=== PATIENT | female | born 1970 | race African-American/Black ===

== ENCOUNTER → 2016-10-25 | Outpatient (CLI) | payer OTHER ==
[2015-09-19 16:00] VITALS: BP 131/89
[~2016-10-25] MED LIST: ALPR0.5T PO; BIOT25004 PO; CEPH500C PO; CHLO25TA PO; CYCL10TA2 PO; HYDR-2666 PO; IOHEXOL 180 MG/ML 10 ML VIAL. ONE; METH4TAB2 PO; MORP15TA PO; NAPR500T8 PO; OXYC-323 PO; OXYC10TA32 PO; OXYC1TAB8 PO; POTA10TA31 PO; PRED-220 PO; SCOP1PAT TP; SITA1TAB11 PO; SITA1TBM7 PO; methylPREDNISolone ACETATE 40 MG/ML VIAL. ONE; methylPREDNISolone ACETATE 80 MG/ML VIAL. ONE
--- NOTE | 2016-10-26 01:24 | PAIN ---
DATE OF SERVICE: 10/25/2016 DIAGNOSES: Lumbar radiculopathy with post-lumbar laminectomy syndrome. HISTORY OF PRESENT ILLNESS: The patient is a 46-year-old female who returns for followup status post transforaminal injection in 06/2015. The patient had had several appointments that she did not keep since that time, most recently on 07/17/2016. We had discussed changing medication regimen as she failed to follow up on that as well and returns today with new MRI scan and new symptoms in the low back and in the groin bilaterally, but new with left-sided groin pain since 07/2016, which was not present prior to that. The patient reports having significant pulling sensation in the left groin, as well as the right groin, bilateral low back, posterior hips and gluteus as well as the bilateral anterior thighs, worse in the left groin. The patient reports it is worse with sitting and pain all over her back as well. The patient has not had any recent therapies or other treatments by her report. She did have a new MRI scan, which was performed on 10/11/2016 showing shallow left foraminal disk protrusion at L2-L3 causing mild effacement of the left L2 nerve root and previous surgery with right foraminal disk protrusion was residual, but without significant stenosis. The patient reports the pain 8-9 on a scale of 10, described as aching and dull with numbness and pulling sensation in the left groin with some weakness in the lower extremities, but essentially equal with just from easily fatigued feelings with ambulation, standing, walking, changing positions, and also has been awakening her from sleep at night. PHYSICAL EXAMINATION: VITAL SIGNS: The patient's blood pressure 135/98, pulse 98, respirations 18, temperature 98.5 degrees Fahrenheit, height is 5 feet 6 inches, and weight is 166 pounds. GENERAL: The patient is awake, alert, oriented, appropriate, very pleasant demeanor. HEENT: Head shows normocephalic, atraumatic. Extraocular movements are intact and symmetrical. Oral cavity shows mucous membranes moist and pink. Dentition is intact. NECK: Shows anterior throat supple without palpable lymphadenopathy noted. Neck shows full rotational motion of the cervical spine without difficulty. CHEST: Shows normal on inspection. Breath sounds clear to auscultation bilaterally. HEART: Shows S1 and S2 clear. ABDOMEN: Soft, nontender, and nondistended. No palpable organomegaly. No rebound or guarding demonstrated. BACK: Shows spine grossly midline. Normal appearing thoracic kyphosis and some flattening of the lumbar lordotic curvature. There is well-healed surgical scar noted in the lumbar distribution. Lumbar paraspinous musculature is symmetrical on inspection with palpation, tender diffusely throughout the upper, middle and lower distribution bilaterally without radiation. No tenderness over the sacrum or sacroiliac regions. The patient does show good rotational motion; however, lumbar spine including extension and flexion without significant pain reported. EXTREMITIES: Lower extremities show deep tendon reflexes 2+ in the patellar tendons. Motor exam is strong with 5/5 dorsiflexion, extension, quadriceps and hamstring flexion and are equal. Options were discussed with the patient and the patient's old chart was reviewed as her current medication regimen at this time and current review of systems updated today as well. We will proceed with a lumbar epidural steroid injection at the L2-L3 level with fluoroscopic guidance. Risks were again discussed including, but not limited to bleeding, infection, possibility of epidural hematoma, subsequent neurologic compromise, dural puncture, headaches, spinal cord and/or nerve damage, side effects of steroid medication and poor results regarding pain control. The patient understands and wishes to proceed. The patient will return to clinic in approximately 2 weeks for followup, was counseled on return appointment, activity level and side effects to be aware of. DIAGNOSES: Lumbar radiculopathy with post-lumbar laminectomy syndrome. PROCEDURES: Lumbar epidural steroid injection in translaminar approach at the L2-L3 level using fluoroscopic guidance under sterile prep and drape using local anesthetic. MEDICATIONS INJECTED: Depo-Medrol 120 mg plus 10 mL of preservative-free normal saline and 2 mL OF Isovue for contrast. CONDITION AT DISCHARGE: Stable. The patient tolerated the procedure well, had no complications. KIM TODD MD DR: LEXUS/adri JOB#: [id number] / [id number]
== END | disposition home or self-care (01) ==
LOC: PNCL 09:38
PROVIDERS: ATTEND Anesthesiology
DX: M54.16 Radiculopathy, lumbar region (principal); M96.1 Postlaminectomy syndrome, not elsewhere classified; E78.00 Pure hypercholesterolemia, unspecified; I10 Essential (primary) hypertension; E66.9 Obesity, unspecified; M19.90 Unspecified osteoarthritis, unspecified site; E11.9 Type 2 diabetes mellitus without complications; K82.9 Disease of gallbladder, unspecified; K21.9 Gastro-esophageal reflux disease without esophagitis; Z90.49 Acquired absence of other specified parts of digestive tract; Z90.710 Acquired absence of both cervix and uterus
CPT/HCPCS: 62323; J1030; J1040

== ENCOUNTER 2016-12-15 15:01 | Inpatient (IN) | payer OTHER ==
[~2016-12-15] VITALS: Ht 167.6 cm; Wt 75.7 kg
[~2016-12-15 15:01] MED LIST changes: -IOHEXOL 180 MG/ML 10 ML VIAL. ONE; -methylPREDNISolone ACETATE 40 MG/ML VIAL. ONE; -methylPREDNISolone ACETATE 80 MG/ML VIAL. ONE
[2016-12-15] MEDS ORDERED: ORPHENADRINE CITRATE 60 MG/2 ML VIAL. IM ONE (16:00)
[2016-12-15] MEDS ORDERED: HYDROMORPHONE 2 MG/ML VIAL. IM ONE ×2 (16:00→16:45)
--- NOTE | 2016-12-15 16:31 | PHYS DOC ---
Past Medical History Past Medical History: Diabetes-Type II, Hypertension, Other Additional Past Medical Histor: CHRONIC BACK PAIN Past Surgical History: Appendectomy, Cholecystectomy, , Hysterectomy, Other Additional Past Surgical Histo: L- SPINE FUSION X 2 Additional Information: nonsmoker Alcohol Use: None Drug Use: None Adult General Chief Complaint Chief Complaint: BACK PAIN OR INJURY [facility] HPI Patient is a 46 year old female who presents with increase in her chronic back pain starting 3 days ago. She states that she woke up with increase in her pain. She typically has pain in her lower back with radiation down the right leg. Her current pain is in the right shoulder blade or in the left groin. She states that the location of the pain varies based on her position. She believes that it is at least partially due to compensation for pain in 1 area causing pain in another area. She denies any new injury to her back. She has had 2 spinal fusion surgeries. She takes hydromorphone 2mg every 6 hours for pain as well as Flexeril and Gabapentin for pain. She last took her hydromorphone at 0800 today. She denies incontinence of bowel or bladder or saddle anesthesia. She has not had nausea, vomiting, abdominal pain, dysuria, hematuria, or new weakness or numbness. Her PCP is Dr. Gonzalez. Review of Systems Review of Systems Constitutional: Denies fever or chills. [] Eyes: Denies change in visual acuity, redness, or eye pain. [] HENT: Denies ear pain, nasal congestion or sore throat. [] Respiratory: Denies cough or shortness of breath. [] Cardiovascular: Denies chest pain, palpitations or edema. [] GI: Denies abdominal pain, nausea, vomiting, bloody stools or diarrhea. [] : Denies dysuria, hematuria or urinary frequency. [] Musculoskeletal: Denies joint pain. Reports low-back pain. Integument: Denies rash or skin lesions. [] Neurologic: Denies headache, focal weakness or sensory changes. Denies incontinence or saddle anesthesia. Endocrine: Denies polyuria or polydipsia. [] Psych: Denies anxiety or depression. [] All systems reviewed and negative unless otherwise stated in the HPI. Current Medications Current Medications Current Medications Medications (Trade) Dose Ordered Sig/Benita Start Time Stop Time Status Last Admin Dose Admin Diazepam (Valium) 10 mg 1X ONCE 4/8/17 18:00 12/15/16 18:01 DC 12/15/16 18:00 10 MG Hydromorphone HCl (Dilaudid) 1 mg 1X ONCE 12/15/16 16:45 12/15/16 16:46 DC 12/15/16 16:56 1 MG Orphenadrine Citrate (Norflex) 60 mg 1X ONCE 12/15/16 16:00 12/15/16 16:01 DC 12/15/16 16:06 60 MG Allergies Allergies Allergies Coded Allergies Type Severity Reaction Last Updated Verified spironolactone Allergy Intermediate Itching, RASH 09/08/15 Yes tramadol Allergy Intermediate Rash AND VOMITING 09/16/15 Yes Physical Exam Physical Exam Constitutional: Well developed, well nourished, no acute distress, non-toxic appearance. [] HENT: Normocephalic, atraumatic, oropharynx moist. [] Eyes: PERRLA, EOMI, conjunctiva normal, no discharge. [] Neck: Normal range of motion, no tenderness, supple, no stridor. [] Cardiovascular: Heart rate regular rhythm, no murmur. [] Lungs & Thorax: Bilateral breath sounds clear to auscultation without wheezes, rales, or rhonchi. [] Abdomen: Bowel sounds normal, soft, no tenderness, no masses, no pulsatile masses. [] Skin: Warm, dry, no erythema, no rash. [] Back: Lumbar midline tenderness, no CVA tenderness. Right thoracic paraspinal muscle tenderness with muscle spasm. Extremities: No tenderness, ROM intact, no edema. Distal pulses equal bilaterally. Light touch sensation intact proximally and distally and equal bilaterally in the lower extremities. Neurologic: Alert and oriented X 3, normal motor function, normal sensory function, no focal deficits noted. The patient walks with a normal steady gait without assistance. Psychologic: Affect normal, judgement normal, mood normal. [] Current Patient Data Vital Signs Vital Signs Date Time Temp Pulse Resp B/P Pulse Ox O2 Delivery O2 Flow Rate FiO2 12/15/16 16:56 Room Air 12/15/16 15:03 98.1 108 20 137/103 98.1 EKG EKG [] Radiology/Procedures Radiology/Procedures [] Course & Med Decision Making Course & Med Decision Making Pertinent Labs and Imaging studies reviewed. (See chart for details) Patient is a 46-year-old female with history of chronic low-back pain who presents with acute exacerbation of her pain. On exam, she does not have any neurologic deficits. She is neurovascularly intact. She usually takes oral Dilaudid, Flexeril, and gabapentin home. She is given IM Dilaudid and Norflex in the emergency department with minimal improvement in her pain. She was given another dose of Dilaudid without change. She was then given IM Valium to help relax the muscles in the right shoulder causing the majority of her pain. Patient course was discussed with Dr. Anthony, who agrees with assessment and plan. Care was transferred to Cady Gutierrez NP at 1735 pending administration of the Valium and patient response to the medication. I discussed possibility of hospital admission if the patient's pain is unable to be controlled. 1839 patient continues to have pain in the right upper shoulder she states that it's more underneath the shoulder blade. She states that if she sits up that kind of helps with the pain but does not completely take care of the pain. She states although this causes her to have more pain in her lower back ingrown area. Spoke with patient in regards to being admitted call was placed to Dr. Fonseca in which I spoke with Marifer the nurse with the group. She states that they would be consulted and have the patient admitted under the hospitalist. 1914 Spoke with in regards to patient be admitted. They are aware that the consult for Dr. white will be placed. Patient will be provided with pain medication here in the emergency department and will be provided with pain medication ordered for the floor. They were also provided with information that Dr. white staff states that they will determine radiological exams tomorrow. Hospitalist was in agreement with admission. Dragon Disclaimer Dragon Disclaimer This electronic medical record was generated, in whole or in part, using a voice recognition dictation system. Departure Departure Impression: Primary Impression: Acute exacerbation of chronic low back pain Disposition: ADMITTED INPATIENT Admitting Physician: Aris Jackson (and Marifer with Dr Fonseca office) Condition: STABLE Referrals: KATERINE PIERS MD (PCP) JADYN POOL Dec 15, 2016 16:31 CADY GUTIERREZ APRN Dec 15, 2016 19:17
[2016-12-15] MEDS ORDERED: PRED20TA PO (17:07)
[2016-12-15] MEDS ORDERED: DIAZEPAM 10 MG/2 ML DISP.SYRIN. IM ONE (18:00)
[2016-12-15] MEDS ORDERED: ONDANSETRON PF 4 MG/2 ML VIAL. IV PRN (19:30)
[2016-12-15 20:43] VITALS: BP 154/107
[2016-12-15] MEDS: MORPHINE SULFATE 2 MG/ML DISP.SYRIN. IV PRN (20:52)
[2016-12-15] MEDS ORDERED: HYDR2TAB13 PO (21:12)
[2016-12-15] MEDS ORDERED: METF10002 PO (21:12)
[2016-12-15] MEDS ORDERED: GABA-586 PO ×2 (21:12)
[2016-12-15] MEDS ORDERED: BIOT25005 PO (21:12)
[2016-12-15] MEDS ORDERED: DIPHENHYDRAMINE HCL 25 MG CAPSULE PO PRN (21:45)
[2016-12-15 23:10] VITALS: BP_SYST 113; BP_SYST 128; BP_DIAS 54; BP_DIAS 98
[2016-12-16] VITALS (7 sets, daily range): BP systolic 128–147; BP diastolic 86–98
[2016-12-16] MEDS: HYDROMORPHONE 2 MG TABLET. PO PRN ×3 (00:10→17:35)
[2016-12-16] MEDS: MORPHINE SULFATE 2 MG/ML DISP.SYRIN. IV PRN ×6 (00:11→23:50)
[2016-12-16] MEDS: GABAPENTIN 300 MG CAPSULE. PO SCH ×3 (00:11→23:50)
[2016-12-16] MEDS: CHLORTHALIDONE 25 MG TABLET. PO SCH (08:00)
[2016-12-16] MEDS: METFORMIN 1,000 MG TABLET PO SCH ×2 (08:00→16:21)
[2016-12-16] MEDS ORDERED: MAGNESIUM HYDROXIDE 2,400 MG/30 ML ORAL.SUSP. PO PRN (10:30)
[2016-12-16] MEDS: SENNOSIDES/DOCUSATE 8.6/50MG TABLET. PO SCH ×2 (10:57→21:00)
[2016-12-16] MEDS: DOCUSATE SODIUM 100 MG CAPSULE. PO SCH (10:57)
[2016-12-16] MEDS ORDERED: DIAZEPAM 5 MG TABLET PO SCH (11:30)
[2016-12-16] MEDS ORDERED: ONDANSETRON PF 4 MG/2 ML VIAL. IV PRN (12:00)
[2016-12-16] MEDS ORDERED: DEXTROSE 50% 25 GM / 50ML DISP.SYRIN. IV PRN (12:00)
[2016-12-16] MEDS ORDERED: ACETAMINOPHEN 325 MG TABLET. PO PRN (12:00)
--- NOTE | 2016-12-16 12:01 | PDOC1 ---
History and Physical Date of Admission Date of Admission 12/15/16 Identification/Chief Complaint Chief Complaint upper back pain Problems: Source Source: Chart review, Patient History of Present Illness History of Present Illness HPI HPI Patient is a 46 year old female with chronic back pain post sx before, came for upper back pain. She denies injury, saying this upper back pain is new for her, since 3 ds ago, shotting down to right arm, wo numbness/tingling, has some weakness when pain is severe. She has had 2 spinal fusion surgeries. She takes hydromorphone 2mg every 6 hours for pain as well as Flexeril and Gabapentin for pain. She last took her hydromorphone at 0800 today. She denies incontinence of bowel or bladder or saddle anesthesia. She has not had nausea, vomiting, abdominal pain, dysuria, hematuria, or new weakness or numbness. Her PCP is Dr. Gonzalez. ERP called dr. Nixon, would like to admit pt and then decide if need MRI. Past Medical History Past Medical History Diabetes-Type II, Hypertension, Other Additional Past Medical Histor: CHRONIC BACK PAIN Past Surgical History Past Surgical History : Appendectomy, Cholecystectomy, , Hysterectomy, Other Additional Past Surgical Histo: L- SPINE FUSION X 2 Family History Family History: No Significant Social History Smoke: No ALCOHOL: none Drugs: None Current Problem List Problem List Problems Medical Problems: (1) Acute exacerbation of chronic low back pain Status: Acute (2) Upper back pain on right side Status: Acute Current Medications Current Medications Current Medications Medications (Trade) Dose Ordered Sig/Benita Start Time Stop Time Status Last Admin Dose Admin Chlorthalidone (Thalitone) 50 mg DAILY 12/16/16 09:00 12/16/16 08:00 50 MG Cyclobenzaprine HCl (Flexeril) 10 mg PRN TID PRN 12/15/16 21:45 Diazepam (Valium) 10 mg 1X 12/16/16 11:30 12/16/16 11:31 10 MG Diphenhydramine HCl (Benadryl) 25 mg PRN QHS PRN 12/15/16 21:45 Docusate Sodium (Colace) 100 mg BID 12/16/16 11:00 12/16/16 10:57 100 MG Gabapentin (Neurontin) 900 mg HS 12/15/16 22:00 12/16/16 00:11 900 MG Hydromorphone HCl (Dilaudid) 4 mg PRN Q6HRS PRN 12/15/16 21:45 12/16/16 11:12 4 MG Magnesium Hydroxide (Milk Of Magnesia) 2,400 mg PRN Q12HR PRN 12/16/16 10:30 Metformin HCl (Glucophage) 1,000 mg BIDWMEALS 12/16/16 08:00 12/16/16 08:00 1,000 MG Morphine Sulfate 2 mg PRN Q2HR PRN 12/15/16 19:30 12/16/16 19:29 12/16/16 10:57 2 MG Ondansetron HCl (Zofran) 4 mg PRN Q8HRS PRN 12/15/16 19:30 12/16/16 19:29 Orphenadrine Citrate (Norflex) 60 mg 1X ONCE 12/15/16 16:00 12/15/16 16:01 DC 12/15/16 16:06 60 MG Senna/Docusate Sodium (Senna Plus) 1 tab BID 12/16/16 11:00 12/16/16 10:57 1 TAB Allergies Allergies Allergies Coded Allergies Type Severity Reaction Last Updated Verified spironolactone Allergy Intermediate Itching, RASH 09/08/15 Yes tramadol Allergy Intermediate Rash AND VOMITING 09/16/15 Yes ROS Review of System CONSTITUTIONAL: No fever or chills EYES: No recent changes SKIN: No rash or itching CARDIOVASCULAR: No chest pain, syncope, palpitations, or edema RESPIRATORY: No SOB or cough GASTROINTESTINAL: No nausea, vomiting or abdominal pain NEUROLOGICAL: No headaches or weakness ENDOCRINE: No cold or heat intolerance GENITOURINARY: No urgency or frequency of urination MUSCULOSKELETAL: No back pain or joint pain LYMPHATICS: No enlarged lymph nodes PSYCHIATRIC: No anxiety or depression Physical Exam Physical Exam GEN.: No apparent distress. Alert and oriented. HEENT: Head is normocephalic, atraumatic NECK: Supple. LUNGS: Clear to auscultation. HEART: RRR, S1, S2 present. Peripheral pulses intact ABDOMEN: Soft, nontender. Positive bowel sounds. EXTREMITIES: Without any cyanosis. no specific ext weakness, upper back tenderness at spine. NEUROLOGIC: Normal speech, normal tone PSYCHIATRIC: Normal affect, normal mood. SKIN: No ulcerations Vitals Vitals Vital Signs Date Time Temp Pulse Resp B/P Pulse Ox O2 Delivery O2 Flow Rate FiO2 12/16/16 11:27 97 Room Air 12/16/16 11:12 18 12/16/16 10:57 97.8 111 132/92 97.8 Labs Labs Laboratory Tests Test 12/16/16 07:59 12/16/16 10:14 Glucose (Fingerstick) 195mg/dL (70-99) 283mg/dL (70-99) Laboratory Tests Test 12/16/16 07:59 12/16/16 10:14 Glucose (Fingerstick) 195mg/dL (70-99) 283mg/dL (70-99) VTE Prophylaxis Ordered VTE Prophylaxis Devices: Yes VTE Pharmacological Prophylaxi: Yes Assessment/Plan Assessment/Plan 1. new onset upper back pain, need to rule out spinal stenosis 2. chronic back pain with h/o lumber fusion sx x2 3. dm2 4. htn 5. obesity 6. constipation plan: 1. fu with dr. Nixon , defer to neurosx to do MRI 2. cont home meds, pain control 3. ssi 4. ptot dvt ppx stool softALICIA Oleary MD Dec 16, 2016 12:01
[2016-12-16] MEDS: INSULIN ASPART 300 UNITS/3 ML INSULN.PEN SQ SCH ×2 (13:11→16:24)
[2016-12-16 13:32] LABS: BASO % 1 % (0-3); EOS % 3 % (0-3); HEMATOCRIT 36.6 % (36.0-47.0); HEMOGLOBIN 12.5 g/dL (12.0-15.5); LYMPH # 1.8 x10^3/uL (1.0-4.8); LYMPH % 43 % (24-48); MEAN CORPUSCULAR HEMOGLOBIN 29 pg (25-35); MEAN CORPUSCULAR HGB CONC 34 g/dL (31-37); MEAN CORPUSCULAR VOLUME 85 fL (79-100); MONO % 9 % (0-9); NEUT % 44 % (31-73); PLATELET COUNT 260 x10^3/uL (140-400); RED BLOOD COUNT 4.33 x10^6/uL (3.50-5.40); RED CELL DISTRIBUTION WIDTH 15.2 % (11.5-14.5); WHITE BLOOD COUNT 4.1 x10^3/uL (4.0-11.0)
[2016-12-16 13:44] LABS: CALCIUM 9.7 mg/dL (8.5-10.1); CREATININE 0.7 mg/dL (0.6-1.0); GFR 108.1; POTASSIUM 3.1 mmol/L (3.5-5.1)
--- NOTE | 2016-12-16 14:33 | RAD ---
MRI study of the cervical spine without contrast Indications: Right arm pain. Pain between shoulder blades. Cervical radiculopathy. Symptoms have been present for 2 days. Technique: Noncontrast MRI sequences of the cervical spine were performed. Comparison: None available. Findings: No cerebellar tonsillar ectopia is seen. The cervical cord is normal without atrophy or edema. No bone marrow edema or compression fracture or discitis or marrow infiltrative process or anterolisthesis is seen. There is a hemangioma of C7. No focal disc protrusion or spinal canal stenosis or neural from narrowing is seen from C2-3 down through C5-6 and C7-T1. At C6-7, there is a moderate-sized broad-based central disc protrusion is more prominent on the right side and comes in contact with but does not displace the cervical cord. It extends towards the opening of the neural foramen on the right side. This narrows the AP dimension of the spinal canal in the midline to 8 mm. No significant narrowing of the neural foramina is evident. IMPRESSION: There is a moderate-sized broad-based central disc protrusion at C6-7 which is more prominent on the right side.
[2016-12-16] MEDS: ENOXAPARIN 40 MG/0.4 ML SYRINGE. SQ SCH (15:46)
--- NOTE | 2016-12-16 21:09 | CONS ---
DATE OF CONSULTATION: 12/16/2016 REASON FOR CONSULTATION: Right shoulder and arm pain. HISTORY OF PRESENT ILLNESS: The patient is a very pleasant 46-year-old woman who, in the past, has undergone lumbar surgeries for severe right lumbar radiculopathy. She has undergone spine fusion operations and currently requires chronic narcotic medications for severe lower back pain and pain which radiates into her right whole leg. She has been maintained on this regimen for a considerable period. She says that, in the past, she has had some episodes of right-sided neck pain and some pain which could radiate into her right shoulder, but those problems receded when she developed her lower back problems. She says that last week, she awakened with significant pain in the interscapular region, which was very severe. She said the following day that pain had moved over to the right medial scapular area and involved her right medial scapular region and then her right shoulder and then radiated diffusely into her right arm. She related that yesterday the pain became extremely severe with a numb burning pain, which radiated diffusely into the right arm, forearm, and involved her right hand. She has not noticed specific weakness of the hand. She said that the numb feeling was a burning feeling, it felt like her hand was "asleep". She was seen in the Emergency Room and admitted for pain control and further evaluation and treatment. She has no problems on the left side. Her right lower extremity pain remains severe and is unchanged. PAST MEDICAL HISTORY: Diabetes type 2, hypertension, and of problems with her lower back and right lower extremity. PAST SURGICAL HISTORY: Includes appendectomy, cholecystectomy, , hysterectomy, and lumbar spine surgery x 3. PERSONAL HISTORY: She is a disabled. She is a nonsmoker. She does not use alcohol or take illicit drugs. MEDICATIONS: Her medications were reviewed and are noncontributory. ALLERGIES: She reports allergies to spironolactone and tramadol, which both rash. REVIEW OF SYSTEMS: Review of systems of 12-point was performed other outlined above was negative. PHYSICAL EXAMINATION: GENERAL: She is in no acute distress, currently supine in bed, head of bed is elevated about 30 degrees. She was alert and conversant. HEENT: Normocephalic, atraumatic. NECK: There was mild tenderness with palpation along the posterior right paraspinal musculature extending down into the upper medial scapular region. Paraspinal muscle bulk strength I felt were normal. There was slight restriction range of motion with her head turned towards the right compared to the left. NEUROLOGIC: Her strength is 5/5 in upper and lower extremities bilaterally except for 4+/5 right hand grasp. On sensory examination, she was intact to light touch in the upper and lower extremities. Reflexes were 1+ and symmetric in the upper and lower extremities. There were no pathologic reflexes. There was full range of motion of the upper and lower extremities bilaterally. There were no studies for review. She has problems currently with her right cervical radiculopathy in addition to her chronic lower back difficulties. I am going to have MRI scans of the cervical and thoracic spine done today to evaluate her more fully. I discussed all this with her. KATERINE PIRES MD DR: ESTEBAN/adri JOB#: [id number] / [id number] VERNON
[2016-12-17] MEDS: DOCUSATE SODIUM 100 MG CAPSULE. PO SCH ×3 (00:26→20:40)
[2016-12-17] MEDS: MORPHINE SULFATE 2 MG/ML DISP.SYRIN. IV PRN ×3 (05:54→20:41)
[2016-12-17 07:00] VITALS: BP 132/92
[2016-12-17] MEDS: METFORMIN 1,000 MG TABLET PO SCH ×2 (07:53→16:59)
[2016-12-17] MEDS: CHLORTHALIDONE 25 MG TABLET. PO SCH (07:54)
[2016-12-17] MEDS: GABAPENTIN 300 MG CAPSULE. PO SCH (07:54)
[2016-12-17] MEDS: INSULIN ASPART 300 UNITS/3 ML INSULN.PEN SQ SCH ×3 (07:57→16:59)
[2016-12-17] MEDS: SENNOSIDES/DOCUSATE 8.6/50MG TABLET. PO SCH ×2 (07:58→20:42)
[2016-12-17] MEDS: HYDROMORPHONE 2 MG TABLET. PO PRN (07:59)
[2016-12-17 10:38] VITALS: BP 125/94
[2016-12-17] MEDS ORDERED: LORAZEPAM 2 MG/ML VIAL. IV ONE (11:15)
--- NOTE | 2016-12-17 12:27 | RAD ---
MR THORACIC SPINE HISTORY: RIGHT ARM PAIN AND PAIN BETWEEN SHOULDER BLADES, NO SX HX, NO PRIORS Reason: cervical radiculopathy / Spl. Instructions: / History: COMPARISON: None Technique: Sagittal T2, sagittal STIR, sagittal T1, and axial gradient echo imaging was obtained of the thoracic spine. FINDINGS: Vertebral body height and alignment is maintained throughout the thoracic spine. There is a normal thoracic kyphosis. No abnormal bone marrow signal seen. The canal is patent throughout. The cord is of normal caliber without abnormal signal. No significant degenerative changes are identified. Paraspinous soft tissues are within normal limits. Visualized intrathoracic contents are unremarkable. A hepatic cyst is noted. IMPRESSION: Unremarkable MR examination of the thoracic spine. Electronically signed by: Jeromy Shaw (Dec 17, 2016 12:26:06)
--- NOTE | 2016-12-17 12:41 | PDOC ---
PROGRESS NOTES Subjective Subjective Seen at 1130. continues to have neck and right arm pain going to Radiology for thoracic MRI now Objective Objective Vital Signs Date Time Temp Pulse Resp B/P Pulse Ox O2 Delivery O2 Flow Rate FiO2 12/17/16 11:10 Room Air 12/17/16 10:38 97.9 101 18 125/94 96 97.9 Intake and Output 12/17/16 07:00 Intake Total 1950 ml Balance 1950 ml Intake Oral 1950 ml # Voids 4 Physical Exam General: Alert, Oriented X3, Cooperative MUSCULOSKELETAL: Other (STEWARD) Neuro: Normal speech Psych/Mental Status: Mental status NL Assessment Assessment Problems Medical Problems: (1) Acute exacerbation of chronic low back pain Status: Acute (2) Upper back pain on right side Status: Acute Plan Plan of Care reviewed cervical MRI with Dr. Nixon. There is a herniated cervical disc at C5-6 on the right which is slightly more prominent than on previous imaging. Definite nerve root compression was not seen. We will ask Dr. Ken to see her for REJI. Will review thoracic MRI when available. Comment Review of Relevant I have reviewed the following items pretty (where applicable) has been applied. Labs Laboratory Tests Test 12/16/16 07:59 12/16/16 10:14 12/16/16 13:15 12/16/16 15:59 Glucose (Fingerstick) 195mg/dL (70-99) 283mg/dL (70-99) 214mg/dL (70-99) White Blood Count 4.1x10^3/uL (4.0-11.0) Red Blood Count 4.33x10^6/uL (3.50-5.40) Hemoglobin 12.5g/dL (12.0-15.5) Hematocrit 36.6% (36.0-47.0) Mean Corpuscular Volume 85fL (79-100) Mean Corpuscular Hemoglobin 29pg (25-35) Mean Corpuscular Hemoglobin Concent 34g/dL (31-37) Red Cell Distribution Width 15.2% (11.5-14.5) Platelet Count 260x10^3/uL (140-400) Neutrophils (%) (Auto) 44% (31-73) Lymphocytes (%) (Auto) 43% (24-48) Monocytes (%) (Auto) 9% (0-9) Eosinophils (%) (Auto) 3% (0-3) Basophils (%) (Auto) 1% (0-3) Neutrophils # (Auto) 1.8x10^3uL (1.8-7.7) Lymphocytes # (Auto) 1.8x10^3/uL (1.0-4.8) Monocytes # (Auto) 0.4x10^3/uL (0.0-1.1) Eosinophils # (Auto) 0.1x10^3/uL (0.0-0.7) Basophils # (Auto) 0.0x10^3/uL (0.0-0.2) Sodium Level 140mmol/L (136-145) Potassium Level 3.1mmol/L (3.5-5.1) Chloride Level 100mmol/L (98-107) Carbon Dioxide Level 33mmol/L (21-32) Anion Gap 7 (6-14) Blood Urea Nitrogen 14mg/dL (7-20) Creatinine 0.7mg/dL (0.6-1.0) Estimated GFR (Cockcroft-Gault) 108.1 Glucose Level 183mg/dL (70-99) Calcium Level 9.7mg/dL (8.5-10.1) Test 12/17/16 07:19 12/17/16 10:14 Glucose (Fingerstick) 206mg/dL (70-99) 210mg/dL (70-99) Laboratory Tests Test 12/16/16 13:15 12/16/16 15:59 12/17/16 07:19 12/17/16 10:14 White Blood Count 4.1x10^3/uL (4.0-11.0) Red Blood Count 4.33x10^6/uL (3.50-5.40) Hemoglobin 12.5g/dL (12.0-15.5) Hematocrit 36.6% (36.0-47.0) Mean Corpuscular Volume 85fL (79-100) Mean Corpuscular Hemoglobin 29pg (25-35) Mean Corpuscular Hemoglobin Concent 34g/dL (31-37) Red Cell Distribution Width 15.2% (11.5-14.5) Platelet Count 260x10^3/uL (140-400) Neutrophils (%) (Auto) 44% (31-73) Lymphocytes (%) (Auto) 43% (24-48) Monocytes (%) (Auto) 9% (0-9) Eosinophils (%) (Auto) 3% (0-3) Basophils (%) (Auto) 1% (0-3) Neutrophils # (Auto) 1.8x10^3uL (1.8-7.7) Lymphocytes # (Auto) 1.8x10^3/uL (1.0-4.8) Monocytes # (Auto) 0.4x10^3/uL (0.0-1.1) Eosinophils # (Auto) 0.1x10^3/uL (0.0-0.7) Basophils # (Auto) 0.0x10^3/uL (0.0-0.2) Sodium Level 140mmol/L (136-145) Potassium Level 3.1mmol/L (3.5-5.1) Chloride Level 100mmol/L (98-107) Carbon Dioxide Level 33mmol/L (21-32) Anion Gap 7 (6-14) Blood Urea Nitrogen 14mg/dL (7-20) Creatinine 0.7mg/dL (0.6-1.0) Estimated GFR (Cockcroft-Gault) 108.1 Glucose Level 183mg/dL (70-99) Calcium Level 9.7mg/dL (8.5-10.1) Glucose (Fingerstick) 214mg/dL (70-99) 206mg/dL (70-99) 210mg/dL (70-99) Medications Current Medications Hydromorphone HCl (Dilaudid) 1 mg 1X ONCE IM Last administered on 12/15/16 16: 04; Start 12/15/16 at 16:00; Stop 12/15/16 at 16:01; Status DC Orphenadrine Citrate (Norflex) 60 mg 1X ONCE IM Last administered on 12/15/16 16:06; Start 12/15/16 at 16:00; Stop 12/15/16 at 16:01; Status DC Hydromorphone HCl (Dilaudid) 1 mg 1X ONCE IM Last administered on 12/15/16 16: 56; Start 12/15/16 at 16:45; Stop 12/15/16 at 16:46; Status DC Diazepam (Valium) 10 mg 1X ONCE IM Last administered on 12/15/16 18:00; Start 12/15/16 at 18:00; Stop 12/15/16 at 18:01; Status DC Ondansetron HCl (Zofran) 4 mg PRN Q8HRS PRN IV NAUSEA/VOMITING; Start 12/15/16 at 19:30; Stop 12/16/16 at 12:07; Status DC Morphine Sulfate 2 mg PRN Q2HR PRN IV PAIN Last administered on 12/16/16 19:22 ; Start 12/15/16 at 19:30; Stop 12/16/16 at 19:29; Status DC Chlorthalidone (Thalitone) 50 mg DAILY PO Last administered on 12/17/16 07:54 ; Start 12/16/16 at 09:00 Cyclobenzaprine HCl (Flexeril) 10 mg PRN TID PRN PO MUSCLE SPASMS; Start at 21:45 Hydromorphone HCl (Dilaudid) 2 mg PRN Q6HRS PRN PO PAIN Last administered on 00:10; Start 12/15/16 at 21:45 Hydromorphone HCl (Dilaudid) 4 mg PRN Q6HRS PRN PO PAIN Last administered on 07:59; Start 12/15/16 at 21:45 Metformin HCl (Glucophage) 1,000 mg BIDWMEALS PO Last administered on 07:53; Start 12/16/16 at 08:00 Gabapentin (Neurontin) 300 mg DAILY PO Last administered on 12/17/16 07:54; Start 12/16/16 at 09:00 Gabapentin (Neurontin) 900 mg HS PO Last administered on 12/16/16 23:50; Start 12/15/16 at 22:00 Diphenhydramine HCl (Benadryl) 25 mg PRN QHS PRN PO INSOMNIA; Start 12/15/16 at 21:45 Senna/Docusate Sodium (Senna Plus) 1 tab BID PO Last administered on 12/16/16 10:57; Start 12/16/16 at 11:00 Docusate Sodium (Colace) 100 mg BID PO Last administered on 12/17/16 00:26; Start 12/16/16 at 11:00 Magnesium Hydroxide (Milk Of Magnesia) 2,400 mg PRN Q12HR PRN PO CONSTIPATION; Start 12/16/16 at 10:30 Diazepam (Valium) 10 mg 1X PO Last administered on 12/16/16 11:31; Start at 11:30 Insulin Aspart (Novolog) 0-9 UNITS TIDWMEALS SQ Last administered on 12/17/16 07:57; Start 12/16/16 at 12:00 Dextrose (Dextrose 50%-Water Syringe) 12.5 gm PRN Q15MIN PRN IV SEE COMMENTS; Start 12/16/16 at 12:00 Acetaminophen (Tylenol) 650 mg PRN Q6HRS PRN PO FEVER; Start 12/16/16 at 12:00 Ondansetron HCl (Zofran) 4 mg PRN Q6HRS PRN IV NAUSEA/VOMITING Last administered on 12/17/16 09:21; Start 12/16/16 at 12:00 Enoxaparin Sodium (Lovenox 40mg Syringe) 40 mg Q24H SQ Last administered on 12/16 15:46; Start 12/16/16 at 16:00 Morphine Sulfate 2 mg PRN Q2HR PRN IV PAIN Last administered on 12/17/16 11:10 ; Start 12/16/16 at 23:30 Lorazepam (Ativan) 1 mg 1X ONCE IV Last administered on 12/17/16 11:10; Start 12/17/16 at 11:15; Stop 12/17/16 at 11:16; Status DC Active Scripts Active Reported Biotin 2,500 Mcg Capsule 5,000 Mcg PO [id number] Dilaudid (Hydromorphone Hcl) 2 Mg Tablet 2 Tab PO PRN Q6HRS PRN Dilaudid (Hydromorphone Hcl) 2 Mg Tablet 1 Tab PO PRN Q6HRS PRN Metformin Hcl 1,000 Mg Tablet 1 Tab PO BID Gabapentin 300 Mg Capsule 900 Mg PO HS Gabapentin 300 Mg Capsule 300 Mg PO DAILY Cyclobenzaprine Hcl 10 Mg Tablet 1 Tab PO TID PRN LAST DOSE GIVEN: DATE: 09/08 TIME: 9 am NEXT DOSE DUE: DATE: 09/09 TIME: 9 am Chlorthalidone 25 Mg Tablet 50 Mg PO DAILY LAST DOSE GIVEN: DATE: 09/08 TIME: 9 am NEXT DOSE DUE: DATE: 09/09 TIME: 9 am Vitals/I & O Vital Sign - Last 24 Hours 12/16/16 12/16/16 12/16/16 12/16/16 14:31 17:35 18:35 19:22 Temp 97.9 97.9 Pulse 108 Resp 18 18 18 18 B/P 134/90 Pulse Ox 95 95 95 O2 Delivery Room Air Room Air Room Air 12/16/16 12/16/16 12/16/16 12/16/16 19:27 19:50 23:50 23:50 Temp 98.6 98.1 98.6 98.1 Pulse 107 20 Resp 18 18 20 B/P 129/91 147/98 Pulse Ox 98 O2 Delivery Room Air Room Air Room Air Room Air 12/17/16 12/17/16 12/17/16 12/17/16 00:20 05:54 07:00 07:59 Temp 97.9 97.9 Pulse 102 Resp 18 18 18 B/P 132/92 Pulse Ox 94 O2 Delivery Room Air Room Air Room Air 12/17/16 12/17/16 12/17/16 12/17/16 08:00 09:21 10:38 11:10 Temp 97.9 97.9 Pulse 101 Resp 18 B/P 125/94 Pulse Ox 96 O2 Delivery Room Air Room Air Room Air Room Air Intake and Output 12/16/16 12/16/16 12/17/16 15:00 23:00 07:00 Intake Total 500 ml 1150 ml 300 ml Balance 500 ml 1150 ml 300 ml MARIVEL PEREZ FILE SYSTEM INSTALLER Dec 17, 2016 12:41
[2016-12-17 14:51] VITALS: BP 130/91
[2016-12-17] MEDS: ENOXAPARIN 40 MG/0.4 ML SYRINGE. SQ SCH (15:56)
[2016-12-17 19:49] VITALS: BP 133/96
--- NOTE | 2016-12-17 21:50 | PDOC ---
PROGRESS NOTES Chief Complaint Chief Complaint cc: back pain A/P Acute on Chronic back pain Diabetes mellitus Plan MRI pending, SSI Pain control with IV morphine PT/OT appreciate NS recommendations. History of Present Illness History of Present Illness seen this morning no fever pain controlled. Vitals Vitals Vital Signs Date Time Temp Pulse Resp B/P Pulse Ox O2 Delivery O2 Flow Rate FiO2 12/17/16 20:41 16 96 Room Air 12/17/16 19:49 97.7 105 133/96 97.7 Physical Exam General: Alert, Oriented X3, Cooperative Heart: Normal S1, Normal S2 Lungs: Clear Abdomen: Normal bowel sounds Labs LABS Laboratory Tests Test 12/17/16 07:19 12/17/16 10:14 12/17/16 16:10 12/17/16 21:36 Glucose (Fingerstick) 206mg/dL (70-99) 210mg/dL (70-99) 179mg/dL (70-99) 188mg/dL (70-99) Assessment and Plan Assessmemt and Plan Problems Medical Problems: (1) Acute exacerbation of chronic low back pain Status: Acute (2) Upper back pain on right side Status: Acute Problems: Comment Review of Relevant I have reviewed the following items pretty (where applicable) has been applied. Labs Laboratory Tests Test 12/16/16 07:59 12/16/16 10:14 12/16/16 13:15 12/16/16 15:59 Glucose (Fingerstick) 195mg/dL (70-99) 283mg/dL (70-99) 214mg/dL (70-99) White Blood Count 4.1x10^3/uL (4.0-11.0) Red Blood Count 4.33x10^6/uL (3.50-5.40) Hemoglobin 12.5g/dL (12.0-15.5) Hematocrit 36.6% (36.0-47.0) Mean Corpuscular Volume 85fL (79-100) Mean Corpuscular Hemoglobin 29pg (25-35) Mean Corpuscular Hemoglobin Concent 34g/dL (31-37) Red Cell Distribution Width 15.2% (11.5-14.5) Platelet Count 260x10^3/uL (140-400) Neutrophils (%) (Auto) 44% (31-73) Lymphocytes (%) (Auto) 43% (24-48) Monocytes (%) (Auto) 9% (0-9) Eosinophils (%) (Auto) 3% (0-3) Basophils (%) (Auto) 1% (0-3) Neutrophils # (Auto) 1.8x10^3uL (1.8-7.7) Lymphocytes # (Auto) 1.8x10^3/uL (1.0-4.8) Monocytes # (Auto) 0.4x10^3/uL (0.0-1.1) Eosinophils # (Auto) 0.1x10^3/uL (0.0-0.7) Basophils # (Auto) 0.0x10^3/uL (0.0-0.2) Sodium Level 140mmol/L (136-145) Potassium Level 3.1mmol/L (3.5-5.1) Chloride Level 100mmol/L (98-107) Carbon Dioxide Level 33mmol/L (21-32) Anion Gap 7 (6-14) Blood Urea Nitrogen 14mg/dL (7-20) Creatinine 0.7mg/dL (0.6-1.0) Estimated GFR (Cockcroft-Gault) 108.1 Glucose Level 183mg/dL (70-99) Calcium Level 9.7mg/dL (8.5-10.1) Test 12/17/16 07:19 12/17/16 10:14 12/17/16 16:10 12/17/16 21:36 Glucose (Fingerstick) 206mg/dL (70-99) 210mg/dL (70-99) 179mg/dL (70-99) 188mg/dL (70-99) Laboratory Tests Test 12/17/16 07:19 12/17/16 10:14 12/17/16 16:10 12/17/16 21:36 Glucose (Fingerstick) 206mg/dL (70-99) 210mg/dL (70-99) 179mg/dL (70-99) 188mg/dL (70-99) Medications Current Medications Hydromorphone HCl (Dilaudid) 1 mg 1X ONCE IM Last administered on 12/15/16t 16: 04; Start 12/15/16 at 16:00; Stop 12/15/16 at 16:01; Status DC Orphenadrine Citrate (Norflex) 60 mg 1X ONCE IM Last administered on 12/15/16 16:06; Start 12/15/16 at 16:00; Stop 12/15/16 at 16:01; Status DC Hydromorphone HCl (Dilaudid) 1 mg 1X ONCE IM Last administered on 12/15/16 16: 56; Start 12/15/16 at 16:45; Stop 12/15/16 at 16:46; Status DC Diazepam (Valium) 10 mg 1X ONCE IM Last administered on 12/15/16 18:00; Start 12/15/16 at 18:00; Stop 12/15/16 at 18:01; Status DC Ondansetron HCl (Zofran) 4 mg PRN Q8HRS PRN IV NAUSEA/VOMITING; Start 12/15/16 at 19:30; Stop 12/16/16 at 12:07; Status DC Morphine Sulfate 2 mg PRN Q2HR PRN IV PAIN Last administered on 12/16/16 19:22 ; Start 12/15/16 at 19:30; Stop 12/16/16 at 19:29; Status DC Chlorthalidone (Thalitone) 50 mg DAILY PO Last administered on 12/17/16 07:54 ; Start 12/16/16 at 09:00 Cyclobenzaprine HCl (Flexeril) 10 mg PRN TID PRN PO MUSCLE SPASMS; Start at 21:45 Hydromorphone HCl (Dilaudid) 2 mg PRN Q6HRS PRN PO PAIN Last administered on 00:10; Start 12/15/16 at 21:45 Hydromorphone HCl (Dilaudid) 4 mg PRN Q6HRS PRN PO PAIN Last administered on 07:59; Start 12/15/16 at 21:45 Metformin HCl (Glucophage) 1,000 mg BIDWMEALS PO Last administered on 16:59; Start 12/16/16 at 08:00 Gabapentin (Neurontin) 300 mg DAILY PO Last administered on 12/17/16 07:54; Start 12/16/16 at 09:00 Gabapentin (Neurontin) 900 mg HS PO Last administered on 12/16/16 23:50; Start 12/15/16 at 22:00 Diphenhydramine HCl (Benadryl) 25 mg PRN QHS PRN PO INSOMNIA; Start 12/15/16 at 21:45 Senna/Docusate Sodium (Senna Plus) 1 tab BID PO Last administered on 12/16/16 10:57; Start 12/16/16 at 11:00 Docusate Sodium (Colace) 100 mg BID PO Last administered on 12/17/16 20:40; Start 12/16/16 at 11:00 Magnesium Hydroxide (Milk Of Magnesia) 2,400 mg PRN Q12HR PRN PO CONSTIPATION; Start 12/16/16 at 10:30 Diazepam (Valium) 10 mg 1X PO Last administered on 12/16/16 11:31; Start at 11:30 Insulin Aspart (Novolog) 0-9 UNITS TIDWMEALS SQ Last administered on 12/17/16 16:59; Start 12/16/16 at 12:00 Dextrose (Dextrose 50%-Water Syringe) 12.5 gm PRN Q15MIN PRN IV SEE COMMENTS; Start 12/16/16 at 12:00 Acetaminophen (Tylenol) 650 mg PRN Q6HRS PRN PO FEVER; Start 12/16/16 at 12:00 Ondansetron HCl (Zofran) 4 mg PRN Q6HRS PRN IV NAUSEA/VOMITING Last administered on 12/17/16 09:21; Start 12/16/16 at 12:00 Enoxaparin Sodium (Lovenox 40mg Syringe) 40 mg Q24H SQ Last administered on 12/16 15:46; Start 12/16/16 at 16:00 Morphine Sulfate 2 mg PRN Q2HR PRN IV PAIN Last administered on 12/17/16 20:41 ; Start 12/16/16 at 23:30 Lorazepam (Ativan) 1 mg 1X ONCE IV Last administered on 12/17/16 11:10; Start 12/17/16 at 11:15; Stop 12/17/16 at 11:16; Status DC Active Scripts Active Reported Biotin 2,500 Mcg Capsule 5,000 Mcg PO [id number] Dilaudid (Hydromorphone Hcl) 2 Mg Tablet 2 Tab PO PRN Q6HRS PRN Dilaudid (Hydromorphone Hcl) 2 Mg Tablet 1 Tab PO PRN Q6HRS PRN Metformin Hcl 1,000 Mg Tablet 1 Tab PO BID Gabapentin 300 Mg Capsule 900 Mg PO HS Gabapentin 300 Mg Capsule 300 Mg PO DAILY Cyclobenzaprine Hcl 10 Mg Tablet 1 Tab PO TID PRN LAST DOSE GIVEN: DATE: 09/08 TIME: 9 am NEXT DOSE DUE: DATE: 09/09 TIME: 9 am Chlorthalidone 25 Mg Tablet 50 Mg PO DAILY LAST DOSE GIVEN: DATE: 09/08 TIME: 9 am NEXT DOSE DUE: DATE: 09/09 TIME: 9 am Vitals/I & O Vital Sign - Last 24 Hours 12/16/16 12/16/16 12/17/16 12/17/16 23:50 23:50 00:20 05:54 Temp 98.1 98.1 Pulse 20 Resp 18 20 18 18 B/P 147/98 Pulse Ox 98 O2 Delivery Room Air Room Air Room Air 12/17/16 12/17/16 12/17/16 12/17/16 07:00 07:59 08:00 09:21 Temp 97.9 97.9 Pulse 102 Resp 18 B/P 132/92 Pulse Ox 94 O2 Delivery Room Air Room Air Room Air Room Air 12/17/16 12/17/16 12/17/16 12/17/16 10:38 11:10 14:51 19:49 Temp 97.9 97.9 97.7 97.9 97.9 97.7 Pulse 101 100 105 Resp 18 18 18 B/P 125/94 130/91 133/96 Pulse Ox 96 94 96 O2 Delivery Room Air Room Air Room Air Room Air 12/17/16 20:41 Resp 16 Pulse Ox 96 O2 Delivery Room Air Intake and Output 12/16/16 12/16/16 12/17/16 15:00 23:00 07:00 Intake Total 500 ml 1150 ml 300 ml Balance 500 ml 1150 ml 300 ml JOVITA BLANCA MD Dec 17, 2016 21:50
[2016-12-17 23:14] VITALS: BP 126/80
[2016-12-18] MEDS: HYDROMORPHONE 2 MG TABLET. PO PRN ×5 (00:01→23:34)
[2016-12-18] MEDS: CYCLOBENZAPRINE 10 MG TABLET. PO PRN ×2 (02:58→23:33)
[2016-12-18] MEDS: MORPHINE SULFATE 2 MG/ML DISP.SYRIN. IV PRN ×7 (03:00→21:37)
[2016-12-18 03:14] VITALS: BP 123/82
[2016-12-18 07:00] VITALS: BP 115/75
[2016-12-18] MEDS ORDERED: methylPREDNISolone ACETATE 80 MG/ML VIAL. ONE (08:35)
[2016-12-18] MEDS ORDERED: IOHEXOL 180 MG/ML 10 ML VIAL. ONE (08:36)
[2016-12-18] MEDS ORDERED: methylPREDNISolone ACETATE 40 MG/ML VIAL. ONE (08:36)
[2016-12-18] MEDS: DOCUSATE SODIUM 100 MG CAPSULE. PO SCH ×3 (09:00→21:35)
[2016-12-18] MEDS: SENNOSIDES/DOCUSATE 8.6/50MG TABLET. PO SCH ×3 (09:00→21:35)
[2016-12-18] MEDS: CHLORTHALIDONE 25 MG TABLET. PO SCH (09:17)
[2016-12-18] MEDS: GABAPENTIN 300 MG CAPSULE. PO SCH ×3 (09:17→23:33)
[2016-12-18] MEDS: METFORMIN 1,000 MG TABLET PO SCH ×2 (09:18→17:07)
[2016-12-18] MEDS: INSULIN ASPART 300 UNITS/3 ML INSULN.PEN SQ SCH ×3 (09:21→17:10)
[2016-12-18] MEDS ORDERED: MORPHINE SULFATE 2 MG/ML DISP.SYRIN. IV ONE (09:45)
[2016-12-18 11:00] VITALS: BP 125/89
[2016-12-18] MEDS ORDERED: HYDROMORPHONE 2 MG TABLET. PO PRN (16:00)
[2016-12-18] MEDS: ENOXAPARIN 40 MG/0.4 ML SYRINGE. SQ SCH (16:00)
[2016-12-18 19:00] VITALS: BP 124/91
[2016-12-18 22:57] VITALS: BP 129/93
--- NOTE | 2016-12-19 01:30 | PN ---
DATE: DIAGNOSES: 1. Cervical radiculopathy with cervical herniated disk. 2. Lumbar radiculopathy with post-lumbar laminectomy syndrome. HISTORY OF PRESENT ILLNESS: This is a 46-year-old female who returns for followup status post lumbar epidural steroid injection x 1 on 10/25/2016. The patient reports she did well initially with this, about 50% improvement, but was limited. The patient reports now significant pain for about 3 days at the base of the neck radiating to the right upper extremity, mostly in the posterior deltoid, posterior triceps and posterior aspect of the forearm and hand, feels like it is tingling and asleep. The patient reports no specific injury or action that she is aware of, but she reports she woke up Saturday morning and it was like this and then 3 days later this is significantly worse. The patient has been hospitalized. She is now an inpatient, describes the pain as a torturous pain at 7 on a scale of 10 in her right arm as well as the base of the neck and shoulder. The patient reports no complete loss of function, but significant fatigability with right upper extremity. She has been dropping items ____ she is right handed. The patient reports no complete loss of function. No symptoms on the left side as well. The patient's MRI scan is showing significant disk protrusion at C5-C6 to the right of midline. PHYSICAL EXAMINATION: VITAL SIGNS: Shows blood pressure 125/89, pulse 103, respirations 18, and temperature 98.6 degrees Fahrenheit. GENERAL: The patient is awake, alert, oriented, appropriate, very pleasant demeanor. HEENT: Head shows normocephalic and atraumatic. Extraocular movements are intact and symmetrical. Oral cavity shows mucous membranes moist and pink. Dentition is intact. NECK: Shows anterior throat supple without palpable lymphadenopathy noted. Swallow reflex is symmetrical. CHEST: Shows normal on inspection. Breath sounds are clear to auscultation bilaterally. HEART: Shows S1 and S2 clear. No murmurs auscultated. ABDOMEN: Soft, nontender, and nondistended. No palpable organomegaly is noted. BACK: Shows spine grossly midline. Cervical lordotic curvature is normal in appearance. Cervical paraspinous musculature shows symmetrical appearance, with palpation shows some moderate tenderness in the inferior aspect of the cervical paraspinous musculature, also superior medial trapezius and lateral trapezius on the right only without significant atrophy, hypertrophy, no trigger points, no radiation of pain. The patient shows good rotational motion of cervical spine with some minor guarding with extension with pain noted in the base of the right shoulder, but not with forward flexion. This is relieved with this motion. Upper extremities show deep tendon reflexes at 1+ in the biceps and triceps tendons and youth manager strength shows approximately 3-4 on a scale of 5 on the right and 5/5 on the left bicep and tricep flexion, 4/5 on the right and 5/5 on the left. Peripheral pulses are 2+ in radial distribution. No peripheral edema is noted. No clubbing, no cyanosis. Upper extremities are warm and dry to touch, equal in color and appearance. Shoulder shrug is strong and intact bilaterally with some pain reported at the base of the neck on the right side, but without loss of strength on resistance. This is true with abduction of the shoulder to 90 degrees as well with pain reported on the right with resistance, but no loss of strength. Options were discussed with the patient. At this time, the patient's old chart was reviewed as her current medication regimen and updated. Current review of systems updated today as well. We will proceed with a cervical epidural steroid injection today with fluoroscopic guidance. Risks were again discussed including, but not limited to bleeding, infection, possibility of epidural hematoma, subsequent neurologic compromise, dural puncture, headaches, spinal cord and/or nerve damage, side effects of steroid medication and poor results regarding pain control. The patient understands and wishes to proceed. The patient will return to clinic as an outpatient when she is discharged, will follow up at that time. DIAGNOSIS: Cervical radiculopathy with cervical herniated disk. PROCEDURE: Cervical epidural steroid injection using C-arm fluoroscopic guidance, translaminar approach at C5-C6 level using local anesthetic and under sterile prep and drape. MEDICATIONS INJECTED: Depo Medrol 120 mg plus 5 mL of preservative-free normal saline and 2 mL of Isovue for contrast. CONDITION AT DISCHARGE: Stable. The patient tolerated the procedure well, had no complications. KIM TODD MD DR: LEXUS/adri JOB#: [id number] / [id number]
[2016-12-19] MEDS: MORPHINE SULFATE 2 MG/ML DISP.SYRIN. IV PRN ×6 (01:34→15:27)
[2016-12-19] MEDS: HYDROMORPHONE 2 MG TABLET. PO PRN ×4 (04:25→17:05)
[2016-12-19 07:00] VITALS: BP 138/95
[2016-12-19] MEDS: DOCUSATE SODIUM 100 MG CAPSULE. PO SCH ×2 (08:03→20:39)
[2016-12-19] MEDS: SENNOSIDES/DOCUSATE 8.6/50MG TABLET. PO SCH ×2 (08:03→20:39)
[2016-12-19] MEDS: CHLORTHALIDONE 25 MG TABLET. PO SCH (08:03)
[2016-12-19] MEDS: GABAPENTIN 300 MG CAPSULE. PO SCH ×2 (08:03→23:49)
[2016-12-19] MEDS: METFORMIN 1,000 MG TABLET PO SCH ×2 (08:03→17:05)
[2016-12-19] MEDS: INSULIN ASPART 300 UNITS/3 ML INSULN.PEN SQ SCH ×3 (08:07→17:09)
[2016-12-19] MEDS: methylPREDNISolone 4 MG TABLET. PO SCH ×2 (09:00→20:41)
--- NOTE | 2016-12-19 09:49 | PDOC ---
PROGRESS NOTES Chief Complaint Chief Complaint cc: back pain A/P Acute on Chronic back pain not improved. Central disc protrusion at C6-7 Diabetes mellitus Plan SSI Pain control with IV morphine S/P Depo injection, pain not improved. d/w Dr Nixon, PT/OT consult Dr Howard. History of Present Illness History of Present Illness seen this morning no fever pain controlled. Vitals Vitals Vital Signs Date Time Temp Pulse Resp B/P Pulse Ox O2 Delivery O2 Flow Rate FiO2 12/19/16 09:21 Room Air 12/19/16 07:00 98.5 96 22 138/95 98 98.5 Physical Exam General: Alert, Oriented X3, Cooperative Heart: Normal S1, Normal S2 Lungs: Clear Abdomen: Normal bowel sounds Labs LABS Laboratory Tests Test 12/18/16 10:00 12/18/16 11:14 12/18/16 16:52 12/18/16 20:13 Hemoglobin A1c 7.4% (4.8-5.6) Glucose (Fingerstick) 191mg/dL (70-99) 245mg/dL (70-99) 194mg/dL (70-99) Test 12/19/16 07:20 Glucose (Fingerstick) 232mg/dL (70-99) Assessment and Plan Assessmemt and Plan Problems Medical Problems: (1) Acute exacerbation of chronic low back pain Status: Acute (2) Upper back pain on right side Status: Acute Problems: Comment Review of Relevant I have reviewed the following items pretty (where applicable) has been applied. Labs Laboratory Tests Test 12/17/16 10:14 12/17/16 16:10 12/17/16 21:36 12/18/16 06:53 Glucose (Fingerstick) 210mg/dL (70-99) 179mg/dL (70-99) 188mg/dL (70-99) 224mg/dL (70-99) Test 12/18/16 10:00 12/18/16 11:14 12/18/16 16:52 12/18/16 20:13 Hemoglobin A1c 7.4% (4.8-5.6) Glucose (Fingerstick) 191mg/dL (70-99) 245mg/dL (70-99) 194mg/dL (70-99) Test 12/19/16 07:20 Glucose (Fingerstick) 232mg/dL (70-99) Laboratory Tests Test 12/18/16 10:00 12/18/16 11:14 12/18/16 16:52 12/18/16 20:13 Hemoglobin A1c 7.4% (4.8-5.6) Glucose (Fingerstick) 191mg/dL (70-99) 245mg/dL (70-99) 194mg/dL (70-99) Test 12/19/16 07:20 Glucose (Fingerstick) 232mg/dL (70-99) Medications Current Medications Hydromorphone HCl (Dilaudid) 1 mg 1X ONCE IM Last administered on 12/15/16 16: 04; Start 12/15/16 at 16:00; Stop 12/15/16 at 16:01; Status DC Orphenadrine Citrate (Norflex) 60 mg 1X ONCE IM Last administered on 12/15/16 16:06; Start 12/15/16 at 16:00; Stop 12/15/16 at 16:01; Status DC Hydromorphone HCl (Dilaudid) 1 mg 1X ONCE IM Last administered on 12/15/16 16: 56; Start 12/15/16 at 16:45; Stop 12/15/16 at 16:46; Status DC Diazepam (Valium) 10 mg 1X ONCE IM Last administered on 12/15/16 18:00; Start 12/15/16 at 18:00; Stop 12/15/16 at 18:01; Status DC Ondansetron HCl (Zofran) 4 mg PRN Q8HRS PRN IV NAUSEA/VOMITING; Start 12/15/16 at 19:30; Stop 12/16/16 at 12:07; Status DC Morphine Sulfate 2 mg PRN Q2HR PRN IV PAIN Last administered on 12/16/16 19:22 ; Start 12/15/16 at 19:30; Stop 12/16/16 at 19:29; Status DC Chlorthalidone (Thalitone) 50 mg DAILY PO Last administered on 12/19/16 08:03 ; Start 12/16/16 at 09:00 Cyclobenzaprine HCl (Flexeril) 10 mg PRN TID PRN PO MUSCLE SPASMS Last administered on 12/18/16 23:33; Start 12/15/16 at 21:45 Hydromorphone HCl (Dilaudid) 2 mg PRN Q6HRS PRN PO PAIN Last administered on 00:01; Start 12/15/16 at 21:45 Hydromorphone HCl (Dilaudid) 4 mg PRN Q6HRS PRN PO PAIN Last administered on 13:58; Start 12/15/16 at 21:45; Stop 12/18/16 at 15:57; Status DC Metformin HCl (Glucophage) 1,000 mg BIDWMEALS PO Last administered on 08:03; Start 12/16/16 at 08:00 Gabapentin (Neurontin) 300 mg DAILY PO Last administered on 12/19/16 08:03; Start 12/16/16 at 09:00 Gabapentin (Neurontin) 900 mg HS PO Last administered on 12/18/16 23:33; Start 12/15/16 at 22:00 Diphenhydramine HCl (Benadryl) 25 mg PRN QHS PRN PO INSOMNIA; Start 12/15/16 at 21:45 Senna/Docusate Sodium (Senna Plus) 1 tab BID PO Last administered on 12/19/16 08:03; Start 12/16/16 at 11:00 Docusate Sodium (Colace) 100 mg BID PO Last administered on 12/19/16 08:03; Start 12/16/16 at 11:00 Magnesium Hydroxide (Milk Of Magnesia) 2,400 mg PRN Q12HR PRN PO CONSTIPATION; Start 12/16/16 at 10:30 Diazepam (Valium) 10 mg 1X PO Last administered on 12/16/16 11:31; Start at 11:30; Stop 12/18/16 at 15:10; Status DC Insulin Aspart (Novolog) 0-9 UNITS TIDWMEALS SQ Last administered on 12/19/16 08:07; Start 12/16/16 at 12:00 Dextrose (Dextrose 50%-Water Syringe) 12.5 gm PRN Q15MIN PRN IV SEE COMMENTS; Start 12/16/16 at 12:00 Acetaminophen (Tylenol) 650 mg PRN Q6HRS PRN PO FEVER; Start 12/16/16 at 12:00 Ondansetron HCl (Zofran) 4 mg PRN Q6HRS PRN IV NAUSEA/VOMITING Last administered on 12/17/16 09:21; Start 12/16/16 at 12:00 Enoxaparin Sodium (Lovenox 40mg Syringe) 40 mg Q24H SQ Last administered on 12/16 15:46; Start 12/16/16 at 16:00 Morphine Sulfate 2 mg PRN Q2HR PRN IV PAIN Last administered on 12/18/16 14:33 ; Start 12/16/16 at 23:30; Stop 12/18/16 at 16:15; Status DC Lorazepam (Ativan) 1 mg 1X ONCE IV Last administered on 12/17/16 11:10; Start 12/17/16 at 11:15; Stop 12/17/16 at 11:16; Status DC Methylprednisolone Acetate (Depo-Medrol 80mg Vial) 80 mg STK-MED ONCE .ROUTE ; Start 12/18/16 at 08:35; Stop 12/18/16 at 08:36; Status DC Iohexol (Omnipaque 180 Mg/ml) 10 ml STK-MED ONCE .ROUTE ; Start 12/18/16 at 08: 36; Stop 12/18/16 at 08:37; Status DC Methylprednisolone Acetate (Depo-Medrol 40mg Vial) 40 mg STK-MED ONCE .ROUTE ; Start 12/18/16 at 08:36; Stop 12/18/16 at 08:37; Status DC Morphine Sulfate 2 mg 1X ONCE IV Last administered on 12/18/16 09:51; Start 12/18/16 at 09:45; Stop 12/18/16 at 09:46; Status DC Hydromorphone HCl (Dilaudid) 4 mg PRN Q4HRS PRN PO PAIN; Start 12/18/16 at 16: 00; Stop 12/18/16 at 16:15; Status DC Hydromorphone HCl (Dilaudid) 4 mg PRN Q3HRS PRN PO PAIN Last administered on 08:03; Start 12/18/16 at 16:15 Morphine Sulfate 2 mg PRN Q1HR PRN IV PAIN Last administered on 12/19/16 09:21 ; Start 12/18/16 at 16:30 Active Scripts Active Reported Biotin 2,500 Mcg Capsule 5,000 Mcg PO [id number] Dilaudid (Hydromorphone Hcl) 2 Mg Tablet 2 Tab PO PRN Q6HRS PRN Dilaudid (Hydromorphone Hcl) 2 Mg Tablet 1 Tab PO PRN Q6HRS PRN Metformin Hcl 1,000 Mg Tablet 1 Tab PO BID Gabapentin 300 Mg Capsule 900 Mg PO HS Gabapentin 300 Mg Capsule 300 Mg PO DAILY Cyclobenzaprine Hcl 10 Mg Tablet 1 Tab PO TID PRN LAST DOSE GIVEN: DATE: 09/08 TIME: 9 am NEXT DOSE DUE: DATE: 09/09 TIME: 9 am Chlorthalidone 25 Mg Tablet 50 Mg PO DAILY LAST DOSE GIVEN: DATE: 09/08 TIME: 9 am NEXT DOSE DUE: DATE: 09/09 TIME: 9 am Vitals/I & O Vital Sign - Last 24 Hours 12/18/16 12/18/16 12/18/16 12/18/16 09:51 11:00 11:53 13:58 Temp 97.2 97.2 Pulse 66 Resp 22 B/P 125/89 Pulse Ox 96 O2 Delivery Room Air Room Air Room Air Room Air 12/18/16 12/18/16 12/18/16 12/18/16 14:33 16:20 17:07 18:57 O2 Delivery Room Air Room Air Room Air Room Air 12/18/16 12/18/16 12/18/16 12/18/16 19:00 21:37 22:57 23:34 Temp 97.9 98.3 97.9 98.3 Pulse 109 90 Resp 18 15 18 16 B/P 124/91 129/93 Pulse Ox 92 92 92 92 O2 Delivery Room Air Room Air Room Air Room Air 12/19/16 12/19/16 12/19/16 12/19/16 01:34 03:29 04:00 04:25 Resp 16 15 15 Pulse Ox 92 92 92 92 O2 Delivery Room Air Room Air Room Air Room Air 12/19/16 12/19/16 12/19/16 12/19/16 05:26 06:37 07:00 08:00 Temp 98.5 98.5 Pulse 96 Resp 15 16 22 B/P 138/95 Pulse Ox 92 92 98 O2 Delivery Room Air Room Air Room Air 12/19/16 12/19/16 12/19/16 08:03 09:05 09:21 O2 Delivery Room Air Room Air Room Air Intake and Output 12/18/16 12/18/16 12/19/16 15:00 23:00 07:00 Intake Total 240 ml 450 ml 600 ml Output Total 600 ml Balance 240 ml -150 ml 600 ml JOVITA BLANCA MD Dec 19, 2016 09:49
[2016-12-19 11:00] VITALS: BP 120/89
[2016-12-19] MEDS ORDERED: methylPREDNISolone 4 MG TABLET. PO SCH (12:30)
[2016-12-19 15:00] VITALS: BP 118/83
[2016-12-19] MEDS: ENOXAPARIN 40 MG/0.4 ML SYRINGE. SQ SCH (16:00)
--- NOTE | 2016-12-19 17:12 | PDOC ---
PROGRESS NOTES Subjective Subjective patient seen at 1145 reports continued neck and right arm pain, worse after ZOHRA yesterday Objective Objective Vital Signs Date Time Temp Pulse Resp B/P Pulse Ox O2 Delivery O2 Flow Rate FiO2 12/19/16 15:27 Room Air 12/19/16 11:00 97.4 92 22 120/89 97 97.4 Intake and Output 12/19/16 07:00 Intake Total 1290 ml Output Total 600 ml Balance 690 ml Intake Oral 1290 ml Output Urine Total 600 ml # Voids 2 Physical Exam General: Alert, Oriented X3, Cooperative Neuro: Normal speech, Strength at 5/5 X4 ext Psych/Mental Status: Mental status NL Assessment Assessment Problems Medical Problems: (1) Acute exacerbation of chronic low back pain Status: Acute (2) Upper back pain on right side Status: Acute Plan Plan of Care reviewed Cervical MRI again. There is a herniated disc at C6-7 on the right. We discussed options. We are going to try to avoid surgery. We will consult Dr. Howard and begin physical therapy. Comment Review of Relevant I have reviewed the following items pretty (where applicable) has been applied. Labs Laboratory Tests Test 12/17/16 21:36 12/18/16 06:53 12/18/16 10:00 12/18/16 11:14 Glucose (Fingerstick) 188mg/dL (70-99) 224mg/dL (70-99) 191mg/dL (70-99) Hemoglobin A1c 7.4% (4.8-5.6) Test 12/18/16 16:52 12/18/16 20:13 12/19/16 07:20 12/19/16 10:59 Glucose (Fingerstick) 245mg/dL (70-99) 194mg/dL (70-99) 232mg/dL (70-99) 231mg/dL (70-99) Test 12/19/16 16:43 Glucose (Fingerstick) 228mg/dL (70-99) Laboratory Tests Test 12/18/16 20:13 12/19/16 07:20 12/19/16 10:59 12/19/16 16:43 Glucose (Fingerstick) 194mg/dL (70-99) 232mg/dL (70-99) 231mg/dL (70-99) 228mg/dL (70-99) Medications Current Medications Hydromorphone HCl (Dilaudid) 1 mg 1X ONCE IM Last administered on 12/15/16 16: 04; Start 12/15/16 at 16:00; Stop 12/15/16 at 16:01; Status DC Orphenadrine Citrate (Norflex) 60 mg 1X ONCE IM Last administered on 12/15/16 16:06; Start 12/15/16 at 16:00; Stop 12/15/16 at 16:01; Status DC Hydromorphone HCl (Dilaudid) 1 mg 1X ONCE IM Last administered on 12/15/16 16: 56; Start 12/15/16 at 16:45; Stop 12/15/16 at 16:46; Status DC Diazepam (Valium) 10 mg 1X ONCE IM Last administered on 12/15/16 18:00; Start 12/15/16 at 18:00; Stop 12/15/16 at 18:01; Status DC Ondansetron HCl (Zofran) 4 mg PRN Q8HRS PRN IV NAUSEA/VOMITING; Start 12/15/16 at 19:30; Stop 12/16/16 at 12:07; Status DC Morphine Sulfate 2 mg PRN Q2HR PRN IV PAIN Last administered on 12/16/16 19:22 ; Start 12/15/16 at 19:30; Stop 12/16/16 at 19:29; Status DC Chlorthalidone (Thalitone) 50 mg DAILY PO Last administered on 12/19/16 08:03 ; Start 12/16/16 at 09:00 Cyclobenzaprine HCl (Flexeril) 10 mg PRN TID PRN PO MUSCLE SPASMS Last administered on 12/18/16 23:33; Start 12/15/16 at 21:45 Hydromorphone HCl (Dilaudid) 2 mg PRN Q6HRS PRN PO PAIN Last administered on 00:01; Start 12/15/16 at 21:45 Hydromorphone HCl (Dilaudid) 4 mg PRN Q6HRS PRN PO PAIN Last administered on 13:58; Start 12/15/16 at 21:45; Stop 12/18/16 at 15:57; Status DC Metformin HCl (Glucophage) 1,000 mg BIDWMEALS PO Last administered on 08:03; Start 12/16/16 at 08:00 Gabapentin (Neurontin) 300 mg DAILY PO Last administered on 12/19/16 08:03; Start 12/16/16 at 09:00 Gabapentin (Neurontin) 900 mg HS PO Last administered on 12/18/16 23:33; Start 12/15/16 at 22:00 Diphenhydramine HCl (Benadryl) 25 mg PRN QHS PRN PO INSOMNIA; Start 12/15/16 at 21:45 Senna/Docusate Sodium (Senna Plus) 1 tab BID PO Last administered on 12/19/16 08:03; Start 12/16/16 at 11:00 Docusate Sodium (Colace) 100 mg BID PO Last administered on 12/19/16 08:03; Start 12/16/16 at 11:00 Magnesium Hydroxide (Milk Of Magnesia) 2,400 mg PRN Q12HR PRN PO CONSTIPATION; Start 12/16/16 at 10:30 Diazepam (Valium) 10 mg 1X PO Last administered on 12/16/16 11:31; Start at 11:30; Stop 12/18/16 at 15:10; Status DC Insulin Aspart (Novolog) 0-9 UNITS TIDWMEALS SQ Last administered on 12/19/16 12:03; Start 12/16/16 at 12:00 Dextrose (Dextrose 50%-Water Syringe) 12.5 gm PRN Q15MIN PRN IV SEE COMMENTS; Start 12/16/16 at 12:00 Acetaminophen (Tylenol) 650 mg PRN Q6HRS PRN PO FEVER; Start 12/16/16 at 12:00 Ondansetron HCl (Zofran) 4 mg PRN Q6HRS PRN IV NAUSEA/VOMITING Last administered on 12/17/16 09:21; Start 12/16/16 at 12:00 Enoxaparin Sodium (Lovenox 40mg Syringe) 40 mg Q24H SQ Last administered on 12/16 15:46; Start 12/16/16 at 16:00 Morphine Sulfate 2 mg PRN Q2HR PRN IV PAIN Last administered on 12/18/16 14:33 ; Start 12/16/16 at 23:30; Stop 12/18/16 at 16:15; Status DC Lorazepam (Ativan) 1 mg 1X ONCE IV Last administered on 12/17/16 11:10; Start 12/17/16 at 11:15; Stop 12/17/16 at 11:16; Status DC Methylprednisolone Acetate (Depo-Medrol 80mg Vial) 80 mg STK-MED ONCE .ROUTE ; Start 12/18/16 at 08:35; Stop 12/18/16 at 08:36; Status DC Iohexol (Omnipaque 180 Mg/ml) 10 ml STK-MED ONCE .ROUTE ; Start 12/18/16 at 08: 36; Stop 12/18/16 at 08:37; Status DC Methylprednisolone Acetate (Depo-Medrol 40mg Vial) 40 mg STK-MED ONCE .ROUTE ; Start 12/18/16 at 08:36; Stop 12/18/16 at 08:37; Status DC Morphine Sulfate 2 mg 1X ONCE IV Last administered on 12/18/16 09:51; Start 12/18/16 at 09:45; Stop 12/18/16 at 09:46; Status DC Hydromorphone HCl (Dilaudid) 4 mg PRN Q4HRS PRN PO PAIN; Start 12/18/16 at 16: 00; Stop 12/18/16 at 16:15; Status DC Hydromorphone HCl (Dilaudid) 4 mg PRN Q3HRS PRN PO PAIN Last administered on 11:57; Start 12/18/16 at 16:15 Morphine Sulfate 2 mg PRN Q1HR PRN IV PAIN Last administered on 12/19/16 15:27 ; Start 12/18/16 at 16:30 Active Scripts Active Reported Biotin 2,500 Mcg Capsule 5,000 Mcg PO [id number] Dilaudid (Hydromorphone Hcl) 2 Mg Tablet 2 Tab PO PRN Q6HRS PRN Dilaudid (Hydromorphone Hcl) 2 Mg Tablet 1 Tab PO PRN Q6HRS PRN Metformin Hcl 1,000 Mg Tablet 1 Tab PO BID Gabapentin 300 Mg Capsule 900 Mg PO HS Gabapentin 300 Mg Capsule 300 Mg PO DAILY Cyclobenzaprine Hcl 10 Mg Tablet 1 Tab PO TID PRN LAST DOSE GIVEN: DATE: 09/08 TIME: 9 am NEXT DOSE DUE: DATE: 09/09 TIME: 9 am Chlorthalidone 25 Mg Tablet 50 Mg PO DAILY LAST DOSE GIVEN: DATE: 09/08 TIME: 9 am NEXT DOSE DUE: DATE: 09/09 TIME: 9 am Vitals/I & O Vital Sign - Last 24 Hours 12/18/16 12/18/16 12/18/16 12/18/16 18:57 19:00 21:37 22:57 Temp 97.9 98.3 97.9 98.3 Pulse 109 90 Resp 18 15 18 B/P 124/91 129/93 Pulse Ox 92 92 92 O2 Delivery Room Air Room Air Room Air Room Air 12/18/16 12/19/16 12/19/16 12/19/16 23:34 01:34 03:29 04:00 Resp 16 16 15 Pulse Ox 92 92 92 92 O2 Delivery Room Air Room Air Room Air 12/19/16 12/19/16 12/19/16 12/19/16 04:25 05:26 06:37 07:00 Temp 98.5 98.5 Pulse 96 Resp 15 15 16 22 B/P 138/95 Pulse Ox 92 92 92 98 O2 Delivery Room Air Room Air Room Air 12/19/16 12/19/16 12/19/16 12/19/16 08:00 08:03 09:05 09:21 O2 Delivery Room Air Room Air Room Air Room Air 12/19/16 12/19/16 12/19/16 12/19/16 10:46 11:00 11:30 11:57 Temp 97.4 97.4 Pulse 92 Resp 22 B/P 120/89 Pulse Ox 97 O2 Delivery Room Air Room Air Room Air Room Air 12/19/16 15:27 O2 Delivery Room Air Intake and Output 12/18/16 12/18/16 12/19/16 15:00 23:00 07:00 Intake Total 240 ml 450 ml 600 ml Output Total 600 ml Balance 240 ml -150 ml 600 ml KATERINE PIRES MD Dec 19, 2016 17:12
[2016-12-19] MEDS ORDERED: PANTOPRAZOLE 40 MG TABLET.DR. PO SCH (18:00)
[2016-12-19] MEDS ORDERED: LIDOCAINE (700MG/PATCH) PATCH. TD SCH (18:00)
[2016-12-19 19:00] VITALS: BP 135/95
[2016-12-19] MEDS: MORPHINE ER 30 MG TABLET.ER PO SCH (20:40)
[2016-12-19] MEDS: LIDOCAINE (700MG/PATCH) PATCH. TD SCH (20:43)
[2016-12-19 23:00] VITALS: BP 128/92
[2016-12-20 03:00] VITALS: BP 123/93
--- NOTE | 2016-12-20 06:03 | CONS ---
DATE OF CONSULTATION: 12/19/2016 ATTENDING PHYSICIAN: Dr. Jackson. The patient was seen at the request of Dr. Nixon for rehab evaluation. 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 The patient with chronic neck and lower back pain, status post lumbar spine surgery done about 3 months ago with continued back pain. The patient started having sudden onset of increased neck pain when she woke up on 12/12/2016, without any specific injury or accident with associated numbness, sensation in her right upper extremity and some weakness. The patient apparently had 2 lumbar spine surgeries. She has been taking hydromorphone 2-4 mg every 3-4 hours and also takes Flexeril and gabapentin. The patient denies any trouble with her bowel or bladder control. The patient with past medical history of diabetes mellitus type 2, hypertension, status post appendectomy, cholecystectomy, , hysterectomy and 2 lumbar spine fusions. ALLERGIES: KNOWN ALLERGIC TO SPIRONOLACTONE AND TRAMADOL. PHYSICAL EXAMINATION: Today revealed a middle-aged female. She is alert, oriented to time, place, person and circumstance and follows commands appropriately, moves all 4 extremities voluntarily where she had 4+/5 grade muscle strength and deep tendon reflexes are 1 to 2+ and symmetrical and she had slightly decreased sensory perception over anterior aspect of her right forearm and also over medial aspect of right leg. Other than that, equal perception of touch and pinprick sensation bilaterally. She had tenderness to palpation over right upper trapezius muscle and also other posterior shoulder girdle muscles and over right sacroiliac joint area. She had painful limited movements of her cervical and lumbar spine without any significant paraspinal muscle spasm. She is independent with mobility and she is using proper body mechanics during mobility. Her skin is intact at this time. Straight leg raising test is negative bilaterally. ASSESSMENT: A middle-aged female with chronic neck pain with right cervical radiculitis with increased neck pain onset on 12/12/2016 without any specific injury with MRI scan evidence of moderate sized, broad-based central disk protrusion at C6-C7 which is more prominent on the right side without any significant central, spinal or neural foraminal compromise. Also, I can see keeping her neck straight up with loss of normal cervical curvature as per MRI scan. The patient also with chronic lower back pain from degenerative disk disease with right lumbar radiculitis, status post 2 lumbar spine fusions, no clinical evidence of ongoing cervical or lumbar radiculopathy. RECOMMENDATIONS: To start her on Medrol Dosepak, if her disk bulging and herniation is new, it should help ease some of the discomfort. I have gone over with her a home program of physical modalities, trigger point massage and relax stretching exercise to her right posterior shoulder girdle muscles and reviewed with her proper body mechanics and to start her also on MS Contin, which she tolerated before to help ease her pain as she apparently has been taking morphine IV every hour. Dr. Nixon, appreciate asking me to participate in the care of this interesting patient. Hopefully, home with outpatient followup when medically stable in the next day or so. GREGORY MARIE MD DR: APRYL/adri JOB#: [id number] / [id number] judy Gonzalez Dr.
[2016-12-20 07:52] VITALS: BP 128/91
[2016-12-20] MEDS: SENNOSIDES/DOCUSATE 8.6/50MG TABLET. PO SCH ×2 (08:33→21:53)
[2016-12-20] MEDS: GABAPENTIN 300 MG CAPSULE. PO SCH ×2 (08:34→21:52)
[2016-12-20] MEDS: methylPREDNISolone 4 MG TABLET. PO SCH ×3 (08:34→17:16)
[2016-12-20] MEDS: PANTOPRAZOLE 40 MG TABLET.DR. PO SCH (08:35)
[2016-12-20] MEDS: MORPHINE ER 30 MG TABLET.ER PO SCH ×2 (08:36→21:53)
[2016-12-20] MEDS: DOCUSATE SODIUM 100 MG CAPSULE. PO SCH ×2 (08:36→21:52)
[2016-12-20] MEDS: CHLORTHALIDONE 25 MG TABLET. PO SCH (08:36)
[2016-12-20] MEDS: METFORMIN 1,000 MG TABLET PO SCH ×2 (08:36→17:16)
[2016-12-20] MEDS: LIDOCAINE (700MG/PATCH) PATCH. TD SCH (08:37)
[2016-12-20] MEDS: INSULIN ASPART 300 UNITS/3 ML INSULN.PEN SQ SCH ×3 (08:48→17:19)
--- NOTE | 2016-12-20 10:31 | PDOC ---
PROGRESS NOTES Subjective Subjective She feels better. Objective Objective Vital Signs Date Time Temp Pulse Resp B/P Pulse Ox O2 Delivery O2 Flow Rate FiO2 12/20/16 08:36 95 Room Air 12/20/16 07:52 98.4 107 16 128/91 98.4 Intake and Output 12/20/16 07:00 Intake Total 2080 ml Balance 2080 ml Intake Oral 2080 ml # Voids 4 Physical Exam Physical Exam She is sleepy this AM and no change with her neurological state and she continues with tenderness to palpation over right upper trapezius and right sacroiliac joint.She is independent with her mobility and self care. Assessment Assessment Problems Medical Problems: (1) Acute exacerbation of chronic low back pain Status: Acute (2) Upper back pain on right side Status: Acute Plan Plan of [facility] when medically stable. Comment Review of Relevant I have reviewed the following items pretty (where applicable) has been applied. Labs Laboratory Tests Test 12/18/16 11:14 12/18/16 16:52 12/18/16 20:13 12/19/16 07:20 Glucose (Fingerstick) 191mg/dL (70-99) 245mg/dL (70-99) 194mg/dL (70-99) 232mg/dL (70-99) Test 12/19/16 10:59 12/19/16 16:43 12/19/16 21:22 12/20/16 07:10 Glucose (Fingerstick) 231mg/dL (70-99) 228mg/dL (70-99) 182mg/dL (70-99) 246mg/dL (70-99) Laboratory Tests Test 12/19/16 10:59 12/19/16 16:43 12/19/16 21:22 12/20/16 07:10 Glucose (Fingerstick) 231mg/dL (70-99) 228mg/dL (70-99) 182mg/dL (70-99) 246mg/dL (70-99) Medications Current Medications Hydromorphone HCl (Dilaudid) 1 mg 1X ONCE IM Last administered on 12/15/16 16: 04; Start 12/15/16 at 16:00; Stop 12/15/16 at 16:01; Status DC Orphenadrine Citrate (Norflex) 60 mg 1X ONCE IM Last administered on 12/15/16 16:06; Start 12/15/16 at 16:00; Stop 12/15/16 at 16:01; Status DC Hydromorphone HCl (Dilaudid) 1 mg 1X ONCE IM Last administered on 12/15/16 16: 56; Start 12/15/16 at 16:45; Stop 12/15/16 at 16:46; Status DC Diazepam (Valium) 10 mg 1X ONCE IM Last administered on 12/15/16 18:00; Start 12/15/16 at 18:00; Stop 12/15/16 at 18:01; Status DC Ondansetron HCl (Zofran) 4 mg PRN Q8HRS PRN IV NAUSEA/VOMITING; Start 12/15/16 at 19:30; Stop 12/16/16 at 12:07; Status DC Morphine Sulfate 2 mg PRN Q2HR PRN IV PAIN Last administered on 12/16/16 19:22 ; Start 12/15/16 at 19:30; Stop 12/16/16 at 19:29; Status DC Chlorthalidone (Thalitone) 50 mg DAILY PO Last administered on 12/20/16 08:36 ; Start 12/16/16 at 09:00 Cyclobenzaprine HCl (Flexeril) 10 mg PRN TID PRN PO MUSCLE SPASMS Last administered on 12/18/16 23:33; Start 12/15/16 at 21:45 Hydromorphone HCl (Dilaudid) 2 mg PRN Q6HRS PRN PO PAIN Last administered on 00:01; Start 12/15/16 at 21:45 Hydromorphone HCl (Dilaudid) 4 mg PRN Q6HRS PRN PO PAIN Last administered on 13:58; Start 12/15/16 at 21:45; Stop 12/18/16 at 15:57; Status DC Metformin HCl (Glucophage) 1,000 mg BIDWMEALS PO Last administered on 08:36; Start 12/16/16 at 08:00 Gabapentin (Neurontin) 300 mg DAILY PO Last administered on 12/20/16 08:34; Start 12/16/16 at 09:00 Gabapentin (Neurontin) 900 mg HS PO Last administered on 12/19/16 23:49; Start 12/15/16 at 22:00 Diphenhydramine HCl (Benadryl) 25 mg PRN QHS PRN PO INSOMNIA; Start 12/15/16 at 21:45 Senna/Docusate Sodium (Senna Plus) 1 tab BID PO Last administered on 12/20/16 08:33; Start 12/16/16 at 11:00 Docusate Sodium (Colace) 100 mg BID PO Last administered on 12/20/16 08:36; Start 12/16/16 at 11:00 Magnesium Hydroxide (Milk Of Magnesia) 2,400 mg PRN Q12HR PRN PO CONSTIPATION; Start 12/16/16 at 10:30 Diazepam (Valium) 10 mg 1X PO Last administered on 12/16/16 11:31; Start at 11:30; Stop 12/18/16 at 15:10; Status DC Insulin Aspart (Novolog) 0-9 UNITS TIDWMEALS SQ Last administered on 12/20/16 08:48; Start 12/16/16 at 12:00 Dextrose (Dextrose 50%-Water Syringe) 12.5 gm PRN Q15MIN PRN IV SEE COMMENTS; Start 12/16/16 at 12:00 Acetaminophen (Tylenol) 650 mg PRN Q6HRS PRN PO FEVER; Start 12/16/16 at 12:00 Ondansetron HCl (Zofran) 4 mg PRN Q6HRS PRN IV NAUSEA/VOMITING Last administered on 12/17/16 09:21; Start 12/16/16 at 12:00 Enoxaparin Sodium (Lovenox 40mg Syringe) 40 mg Q24H SQ Last administered on 12/16 15:46; Start 12/16/16 at 16:00 Morphine Sulfate 2 mg PRN Q2HR PRN IV PAIN Last administered on 12/18/16 14:33 ; Start 12/16/16 at 23:30; Stop 12/18/16 at 16:15; Status DC Lorazepam (Ativan) 1 mg 1X ONCE IV Last administered on 12/17/16 11:10; Start 12/17/16 at 11:15; Stop 12/17/16 at 11:16; Status DC Methylprednisolone Acetate (Depo-Medrol 80mg Vial) 80 mg STK-MED ONCE .ROUTE ; Start 12/18/16 at 08:35; Stop 12/18/16 at 08:36; Status DC Iohexol (Omnipaque 180 Mg/ml) 10 ml STK-MED ONCE .ROUTE ; Start 12/18/16 at 08: 36; Stop 12/18/16 at 08:37; Status DC Methylprednisolone Acetate (Depo-Medrol 40mg Vial) 40 mg STK-MED ONCE .ROUTE ; Start 12/18/16 at 08:36; Stop 12/18/16 at 08:37; Status DC Morphine Sulfate 2 mg 1X ONCE IV Last administered on 12/18/16 09:51; Start 12/18/16 at 09:45; Stop 12/18/16 at 09:46; Status DC Hydromorphone HCl (Dilaudid) 4 mg PRN Q4HRS PRN PO PAIN; Start 12/18/16 at 16: 00; Stop 12/18/16 at 16:15; Status DC Hydromorphone HCl (Dilaudid) 4 mg PRN Q3HRS PRN PO PAIN Last administered on 17:05; Start 12/18/16 at 16:15 Morphine Sulfate 2 mg PRN Q1HR PRN IV PAIN Last administered on 12/19/16 15:27 ; Start 12/18/16 at 16:30 Methylprednisolone (Medrol) 8 mg BID PO Last administered on 12/19/16 20:41; Start 12/19/16 at 09:00; Stop 12/19/16 at 21:01; Status DC Methylprednisolone (Medrol) 4 mg BIDPCLD PO ; Start 12/19/16 at 12:30; Stop 08/25 at 17:45; Status DC Methylprednisolone (Medrol) 4 mg TIDPC PO Last administered on 12/20/16 08:34 ; Start 12/20/16 at 08:30; Stop 12/20/16 at 17:31 Methylprednisolone (Medrol) 8 mg QHS PO ; Start 12/20/16 at 21:00; Stop at 21:01 Methylprednisolone (Medrol) 4 mg QIDAFTMEAL PO ; Start 12/21/16 at 09:00; Stop 12/21/16 at 21:01 Methylprednisolone (Medrol) 4 mg TID PO ; Start 12/22/16 at 09:00; Stop at 21:01 Methylprednisolone (Medrol) 4 mg BID PO ; Start 12/23/16 at 09:00; Stop at 21:01 Methylprednisolone (Medrol) 4 mg DAILY PO ; Start 12/24/16 at 09:00; Stop at 09:01 Lidocaine (Lidoderm) 1 patch DAILY TD ; Start 12/19/16 at 18:00; Stop 12/19/16 at 18:00; Status DC Pantoprazole Sodium (Protonix) 40 mg DAILYAC PO ; Start 12/19/16 at 18:00; Stop 12/19/16 at 18:00; Status DC Morphine Sulfate (Ms Contin) 30 mg BID PO Last administered on 12/20/16 08:36 ; Start 12/19/16 at 21:00 Lidocaine (Lidoderm) 1 patch DAILY TD Last administered on 12/20/16 08:37; Start 12/19/16 at 21:00 Pantoprazole Sodium (Protonix) 40 mg DAILYAC PO Last administered on 12/20/16 08:35; Start 12/20/16 at 07:30 Active Scripts Active Reported Biotin 2,500 Mcg Capsule 5,000 Mcg PO [id number] Dilaudid (Hydromorphone Hcl) 2 Mg Tablet 2 Tab PO PRN Q6HRS PRN Dilaudid (Hydromorphone Hcl) 2 Mg Tablet 1 Tab PO PRN Q6HRS PRN Metformin Hcl 1,000 Mg Tablet 1 Tab PO BID Gabapentin 300 Mg Capsule 900 Mg PO HS Gabapentin 300 Mg Capsule 300 Mg PO DAILY Cyclobenzaprine Hcl 10 Mg Tablet 1 Tab PO TID PRN LAST DOSE GIVEN: DATE: 09/08 TIME: 9 am NEXT DOSE DUE: DATE: 09/09 TIME: 9 am Chlorthalidone 25 Mg Tablet 50 Mg PO DAILY LAST DOSE GIVEN: DATE: 09/08 TIME: 9 am NEXT DOSE DUE: DATE: 09/09 TIME: 9 am Vitals/I & O Vital Sign - Last 24 Hours 12/19/16 12/19/16 12/19/16 12/19/16 10:46 11:00 11:30 11:57 Temp 97.4 97.4 Pulse 92 Resp 22 B/P 120/89 Pulse Ox 97 O2 Delivery Room Air Room Air Room Air Room Air 12/19/16 12/19/16 12/19/16 12/19/16 15:00 15:27 17:05 19:00 Temp 98.2 98.4 98.2 98.4 Pulse 76 96 Resp 22 18 B/P 118/83 135/95 Pulse Ox 98 96 O2 Delivery Room Air Room Air Room Air 12/19/16 12/19/16 12/20/16 12/20/16 20:40 23:00 03:00 07:52 Temp 98.3 98.3 98.4 98.3 98.3 98.4 Pulse 95 96 107 Resp 20 18 16 16 B/P 128/92 123/93 128/91 Pulse Ox 97 95 95 O2 Delivery Room Air Room Air 12/20/16 12/20/16 08:00 08:36 Pulse Ox 95 O2 Delivery Room Air Room Air Intake and Output 12/19/16 12/19/16 12/20/16 15:00 23:00 07:00 Intake Total 850 ml 1030 ml 200 ml Balance 850 ml 1030 ml 200 ml GREGORY MARIE MD Dec 20, 2016 10:31
[2016-12-20 10:56] VITALS: BP 135/99
[2016-12-20] MEDS: HYDROMORPHONE 2 MG TABLET. PO PRN (12:16)
--- NOTE | 2016-12-20 14:02 | PDOC ---
PROGRESS NOTES Chief Complaint Chief Complaint cc: back pain A/P Acute on Chronic back pain not improved. Central disc protrusion at C6-7 Diabetes mellitus Plan SSI Pain control with IV morphine S/P Depo injection, pain not improved. d/w Dr Nixon, PT/OT consult Dr Howard. History of Present Illness History of Present Illness Patient seen and evaluated at the bedside. Patient resting in no apparent distress. She reports there is continuing pain in her neck, radiating down her right arm. She rates it as a 7/10, improved since admission with the pain medications. She notes acute on chronic bilateral radiculopathic leg pain. d/w nurse. Vitals Vitals Vital Signs Date Time Temp Pulse Resp B/P Pulse Ox O2 Delivery O2 Flow Rate FiO2 12/20/16 10:56 98.1 100 16 135/99 96 Room Air 98.1 Physical Exam General: Alert, Oriented X3, Cooperative, No acute distress Heart: Regular rate, Normal S1, Normal S2 Lungs: Clear, Other (equal chest rise bilaterally. negative accessory muscle use. ) Abdomen: Normal bowel sounds, Soft, No tenderness Extremities: No cyanosis, No edema Skin: No rashes, No significant lesion Labs LABS Laboratory Tests Test 12/19/16 16:43 12/19/16 21:22 12/20/16 07:10 12/20/16 11:08 Glucose (Fingerstick) 228mg/dL (70-99) 182mg/dL (70-99) 246mg/dL (70-99) 232mg/dL (70-99) Review of Systems Review of Systems (+) cervical pain (+) radiating RUE pain (+) radiating bilateral LE pain Denies chest pain, sob, abdominal pain, n/v/d, incontinence, headache, or fever/ chills. Assessment and Plan Assessmemt and Plan Problems Medical Problems: (1) Acute exacerbation of chronic low back pain Status: Acute (2) Upper back pain on right side Status: Acute Assessment: 1.) Acute on Chronic cervical and back pain 2.) Central disc protrusion at C6-7, seen on MRI 3.) Diabetes mellitus Plan: 1.) continue pain management 2.) continue SSI and glucose checks 3.) appreciate subspecialty input. 4.) monitor AM labs. 5.) PT/OT Problems: Comment Review of Relevant I have reviewed the following items pretty (where applicable) has been applied. Labs Laboratory Tests Test 12/18/16 16:52 12/18/16 20:13 12/19/16 07:20 12/19/16 10:59 Glucose (Fingerstick) 245mg/dL (70-99) 194mg/dL (70-99) 232mg/dL (70-99) 231mg/dL (70-99) Test 12/19/16 16:43 12/19/16 21:22 12/20/16 07:10 12/20/16 11:08 Glucose (Fingerstick) 228mg/dL (70-99) 182mg/dL (70-99) 246mg/dL (70-99) 232mg/dL (70-99) Laboratory Tests Test 12/19/16 16:43 12/19/16 21:22 12/20/16 07:10 12/20/16 11:08 Glucose (Fingerstick) 228mg/dL (70-99) 182mg/dL (70-99) 246mg/dL (70-99) 232mg/dL (70-99) Medications Current Medications Hydromorphone HCl (Dilaudid) 1 mg 1X ONCE IM Last administered on 12/15/16 16: 04; Start 12/15/16 at 16:00; Stop 12/15/16 at 16:01; Status DC Orphenadrine Citrate (Norflex) 60 mg 1X ONCE IM Last administered on 12/15/16 16:06; Start 12/15/16 at 16:00; Stop 12/15/16 at 16:01; Status DC Hydromorphone HCl (Dilaudid) 1 mg 1X ONCE IM Last administered on 12/15/16 16: 56; Start 12/15/16 at 16:45; Stop 12/15/16 at 16:46; Status DC Diazepam (Valium) 10 mg 1X ONCE IM Last administered on 12/15/16 18:00; Start 12/15/16 at 18:00; Stop 12/15/16 at 18:01; Status DC Ondansetron HCl (Zofran) 4 mg PRN Q8HRS PRN IV NAUSEA/VOMITING; Start 12/15/16 at 19:30; Stop 12/16/16 at 12:07; Status DC Morphine Sulfate 2 mg PRN Q2HR PRN IV PAIN Last administered on 12/16/16 19:22 ; Start 12/15/16 at 19:30; Stop 12/16/16 at 19:29; Status DC Chlorthalidone (Thalitone) 50 mg DAILY PO Last administered on 12/20/16 08:36 ; Start 12/16/16 at 09:00 Cyclobenzaprine HCl (Flexeril) 10 mg PRN TID PRN PO MUSCLE SPASMS Last administered on 12/18/16 23:33; Start 12/15/16 at 21:45 Hydromorphone HCl (Dilaudid) 2 mg PRN Q6HRS PRN PO PAIN Last administered on 12:16; Start 12/15/16 at 21:45 Hydromorphone HCl (Dilaudid) 4 mg PRN Q6HRS PRN PO PAIN Last administered on 13:58; Start 12/15/16 at 21:45; Stop 12/18/16 at 15:57; Status DC Metformin HCl (Glucophage) 1,000 mg BIDWMEALS PO Last administered on 08:36; Start 12/16/16 at 08:00 Gabapentin (Neurontin) 300 mg DAILY PO Last administered on 12/20/16 08:34; Start 12/16/16 at 09:00 Gabapentin (Neurontin) 900 mg HS PO Last administered on 12/19/16 23:49; Start 12/15/16 at 22:00 Diphenhydramine HCl (Benadryl) 25 mg PRN QHS PRN PO INSOMNIA; Start 12/15/16 at 21:45 Senna/Docusate Sodium (Senna Plus) 1 tab BID PO Last administered on 12/20/16 08:33; Start 12/16/16 at 11:00 Docusate Sodium (Colace) 100 mg BID PO Last administered on 12/20/16 08:36; Start 12/16/16 at 11:00 Magnesium Hydroxide (Milk Of Magnesia) 2,400 mg PRN Q12HR PRN PO CONSTIPATION; Start 12/16/16 at 10:30 Diazepam (Valium) 10 mg 1X PO Last administered on 12/16/16 11:31; Start at 11:30; Stop 12/18/16 at 15:10; Status DC Insulin Aspart (Novolog) 0-9 UNITS TIDWMEALS SQ Last administered on 12/20/16 12:21; Start 12/16/16 at 12:00 Dextrose (Dextrose 50%-Water Syringe) 12.5 gm PRN Q15MIN PRN IV SEE COMMENTS; Start 12/16/16 at 12:00 Acetaminophen (Tylenol) 650 mg PRN Q6HRS PRN PO FEVER; Start 12/16/16 at 12:00 Ondansetron HCl (Zofran) 4 mg PRN Q6HRS PRN IV NAUSEA/VOMITING Last administered on 12/17/16 09:21; Start 12/16/16 at 12:00 Enoxaparin Sodium (Lovenox 40mg Syringe) 40 mg Q24H SQ Last administered on 12/16 15:46; Start 12/16/16 at 16:00 Morphine Sulfate 2 mg PRN Q2HR PRN IV PAIN Last administered on 12/18/16 14:33 ; Start 12/16/16 at 23:30; Stop 12/18/16 at 16:15; Status DC Lorazepam (Ativan) 1 mg 1X ONCE IV Last administered on 12/17/16 11:10; Start 12/17/16 at 11:15; Stop 12/17/16 at 11:16; Status DC Methylprednisolone Acetate (Depo-Medrol 80mg Vial) 80 mg STK-MED ONCE .ROUTE ; Start 12/18/16 at 08:35; Stop 12/18/16 at 08:36; Status DC Iohexol (Omnipaque 180 Mg/ml) 10 ml STK-MED ONCE .ROUTE ; Start 12/18/16 at 08: 36; Stop 12/18/16 at 08:37; Status DC Methylprednisolone Acetate (Depo-Medrol 40mg Vial) 40 mg STK-MED ONCE .ROUTE ; Start 12/18/16 at 08:36; Stop 12/18/16 at 08:37; Status DC Morphine Sulfate 2 mg 1X ONCE IV Last administered on 12/18/16 09:51; Start 12/18/16 at 09:45; Stop 12/18/16 at 09:46; Status DC Hydromorphone HCl (Dilaudid) 4 mg PRN Q4HRS PRN PO PAIN; Start 12/18/16 at 16: 00; Stop 12/18/16 at 16:15; Status DC Hydromorphone HCl (Dilaudid) 4 mg PRN Q3HRS PRN PO PAIN Last administered on 17:05; Start 12/18/16 at 16:15 Morphine Sulfate 2 mg PRN Q1HR PRN IV PAIN Last administered on 12/19/16 15:27 ; Start 12/18/16 at 16:30 Methylprednisolone (Medrol) 8 mg BID PO Last administered on 12/19/16 20:41; Start 12/19/16 at 09:00; Stop 12/19/16 at 21:01; Status DC Methylprednisolone (Medrol) 4 mg BIDPCLD PO ; Start 12/19/16 at 12:30; Stop 08/25 at 17:45; Status DC Methylprednisolone (Medrol) 4 mg TIDPC PO Last administered on 12/20/16 12:17 ; Start 12/20/16 at 08:30; Stop 12/20/16 at 17:31 Methylprednisolone (Medrol) 8 mg QHS PO ; Start 12/20/16 at 21:00; Stop at 21:01 Methylprednisolone (Medrol) 4 mg QIDAFTMEAL PO ; Start 12/21/16 at 09:00; Stop 12/21/16 at 21:01 Methylprednisolone (Medrol) 4 mg TID PO ; Start 12/22/16 at 09:00; Stop at 21:01 Methylprednisolone (Medrol) 4 mg BID PO ; Start 12/23/16 at 09:00; Stop at 21:01 Methylprednisolone (Medrol) 4 mg DAILY PO ; Start 12/24/16 at 09:00; Stop at 09:01 Lidocaine (Lidoderm) 1 patch DAILY TD ; Start 12/19/16 at 18:00; Stop 12/19/16 at 18:00; Status DC Pantoprazole Sodium (Protonix) 40 mg DAILYAC PO ; Start 12/19/16 at 18:00; Stop 12/19/16 at 18:00; Status DC Morphine Sulfate (Ms Contin) 30 mg BID PO Last administered on 12/20/16 08:36 ; Start 12/19/16 at 21:00 Lidocaine (Lidoderm) 1 patch DAILY TD Last administered on 12/20/16 08:37; Start 12/19/16 at 21:00 Pantoprazole Sodium (Protonix) 40 mg DAILYAC PO Last administered on 12/20/16 08:35; Start 12/20/16 at 07:30 Active Scripts Active Reported Biotin 2,500 Mcg Capsule 5,000 Mcg PO [id number] Dilaudid (Hydromorphone Hcl) 2 Mg Tablet 2 Tab PO PRN Q6HRS PRN Dilaudid (Hydromorphone Hcl) 2 Mg Tablet 1 Tab PO PRN Q6HRS PRN Metformin Hcl 1,000 Mg Tablet 1 Tab PO BID Gabapentin 300 Mg Capsule 900 Mg PO HS Gabapentin 300 Mg Capsule 300 Mg PO DAILY Cyclobenzaprine Hcl 10 Mg Tablet 1 Tab PO TID PRN LAST DOSE GIVEN: DATE: 09/08 TIME: 9 am NEXT DOSE DUE: DATE: 09/09 TIME: 9 am Chlorthalidone 25 Mg Tablet 50 Mg PO DAILY LAST DOSE GIVEN: DATE: 09/08 TIME: 9 am NEXT DOSE DUE: DATE: 09/09 TIME: 9 am Vitals/I & O Vital Sign - Last 24 Hours 12/19/16 12/19/16 12/19/16 12/19/16 15:00 15:27 17:05 19:00 Temp 98.2 98.4 98.2 98.4 Pulse 76 96 Resp 22 18 B/P 118/83 135/95 Pulse Ox 98 96 O2 Delivery Room Air Room Air Room Air 12/19/16 12/19/16 12/20/16 12/20/16 20:40 23:00 03:00 07:52 Temp 98.3 98.3 98.4 98.3 98.3 98.4 Pulse 95 96 107 Resp 20 18 16 16 B/P 128/92 123/93 128/91 Pulse Ox 97 95 95 O2 Delivery Room Air Room Air 12/20/16 12/20/16 12/20/16 08:00 08:36 10:56 Temp 98.1 98.1 Pulse 100 Resp 16 B/P 135/99 Pulse Ox 95 96 O2 Delivery Room Air Room Air Room Air Intake and Output 12/19/16 12/19/16 12/20/16 15:00 23:00 07:00 Intake Total 850 ml 1030 ml 200 ml Balance 850 ml 1030 ml 200 ml LUIS ECSOBAR III DO Dec 20, 2016 14:02
[2016-12-20 14:57] VITALS: BP 131/87
[2016-12-20] MEDS: CYCLOBENZAPRINE 10 MG TABLET. PO PRN (16:24)
[2016-12-20] MEDS: ENOXAPARIN 40 MG/0.4 ML SYRINGE. SQ SCH (16:25)
[2016-12-20 19:00] VITALS: BP 130/96
[2016-12-20] MEDS ORDERED: methylPREDNISolone 4 MG TABLET. PO SCH (21:00)
[2016-12-20 23:00] VITALS: BP 129/94
[2016-12-21 03:00] VITALS: BP 117/79
[2016-12-21] MEDS: HYDROMORPHONE 2 MG TABLET. PO PRN ×3 (03:42→11:34)
[2016-12-21 06:26] LABS: BASO % 0 % (0-3); EOS % 0 % (0-3); HEMATOCRIT 34.4 % (36.0-47.0); HEMOGLOBIN 11.7 g/dL (12.0-15.5); LYMPH # 1.2 x10^3/uL (1.0-4.8); LYMPH % 19 % (24-48); MEAN CORPUSCULAR HEMOGLOBIN 28 pg (25-35); MEAN CORPUSCULAR HGB CONC 34 g/dL (31-37); MEAN CORPUSCULAR VOLUME 84 fL (79-100); MONO % 6 % (0-9); NEUT % 75 % (31-73); PLATELET COUNT 256 x10^3/uL (140-400); RED BLOOD COUNT 4.11 x10^6/uL (3.50-5.40); WHITE BLOOD COUNT 6.5 x10^3/uL (4.0-11.0)
[2016-12-21 06:37] LABS: CALCIUM 9.5 mg/dL (8.5-10.1); CREATININE 0.7 mg/dL (0.6-1.0); GFR 108.1; POTASSIUM 3.1 mmol/L (3.5-5.1)
[2016-12-21 07:00] VITALS: BP 137/94
[2016-12-21] MEDS ORDERED: POTASSIUM CHLORIDE 20 MEQ TABLET.ER. PO ONE ×2 (08:30→13:00)
[2016-12-21] MEDS: PANTOPRAZOLE 40 MG TABLET.DR. PO SCH (08:58)
[2016-12-21] MEDS: DOCUSATE SODIUM 100 MG CAPSULE. PO SCH (08:59)
[2016-12-21] MEDS: methylPREDNISolone 4 MG TABLET. PO SCH ×2 (08:59→12:24)
[2016-12-21] MEDS: METFORMIN 1,000 MG TABLET PO SCH (08:59)
[2016-12-21] MEDS: SENNOSIDES/DOCUSATE 8.6/50MG TABLET. PO SCH (09:00)
[2016-12-21] MEDS: MORPHINE ER 30 MG TABLET.ER PO SCH (09:00)
[2016-12-21] MEDS: CHLORTHALIDONE 25 MG TABLET. PO SCH (09:01)
[2016-12-21] MEDS: GABAPENTIN 300 MG CAPSULE. PO SCH (09:01)
[2016-12-21] MEDS: LIDOCAINE (700MG/PATCH) PATCH. TD SCH (09:01)
[2016-12-21] MEDS: INSULIN ASPART 300 UNITS/3 ML INSULN.PEN SQ SCH ×2 (09:11→12:27)
--- NOTE | 2016-12-21 09:19 | PDOC ---
PROGRESS NOTES Subjective Subjective She admits continued pain but some help with mscontin. Objective Objective Vital Signs Date Time Temp Pulse Resp B/P Pulse Ox O2 Delivery O2 Flow Rate FiO2 12/21/16 09:00 97 Room Air 12/21/16 07:00 97.0 98 20 137/94 97.0 Intake and Output 12/21/16 07:00 Intake Total 600 ml Balance 600 ml Intake Oral 600 ml # Voids 7 Physical Exam Physical Exam She is alert and comfortable sitting in bed with head end propped up. Assessment Assessment Problems Medical Problems: (1) Acute exacerbation of chronic low back pain Status: Acute (2) Upper back pain on right side Status: Acute Plan Plan of Retirement when medically stable. Comment Review of Relevant I have reviewed the following items pretty (where applicable) has been applied. Labs Laboratory Tests Test 12/19/16 10:59 12/19/16 16:43 12/19/16 21:22 12/20/16 07:10 Glucose (Fingerstick) 231mg/dL (70-99) 228mg/dL (70-99) 182mg/dL (70-99) 246mg/dL (70-99) Test 12/20/16 11:08 12/20/16 16:37 12/20/16 20:54 12/21/16 05:40 Glucose (Fingerstick) 232mg/dL (70-99) 304mg/dL (70-99) 265mg/dL (70-99) White Blood Count 6.5x10^3/uL (4.0-11.0) Red Blood Count 4.11x10^6/uL (3.50-5.40) Hemoglobin 11.7g/dL (12.0-15.5) Hematocrit 34.4% (36.0-47.0) Mean Corpuscular Volume 84fL (79-100) Mean Corpuscular Hemoglobin 28pg (25-35) Mean Corpuscular Hemoglobin Concent 34g/dL (31-37) Red Cell Distribution Width 15.0% (11.5-14.5) Platelet Count 256x10^3/uL (140-400) Neutrophils (%) (Auto) 75% (31-73) Lymphocytes (%) (Auto) 19% (24-48) Monocytes (%) (Auto) 6% (0-9) Eosinophils (%) (Auto) 0% (0-3) Basophils (%) (Auto) 0% (0-3) Neutrophils # (Auto) 4.9x10^3uL (1.8-7.7) Lymphocytes # (Auto) 1.2x10^3/uL (1.0-4.8) Monocytes # (Auto) 0.4x10^3/uL (0.0-1.1) Eosinophils # (Auto) 0.0x10^3/uL (0.0-0.7) Basophils # (Auto) 0.0x10^3/uL (0.0-0.2) Sodium Level 141mmol/L (136-145) Potassium Level 3.1mmol/L (3.5-5.1) Chloride Level 97mmol/L (98-107) Carbon Dioxide Level 30mmol/L (21-32) Anion Gap 14 (6-14) Blood Urea Nitrogen 15mg/dL (7-20) Creatinine 0.7mg/dL (0.6-1.0) Estimated GFR (Cockcroft-Gault) 108.1 Glucose Level 246mg/dL (70-99) Calcium Level 9.5mg/dL (8.5-10.1) Test 12/21/16 07:52 Glucose (Fingerstick) 244mg/dL (70-99) Laboratory Tests Test 12/20/16 11:08 12/20/16 16:37 12/20/16 20:54 12/21/16 05:40 Glucose (Fingerstick) 232mg/dL (70-99) 304mg/dL (70-99) 265mg/dL (70-99) White Blood Count 6.5x10^3/uL (4.0-11.0) Red Blood Count 4.11x10^6/uL (3.50-5.40) Hemoglobin 11.7g/dL (12.0-15.5) Hematocrit 34.4% (36.0-47.0) Mean Corpuscular Volume 84fL (79-100) Mean Corpuscular Hemoglobin 28pg (25-35) Mean Corpuscular Hemoglobin Concent 34g/dL (31-37) Red Cell Distribution Width 15.0% (11.5-14.5) Platelet Count 256x10^3/uL (140-400) Neutrophils (%) (Auto) 75% (31-73) Lymphocytes (%) (Auto) 19% (24-48) Monocytes (%) (Auto) 6% (0-9) Eosinophils (%) (Auto) 0% (0-3) Basophils (%) (Auto) 0% (0-3) Neutrophils # (Auto) 4.9x10^3uL (1.8-7.7) Lymphocytes # (Auto) 1.2x10^3/uL (1.0-4.8) Monocytes # (Auto) 0.4x10^3/uL (0.0-1.1) Eosinophils # (Auto) 0.0x10^3/uL (0.0-0.7) Basophils # (Auto) 0.0x10^3/uL (0.0-0.2) Sodium Level 141mmol/L (136-145) Potassium Level 3.1mmol/L (3.5-5.1) Chloride Level 97mmol/L (98-107) Carbon Dioxide Level 30mmol/L (21-32) Anion Gap 14 (6-14) Blood Urea Nitrogen 15mg/dL (7-20) Creatinine 0.7mg/dL (0.6-1.0) Estimated GFR (Cockcroft-Gault) 108.1 Glucose Level 246mg/dL (70-99) Calcium Level 9.5mg/dL (8.5-10.1) Test 12/21/16 07:52 Glucose (Fingerstick) 244mg/dL (70-99) Medications Current Medications Hydromorphone HCl (Dilaudid) 1 mg 1X ONCE IM Last administered on 12/15/16 16: 04; Start 12/15/16 at 16:00; Stop 12/15/16 at 16:01; Status DC Orphenadrine Citrate (Norflex) 60 mg 1X ONCE IM Last administered on 12/15/16 16:06; Start 12/15/16 at 16:00; Stop 12/15/16 at 16:01; Status DC Hydromorphone HCl (Dilaudid) 1 mg 1X ONCE IM Last administered on 12/15/16 16: 56; Start 12/15/16 at 16:45; Stop 12/15/16 at 16:46; Status DC Diazepam (Valium) 10 mg 1X ONCE IM Last administered on 12/15/16 18:00; Start 12/15/16 at 18:00; Stop 12/15/16 at 18:01; Status DC Ondansetron HCl (Zofran) 4 mg PRN Q8HRS PRN IV NAUSEA/VOMITING; Start 12/15/16 at 19:30; Stop 12/16/16 at 12:07; Status DC Morphine Sulfate 2 mg PRN Q2HR PRN IV PAIN Last administered on 12/16/16 19:22 ; Start 12/15/16 at 19:30; Stop 12/16/16 at 19:29; Status DC Chlorthalidone (Thalitone) 50 mg DAILY PO Last administered on 12/21/16 09:01 ; Start 12/16/16 at 09:00 Cyclobenzaprine HCl (Flexeril) 10 mg PRN TID PRN PO MUSCLE SPASMS Last administered on 12/20/16 16:24; Start 12/15/16 at 21:45 Hydromorphone HCl (Dilaudid) 2 mg PRN Q6HRS PRN PO PAIN Last administered on 12:16; Start 12/15/16 at 21:45; Stop 12/20/16 at 16:56; Status DC Hydromorphone HCl (Dilaudid) 4 mg PRN Q6HRS PRN PO PAIN Last administered on 13:58; Start 12/15/16 at 21:45; Stop 12/18/16 at 15:57; Status DC Metformin HCl (Glucophage) 1,000 mg BIDWMEALS PO Last administered on 08:59; Start 12/16/16 at 08:00 Gabapentin (Neurontin) 300 mg DAILY PO Last administered on 12/21/16 09:01; Start 12/16/16 at 09:00 Gabapentin (Neurontin) 900 mg HS PO Last administered on 12/20/16 21:52; Start 12/15/16 at 22:00 Diphenhydramine HCl (Benadryl) 25 mg PRN QHS PRN PO INSOMNIA; Start 12/15/16 at 21:45 Senna/Docusate Sodium (Senna Plus) 1 tab BID PO Last administered on 12/21/16 09:00; Start 12/16/16 at 11:00 Docusate Sodium (Colace) 100 mg BID PO Last administered on 12/21/16 08:59; Start 12/16/16 at 11:00 Magnesium Hydroxide (Milk Of Magnesia) 2,400 mg PRN Q12HR PRN PO CONSTIPATION; Start 12/16/16 at 10:30 Diazepam (Valium) 10 mg 1X PO Last administered on 12/16/16 11:31; Start at 11:30; Stop 12/18/16 at 15:10; Status DC Insulin Aspart (Novolog) 0-9 UNITS TIDWMEALS SQ Last administered on 12/21/16 09:11; Start 12/16/16 at 12:00 Dextrose (Dextrose 50%-Water Syringe) 12.5 gm PRN Q15MIN PRN IV SEE COMMENTS; Start 12/16/16 at 12:00 Acetaminophen (Tylenol) 650 mg PRN Q6HRS PRN PO FEVER; Start 12/16/16 at 12:00 Ondansetron HCl (Zofran) 4 mg PRN Q6HRS PRN IV NAUSEA/VOMITING Last administered on 12/17/16 09:21; Start 12/16/16 at 12:00 Enoxaparin Sodium (Lovenox 40mg Syringe) 40 mg Q24H SQ Last administered on 16:25; Start 12/16/16 at 16:00 Morphine Sulfate 2 mg PRN Q2HR PRN IV PAIN Last administered on 12/18/16 14:33 ; Start 12/16/16 at 23:30; Stop 12/18/16 at 16:15; Status DC Lorazepam (Ativan) 1 mg 1X ONCE IV Last administered on 12/17/16 11:10; Start 12/17/16 at 11:15; Stop 12/17/16 at 11:16; Status DC Methylprednisolone Acetate (Depo-Medrol 80mg Vial) 80 mg STK-MED ONCE .ROUTE ; Start 12/18/16 at 08:35; Stop 12/18/16 at 08:36; Status DC Iohexol (Omnipaque 180 Mg/ml) 10 ml STK-MED ONCE .ROUTE ; Start 12/18/16 at 08: 36; Stop 12/18/16 at 08:37; Status DC Methylprednisolone Acetate (Depo-Medrol 40mg Vial) 40 mg STK-MED ONCE .ROUTE ; Start 12/18/16 at 08:36; Stop 12/18/16 at 08:37; Status DC Morphine Sulfate 2 mg 1X ONCE IV Last administered on 12/18/16 09:51; Start 12/18/16 at 09:45; Stop 12/18/16 at 09:46; Status DC Hydromorphone HCl (Dilaudid) 4 mg PRN Q4HRS PRN PO PAIN; Start 12/18/16 at 16: 00; Stop 12/18/16 at 16:15; Status DC Hydromorphone HCl (Dilaudid) 4 mg PRN Q3HRS PRN PO PAIN Last administered on 06:52; Start 12/18/16 at 16:15 Morphine Sulfate 2 mg PRN Q1HR PRN IV PAIN Last administered on 12/19/16 15:27 ; Start 12/18/16 at 16:30 Methylprednisolone (Medrol) 8 mg BID PO Last administered on 12/19/16 20:41; Start 12/19/16 at 09:00; Stop 12/19/16 at 21:01; Status DC Methylprednisolone (Medrol) 4 mg BIDPCLD PO ; Start 12/19/16 at 12:30; Stop 08/25 at 17:45; Status DC Methylprednisolone (Medrol) 4 mg TIDPC PO Last administered on 12/20/16 17:16 ; Start 12/20/16 at 08:30; Stop 12/20/16 at 17:31; Status DC Methylprednisolone (Medrol) 8 mg QHS PO Last administered on 12/20/16 21:52; Start 12/20/16 at 21:00; Stop 12/20/16 at 21:01; Status DC Methylprednisolone (Medrol) 4 mg QIDAFTMEAL PO Last administered on 12/21/16 08:59; Start 12/21/16 at 09:00; Stop 12/21/16 at 21:01 Methylprednisolone (Medrol) 4 mg TID PO ; Start 12/22/16 at 09:00; Stop at 21:01 Methylprednisolone (Medrol) 4 mg BID PO ; Start 12/23/16 at 09:00; Stop at 21:01 Methylprednisolone (Medrol) 4 mg DAILY PO ; Start 12/24/16 at 09:00; Stop at 09:01 Lidocaine (Lidoderm) 1 patch DAILY TD ; Start 12/19/16 at 18:00; Stop 12/19/16 at 18:00; Status DC Pantoprazole Sodium (Protonix) 40 mg DAILYAC PO ; Start 12/19/16 at 18:00; Stop 12/19/16 at 18:00; Status DC Morphine Sulfate (Ms Contin) 30 mg BID PO Last administered on 12/21/16 09:00 ; Start 12/19/16 at 21:00 Lidocaine (Lidoderm) 1 patch DAILY TD Last administered on 12/21/16 09:01; Start 12/19/16 at 21:00 Pantoprazole Sodium (Protonix) 40 mg DAILYAC PO Last administered on 12/21/16 08:58; Start 12/20/16 at 07:30 Potassium Chloride (Klor-Con) 40 meq 1X ONCE PO Last administered on 08:59; Start 12/21/16 at 08:30; Stop 12/21/16 at 08:31; Status DC Active Scripts Active Reported Biotin 2,500 Mcg Capsule 5,000 Mcg PO [id number] Dilaudid (Hydromorphone Hcl) 2 Mg Tablet 2 Tab PO PRN Q6HRS PRN Dilaudid (Hydromorphone Hcl) 2 Mg Tablet 1 Tab PO PRN Q6HRS PRN Metformin Hcl 1,000 Mg Tablet 1 Tab PO BID Gabapentin 300 Mg Capsule 900 Mg PO HS Gabapentin 300 Mg Capsule 300 Mg PO DAILY Cyclobenzaprine Hcl 10 Mg Tablet 1 Tab PO TID PRN LAST DOSE GIVEN: DATE: 09/08 TIME: 9 am NEXT DOSE DUE: DATE: 09/09 TIME: 9 am Chlorthalidone 25 Mg Tablet 50 Mg PO DAILY LAST DOSE GIVEN: DATE: 09/08 TIME: 9 am NEXT DOSE DUE: DATE: 09/09 TIME: 9 am Vitals/I & O Vital Sign - Last 24 Hours 12/20/16 12/20/16 12/20/16 12/20/16 10:56 13:57 14:57 19:00 Temp 98.1 98.7 98.3 98.1 98.7 98.3 Pulse 100 100 97 Resp 16 16 18 B/P 135/99 131/87 130/96 Pulse Ox 96 96 95 97 O2 Delivery Room Air Room Air Room Air 12/20/16 12/20/16 12/20/16 12/21/16 20:00 21:53 23:00 03:00 Temp 98.8 98.2 98.8 98.2 Pulse 101 92 Resp 18 16 B/P 129/94 117/79 Pulse Ox 94 97 O2 Delivery Room Air Room Air 12/21/16 12/21/16 12/21/16 12/21/16 03:42 06:52 07:00 07:18 Temp 97.0 97.0 Pulse 98 Resp 20 B/P 137/94 Pulse Ox 97 97 O2 Delivery Room Air Room Air Room Air Room Air 12/21/16 09:00 Pulse Ox 97 O2 Delivery Room Air Intake and Output 12/20/16 12/20/16 12/21/16 15:00 23:00 07:00 Intake Total 600 ml Balance 600 ml GREGORY MARIE MD Dec 21, 2016 09:19
[2016-12-21 11:02] VITALS: BP 152/97
--- NOTE | 2016-12-21 12:58 | PDOC ---
PROGRESS NOTES Chief Complaint Chief Complaint cc: back pain A/P Acute on Chronic back pain better Central disc protrusion at C6-7 Diabetes mellitus Plan labs reviwed, replace potassium SSI Pain control S/P Depo injection, pain not improved. DC plans today based on Dr Nixon recommendations. , PT/OT History of Present Illness History of Present Illness no fever no chills pain same Vitals Vitals Vital Signs Date Time Temp Pulse Resp B/P Pulse Ox O2 Delivery O2 Flow Rate FiO2 12/21/16 11:02 98.8 108 20 152/97 95 Room Air 98.8 Physical Exam General: Alert, Oriented X3, Cooperative, No acute distress Heart: Regular rate, Normal S1, Normal S2 Lungs: Clear, Other (equal chest rise bilaterally. negative accessory muscle use. ) Abdomen: Normal bowel sounds, Soft, No tenderness Extremities: No cyanosis, No edema Skin: No rashes, No significant lesion Labs LABS Laboratory Tests Test 12/20/16 16:37 12/20/16 20:54 12/21/16 05:40 12/21/16 07:52 Glucose (Fingerstick) 304mg/dL (70-99) 265mg/dL (70-99) 244mg/dL (70-99) White Blood Count 6.5x10^3/uL (4.0-11.0) Red Blood Count 4.11x10^6/uL (3.50-5.40) Hemoglobin 11.7g/dL (12.0-15.5) Hematocrit 34.4% (36.0-47.0) Mean Corpuscular Volume 84fL (79-100) Mean Corpuscular Hemoglobin 28pg (25-35) Mean Corpuscular Hemoglobin Concent 34g/dL (31-37) Red Cell Distribution Width 15.0% (11.5-14.5) Platelet Count 256x10^3/uL (140-400) Neutrophils (%) (Auto) 75% (31-73) Lymphocytes (%) (Auto) 19% (24-48) Monocytes (%) (Auto) 6% (0-9) Eosinophils (%) (Auto) 0% (0-3) Basophils (%) (Auto) 0% (0-3) Neutrophils # (Auto) 4.9x10^3uL (1.8-7.7) Lymphocytes # (Auto) 1.2x10^3/uL (1.0-4.8) Monocytes # (Auto) 0.4x10^3/uL (0.0-1.1) Eosinophils # (Auto) 0.0x10^3/uL (0.0-0.7) Basophils # (Auto) 0.0x10^3/uL (0.0-0.2) Sodium Level 141mmol/L (136-145) Potassium Level 3.1mmol/L (3.5-5.1) Chloride Level 97mmol/L (98-107) Carbon Dioxide Level 30mmol/L (21-32) Anion Gap 14 (6-14) Blood Urea Nitrogen 15mg/dL (7-20) Creatinine 0.7mg/dL (0.6-1.0) Estimated GFR (Cockcroft-Gault) 108.1 Glucose Level 246mg/dL (70-99) Calcium Level 9.5mg/dL (8.5-10.1) Test 12/21/16 10:50 Glucose (Fingerstick) 244mg/dL (70-99) Assessment and Plan Assessmemt and Plan Problems Medical Problems: (1) Acute exacerbation of chronic low back pain Status: Acute (2) Upper back pain on right side Status: Acute Problems: Comment Review of Relevant I have reviewed the following items pretty (where applicable) has been applied. Labs Laboratory Tests Test 12/19/16 16:43 12/19/16 21:22 12/20/16 07:10 12/20/16 11:08 Glucose (Fingerstick) 228mg/dL (70-99) 182mg/dL (70-99) 246mg/dL (70-99) 232mg/dL (70-99) Test 12/20/16 16:37 12/20/16 20:54 12/21/16 05:40 12/21/16 07:52 Glucose (Fingerstick) 304mg/dL (70-99) 265mg/dL (70-99) 244mg/dL (70-99) White Blood Count 6.5x10^3/uL (4.0-11.0) Red Blood Count 4.11x10^6/uL (3.50-5.40) Hemoglobin 11.7g/dL (12.0-15.5) Hematocrit 34.4% (36.0-47.0) Mean Corpuscular Volume 84fL (79-100) Mean Corpuscular Hemoglobin 28pg (25-35) Mean Corpuscular Hemoglobin Concent 34g/dL (31-37) Red Cell Distribution Width 15.0% (11.5-14.5) Platelet Count 256x10^3/uL (140-400) Neutrophils (%) (Auto) 75% (31-73) Lymphocytes (%) (Auto) 19% (24-48) Monocytes (%) (Auto) 6% (0-9) Eosinophils (%) (Auto) 0% (0-3) Basophils (%) (Auto) 0% (0-3) Neutrophils # (Auto) 4.9x10^3uL (1.8-7.7) Lymphocytes # (Auto) 1.2x10^3/uL (1.0-4.8) Monocytes # (Auto) 0.4x10^3/uL (0.0-1.1) Eosinophils # (Auto) 0.0x10^3/uL (0.0-0.7) Basophils # (Auto) 0.0x10^3/uL (0.0-0.2) Sodium Level 141mmol/L (136-145) Potassium Level 3.1mmol/L (3.5-5.1) Chloride Level 97mmol/L (98-107) Carbon Dioxide Level 30mmol/L (21-32) Anion Gap 14 (6-14) Blood Urea Nitrogen 15mg/dL (7-20) Creatinine 0.7mg/dL (0.6-1.0) Estimated GFR (Cockcroft-Gault) 108.1 Glucose Level 246mg/dL (70-99) Calcium Level 9.5mg/dL (8.5-10.1) Test 12/21/16 10:50 Glucose (Fingerstick) 244mg/dL (70-99) Laboratory Tests Test 12/20/16 16:37 12/20/16 20:54 12/21/16 05:40 12/21/16 07:52 Glucose (Fingerstick) 304mg/dL (70-99) 265mg/dL (70-99) 244mg/dL (70-99) White Blood Count 6.5x10^3/uL (4.0-11.0) Red Blood Count 4.11x10^6/uL (3.50-5.40) Hemoglobin 11.7g/dL (12.0-15.5) Hematocrit 34.4% (36.0-47.0) Mean Corpuscular Volume 84fL (79-100) Mean Corpuscular Hemoglobin 28pg (25-35) Mean Corpuscular Hemoglobin Concent 34g/dL (31-37) Red Cell Distribution Width 15.0% (11.5-14.5) Platelet Count 256x10^3/uL (140-400) Neutrophils (%) (Auto) 75% (31-73) Lymphocytes (%) (Auto) 19% (24-48) Monocytes (%) (Auto) 6% (0-9) Eosinophils (%) (Auto) 0% (0-3) Basophils (%) (Auto) 0% (0-3) Neutrophils # (Auto) 4.9x10^3uL (1.8-7.7) Lymphocytes # (Auto) 1.2x10^3/uL (1.0-4.8) Monocytes # (Auto) 0.4x10^3/uL (0.0-1.1) Eosinophils # (Auto) 0.0x10^3/uL (0.0-0.7) Basophils # (Auto) 0.0x10^3/uL (0.0-0.2) Sodium Level 141mmol/L (136-145) Potassium Level 3.1mmol/L (3.5-5.1) Chloride Level 97mmol/L (98-107) Carbon Dioxide Level 30mmol/L (21-32) Anion Gap 14 (6-14) Blood Urea Nitrogen 15mg/dL (7-20) Creatinine 0.7mg/dL (0.6-1.0) Estimated GFR (Cockcroft-Gault) 108.1 Glucose Level 246mg/dL (70-99) Calcium Level 9.5mg/dL (8.5-10.1) Test 12/21/16 10:50 Glucose (Fingerstick) 244mg/dL (70-99) Medications Current Medications Hydromorphone HCl (Dilaudid) 1 mg 1X ONCE IM Last administered on 12/15/16 16: 04; Start 12/15/16 at 16:00; Stop 12/15/16 at 16:01; Status DC Orphenadrine Citrate (Norflex) 60 mg 1X ONCE IM Last administered on 12/15/16 16:06; Start 12/15/16 at 16:00; Stop 12/15/16 at 16:01; Status DC Hydromorphone HCl (Dilaudid) 1 mg 1X ONCE IM Last administered on 12/15/16 16: 56; Start 12/15/16 at 16:45; Stop 12/15/16 at 16:46; Status DC Diazepam (Valium) 10 mg 1X ONCE IM Last administered on 12/15/16 18:00; Start 12/15/16 at 18:00; Stop 12/15/16 at 18:01; Status DC Ondansetron HCl (Zofran) 4 mg PRN Q8HRS PRN IV NAUSEA/VOMITING; Start 12/15/16 at 19:30; Stop 12/16/16 at 12:07; Status DC Morphine Sulfate 2 mg PRN Q2HR PRN IV PAIN Last administered on 12/16/16 19:22 ; Start 12/15/16 at 19:30; Stop 12/16/16 at 19:29; Status DC Chlorthalidone (Thalitone) 50 mg DAILY PO Last administered on 12/21/16 09:01 ; Start 12/16/16 at 09:00 Cyclobenzaprine HCl (Flexeril) 10 mg PRN TID PRN PO MUSCLE SPASMS Last administered on 12/20/16 16:24; Start 12/15/16 at 21:45 Hydromorphone HCl (Dilaudid) 2 mg PRN Q6HRS PRN PO PAIN Last administered on 12:16; Start 12/15/16 at 21:45; Stop 12/20/16 at 16:56; Status DC Hydromorphone HCl (Dilaudid) 4 mg PRN Q6HRS PRN PO PAIN Last administered on 13:58; Start 12/15/16 at 21:45; Stop 12/18/16 at 15:57; Status DC Metformin HCl (Glucophage) 1,000 mg BIDWMEALS PO Last administered on 08:59; Start 12/16/16 at 08:00 Gabapentin (Neurontin) 300 mg DAILY PO Last administered on 12/21/16 09:01; Start 12/16/16 at 09:00 Gabapentin (Neurontin) 900 mg HS PO Last administered on 12/20/16 21:52; Start 12/15/16 at 22:00 Diphenhydramine HCl (Benadryl) 25 mg PRN QHS PRN PO INSOMNIA; Start 12/15/16 at 21:45 Senna/Docusate Sodium (Senna Plus) 1 tab BID PO Last administered on 12/21/16 09:00; Start 12/16/16 at 11:00 Docusate Sodium (Colace) 100 mg BID PO Last administered on 12/21/16 08:59; Start 12/16/16 at 11:00 Magnesium Hydroxide (Milk Of Magnesia) 2,400 mg PRN Q12HR PRN PO CONSTIPATION; Start 12/16/16 at 10:30 Diazepam (Valium) 10 mg 1X PO Last administered on 12/16/16 11:31; Start at 11:30; Stop 12/18/16 at 15:10; Status DC Insulin Aspart (Novolog) 0-9 UNITS TIDWMEALS SQ Last administered on 12/21/16 12:27; Start 12/16/16 at 12:00 Dextrose (Dextrose 50%-Water Syringe) 12.5 gm PRN Q15MIN PRN IV SEE COMMENTS; Start 12/16/16 at 12:00 Acetaminophen (Tylenol) 650 mg PRN Q6HRS PRN PO FEVER; Start 12/16/16 at 12:00 Ondansetron HCl (Zofran) 4 mg PRN Q6HRS PRN IV NAUSEA/VOMITING Last administered on 12/17/16 09:21; Start 12/16/16 at 12:00 Enoxaparin Sodium (Lovenox 40mg Syringe) 40 mg Q24H SQ Last administered on 16:25; Start 12/16/16 at 16:00 Morphine Sulfate 2 mg PRN Q2HR PRN IV PAIN Last administered on 12/18/16 14:33 ; Start 12/16/16 at 23:30; Stop 12/18/16 at 16:15; Status DC Lorazepam (Ativan) 1 mg 1X ONCE IV Last administered on 12/17/16 11:10; Start 12/17/16 at 11:15; Stop 12/17/16 at 11:16; Status DC Methylprednisolone Acetate (Depo-Medrol 80mg Vial) 80 mg STK-MED ONCE .ROUTE ; Start 12/18/16 at 08:35; Stop 12/18/16 at 08:36; Status DC Iohexol (Omnipaque 180 Mg/ml) 10 ml STK-MED ONCE .ROUTE ; Start 12/18/16 at 08: 36; Stop 12/18/16 at 08:37; Status DC Methylprednisolone Acetate (Depo-Medrol 40mg Vial) 40 mg STK-MED ONCE .ROUTE ; Start 12/18/16 at 08:36; Stop 12/18/16 at 08:37; Status DC Morphine Sulfate 2 mg 1X ONCE IV Last administered on 12/18/16 09:51; Start 12/18/16 at 09:45; Stop 12/18/16 at 09:46; Status DC Hydromorphone HCl (Dilaudid) 4 mg PRN Q4HRS PRN PO PAIN; Start 12/18/16 at 16: 00; Stop 12/18/16 at 16:15; Status DC Hydromorphone HCl (Dilaudid) 4 mg PRN Q3HRS PRN PO PAIN Last administered on 11:34; Start 12/18/16 at 16:15 Morphine Sulfate 2 mg PRN Q1HR PRN IV PAIN Last administered on 12/19/16 15:27 ; Start 12/18/16 at 16:30 Methylprednisolone (Medrol) 8 mg BID PO Last administered on 12/19/16 20:41; Start 12/19/16 at 09:00; Stop 12/19/16 at 21:01; Status DC Methylprednisolone (Medrol) 4 mg BIDPCLD PO ; Start 12/19/16 at 12:30; Stop 08/25 at 17:45; Status DC Methylprednisolone (Medrol) 4 mg TIDPC PO Last administered on 12/20/16 17:16 ; Start 12/20/16 at 08:30; Stop 12/20/16 at 17:31; Status DC Methylprednisolone (Medrol) 8 mg QHS PO Last administered on 12/20/16 21:52; Start 12/20/16 at 21:00; Stop 12/20/16 at 21:01; Status DC Methylprednisolone (Medrol) 4 mg QIDAFTMEAL PO Last administered on 12/21/16 12:24; Start 12/21/16 at 09:00; Stop 12/21/16 at 21:01 Methylprednisolone (Medrol) 4 mg TID PO ; Start 12/22/16 at 09:00; Stop at 21:01 Methylprednisolone (Medrol) 4 mg BID PO ; Start 12/23/16 at 09:00; Stop at 21:01 Methylprednisolone (Medrol) 4 mg DAILY PO ; Start 12/24/16 at 09:00; Stop at 09:01 Lidocaine (Lidoderm) 1 patch DAILY TD ; Start 12/19/16 at 18:00; Stop 12/19/16 at 18:00; Status DC Pantoprazole Sodium (Protonix) 40 mg DAILYAC PO ; Start 12/19/16 at 18:00; Stop 12/19/16 at 18:00; Status DC Morphine Sulfate (Ms Contin) 30 mg BID PO Last administered on 12/21/16 09:00 ; Start 12/19/16 at 21:00 Lidocaine (Lidoderm) 1 patch DAILY TD Last administered on 12/21/16 09:01; Start 12/19/16 at 21:00 Pantoprazole Sodium (Protonix) 40 mg DAILYAC PO Last administered on 12/21/16 08:58; Start 12/20/16 at 07:30 Potassium Chloride (Klor-Con) 40 meq 1X ONCE PO Last administered on 08:59; Start 12/21/16 at 08:30; Stop 12/21/16 at 08:31; Status DC Active Scripts Active Reported Biotin 2,500 Mcg Capsule 5,000 Mcg PO [id number] Dilaudid (Hydromorphone Hcl) 2 Mg Tablet 2 Tab PO PRN Q6HRS PRN Dilaudid (Hydromorphone Hcl) 2 Mg Tablet 1 Tab PO PRN Q6HRS PRN Metformin Hcl 1,000 Mg Tablet 1 Tab PO BID Gabapentin 300 Mg Capsule 900 Mg PO HS Gabapentin 300 Mg Capsule 300 Mg PO DAILY Cyclobenzaprine Hcl 10 Mg Tablet 1 Tab PO TID PRN LAST DOSE GIVEN: DATE: 09/08 TIME: 9 am NEXT DOSE DUE: DATE: 09/09 TIME: 9 am Chlorthalidone 25 Mg Tablet 50 Mg PO DAILY LAST DOSE GIVEN: DATE: 09/08 TIME: 9 am NEXT DOSE DUE: DATE: 09/09 TIME: 9 am Vitals/I & O Vital Sign - Last 24 Hours 12/20/16 12/20/16 12/20/16 12/20/16 13:57 14:57 19:00 20:00 Temp 98.7 98.3 98.7 98.3 Pulse 100 97 Resp 16 18 B/P 131/87 130/96 Pulse Ox 96 95 97 O2 Delivery Room Air Room Air Room Air 12/20/16 12/20/16 12/21/16 12/21/16 21:53 23:00 03:00 03:42 Temp 98.8 98.2 98.8 98.2 Pulse 101 92 Resp 18 16 B/P 129/94 117/79 Pulse Ox 94 97 O2 Delivery Room Air Room Air 12/21/16 12/21/16 12/21/16 12/21/16 06:52 07:00 07:18 08:00 Temp 97.0 97.0 Pulse 98 Resp 20 B/P 137/94 Pulse Ox 97 97 O2 Delivery Room Air Room Air Room Air Room Air 12/21/16 12/21/16 09:00 11:02 Temp 98.8 98.8 Pulse 108 Resp 20 B/P 152/97 Pulse Ox 97 95 O2 Delivery Room Air Room Air Intake and Output 12/20/16 12/20/16 12/21/16 14:59 22:59 06:59 Intake Total 360 ml 240 ml Balance 360 ml 240 ml JOVITA BLANCA MD Dec 21, 2016 12:58
[2016-12-21] MEDS ORDERED: MORP30TA3 PO (13:02)
[2016-12-21] MEDS ORDERED: Lidocaine TD (13:02)
[2016-12-21] MEDS ORDERED: Hydromorphone Hcl PO (13:02)
[2016-12-21 15:25] VITALS: BP 137/103
[2016-12-22] MEDS ORDERED: methylPREDNISolone 4 MG TABLET. PO SCH (09:00)
[2016-12-23] MEDS ORDERED: methylPREDNISolone 4 MG TABLET. PO SCH (09:00)
[2016-12-24] MEDS ORDERED: methylPREDNISolone 4 MG TABLET. PO SCH (09:00)
== END 2016-12-21 16:44 | disposition home or self-care (01) | DRG 552 ==
LOC: ER 15:01 → 5 SOUTH 19:21
PROVIDERS: ADMIT Internal Medicine; ATTEND Internal Medicine
DX: M50.223 Other cervical disc displacement at C6-C7 level (principal); G89.29 Other chronic pain; K59.00 Constipation, unspecified; I10 Essential (primary) hypertension; E11.9 Type 2 diabetes mellitus without complications; Z90.49 Acquired absence of other specified parts of digestive tract; Z98.1 Arthrodesis status; Z90.710 Acquired absence of both cervix and uterus; Z88.8 Allergy status to other drugs, medicaments and biological substances; M51.36 Other intervertebral disc degeneration, lumbar region
CPT/HCPCS: 36415; 62321; 72141; 72146; 80048; 82947; 83036; 85027; 96372; J1030; J1040; J1170; J1650; J1815; J2060; J2270; J2360; J2405; J3360; J7509; 99285-25

== ENCOUNTER → 2017-06-03 | Outpatient (CLI) | payer OTHER ==
[~2017-06-03] MED LIST changes: +BIOT25006 PO; +GABA-586 PO; +GADOBUTROL 10 MMOL/10 ML VIAL IV ONE; -HYDR-2666 PO; +HYDR-2758 PO; +HYDR2TAB31 PO; +Hydromorphone Hcl PO; +Lidocaine TD; +METF-620 PO; +MORP30TA3 PO; -OXYC10TA32 PO; +OXYC10TA45 PO; +PRED20TA PO
--- NOTE | 2017-06-03 15:50 | KCIC ---
MRI Lumbar Spine without and with contrast History: Lumbar radiculopathy, previous surgeries, bilateral leg pain and numbness Technique: Multiplanar, multi sequential pre and postcontrast MR imaging was performed of the lumbar spine. Contrast: 7 cc Gadavist Comparison: None Findings: Lumbar vertebral body stature and AP alignment are adequate. There has been posterolateral fusion L3-4 with bilateral pedicle screws attached to vertical rods, interbody graft at this level. Exam does not accurately evaluate integrity of hardware. There is mild degenerative disc disease L2-3, mild disc desiccation L1-2. Conus terminates at L1. There is no nodular enhancement of the conus or cauda equina, no enhancement in the intervertebral disc spaces. There is no significant marrow edema. L1-L2: Neural foramina and spinal canal are adequate. L2-L3: There is more focal protrusion with associated annular tear in the left lateral recess on the order of 11 mm transverse by 9 mm CC by 5 mm AP. There is moderate left lateral recess stenosis and contact descending left L3 nerve root. There is mild buckling of the ligamentum flavum. Neural foramina are adequate. L3-L4: There is right laminectomy defect. Spinal canal is adequate. There is minimal disc osteophyte complex more eccentric to the right lateral recess. Accurate evaluation of the neural foramina somewhat limited due to artifact from hardware, not significantly narrowed. L4-L5: There is negligible posterior bulge. Spinal canal is adequate. There is a small hemangioma of the L5 vertebral body. Neural foramina are not significantly narrowed. L5-S1: There is shallow posterior protrusion more eccentric to the right lateral recess, near descending right S1 nerve root without displacement. Spinal canal is not significantly narrowed. Neural foramina are adequate. Impression: 1. Protrusion in the left lateral recess at L2-3 results in moderate left lateral recess stenosis and contact descending left L3 nerve root. Shallow protrusion in the right lateral recess at L5-S1 is near descending right S1 nerve root without significant displacement. 2. There has been posterolateral fusion L3-4. Electronically signed by: Emir Hoyt MD (06/03/2017 3:47 PM) [facility]
== END | disposition home or self-care (01) ==
LOC: KCIC MRI 14:03
PROVIDERS: ATTEND Neurological Surgery
DX: M54.16 Radiculopathy, lumbar region (principal); D18.09 Hemangioma of other sites; M48.06 Spinal stenosis, lumbar region
CPT/HCPCS: 72158; 82565; A9585

== ENCOUNTER → 2017-08-06 | Outpatient (CLI) | payer OTHER ==
[~2017-08-06] MED LIST changes: -GADOBUTROL 10 MMOL/10 ML VIAL IV ONE; +METO25TA4 PO; +POTA10TA12 PO
[2017-08-06 14:10] LABS: BASO % 1 % (0-3); EOS % 2 % (0-3); HEMATOCRIT 39.3 % (36.0-47.0); HEMOGLOBIN 13.2 g/dL (12.0-15.5); LYMPH # 1.2 x10^3/uL (1.0-4.8); LYMPH % 37 % (24-48); MEAN CORPUSCULAR HEMOGLOBIN 29 pg (25-35); MEAN CORPUSCULAR HGB CONC 34 g/dL (31-37); MEAN CORPUSCULAR VOLUME 86 fL (79-100); MONO % 7 % (0-9); NEUT % 53 % (31-73); PLATELET COUNT 251 x10^3/uL (140-400); RED BLOOD COUNT 4.57 x10^6/uL (3.50-5.40); WHITE BLOOD COUNT 3.3 x10^3/uL (4.0-11.0)
[2017-08-06 14:30] LABS: CALCIUM 9.6 mg/dL (8.5-10.1); CREATININE 0.6 mg/dL (0.6-1.0); GFR 129.1; TOTAL BILIRUBIN 0.4 mg/dL (0.2-1.0)
[2017-08-06 14:33] LABS: POTASSIUM 2.9 mmol/L (3.5-5.1)
== END | disposition home or self-care (01) ==
LOC: SURGPAT 13:01
PROVIDERS: ATTEND Neurological Surgery
DX: Z01.818 Encounter for other preprocedural examination (principal); M51.16 Intervertebral disc disorders with radiculopathy, lumbar region
CPT/HCPCS: 36415; 80053; 83036; 85025; 87641

== ENCOUNTER → 2017-08-09 | Outpatient (CLI) | payer OTHER ==
[2017-08-09 13:22] LABS: CALCIUM 9.4 mg/dL (8.5-10.1); CREATININE 0.6 mg/dL (0.6-1.0); GFR 129.1; MAGNESIUM 1.7 mg/dL (1.8-2.4); POTASSIUM 3.5 mmol/L (3.5-5.1)
== END | disposition home or self-care (01) ==
LOC: LAB 12:35
PROVIDERS: ATTEND Internal Medicine Cardiovascular Disease
DX: I10 Essential (primary) hypertension (principal); E87.6 Hypokalemia
CPT/HCPCS: 36415; 80048; 83735

== ENCOUNTER 2017-08-23 16:09 | Inpatient (IN) | payer OTHER ==
[~2017-08-23] VITALS: Ht 165.1 cm; Wt 72.8 kg
[2017-08-23] MEDS ORDERED: ONDANSETRON PF 4 MG/2 ML VIAL. IV ONE (17:00)
[2017-08-23] MEDS ORDERED: HYDROmorphone 2 MG/ML VIAL IV ONE ×2 (17:00→18:15)
[2017-08-23] MEDS ORDERED: diazePAM 5 MG TABLET PO ONE (17:00)
--- NOTE | 2017-08-23 17:26 | PHYS DOC ---
Past Medical History Past Medical History: Diabetes-Type II, Hypertension, Other Additional Past Medical Histor: CHRONIC BACK PAIN Past Surgical History: Appendectomy, Cholecystectomy, , Hysterectomy, Other Additional Past Surgical Histo: L- SPINE FUSION X 2 Alcohol Use: None Drug Use: None Adult General Chief Complaint Chief Complaint: LOWER BACK PAIN OR INJURY [facility] HPI Patient is a 46 year old female with a history of back pain presents the ED complaining of worsening back pain 2 days. Patient states she is scheduled for surgery next with Dr. Fonseca. States she had a fusion completed on her L3 and L4 vertebra. Patient states she called his office and was told to come to the ED if the pain continues to worsen. Patient states she's been taking her pain medications, hydrocodone and muscle relaxers, over the last 24 hours with no relief. Denies injury/trauma, fever, bowel/bladder changes, saddle anesthesia, chest pain, or shortness of breath. Review of Systems Review of Systems Constitutional: Denies fever or chills [] Eyes: Denies change in visual acuity, redness, or eye pain [] HENT: Denies nasal congestion or sore throat [] Respiratory: Denies cough or shortness of breath [] Cardiovascular: No additional information not addressed in HPI [] GI: Denies abdominal pain, nausea, vomiting, bloody stools or diarrhea [] : Denies dysuria or hematuria [] Musculoskeletal: Complains of back pain. Denies joint pain [] Integument: Denies rash or skin lesions [] Neurologic: Denies headache, focal weakness or sensory changes [] Endocrine: Denies polyuria or polydipsia [] All other systems were reviewed and found to be within normal limits, except as documented in this note. Current Medications Current Medications Current Medications Medications (Trade) Dose Ordered Sig/Benita Start Time Stop Time Status Last Admin Dose Admin Diazepam (Valium) 5 mg 1X ONCE 08/23/17 17:00 08/23/17 17:01 DC 08/23/17 17:26 5 MG Hydromorphone HCl (Dilaudid) 1 mg 1X ONCE 08/23/17 17:00 08/23/17 17:01 DC 08/23/17 17:24 1 MG Ondansetron HCl (Zofran) 4 mg 1X ONCE 08/23/17 17:00 08/23/17 17:01 DC 08/23/17 17:23 4 MG Allergies Allergies Allergies Coded Allergies Type Severity Reaction Last Updated Verified spironolactone Allergy Intermediate Itching, RASH 08/06/17 Yes tramadol Allergy Intermediate Rash AND VOMITING 08/06/17 Yes Physical Exam Physical Exam Constitutional: Well developed, well nourished, no acute distress, non-toxic appearance. [] HENT: Normocephalic, atraumatic, oropharynx moist Cardiovascular:Heart rate regular rhythm, no murmur [] Lungs & Thorax: Bilateral breath sounds clear to auscultation [] Abdomen: Bowel sounds normal, soft, no tenderness, no masses, no pulsatile masses. [] Skin: Warm, dry, no erythema, no rash. [] Back: LUMBAR PARASPINAL TENDERNESS, no CVA tenderness. [] Extremities: No tenderness, no cyanosis, no clubbing, ROM intact, no edema. [] Neurologic: Alert and oriented X 3, normal motor function, normal sensory function, no focal deficits noted. [] Psychologic: Affect normal, judgement normal, mood normal. [] Current Patient Data Vital Signs Vital Signs Date Time Temp Pulse Resp B/P (MAP) Pulse Ox O2 Delivery O2 Flow Rate FiO2 08/23/17 17:14 98 16 129/88 (102) 98 Room Air 08/23/17 16:20 98.2 98.2 Lab Values Laboratory Tests Test 08/23/17 17:15 White Blood Count 4.6 x10^3/uL (4.0-11.0) Red Blood Count 4.70 x10^6/uL (3.50-5.40) Hemoglobin 13.6 g/dL (12.0-15.5) Hematocrit 40.7 % (36.0-47.0) Mean Corpuscular Volume 87 fL (79-100) Mean Corpuscular Hemoglobin 29 pg (25-35) Mean Corpuscular Hemoglobin Concent 33 g/dL (31-37) Red Cell Distribution Width 14.2 % (11.5-14.5) Platelet Count 255 x10^3/uL (140-400) Sodium Level 141 mmol/L (136-145) Potassium Level 3.4 mmol/L (3.5-5.1) L Chloride Level 101 mmol/L (98-107) Carbon Dioxide Level 30 mmol/L (21-32) Anion Gap 10 (6-14) Blood Urea Nitrogen 15 mg/dL (7-20) Creatinine 0.7 mg/dL (0.6-1.0) Estimated GFR (Cockcroft-Gault) 108.1 Glucose Level 152 mg/dL (70-99) H Calcium Level 9.9 mg/dL (8.5-10.1) Laboratory Tests 08/23/17 17:15 Laboratory Tests 08/23/17 17:15 EKG EKG [] Radiology/Procedures Radiology/Procedures [] Course & Med Decision Making Course & Med Decision Making Pertinent Labs and Imaging studies reviewed. (See chart for details) Patients given dilaudid for pain control in the ED. Patients pain improved very little. No focal neuro deficits. States its an exacerbation of her chronic pain. Discussed case with Dr. Fonseca's LEGAL SECRETARY. States they will come see patient if admitted for pain control. Plan is for surgery . States patient has pushed the surgery date back from the original date. []Discussed case with hospitalist, Dr. Freitas. Agrees to admission and further management of patient. Patient stable for admission. Dragon Disclaimer Dragon Disclaimer This electronic medical record was generated, in whole or in part, using a voice recognition dictation system. Departure Departure Impression: Primary Impression: Intractable back pain Disposition: ADMITTED INPATIENT Admitting Physician: Soraida Freitas Condition: STABLE Referrals: BENJAMIN STEEL DO (PCP) IKER SUNG Aug 23, 2017 17:26
[2017-08-23 17:32] LABS: HEMATOCRIT 40.7 % (36.0-47.0); HEMOGLOBIN 13.6 g/dL (12.0-15.5); RED BLOOD COUNT 4.7 x10^6/uL (3.50-5.40); RED CELL DISTRIBUTION WIDTH 14.2 % (11.5-14.5); WHITE BLOOD COUNT 4.6 x10^3/uL (4.0-11.0)
[2017-08-23 17:46] LABS: CALCIUM 9.9 mg/dL (8.5-10.1); CREATININE 0.7 mg/dL (0.6-1.0); GFR 108.1; POTASSIUM 3.4 mmol/L (3.5-5.1)
[2017-08-23] MEDS ORDERED: ACETAMINOPHEN 325 MG TABLET. PO PRN (18:30)
[2017-08-23] MEDS ORDERED: ONDANSETRON PF 4 MG/2 ML VIAL. IV PRN (18:30)
[2017-08-23 19:00] VITALS: BP 146/97
[2017-08-23] MEDS: diphenhydrAMINE 50 MG/ML VIAL IVP PRN (19:41)
[2017-08-23] MEDS: fentaNYL PF VIAL 100 MCG/2 ML VIAL IV PRN ×2 (19:42→23:29)
[2017-08-23 23:06] VITALS: BP 132/88
[2017-08-24] MEDS: fentaNYL PF VIAL 100 MCG/2 ML VIAL IV PRN ×5 (01:59→10:30)
[2017-08-24 03:08] VITALS: BP 124/87
[2017-08-24 05:23] LABS: BASO % 1 % (0-3); EOS % 2 % (0-3); HEMATOCRIT 35.8 % (36.0-47.0); HEMOGLOBIN 12.3 g/dL (12.0-15.5); LYMPH # 1.4 x10^3/uL (1.0-4.8); LYMPH % 35 % (24-48); MEAN CORPUSCULAR HEMOGLOBIN 30 pg (25-35); MEAN CORPUSCULAR HGB CONC 34 g/dL (31-37); MEAN CORPUSCULAR VOLUME 86 fL (79-100); MONO % 7 % (0-9); NEUT % 55 % (31-73); PLATELET COUNT 231 x10^3/uL (140-400); RED BLOOD COUNT 4.14 x10^6/uL (3.50-5.40); RED CELL DISTRIBUTION WIDTH 14.8 % (11.5-14.5); WHITE BLOOD COUNT 4.1 x10^3/uL (4.0-11.0)
[2017-08-24 06:07] LABS: ALBUMIN 3.7 g/dL (3.4-5.0); CALCIUM 9.5 mg/dL (8.5-10.1); CREATININE 0.6 mg/dL (0.6-1.0); GFR 129.1; POTASSIUM 3.1 mmol/L (3.5-5.1); TOTAL BILIRUBIN 0.6 mg/dL (0.2-1.0); TOTAL PROTEIN 7.4 g/dL (6.4-8.2)
[2017-08-24 07:00] VITALS: BP 139/93
[2017-08-24] MEDS ORDERED: HYDROmorphone 2 MG TABLET PO PRN ×2 (08:45)
[2017-08-24] MEDS ORDERED: MAGNESIUM HYDROXIDE 2,400 MG/30 ML ORAL.SUSP. PO PRN (08:45)
[2017-08-24] MEDS ORDERED: DEXTROSE 50% 25 GM / 50ML DISP.SYRIN. IV PRN (08:45)
[2017-08-24] MEDS ORDERED: oxyCODONE/APAP 10/325 1 TAB TABLET PO PRN (08:45)
[2017-08-24] MEDS ORDERED: oxyCODONE/APAP 5/325 1 TAB TABLET PO PRN (08:45)
[2017-08-24] MEDS: POLYETHYLENE GLYCOL 3350 17 GM PACKET. PO SCH (09:30)
[2017-08-24] MEDS ORDERED: LINAGLIPTIN 5 MG TABLET PO SCH (09:30)
[2017-08-24] MEDS: METOPROLOL TART IMMED RELEASE 25 MG TABLET. PO SCH ×2 (10:31→21:00)
[2017-08-24] MEDS: DOCUSATE SODIUM 100 MG CAPSULE. PO SCH ×2 (10:31→21:26)
[2017-08-24] MEDS: POTASSIUM CHLORIDE 10 MEQ TABLET.ER. PO SCH (10:32)
[2017-08-24 10:44] VITALS: BP 135/85
[2017-08-24] MEDS: INSULIN ASPART 300 UNITS/3 ML INSULN.PEN SQ SCH ×2 (12:00→17:00)
[2017-08-24] MEDS: CHLORTHALIDONE 25 MG TABLET. PO SCH (12:15)
--- NOTE | 2017-08-24 13:17 | PDOC1 ---
History and Physical Date of Admission Date of Admission DATE: 08/24/17 TIME: 13:11 Identification/Chief Complaint Chief Complaint Worsening back pain Problems: Source Source: Chart review, Patient History of Present Illness History of Present Illness 46-year-old -[place] female who is scheduled to have outpatient surgery by Dr. Fonseca on comes into the emergency room last night because of worsening of back pain not controlled by by mouth pain medicines at home. Her pain medicines at home include Valium Flexeril when necessary, Dilaudid etc. No imaging was performed. Patient was admitted for symptom control and for the service to see her. Patient describes the back pain in the lower spine more so on the right. Usually her right would not bother her as her left leg that would bother her or left back radiating all the way to her foot but this time because her right leg 10 out of 10 and severe intensity. She would be a 6 out of 10 if she were laying still. There is no report about bladder or bowel incontinence, no fevers , no recent falls or trauma. Given the nature of the increase or change in baseline pain of her back pain with leg involvement, I did order an MRI without contrast today - In the interest of time. Last MRI was maybe a 1 or 2 months ago done as outpatient in preparation for surgery. He is also on Flexeril at home. At the emergency room she received Dilaudid fentanyl Valium. She is in no way drowsy. She is laying still because of fear for pain. Past Medical History Musculoskeletal: low back pain Endocrine: Diabetes Past Surgical History Past Surgical History: No pertinent history Family History Family History: No Significant Social History Smoke: No ALCOHOL: none Drugs: None Current Problem List Problem List Problems Medical Problems: (1) Intractable back pain Status: Acute Problems: Current Medications Current Medications Current Medications Hydromorphone HCl (Dilaudid) 1 mg 1X ONCE IV Last administered on 08/23/17 17:24; Start 08/23/17 at 17:00; Stop 08/23/17 at 17:01; Status DC Diazepam (Valium) 5 mg 1X ONCE PO Last administered on 08/23/17 17:26; Start 08/23/17 at 17:00; Stop 08/23/17 at 17:01; Status DC Ondansetron HCl (Zofran) 4 mg 1X ONCE IV Last administered on 08/23/17 17:23 ; Start 08/23/17 at 17:00; Stop 08/23/17 at 17:01; Status DC Hydromorphone HCl (Dilaudid) 1 mg 1X ONCE IV Last administered on 08/23/17 18:17; Start 08/23/17 at 18:15; Stop 08/23/17 at 18:16; Status DC Ondansetron HCl (Zofran) 4 mg PRN Q8HRS PRN IV NAUSEA/VOMITING; Start at 18:30; Stop 08/24/17 at 08:42; Status DC Fentanyl Citrate (Fentanyl 2ml Vial) 50 mcg PRN Q2HR PRN IV PAIN Last administered on 08/24/17 10:30; Start 08/23/17 at 18:30; Stop 08/24/17 at 18 :29 Acetaminophen (Tylenol) 650 mg PRN Q4HRS PRN PO FEVER; Start 08/23/17 at 18:30 ; Stop 08/24/17 at 18:29 Diphenhydramine HCl (Benadryl) 25 mg PRN TID PRN IVP ITCHING Last administered on 08/23/17 19:41; Start 08/23/17 at 19:45 Ondansetron HCl (Zofran) 4 mg PRN Q6HRS PRN IV NAUSEA/VOMITING; Start at 08:45 Chlorthalidone (Thalitone) 50 mg DAILY PO Last administered on 08/24/17 12:15 ; Start 08/24/17 at 09:30 Cyclobenzaprine HCl (Flexeril) 10 mg PRN TID PRN PO MUSCLE SPASMS; Start 08/24 at 08:45 Hydromorphone HCl (Dilaudid) 2 mg PRN Q6HRS PRN PO PAIN; Start 08/24/17 at 08: 45; Status UNV Metformin HCl (Glucophage) 1,000 mg BIDWMEALS PO Last administered on 10:31; Start 08/24/17 at 09:30 Metoprolol Tartrate (Lopressor) 25 mg BID PO Last administered on 08/24/17 10 :31; Start 08/24/17 at 09:30 Potassium Chloride (Klor-Con) 10 meq DAILY PO Last administered on 08/24/17 10:32; Start 08/24/17 at 09:30 Non-Formulary Medication 5,000 mcg [id number] PO ; Start 08/24/17 at 16:00; Status UNV Gabapentin (Neurontin) 1,200 mg QHS PO ; Start 08/24/17 at 21:00 Linagliptin (Tradjenta) 5 mg DAILY PO Last administered on 08/24/17 10:31; Start 08/24/17 at 09:30 Hydromorphone HCl (Dilaudid) 2 mg PRN Q3HRS PRN PO PAIN; Start 08/24/17 at 08: 45 Insulin Aspart (NovoLOG) 0-9 UNITS TIDWMEALS SQ ; Start 08/24/17 at 12:00 Dextrose (Dextrose 50%-Water Syringe) 12.5 gm PRN Q15MIN PRN IV SEE COMMENTS; Start 08/24/17 at 08:45 Diazepam (Valium) 2 mg PRN QID PRN PO ANXIETY; Start 08/24/17 at 08:45 Oxycodone/ Acetaminophen (Percocet 5/325) 1 tab PRN Q4HRS PRN PO PAIN; Start 08/24/17 at 08:45 Oxycodone/ Acetaminophen (Percocet 10/325) 1 tab PRN Q4HRS PRN PO pain; Start 08/24/17 at 08:45 Docusate Sodium (Colace) 100 mg BID PO Last administered on 08/24/17 10:31; Start 08/24/17 at 09:30 Polyethylene Glycol (miraLAX PACKET) 17 gm DAILY PO ; Start 08/24/17 at 09:30 Magnesium Hydroxide (Milk Of Magnesia) 2,400 mg PRN DAILY PRN PO CONSTIPATION; Start 08/24/17 at 08:45 Active Scripts Active [Hydromorphone Hcl] 2 MG Tablet 2 Mg PO PRN Q3HRS PRN Reported Potassium Chloride 10 Meq Tablet.er 10 Meq PO DAILY Janumet 50-1,000 Mg Tablet (Sitagliptin Phos/Metformin Hcl) 1 Each Tablet 1 Tab PO BID Metoprolol Tartrate 25 Mg Tablet 1 Tab PO BID Biotin 2,500 Mcg Capsule 5,000 Mcg PO [id number] Dilaudid (Hydromorphone Hcl) 2 Mg Tablet 1 Tab PO PRN Q6HRS PRN Metformin Hcl 1,000 Mg Tablet 1 Tab PO BID Gabapentin 300 Mg Capsule 1,500 Mg PO DAILY Cyclobenzaprine Hcl 10 Mg Tablet 1 Tab PO TID PRN LAST DOSE GIVEN: DATE: 09/08 TIME: 9 am NEXT DOSE DUE: DATE: 09/09 TIME: 9 am Chlorthalidone 25 Mg Tablet 50 Mg PO DAILY LAST DOSE GIVEN: DATE: 09/08 TIME: 9 am NEXT DOSE DUE: DATE: 09/09 TIME: 9 am Allergies Allergies: Coded Allergies: spironolactone (Verified Allergy, Intermediate, Itching, RASH, 08/06/17) tramadol (Verified Allergy, Intermediate, Rash AND VOMITING, 08/06/17) Tolerates hydrocodone and morphine ROS Review of System Back pain, bilateral leg pain from the back shooting from the back, A 14 point ROS was completed with the following noted as positive: Other systems reviewed and negative. \CONSTITUTIONAL: No fever or chills EYES: No recent changes SKIN: No rash or itching CARDIOVASCULAR: No chest pain, syncope, palpitations, or edema RESPIRATORY: No SOB or cough GASTROINTESTINAL: No nausea, vomiting or abdominal pain NEUROLOGICAL: No headaches or weakness ENDOCRINE: No cold or heat intolerance GENITOURINARY: No urgency or frequency of urination MUSCULOSKELETAL: No back pain or joint pain LYMPHATICS: No enlarged lymph nodes PSYCHIATRIC: No anxiety or depression Physical Exam Physical Exam Physical Exam General: Alert, Oriented X3, Cooperative, No acute distress, still in bed seated HEENT: Atraumatic, PERRLA Lungs: Normal air movement, Other (wheezy) Heart: S1S2, RRR, no thrills, no gallops, no murmurs Cardiovascular: S1, S2 Abdomen: Normal bowel sounds, Soft, No tenderness, No hepatosplenomegaly, No masses, Other (obese) Rectal Exam: not examined PELVIC: Nml ext genitalia Extremities: No rashes, no edema, pulses full and equal Skin: No rashes, No breakdown, No significant lesion Neuro: Normal gait, Normal speech, Strength at 5/5 X4 ext, Normal tone, Sensation intact, Cranial nerves 3-12 NL, Reflexes 2+ Psych/Mental Status: Mental status NL, Mood NL Vitals Vitals Vital Signs Date Time Temp Pulse Resp B/P (MAP) Pulse Ox O2 Delivery O2 Flow Rate FiO2 08/24/17 11:00 12 94 Room Air 08/24/17 10:44 98.1 99 135/85 (102) 98.1 Labs Labs Laboratory Tests Test 08/23/17 17:15 08/24/17 04:15 08/24/17 11:34 White Blood Count 4.6 x10^3/uL (4.0-11.0) 4.1 x10^3/uL (4.0-11.0) Red Blood Count 4.70 x10^6/uL (3.50-5.40) 4.14 x10^6/uL (3.50-5.40) Hemoglobin 13.6 g/dL (12.0-15.5) 12.3 g/dL (12.0-15.5) Hematocrit 40.7 % (36.0-47.0) 35.8 % (36.0-47.0) Mean Corpuscular Volume 87 fL (79-100) 86 fL (79-100) Mean Corpuscular Hemoglobin 29 pg (25-35) 30 pg (25-35) Mean Corpuscular Hemoglobin Concent 33 g/dL (31-37) 34 g/dL (31-37) Red Cell Distribution Width 14.2 % (11.5-14.5) 14.8 % (11.5-14.5) Platelet Count 255 x10^3/uL (140-400) 231 x10^3/uL (140-400) Sodium Level 141 mmol/L (136-145) 141 mmol/L (136-145) Potassium Level 3.4 mmol/L (3.5-5.1) 3.1 mmol/L (3.5-5.1) Chloride Level 101 mmol/L (98-107) 102 mmol/L (98-107) Carbon Dioxide Level 30 mmol/L (21-32) 29 mmol/L (21-32) Anion Gap 10 (6-14) 10 (6-14) Blood Urea Nitrogen 15 mg/dL (7-20) 13 mg/dL (7-20) Creatinine 0.7 mg/dL (0.6-1.0) 0.6 mg/dL (0.6-1.0) Estimated GFR (Cockcroft-Gault) 108.1 129.1 Glucose Level 152 mg/dL (70-99) 158 mg/dL (70-99) Calcium Level 9.9 mg/dL (8.5-10.1) 9.5 mg/dL (8.5-10.1) Neutrophils (%) (Auto) 55 % (31-73) Lymphocytes (%) (Auto) 35 % (24-48) Monocytes (%) (Auto) 7 % (0-9) Eosinophils (%) (Auto) 2 % (0-3) Basophils (%) (Auto) 1 % (0-3) Neutrophils # (Auto) 2.3 x10^3uL (1.8-7.7) Lymphocytes # (Auto) 1.4 x10^3/uL (1.0-4.8) Monocytes # (Auto) 0.3 x10^3/uL (0.0-1.1) Eosinophils # (Auto) 0.1 x10^3/uL (0.0-0.7) Basophils # (Auto) 0.0 x10^3/uL (0.0-0.2) BUN/Creatinine Ratio 22 (6-20) Total Bilirubin 0.6 mg/dL (0.2-1.0) Aspartate Amino Transf (AST/SGOT) 18 U/L (15-37) Alanine Aminotransferase (ALT/SGPT) 21 U/L (14-59) Alkaline Phosphatase 60 U/L (46-116) Total Protein 7.4 g/dL (6.4-8.2) Albumin 3.7 g/dL (3.4-5.0) Albumin/Globulin Ratio 1.0 (1.0-1.7) Glucose (Fingerstick) 147 mg/dL (70-99) Laboratory Tests Test 08/23/17 17:15 08/24/17 04:15 08/24/17 11:34 White Blood Count 4.6 x10^3/uL (4.0-11.0) 4.1 x10^3/uL (4.0-11.0) Red Blood Count 4.70 x10^6/uL (3.50-5.40) 4.14 x10^6/uL (3.50-5.40) Hemoglobin 13.6 g/dL (12.0-15.5) 12.3 g/dL (12.0-15.5) Hematocrit 40.7 % (36.0-47.0) 35.8 % (36.0-47.0) Mean Corpuscular Volume 87 fL (79-100) 86 fL (79-100) Mean Corpuscular Hemoglobin 29 pg (25-35) 30 pg (25-35) Mean Corpuscular Hemoglobin Concent 33 g/dL (31-37) 34 g/dL (31-37) Red Cell Distribution Width 14.2 % (11.5-14.5) 14.8 % (11.5-14.5) Platelet Count 255 x10^3/uL (140-400) 231 x10^3/uL (140-400) Sodium Level 141 mmol/L (136-145) 141 mmol/L (136-145) Potassium Level 3.4 mmol/L (3.5-5.1) 3.1 mmol/L (3.5-5.1) Chloride Level 101 mmol/L (98-107) 102 mmol/L (98-107) Carbon Dioxide Level 30 mmol/L (21-32) 29 mmol/L (21-32) Anion Gap 10 (6-14) 10 (6-14) Blood Urea Nitrogen 15 mg/dL (7-20) 13 mg/dL (7-20) Creatinine 0.7 mg/dL (0.6-1.0) 0.6 mg/dL (0.6-1.0) Estimated GFR (Cockcroft-Gault) 108.1 129.1 Glucose Level 152 mg/dL (70-99) 158 mg/dL (70-99) Calcium Level 9.9 mg/dL (8.5-10.1) 9.5 mg/dL (8.5-10.1) Neutrophils (%) (Auto) 55 % (31-73) Lymphocytes (%) (Auto) 35 % (24-48) Monocytes (%) (Auto) 7 % (0-9) Eosinophils (%) (Auto) 2 % (0-3) Basophils (%) (Auto) 1 % (0-3) Neutrophils # (Auto) 2.3 x10^3uL (1.8-7.7) Lymphocytes # (Auto) 1.4 x10^3/uL (1.0-4.8) Monocytes # (Auto) 0.3 x10^3/uL (0.0-1.1) Eosinophils # (Auto) 0.1 x10^3/uL (0.0-0.7) Basophils # (Auto) 0.0 x10^3/uL (0.0-0.2) BUN/Creatinine Ratio 22 (6-20) Total Bilirubin 0.6 mg/dL (0.2-1.0) Aspartate Amino Transf (AST/SGOT) 18 U/L (15-37) Alanine Aminotransferase (ALT/SGPT) 21 U/L (14-59) Alkaline Phosphatase 60 U/L (46-116) Total Protein 7.4 g/dL (6.4-8.2) Albumin 3.7 g/dL (3.4-5.0) Albumin/Globulin Ratio 1.0 (1.0-1.7) Glucose (Fingerstick) 147 mg/dL (70-99) VTE Prophylaxis Ordered VTE Prophylaxis Devices: Yes VTE Pharmacological Prophylaxi: Yes Assessment/Plan Assessment/Plan Assessment Worsening lower back pain, mentions L1-L2 pathology Radiation to bilateral lower extremity Diabetes type 2 on OHA rather controlled Plan of care: Given the nature of the increased or changed in intensity of her back pain will order an MRI Await neurosurgery consult Add physiatry PT OT once cleared by the Above Add Valium, continue Flexeril when necessary, continue home medications by mouth and IV pain meds Bowel regimen while on multiple narcotics Discussed with her at recent my plan of care. ARIADNA SIERRA MD Aug 24, 2017 13:17
[2017-08-24 15:28] VITALS: BP 119/78
[2017-08-24] MEDS: diazePAM 2 MG TABLET PO PRN ×2 (15:39→20:11)
[2017-08-24] MEDS ORDERED: NON FORMULARY ITEM (Biotin 5,000 MCG) PO SCH (16:00)
[2017-08-24 19:00] VITALS: BP 136/87
[2017-08-24] MEDS: CYCLOBENZAPRINE 10 MG TABLET. PO PRN (20:11)
[2017-08-24] MEDS: HYDROmorphone 2 MG TABLET PO PRN (20:12)
--- NOTE | 2017-08-24 21:01 | PDOC ---
PROGRESS NOTES Subjective Subjective patient seen at 1530 acute onset of back and right leg pain, her previous more recent pain was on the left side She will need a new MRI Will follow Objective Objective Vital Signs Date Time Temp Pulse Resp B/P (MAP) Pulse Ox O2 Delivery O2 Flow Rate FiO2 08/24/17 20:12 18 Room Air 08/24/17 16:38 94 08/24/17 15:28 98.1 84 119/78 (92) 98.1 Intake and Output 08/24/17 07:00 Intake Total 1000 ml Balance 1000 ml Intake Oral 1000 ml # Voids 1 Assessment Assessment Problems Medical Problems: (1) Intractable back pain Status: Acute Comment Review of Relevant I have reviewed the following items pretty (where applicable) has been applied. Labs Laboratory Tests Test 08/23/17 17:15 08/24/17 04:15 08/24/17 11:34 08/24/17 16:38 White Blood Count 4.6 x10^3/uL (4.0-11.0) 4.1 x10^3/uL (4.0-11.0) Red Blood Count 4.70 x10^6/uL (3.50-5.40) 4.14 x10^6/uL (3.50-5.40) Hemoglobin 13.6 g/dL (12.0-15.5) 12.3 g/dL (12.0-15.5) Hematocrit 40.7 % (36.0-47.0) 35.8 % (36.0-47.0) Mean Corpuscular Volume 87 fL (79-100) 86 fL (79-100) Mean Corpuscular Hemoglobin 29 pg (25-35) 30 pg (25-35) Mean Corpuscular Hemoglobin Concent 33 g/dL (31-37) 34 g/dL (31-37) Red Cell Distribution Width 14.2 % (11.5-14.5) 14.8 % (11.5-14.5) Platelet Count 255 x10^3/uL (140-400) 231 x10^3/uL (140-400) Sodium Level 141 mmol/L (136-145) 141 mmol/L (136-145) Potassium Level 3.4 mmol/L (3.5-5.1) 3.1 mmol/L (3.5-5.1) Chloride Level 101 mmol/L (98-107) 102 mmol/L (98-107) Carbon Dioxide Level 30 mmol/L (21-32) 29 mmol/L (21-32) Anion Gap 10 (6-14) 10 (6-14) Blood Urea Nitrogen 15 mg/dL (7-20) 13 mg/dL (7-20) Creatinine 0.7 mg/dL (0.6-1.0) 0.6 mg/dL (0.6-1.0) Estimated GFR (Cockcroft-Gault) 108.1 129.1 Glucose Level 152 mg/dL (70-99) 158 mg/dL (70-99) Calcium Level 9.9 mg/dL (8.5-10.1) 9.5 mg/dL (8.5-10.1) Neutrophils (%) (Auto) 55 % (31-73) Lymphocytes (%) (Auto) 35 % (24-48) Monocytes (%) (Auto) 7 % (0-9) Eosinophils (%) (Auto) 2 % (0-3) Basophils (%) (Auto) 1 % (0-3) Neutrophils # (Auto) 2.3 x10^3uL (1.8-7.7) Lymphocytes # (Auto) 1.4 x10^3/uL (1.0-4.8) Monocytes # (Auto) 0.3 x10^3/uL (0.0-1.1) Eosinophils # (Auto) 0.1 x10^3/uL (0.0-0.7) Basophils # (Auto) 0.0 x10^3/uL (0.0-0.2) BUN/Creatinine Ratio 22 (6-20) Total Bilirubin 0.6 mg/dL (0.2-1.0) Aspartate Amino Transf (AST/SGOT) 18 U/L (15-37) Alanine Aminotransferase (ALT/SGPT) 21 U/L (14-59) Alkaline Phosphatase 60 U/L (46-116) Total Protein 7.4 g/dL (6.4-8.2) Albumin 3.7 g/dL (3.4-5.0) Albumin/Globulin Ratio 1.0 (1.0-1.7) Glucose (Fingerstick) 147 mg/dL (70-99) 125 mg/dL (70-99) Laboratory Tests Test 08/24/17 04:15 08/24/17 11:34 08/24/17 16:38 White Blood Count 4.1 x10^3/uL (4.0-11.0) Red Blood Count 4.14 x10^6/uL (3.50-5.40) Hemoglobin 12.3 g/dL (12.0-15.5) Hematocrit 35.8 % (36.0-47.0) Mean Corpuscular Volume 86 fL (79-100) Mean Corpuscular Hemoglobin 30 pg (25-35) Mean Corpuscular Hemoglobin Concent 34 g/dL (31-37) Red Cell Distribution Width 14.8 % (11.5-14.5) Platelet Count 231 x10^3/uL (140-400) Neutrophils (%) (Auto) 55 % (31-73) Lymphocytes (%) (Auto) 35 % (24-48) Monocytes (%) (Auto) 7 % (0-9) Eosinophils (%) (Auto) 2 % (0-3) Basophils (%) (Auto) 1 % (0-3) Neutrophils # (Auto) 2.3 x10^3uL (1.8-7.7) Lymphocytes # (Auto) 1.4 x10^3/uL (1.0-4.8) Monocytes # (Auto) 0.3 x10^3/uL (0.0-1.1) Eosinophils # (Auto) 0.1 x10^3/uL (0.0-0.7) Basophils # (Auto) 0.0 x10^3/uL (0.0-0.2) Sodium Level 141 mmol/L (136-145) Potassium Level 3.1 mmol/L (3.5-5.1) Chloride Level 102 mmol/L (98-107) Carbon Dioxide Level 29 mmol/L (21-32) Anion Gap 10 (6-14) Blood Urea Nitrogen 13 mg/dL (7-20) Creatinine 0.6 mg/dL (0.6-1.0) Estimated GFR (Cockcroft-Gault) 129.1 BUN/Creatinine Ratio 22 (6-20) Glucose Level 158 mg/dL (70-99) Calcium Level 9.5 mg/dL (8.5-10.1) Total Bilirubin 0.6 mg/dL (0.2-1.0) Aspartate Amino Transf (AST/SGOT) 18 U/L (15-37) Alanine Aminotransferase (ALT/SGPT) 21 U/L (14-59) Alkaline Phosphatase 60 U/L (46-116) Total Protein 7.4 g/dL (6.4-8.2) Albumin 3.7 g/dL (3.4-5.0) Albumin/Globulin Ratio 1.0 (1.0-1.7) Glucose (Fingerstick) 147 mg/dL (70-99) 125 mg/dL (70-99) Medications Current Medications Hydromorphone HCl (Dilaudid) 1 mg 1X ONCE IV Last administered on 08/23/17 17:24; Start 08/23/17 at 17:00; Stop 08/23/17 at 17:01; Status DC Diazepam (Valium) 5 mg 1X ONCE PO Last administered on 08/23/17 17:26; Start 08/23/17 at 17:00; Stop 08/23/17 at 17:01; Status DC Ondansetron HCl (Zofran) 4 mg 1X ONCE IV Last administered on 08/23/17 17:23 ; Start 08/23/17 at 17:00; Stop 08/23/17 at 17:01; Status DC Hydromorphone HCl (Dilaudid) 1 mg 1X ONCE IV Last administered on 08/23/17 18:17; Start 08/23/17 at 18:15; Stop 08/23/17 at 18:16; Status DC Ondansetron HCl (Zofran) 4 mg PRN Q8HRS PRN IV NAUSEA/VOMITING; Start at 18:30; Stop 08/24/17 at 08:42; Status DC Fentanyl Citrate (Fentanyl 2ml Vial) 50 mcg PRN Q2HR PRN IV PAIN Last administered on 08/24/17 10:30; Start 08/23/17 at 18:30; Stop 08/24/17 at 18 :29; Status DC Acetaminophen (Tylenol) 650 mg PRN Q4HRS PRN PO FEVER; Start 08/23/17 at 18:30 ; Stop 08/24/17 at 18:29; Status DC Diphenhydramine HCl (Benadryl) 25 mg PRN TID PRN IVP ITCHING Last administered on 08/23/17 19:41; Start 08/23/17 at 19:45 Ondansetron HCl (Zofran) 4 mg PRN Q6HRS PRN IV NAUSEA/VOMITING; Start at 08:45 Chlorthalidone (Thalitone) 50 mg DAILY PO Last administered on 08/24/17 12:15 ; Start 08/24/17 at 09:30 Cyclobenzaprine HCl (Flexeril) 10 mg PRN TID PRN PO MUSCLE SPASMS Last administered on 08/24/17 20:11; Start 08/24/17 at 08:45 Hydromorphone HCl (Dilaudid) 2 mg PRN Q6HRS PRN PO PAIN; Start 08/24/17 at 08: 45; Status UNV Metformin HCl (Glucophage) 1,000 mg BIDWMEALS PO Last administered on 17:46; Start 08/24/17 at 09:30 Metoprolol Tartrate (Lopressor) 25 mg BID PO Last administered on 08/24/17 10 :31; Start 08/24/17 at 09:30 Potassium Chloride (Klor-Con) 10 meq DAILY PO Last administered on 08/24/17 10:32; Start 08/24/17 at 09:30 Non-Formulary Medication 5,000 mcg [id number] PO ; Start 08/24/17 at 16:00; Status UNV Gabapentin (Neurontin) 1,200 mg QHS PO ; Start 08/24/17 at 21:00 Linagliptin (Tradjenta) 5 mg DAILY PO Last administered on 08/24/17 10:31; Start 08/24/17 at 09:30; Stop 08/24/17 at 18:24; Status DC Hydromorphone HCl (Dilaudid) 2 mg PRN Q3HRS PRN PO PAIN Last administered on 15:38; Start 08/24/17 at 08:45; Stop 08/24/17 at 18:24; Status DC Insulin Aspart (NovoLOG) 0-9 UNITS TIDWMEALS SQ ; Start 08/24/17 at 12:00 Dextrose (Dextrose 50%-Water Syringe) 12.5 gm PRN Q15MIN PRN IV SEE COMMENTS; Start 08/24/17 at 08:45 Diazepam (Valium) 2 mg PRN QID PRN PO ANXIETY Last administered on 08/24/17 20:11; Start 08/24/17 at 08:45 Oxycodone/ Acetaminophen (Percocet 5/325) 1 tab PRN Q4HRS PRN PO PAIN; Start 08/24/17 at 08:45 Oxycodone/ Acetaminophen (Percocet 10/325) 1 tab PRN Q4HRS PRN PO pain; Start 08/24/17 at 08:45 Docusate Sodium (Colace) 100 mg BID PO Last administered on 08/24/17 10:31; Start 08/24/17 at 09:30 Polyethylene Glycol (miraLAX PACKET) 17 gm DAILY PO ; Start 08/24/17 at 09:30 Magnesium Hydroxide (Milk Of Magnesia) 2,400 mg PRN DAILY PRN PO CONSTIPATION; Start 08/24/17 at 08:45 Hydromorphone HCl (Dilaudid) 4 mg PRN Q3HRS PRN PO PAIN SEVERE Last administered on 08/24/17 20:12; Start 08/24/17 at 18:30 Linagliptin (Tradjenta) 5 mg DAILY PO ; Start 08/25/17 at 09:00 Active Scripts Active [Hydromorphone Hcl] 2 MG Tablet 2 Mg PO PRN Q3HRS PRN Reported Potassium Chloride 10 Meq Tablet.er 10 Meq PO DAILY Janumet 50-1,000 Mg Tablet (Sitagliptin Phos/Metformin Hcl) 1 Each Tablet 1 Tab PO BID Metoprolol Tartrate 25 Mg Tablet 1 Tab PO BID Biotin 2,500 Mcg Capsule 5,000 Mcg PO [id number] Dilaudid (Hydromorphone Hcl) 2 Mg Tablet 1 Tab PO PRN Q6HRS PRN Metformin Hcl 1,000 Mg Tablet 1 Tab PO BID Gabapentin 300 Mg Capsule 1,500 Mg PO DAILY Cyclobenzaprine Hcl 10 Mg Tablet 1 Tab PO TID PRN LAST DOSE GIVEN: DATE: 09/08 TIME: 9 am NEXT DOSE DUE: DATE: 09/09 TIME: 9 am Chlorthalidone 25 Mg Tablet 50 Mg PO DAILY LAST DOSE GIVEN: DATE: 09/08 TIME: 9 am NEXT DOSE DUE: DATE: 09/09 TIME: 9 am Vitals/I & O Vital Sign - Last 24 Hours 08/23/17 08/23/17 08/24/17 08/24/17 23:06 23:29 01:59 02:25 Temp 98.1 98.1 Pulse 98 Resp 16 18 18 18 B/P (MAP) 132/88 (103) Pulse Ox 97 97 O2 Delivery Room Air Room Air Room Air Room Air 08/24/17 08/24/17 08/24/17 08/24/17 03:08 06:26 07:00 08:10 Temp 97.9 97.5 97.9 97.5 Pulse 86 91 Resp 14 18 20 B/P (MAP) 124/87 (99) 139/93 (108) Pulse Ox 96 97 O2 Delivery Room Air Room Air Room Air 08/24/17 08/24/17 08/24/17 08/24/17 10:30 10:31 10:44 11:00 Temp 98.1 98.1 Pulse 91 99 Resp 12 16 12 B/P (MAP) 139/93 135/85 (102) Pulse Ox 94 97 94 O2 Delivery Room Air Room Air Room Air 08/24/17 08/24/17 08/24/17 08/24/17 15:28 15:38 16:38 20:12 Temp 98.1 98.1 Pulse 84 Resp 18 12 12 18 B/P (MAP) 119/78 (92) Pulse Ox 98 95 94 O2 Delivery Room Air Room Air Room Air Room Air Intake and Output 08/23/17 08/23/17 08/24/17 15:00 23:00 07:00 Intake Total 600 ml 400 ml Balance 600 ml 400 ml KATERINE PIRES MD Aug 24, 2017 21:01
[2017-08-24] MEDS: GABAPENTIN 400 MG CAPSULE. PO SCH (21:26)
[2017-08-24 23:00] VITALS: BP 141/93
[2017-08-25] VITALS (7 sets, daily range): BP systolic 123–135; BP diastolic 69–94
[2017-08-25] MEDS: HYDROmorphone 2 MG TABLET PO PRN ×6 (00:04→23:43)
[2017-08-25] MEDS: diphenhydrAMINE 50 MG/ML VIAL IVP PRN ×3 (01:51→19:55)
[2017-08-25] MEDS: INSULIN ASPART 300 UNITS/3 ML INSULN.PEN SQ SCH ×3 (08:00→17:00)
[2017-08-25] MEDS: POTASSIUM CHLORIDE 10 MEQ TABLET.ER. PO SCH (08:45)
[2017-08-25] MEDS: CHLORTHALIDONE 25 MG TABLET. PO SCH (08:46)
[2017-08-25] MEDS: DOCUSATE SODIUM 100 MG CAPSULE. PO SCH ×2 (08:46→21:26)
[2017-08-25] MEDS: CYCLOBENZAPRINE 10 MG TABLET. PO PRN ×4 (08:46→21:26)
[2017-08-25] MEDS: METOPROLOL TART IMMED RELEASE 25 MG TABLET. PO SCH ×2 (08:46→23:44)
[2017-08-25] MEDS: diazePAM 2 MG TABLET PO PRN ×3 (08:47→11:05)
[2017-08-25] MEDS: POLYETHYLENE GLYCOL 3350 17 GM PACKET. PO SCH (08:48)
[2017-08-25] MEDS ORDERED: LINAGLIPTIN 5 MG TABLET PO SCH (09:00)
[2017-08-25] MEDS ORDERED: GADOBUTROL 7.5 MMOL/7.5 ML VIAL IV ONE (12:15)
--- NOTE | 2017-08-25 14:50 | PDOC ---
PROGRESS NOTES Subjective Subjective patient seen at approximately 1210 continues to have back and right leg pain Objective Objective Vital Signs Date Time Temp Pulse Resp B/P (MAP) Pulse Ox O2 Delivery O2 Flow Rate FiO2 08/25/17 13:17 12 94 Room Air 08/25/17 11:00 98.6 87 129/87 (101) 98.6 Intake and Output 08/25/17 07:00 Intake Total 1160 ml Balance 1160 ml Intake Oral 1160 ml # Voids 3 Physical Exam General: Alert, Oriented X3, Cooperative MUSCULOSKELETAL: Other (STEWARD, tenderness with plaption of lower lumbar spine) Neuro: Other (strength 5/5 in BLE) Assessment Assessment Problems Medical Problems: (1) Intractable back pain Status: Acute Plan Plan of Care Lumbar MRI pending will follow Comment Review of Relevant I have reviewed the following items pretty (where applicable) has been applied. Labs Laboratory Tests Test 08/23/17 17:15 08/24/17 04:15 08/24/17 11:34 08/24/17 16:38 White Blood Count 4.6 x10^3/uL (4.0-11.0) 4.1 x10^3/uL (4.0-11.0) Red Blood Count 4.70 x10^6/uL (3.50-5.40) 4.14 x10^6/uL (3.50-5.40) Hemoglobin 13.6 g/dL (12.0-15.5) 12.3 g/dL (12.0-15.5) Hematocrit 40.7 % (36.0-47.0) 35.8 % (36.0-47.0) Mean Corpuscular Volume 87 fL (79-100) 86 fL (79-100) Mean Corpuscular Hemoglobin 29 pg (25-35) 30 pg (25-35) Mean Corpuscular Hemoglobin Concent 33 g/dL (31-37) 34 g/dL (31-37) Red Cell Distribution Width 14.2 % (11.5-14.5) 14.8 % (11.5-14.5) Platelet Count 255 x10^3/uL (140-400) 231 x10^3/uL (140-400) Sodium Level 141 mmol/L (136-145) 141 mmol/L (136-145) Potassium Level 3.4 mmol/L (3.5-5.1) 3.1 mmol/L (3.5-5.1) Chloride Level 101 mmol/L (98-107) 102 mmol/L (98-107) Carbon Dioxide Level 30 mmol/L (21-32) 29 mmol/L (21-32) Anion Gap 10 (6-14) 10 (6-14) Blood Urea Nitrogen 15 mg/dL (7-20) 13 mg/dL (7-20) Creatinine 0.7 mg/dL (0.6-1.0) 0.6 mg/dL (0.6-1.0) Estimated GFR (Cockcroft-Gault) 108.1 129.1 Glucose Level 152 mg/dL (70-99) 158 mg/dL (70-99) Calcium Level 9.9 mg/dL (8.5-10.1) 9.5 mg/dL (8.5-10.1) Neutrophils (%) (Auto) 55 % (31-73) Lymphocytes (%) (Auto) 35 % (24-48) Monocytes (%) (Auto) 7 % (0-9) Eosinophils (%) (Auto) 2 % (0-3) Basophils (%) (Auto) 1 % (0-3) Neutrophils # (Auto) 2.3 x10^3uL (1.8-7.7) Lymphocytes # (Auto) 1.4 x10^3/uL (1.0-4.8) Monocytes # (Auto) 0.3 x10^3/uL (0.0-1.1) Eosinophils # (Auto) 0.1 x10^3/uL (0.0-0.7) Basophils # (Auto) 0.0 x10^3/uL (0.0-0.2) BUN/Creatinine Ratio 22 (6-20) Total Bilirubin 0.6 mg/dL (0.2-1.0) Aspartate Amino Transf (AST/SGOT) 18 U/L (15-37) Alanine Aminotransferase (ALT/SGPT) 21 U/L (14-59) Alkaline Phosphatase 60 U/L (46-116) Total Protein 7.4 g/dL (6.4-8.2) Albumin 3.7 g/dL (3.4-5.0) Albumin/Globulin Ratio 1.0 (1.0-1.7) Glucose (Fingerstick) 147 mg/dL (70-99) 125 mg/dL (70-99) Test 08/24/17 21:28 08/25/17 07:29 08/25/17 11:55 Glucose (Fingerstick) 121 mg/dL (70-99) 133 mg/dL (70-99) 132 mg/dL (70-99) Laboratory Tests Test 08/24/17 16:38 08/24/17 21:28 08/25/17 07:29 08/25/17 11:55 Glucose (Fingerstick) 125 mg/dL (70-99) 121 mg/dL (70-99) 133 mg/dL (70-99) 132 mg/dL (70-99) Medications Current Medications Hydromorphone HCl (Dilaudid) 1 mg 1X ONCE IV Last administered on 08/23/17 17:24; Start 08/23/17 at 17:00; Stop 08/23/17 at 17:01; Status DC Diazepam (Valium) 5 mg 1X ONCE PO Last administered on 08/23/17 17:26; Start 08/23/17 at 17:00; Stop 08/23/17 at 17:01; Status DC Ondansetron HCl (Zofran) 4 mg 1X ONCE IV Last administered on 08/23/17 17:23 ; Start 08/23/17 at 17:00; Stop 08/23/17 at 17:01; Status DC Hydromorphone HCl (Dilaudid) 1 mg 1X ONCE IV Last administered on 08/23/17 18:17; Start 08/23/17 at 18:15; Stop 08/23/17 at 18:16; Status DC Ondansetron HCl (Zofran) 4 mg PRN Q8HRS PRN IV NAUSEA/VOMITING; Start at 18:30; Stop 08/24/17 at 08:42; Status DC Fentanyl Citrate (Fentanyl 2ml Vial) 50 mcg PRN Q2HR PRN IV PAIN Last administered on 08/24/17 10:30; Start 08/23/17 at 18:30; Stop 08/24/17 at 18 :29; Status DC Acetaminophen (Tylenol) 650 mg PRN Q4HRS PRN PO FEVER; Start 08/23/17 at 18:30 ; Stop 08/24/17 at 18:29; Status DC Diphenhydramine HCl (Benadryl) 25 mg PRN TID PRN IVP ITCHING Last administered on 08/25/17 11:01; Start 08/23/17 at 19:45 Ondansetron HCl (Zofran) 4 mg PRN Q6HRS PRN IV NAUSEA/VOMITING; Start at 08:45 Chlorthalidone (Thalitone) 50 mg DAILY PO Last administered on 08/25/17 08:46 ; Start 08/24/17 at 09:30 Cyclobenzaprine HCl (Flexeril) 10 mg PRN TID PRN PO MUSCLE SPASMS Last administered on 08/25/17 13:17; Start 08/24/17 at 08:45 Hydromorphone HCl (Dilaudid) 2 mg PRN Q6HRS PRN PO PAIN; Start 08/24/17 at 08: 45; Status UNV Metformin HCl (Glucophage) 1,000 mg BIDWMEALS PO Last administered on 08:46; Start 08/24/17 at 09:30 Metoprolol Tartrate (Lopressor) 25 mg BID PO Last administered on 08/25/17 08 :46; Start 08/24/17 at 09:30 Potassium Chloride (Klor-Con) 10 meq DAILY PO Last administered on 08/25/17 08:45; Start 08/24/17 at 09:30 Non-Formulary Medication 5,000 mcg [id number] PO ; Start 08/24/17 at 16:00; Status UNV Gabapentin (Neurontin) 1,200 mg QHS PO Last administered on 08/24/17 21:26; Start 08/24/17 at 21:00 Linagliptin (Tradjenta) 5 mg DAILY PO Last administered on 08/24/17 10:31; Start 08/24/17 at 09:30; Stop 08/24/17 at 18:24; Status DC Hydromorphone HCl (Dilaudid) 2 mg PRN Q3HRS PRN PO PAIN Last administered on 15:38; Start 08/24/17 at 08:45; Stop 08/24/17 at 18:24; Status DC Insulin Aspart (NovoLOG) 0-9 UNITS TIDWMEALS SQ ; Start 08/24/17 at 12:00 Dextrose (Dextrose 50%-Water Syringe) 12.5 gm PRN Q15MIN PRN IV SEE COMMENTS; Start 08/24/17 at 08:45 Diazepam (Valium) 2 mg PRN QID PRN PO ANXIETY Last administered on 08/25/17 11:05; Start 08/24/17 at 08:45 Oxycodone/ Acetaminophen (Percocet 5/325) 1 tab PRN Q4HRS PRN PO PAIN; Start 08/24/17 at 08:45 Oxycodone/ Acetaminophen (Percocet 10/325) 1 tab PRN Q4HRS PRN PO pain; Start 08/24/17 at 08:45 Docusate Sodium (Colace) 100 mg BID PO Last administered on 08/25/17 08:46; Start 08/24/17 at 09:30 Polyethylene Glycol (miraLAX PACKET) 17 gm DAILY PO Last administered on 08:48; Start 08/24/17 at 09:30 Magnesium Hydroxide (Milk Of Magnesia) 2,400 mg PRN DAILY PRN PO CONSTIPATION; Start 08/24/17 at 08:45 Hydromorphone HCl (Dilaudid) 4 mg PRN Q3HRS PRN PO PAIN SEVERE Last administered on 08/25/17 13:17; Start 08/24/17 at 18:30 Linagliptin (Tradjenta) 5 mg DAILY PO Last administered on 08/25/17 08:45; Start 08/25/17 at 09:00 Gadobutrol (Gadavist) 7 mmol 1X ONCE IV Last administered on 08/25/17 12:33 ; Start 08/25/17 at 12:15; Stop 08/25/17 at 12:16; Status DC Active Scripts Active [Hydromorphone Hcl] 2 MG Tablet 2 Mg PO PRN Q3HRS PRN Reported Potassium Chloride 10 Meq Tablet.er 10 Meq PO DAILY Janumet 50-1,000 Mg Tablet (Sitagliptin Phos/Metformin Hcl) 1 Each Tablet 1 Tab PO BID Metoprolol Tartrate 25 Mg Tablet 1 Tab PO BID Biotin 2,500 Mcg Capsule 5,000 Mcg PO [id number] Dilaudid (Hydromorphone Hcl) 2 Mg Tablet 1 Tab PO PRN Q6HRS PRN Metformin Hcl 1,000 Mg Tablet 1 Tab PO BID Gabapentin 300 Mg Capsule 1,500 Mg PO DAILY Cyclobenzaprine Hcl 10 Mg Tablet 1 Tab PO TID PRN LAST DOSE GIVEN: DATE: 09/08 TIME: 9 am NEXT DOSE DUE: DATE: 09/09 TIME: 9 am Chlorthalidone 25 Mg Tablet 50 Mg PO DAILY LAST DOSE GIVEN: DATE: 09/08 TIME: 9 am NEXT DOSE DUE: DATE: 09/09 TIME: 9 am Vitals/I & O Vital Sign - Last 24 Hours 08/24/17 08/24/17 08/24/17 08/24/17 15:28 15:38 16:38 19:00 Temp 98.1 97.9 98.1 97.9 Pulse 84 84 Resp 18 12 12 14 B/P (MAP) 119/78 (92) 136/87 (103) Pulse Ox 98 95 94 97 O2 Delivery Room Air Room Air Room Air Room Air 08/24/17 08/24/17 08/24/17 08/24/17 19:45 20:12 21:00 23:00 Temp 99.1 99.1 Pulse 84 84 Resp 18 16 B/P (MAP) 136/87 141/93 (109) Pulse Ox 98 O2 Delivery Room Air Room Air Room Air 08/25/17 08/25/17 08/25/17 08/25/17 00:04 03:00 05:04 07:00 Temp 97.1 97.3 97.1 97.3 Pulse 87 84 Resp 18 18 18 18 B/P (MAP) 135/94 (108) 129/84 (99) Pulse Ox 95 99 O2 Delivery Room Air Room Air Room Air Room Air 08/25/17 08/25/17 08/25/17 08/25/17 08:15 08:46 08:47 09:47 Pulse 84 Resp 12 16 B/P (MAP) 129/84 Pulse Ox 94 97 O2 Delivery Room Air Room Air Room Air 08/25/17 08/25/17 11:00 13:17 Temp 98.6 98.6 Pulse 87 Resp 18 12 B/P (MAP) 129/87 (101) Pulse Ox 98 94 O2 Delivery Room Air Room Air Intake and Output 08/24/17 08/24/17 08/25/17 15:00 23:00 07:00 Intake Total 480 ml 680 ml Balance 480 ml 680 ml KATERINE PIRES MD Aug 25, 2017 14:49
--- NOTE | 2017-08-25 15:10 | RAD ---
MRI Lumbar Spine without and with contrast History: Low back pain, right hip and leg pain worse for a few days Technique: Multiplanar, multi sequential pre and postcontrast MR imaging was performed of the lumbar spine. Contrast: 7 cc Gadavist Comparison: June 03, 2017 Findings: Lumbar vertebral body stature and AP alignment are unchanged. There again has been posterolateral fusion at L3-4 at which there are bilateral pedicle screws. There is again interbody graft at L3-4. Exam does not accurately evaluate integrity of hardware. There is no new significant marrow edema. Conus terminates at L1. There is no nodular enhancement of the conus or cauda equina. There is no enhancement in the intervertebral disc spaces. There is again minimal degenerative disc disease at L2-3. There is also mild narrowing of the posterior L5-S1 intervertebral disc space. L1-L2: This level was not included on the axial images. Neural foramina and spinal canal are adequate. L2-L3: Protrusion eccentric to the far left lateral recess is somewhat less prominent. There is again indentation upon the ventral thecal sac in the far left lateral recess, [id number] narrowing of the far left lateral recess. There is mild buckling of the ligamentum flavum. Neural foramina are overall adequate. L3-L4: There is again right laminectomy defect. Spinal canal is overall adequate. There is some artifact in the region of the neural foramina, not convincingly narrowed. L4-L5: There is mild buckling of the ligamentum flavum. Spinal canal is overall adequate. Neural foramina are overall adequate. L5-S1: Shallow bulge/protrusion in the right lateral recess appears very slightly less prominent. Spinal canal is not significantly narrowed. Neural foramina are adequate. Impression: 1. Previously seen protrusion in the far left lateral recess at L2-3 is somewhat less prominent comparing with the May 2017 exam, [id number] narrowing of the far left lateral recess at this level. There is again posterolateral fusion hardware and interbody graft at the L3-4 level, right laminectomy at this level as seen previously. Shallow bulge/protrusion in the right lateral recess at L5-S1 is slightly less prominent. Electronically signed by: Emir Hoyt MD (08/25/2017 3:07 PM) [email or web address]
--- NOTE | 2017-08-25 15:35 | PDOC ---
PROGRESS NOTES Chief Complaint Chief Complaint Worsening lower back pain, mentions L1-L2 pathology Radiation to bilateral lower extremity Diabetes type 2 on OHA rather controlled History of Present Illness History of Present Illness Still some back pain, repeat MRI done 08/25 because of worsening of symptoms and results are as follows below: Impression: 1. Previously seen protrusion in the far left lateral recess at L2-3 is somewhat less prominent comparing with the May 2017 exam, [id number] narrowing of the far left lateral recess at this level. There is again posterolateral fusion hardware and interbody graft at the L3-4 level, right laminectomy at this level as seen previously. Shallow bulge/protrusion in the right lateral recess at L5-S1 is slightly less prominent. Needed overnight calls for pain control Plan: MRI of the back interval seems to be stable at least no worsening findings. We' ll attempt to control pain conservatively. So far patient is scheduled for outpatient back surgery on by Dr. Fonseca. Add bowel regimen while on many narcotics dw with patient Vitals Vitals Vital Signs Date Time Temp Pulse Resp B/P (MAP) Pulse Ox O2 Delivery O2 Flow Rate FiO2 08/25/17 13:17 12 94 Room Air 08/25/17 11:00 98.6 87 129/87 (101) 98.6 Physical Exam General: Alert, Oriented X3, Cooperative Lungs: Clear, Other Labs LABS Laboratory Tests Test 08/24/17 16:38 08/24/17 21:28 08/25/17 07:29 08/25/17 11:55 Glucose (Fingerstick) 125 mg/dL (70-99) 121 mg/dL (70-99) 133 mg/dL (70-99) 132 mg/dL (70-99) Review of Systems Review of Systems Back pain, the rest of the 14 point systems reviewed negative Assessment and Plan Assessmemt and Plan Problems Medical Problems: (1) Intractable back pain Status: Acute Problems: Comment Review of Relevant I have reviewed the following items pretty (where applicable) has been applied. Labs Laboratory Tests Test 08/23/17 17:15 08/24/17 04:15 08/24/17 11:34 08/24/17 16:38 White Blood Count 4.6 x10^3/uL (4.0-11.0) 4.1 x10^3/uL (4.0-11.0) Red Blood Count 4.70 x10^6/uL (3.50-5.40) 4.14 x10^6/uL (3.50-5.40) Hemoglobin 13.6 g/dL (12.0-15.5) 12.3 g/dL (12.0-15.5) Hematocrit 40.7 % (36.0-47.0) 35.8 % (36.0-47.0) Mean Corpuscular Volume 87 fL (79-100) 86 fL (79-100) Mean Corpuscular Hemoglobin 29 pg (25-35) 30 pg (25-35) Mean Corpuscular Hemoglobin Concent 33 g/dL (31-37) 34 g/dL (31-37) Red Cell Distribution Width 14.2 % (11.5-14.5) 14.8 % (11.5-14.5) Platelet Count 255 x10^3/uL (140-400) 231 x10^3/uL (140-400) Sodium Level 141 mmol/L (136-145) 141 mmol/L (136-145) Potassium Level 3.4 mmol/L (3.5-5.1) 3.1 mmol/L (3.5-5.1) Chloride Level 101 mmol/L (98-107) 102 mmol/L (98-107) Carbon Dioxide Level 30 mmol/L (21-32) 29 mmol/L (21-32) Anion Gap 10 (6-14) 10 (6-14) Blood Urea Nitrogen 15 mg/dL (7-20) 13 mg/dL (7-20) Creatinine 0.7 mg/dL (0.6-1.0) 0.6 mg/dL (0.6-1.0) Estimated GFR (Cockcroft-Gault) 108.1 129.1 Glucose Level 152 mg/dL (70-99) 158 mg/dL (70-99) Calcium Level 9.9 mg/dL (8.5-10.1) 9.5 mg/dL (8.5-10.1) Neutrophils (%) (Auto) 55 % (31-73) Lymphocytes (%) (Auto) 35 % (24-48) Monocytes (%) (Auto) 7 % (0-9) Eosinophils (%) (Auto) 2 % (0-3) Basophils (%) (Auto) 1 % (0-3) Neutrophils # (Auto) 2.3 x10^3uL (1.8-7.7) Lymphocytes # (Auto) 1.4 x10^3/uL (1.0-4.8) Monocytes # (Auto) 0.3 x10^3/uL (0.0-1.1) Eosinophils # (Auto) 0.1 x10^3/uL (0.0-0.7) Basophils # (Auto) 0.0 x10^3/uL (0.0-0.2) BUN/Creatinine Ratio 22 (6-20) Total Bilirubin 0.6 mg/dL (0.2-1.0) Aspartate Amino Transf (AST/SGOT) 18 U/L (15-37) Alanine Aminotransferase (ALT/SGPT) 21 U/L (14-59) Alkaline Phosphatase 60 U/L (46-116) Total Protein 7.4 g/dL (6.4-8.2) Albumin 3.7 g/dL (3.4-5.0) Albumin/Globulin Ratio 1.0 (1.0-1.7) Glucose (Fingerstick) 147 mg/dL (70-99) 125 mg/dL (70-99) Test 08/24/17 21:28 08/25/17 07:29 08/25/17 11:55 Glucose (Fingerstick) 121 mg/dL (70-99) 133 mg/dL (70-99) 132 mg/dL (70-99) Laboratory Tests Test 08/24/17 16:38 08/24/17 21:28 08/25/17 07:29 08/25/17 11:55 Glucose (Fingerstick) 125 mg/dL (70-99) 121 mg/dL (70-99) 133 mg/dL (70-99) 132 mg/dL (70-99) Medications Current Medications Hydromorphone HCl (Dilaudid) 1 mg 1X ONCE IV Last administered on 08/23/17 17:24; Start 08/23/17 at 17:00; Stop 08/23/17 at 17:01; Status DC Diazepam (Valium) 5 mg 1X ONCE PO Last administered on 08/23/17 17:26; Start 08/23/17 at 17:00; Stop 08/23/17 at 17:01; Status DC Ondansetron HCl (Zofran) 4 mg 1X ONCE IV Last administered on 08/23/17 17:23 ; Start 08/23/17 at 17:00; Stop 08/23/17 at 17:01; Status DC Hydromorphone HCl (Dilaudid) 1 mg 1X ONCE IV Last administered on 08/23/17 18:17; Start 08/23/17 at 18:15; Stop 08/23/17 at 18:16; Status DC Ondansetron HCl (Zofran) 4 mg PRN Q8HRS PRN IV NAUSEA/VOMITING; Start at 18:30; Stop 08/24/17 at 08:42; Status DC Fentanyl Citrate (Fentanyl 2ml Vial) 50 mcg PRN Q2HR PRN IV PAIN Last administered on 08/24/17 10:30; Start 08/23/17 at 18:30; Stop 08/24/17 at 18 :29; Status DC Acetaminophen (Tylenol) 650 mg PRN Q4HRS PRN PO FEVER; Start 08/23/17 at 18:30 ; Stop 08/24/17 at 18:29; Status DC Diphenhydramine HCl (Benadryl) 25 mg PRN TID PRN IVP ITCHING Last administered on 08/25/17 11:01; Start 08/23/17 at 19:45 Ondansetron HCl (Zofran) 4 mg PRN Q6HRS PRN IV NAUSEA/VOMITING; Start at 08:45 Chlorthalidone (Thalitone) 50 mg DAILY PO Last administered on 08/25/17 08:46 ; Start 08/24/17 at 09:30 Cyclobenzaprine HCl (Flexeril) 10 mg PRN TID PRN PO MUSCLE SPASMS Last administered on 08/25/17 13:17; Start 08/24/17 at 08:45 Hydromorphone HCl (Dilaudid) 2 mg PRN Q6HRS PRN PO PAIN; Start 08/24/17 at 08: 45; Status UNV Metformin HCl (Glucophage) 1,000 mg BIDWMEALS PO Last administered on 08:46; Start 08/24/17 at 09:30 Metoprolol Tartrate (Lopressor) 25 mg BID PO Last administered on 08/25/17 08 :46; Start 08/24/17 at 09:30 Potassium Chloride (Klor-Con) 10 meq DAILY PO Last administered on 08/25/17 08:45; Start 08/24/17 at 09:30 Non-Formulary Medication 5,000 mcg [id number] PO ; Start 08/24/17 at 16:00; Status UNV Gabapentin (Neurontin) 1,200 mg QHS PO Last administered on 08/24/17 21:26; Start 08/24/17 at 21:00 Linagliptin (Tradjenta) 5 mg DAILY PO Last administered on 08/24/17 10:31; Start 08/24/17 at 09:30; Stop 08/24/17 at 18:24; Status DC Hydromorphone HCl (Dilaudid) 2 mg PRN Q3HRS PRN PO PAIN Last administered on 15:38; Start 08/24/17 at 08:45; Stop 08/24/17 at 18:24; Status DC Insulin Aspart (NovoLOG) 0-9 UNITS TIDWMEALS SQ ; Start 08/24/17 at 12:00 Dextrose (Dextrose 50%-Water Syringe) 12.5 gm PRN Q15MIN PRN IV SEE COMMENTS; Start 08/24/17 at 08:45 Diazepam (Valium) 2 mg PRN QID PRN PO ANXIETY Last administered on 08/25/17 11:05; Start 08/24/17 at 08:45 Oxycodone/ Acetaminophen (Percocet 5/325) 1 tab PRN Q4HRS PRN PO PAIN; Start 08/24/17 at 08:45 Oxycodone/ Acetaminophen (Percocet 10/325) 1 tab PRN Q4HRS PRN PO pain; Start 08/24/17 at 08:45 Docusate Sodium (Colace) 100 mg BID PO Last administered on 08/25/17 08:46; Start 08/24/17 at 09:30 Polyethylene Glycol (miraLAX PACKET) 17 gm DAILY PO Last administered on 08:48; Start 08/24/17 at 09:30 Magnesium Hydroxide (Milk Of Magnesia) 2,400 mg PRN DAILY PRN PO CONSTIPATION; Start 08/24/17 at 08:45 Hydromorphone HCl (Dilaudid) 4 mg PRN Q3HRS PRN PO PAIN SEVERE Last administered on 08/25/17 13:17; Start 08/24/17 at 18:30 Linagliptin (Tradjenta) 5 mg DAILY PO Last administered on 08/25/17 08:45; Start 08/25/17 at 09:00 Gadobutrol (Gadavist) 7 mmol 1X ONCE IV Last administered on 08/25/17 12:33 ; Start 08/25/17 at 12:15; Stop 08/25/17 at 12:16; Status DC Active Scripts Active [Hydromorphone Hcl] 2 MG Tablet 2 Mg PO PRN Q3HRS PRN Reported Potassium Chloride 10 Meq Tablet.er 10 Meq PO DAILY Janumet 50-1,000 Mg Tablet (Sitagliptin Phos/Metformin Hcl) 1 Each Tablet 1 Tab PO BID Metoprolol Tartrate 25 Mg Tablet 1 Tab PO BID Biotin 2,500 Mcg Capsule 5,000 Mcg PO [id number] Dilaudid (Hydromorphone Hcl) 2 Mg Tablet 1 Tab PO PRN Q6HRS PRN Metformin Hcl 1,000 Mg Tablet 1 Tab PO BID Gabapentin 300 Mg Capsule 1,500 Mg PO DAILY Cyclobenzaprine Hcl 10 Mg Tablet 1 Tab PO TID PRN LAST DOSE GIVEN: DATE: 09/08 TIME: 9 am NEXT DOSE DUE: DATE: 09/09 TIME: 9 am Chlorthalidone 25 Mg Tablet 50 Mg PO DAILY LAST DOSE GIVEN: DATE: 09/08 TIME: 9 am NEXT DOSE DUE: DATE: 09/09 TIME: 9 am Vitals/I & O Vital Sign - Last 24 Hours 08/24/17 08/24/17 08/24/17 08/24/17 15:38 16:38 19:00 19:45 Temp 97.9 97.9 Pulse 84 Resp 12 12 14 B/P (MAP) 136/87 (103) Pulse Ox 95 94 97 O2 Delivery Room Air Room Air Room Air Room Air 08/24/17 08/24/17 08/24/17 08/25/17 20:12 21:00 23:00 00:04 Temp 99.1 99.1 Pulse 84 84 Resp 18 16 18 B/P (MAP) 136/87 141/93 (109) Pulse Ox 98 O2 Delivery Room Air Room Air Room Air 08/25/17 08/25/17 08/25/17 08/25/17 03:00 05:04 07:00 08:15 Temp 97.1 97.3 97.1 97.3 Pulse 87 84 Resp 18 18 18 B/P (MAP) 135/94 (108) 129/84 (99) Pulse Ox 95 99 O2 Delivery Room Air Room Air Room Air Room Air 08/25/17 08/25/17 08/25/17 08/25/17 08:46 08:47 09:47 11:00 Temp 98.6 98.6 Pulse 84 87 Resp 12 16 18 B/P (MAP) 129/84 129/87 (101) Pulse Ox 94 97 98 O2 Delivery Room Air Room Air Room Air 08/25/17 13:17 Resp 12 Pulse Ox 94 O2 Delivery Room Air Intake and Output 08/24/17 08/24/17 08/25/17 15:00 23:00 07:00 Intake Total 480 ml 680 ml Balance 480 ml 680 ml ARIADNA SIERRA MD Aug 25, 2017 15:35
[2017-08-25] MEDS: LINAGLIPTIN 5 MG TABLET PO SCH (19:55)
[2017-08-25] MEDS ORDERED: diphenhydrAMINE 50 MG/ML VIAL IVP PRN (21:15)
[2017-08-25] MEDS: GABAPENTIN 400 MG CAPSULE. PO SCH ×2 (21:26→23:43)
[2017-08-25] MEDS: diphenhydrAMINE HCL 25 MG CAPSULE PO PRN (21:26)
[2017-08-26 03:00] VITALS: BP 100/67
[2017-08-26 07:00] VITALS: BP 109/77
[2017-08-26] MEDS: INSULIN ASPART 300 UNITS/3 ML INSULN.PEN SQ SCH ×3 (08:00→16:25)
[2017-08-26] MEDS: HYDROmorphone 2 MG TABLET PO PRN ×4 (09:31→19:53)
[2017-08-26 10:57] VITALS: BP 112/78
[2017-08-26] MEDS: LINAGLIPTIN 5 MG TABLET PO SCH ×2 (11:24→16:43)
[2017-08-26] MEDS: CHLORTHALIDONE 25 MG TABLET. PO SCH (11:24)
[2017-08-26] MEDS: DOCUSATE SODIUM 100 MG CAPSULE. PO SCH ×2 (11:25→19:52)
[2017-08-26] MEDS: POTASSIUM CHLORIDE 10 MEQ TABLET.ER. PO SCH (11:25)
[2017-08-26] MEDS: METOPROLOL TART IMMED RELEASE 25 MG TABLET. PO SCH ×2 (11:25→19:52)
--- NOTE | 2017-08-26 12:21 | PDOC ---
PROGRESS NOTES Chief Complaint Chief Complaint Worsening lower back pain, mentions L1-L2 pathology Radiation to bilateral lower extremity Diabetes type 2 on OHA rather controlled Degenerative disk disease Lumbar disk herniation with radiculopathy HTN HLD Cardiac disease Previous laminectomy L3-4 History of Present Illness History of Present Illness Continues to have back pain, repeat MRI done 08/25 because of worsening of symptoms and results are as follows below: Impression: 1. Previously seen protrusion in the far left lateral recess at L2-3 is somewhat less prominent comparing with the May 2017 exam, [id number] narrowing of the far left lateral recess at this level. There is again posterolateral fusion hardware and interbody graft at the L3-4 level, right laminectomy at this level as seen previously. Shallow bulge/protrusion in the right lateral recess at L5-S1 is slightly less prominent. Patient states back pain is still radiating to lower legs. Since admission pain has become more tolerable. Denies N/V/F/C. Vitals Vitals Vital Signs Date Time Temp Pulse Resp B/P (MAP) Pulse Ox O2 Delivery O2 Flow Rate FiO2 08/26/17 11:25 86 112/78 08/26/17 10:57 98.9 18 98 Room Air 98.9 Physical Exam General: Alert, Oriented X3, Cooperative, mild distress Heart: Regular rate, Normal S1, Normal S2 Lungs: Clear, Other Abdomen: Normal bowel sounds, Soft, No tenderness Extremities: No clubbing, No cyanosis, No edema Skin: No significant lesion Labs LABS Laboratory Tests Test 08/25/17 16:07 08/25/17 21:01 08/26/17 08:20 08/26/17 11:21 Glucose (Fingerstick) 151 mg/dL (70-99) 134 mg/dL (70-99) 149 mg/dL (70-99) 140 mg/dL (70-99) Review of Systems Review of Systems Complains of significant back pain, radiating to lower legs. Denies N/V/F/C/SOB/ CP. Assessment and Plan Assessmemt and Plan Problems Medical Problems: (1) Intractable back pain Status: Acute Worsening lower back pain, mentions L1-L2 pathology Radiation to bilateral lower extremity Diabetes type 2 on OHA rather controlled Degenerative disk disease Lumbar disk herniation with radiculopathy HTN HLD Cardiac disease Previous laminectomy L3-4 Plan: Recheck labs in AM PT/OT Pain control: Fentanyl, gabapentin, Dilaudid, Valium Bowel regimen: Colace and miralax Scheduled for outpatient surgery with Dr. Fonseca on Neurosurgery recommendations appreciated Problems: Comment Review of Relevant I have reviewed the following items pretty (where applicable) has been applied. Labs Laboratory Tests Test 08/24/17 16:38 08/24/17 21:28 08/25/17 07:29 08/25/17 11:55 Glucose (Fingerstick) 125 mg/dL (70-99) 121 mg/dL (70-99) 133 mg/dL (70-99) 132 mg/dL (70-99) Test 08/25/17 16:07 08/25/17 21:01 08/26/17 08:20 08/26/17 11:21 Glucose (Fingerstick) 151 mg/dL (70-99) 134 mg/dL (70-99) 149 mg/dL (70-99) 140 mg/dL (70-99) Laboratory Tests Test 08/25/17 16:07 08/25/17 21:01 08/26/17 08:20 08/26/17 11:21 Glucose (Fingerstick) 151 mg/dL (70-99) 134 mg/dL (70-99) 149 mg/dL (70-99) 140 mg/dL (70-99) Medications Current Medications Hydromorphone HCl (Dilaudid) 1 mg 1X ONCE IV Last administered on 08/23/17 17:24; Start 08/23/17 at 17:00; Stop 08/23/17 at 17:01; Status DC Diazepam (Valium) 5 mg 1X ONCE PO Last administered on 08/23/17 17:26; Start 08/23/17 at 17:00; Stop 08/23/17 at 17:01; Status DC Ondansetron HCl (Zofran) 4 mg 1X ONCE IV Last administered on 08/23/17 17:23 ; Start 08/23/17 at 17:00; Stop 08/23/17 at 17:01; Status DC Hydromorphone HCl (Dilaudid) 1 mg 1X ONCE IV Last administered on 08/23/17 18:17; Start 08/23/17 at 18:15; Stop 08/23/17 at 18:16; Status DC Ondansetron HCl (Zofran) 4 mg PRN Q8HRS PRN IV NAUSEA/VOMITING; Start at 18:30; Stop 08/24/17 at 08:42; Status DC Fentanyl Citrate (Fentanyl 2ml Vial) 50 mcg PRN Q2HR PRN IV PAIN Last administered on 08/24/17 10:30; Start 08/23/17 at 18:30; Stop 08/24/17 at 18 :29; Status DC Acetaminophen (Tylenol) 650 mg PRN Q4HRS PRN PO FEVER; Start 08/23/17 at 18:30 ; Stop 08/24/17 at 18:29; Status DC Diphenhydramine HCl (Benadryl) 25 mg PRN TID PRN IVP ITCHING Last administered on 08/25/17 19:55; Start 08/23/17 at 19:45 Ondansetron HCl (Zofran) 4 mg PRN Q6HRS PRN IV NAUSEA/VOMITING; Start at 08:45 Chlorthalidone (Thalitone) 50 mg DAILY PO Last administered on 08/26/17 11:24 ; Start 08/24/17 at 09:30 Cyclobenzaprine HCl (Flexeril) 10 mg PRN TID PRN PO MUSCLE SPASMS Last administered on 08/25/17 21:26; Start 08/24/17 at 08:45 Hydromorphone HCl (Dilaudid) 2 mg PRN Q6HRS PRN PO PAIN; Start 08/24/17 at 08: 45; Status UNV Metformin HCl (Glucophage) 1,000 mg BIDWMEALS PO Last administered on 11:25; Start 08/24/17 at 09:30 Metoprolol Tartrate (Lopressor) 25 mg BID PO Last administered on 08/26/17 11 :25; Start 08/24/17 at 09:30 Potassium Chloride (Klor-Con) 10 meq DAILY PO Last administered on 08/26/17 11:25; Start 08/24/17 at 09:30 Non-Formulary Medication 5,000 mcg [id number] PO ; Start 08/24/17 at 16:00; Status UNV Gabapentin (Neurontin) 1,200 mg QHS PO Last administered on 08/25/17 23:43; Start 08/24/17 at 21:00 Linagliptin (Tradjenta) 5 mg DAILY PO Last administered on 08/24/17 10:31; Start 08/24/17 at 09:30; Stop 08/24/17 at 18:24; Status DC Hydromorphone HCl (Dilaudid) 2 mg PRN Q3HRS PRN PO PAIN Last administered on 15:38; Start 08/24/17 at 08:45; Stop 08/24/17 at 18:24; Status DC Insulin Aspart (NovoLOG) 0-9 UNITS TIDWMEALS SQ ; Start 08/24/17 at 12:00 Dextrose (Dextrose 50%-Water Syringe) 12.5 gm PRN Q15MIN PRN IV SEE COMMENTS; Start 08/24/17 at 08:45 Diazepam (Valium) 2 mg PRN QID PRN PO ANXIETY Last administered on 08/25/17 11:05; Start 08/24/17 at 08:45 Oxycodone/ Acetaminophen (Percocet 5/325) 1 tab PRN Q4HRS PRN PO PAIN; Start 08/24/17 at 08:45 Oxycodone/ Acetaminophen (Percocet 10/325) 1 tab PRN Q4HRS PRN PO pain; Start 08/24/17 at 08:45 Docusate Sodium (Colace) 100 mg BID PO Last administered on 08/26/17 11:25; Start 08/24/17 at 09:30 Polyethylene Glycol (miraLAX PACKET) 17 gm DAILY PO Last administered on 08:48; Start 08/24/17 at 09:30 Magnesium Hydroxide (Milk Of Magnesia) 2,400 mg PRN DAILY PRN PO CONSTIPATION; Start 08/24/17 at 08:45 Hydromorphone HCl (Dilaudid) 4 mg PRN Q3HRS PRN PO PAIN SEVERE Last administered on 08/26/17 09:31; Start 08/24/17 at 18:30 Linagliptin (Tradjenta) 5 mg DAILY PO Last administered on 08/25/17 08:45; Start 08/25/17 at 09:00; Stop 08/25/17 at 18:22; Status DC Gadobutrol (Gadavist) 7 mmol 1X ONCE IV Last administered on 08/25/17 12:33 ; Start 08/25/17 at 12:15; Stop 08/25/17 at 12:16; Status DC Fentanyl Citrate (Fentanyl 2ml Vial) 50 mcg PRN Q2HR PRN IV PAIN; Start at 15:45 Linagliptin (Tradjenta) 5 mg BIDAC PO Last administered on 08/26/17 11:24; Start 08/25/17 at 18:30 Diphenhydramine HCl (Benadryl) 25 mg PRN QHS PRN PO INSOMNIA Last administered on 08/25/17 21:26; Start 08/25/17 at 21:15 Diphenhydramine HCl (Benadryl) 25 mg PRN Q6HRS PRN IVP ITCHING; Start at 21:15 Active Scripts Active [Hydromorphone Hcl] 2 MG Tablet 2 Mg PO PRN Q3HRS PRN Reported Potassium Chloride 10 Meq Tablet.er 10 Meq PO DAILY Janumet 50-1,000 Mg Tablet (Sitagliptin Phos/Metformin Hcl) 1 Each Tablet 1 Tab PO BID Metoprolol Tartrate 25 Mg Tablet 1 Tab PO BID Biotin 2,500 Mcg Capsule 5,000 Mcg PO [id number] Dilaudid (Hydromorphone Hcl) 2 Mg Tablet 1 Tab PO PRN Q6HRS PRN Metformin Hcl 1,000 Mg Tablet 1 Tab PO BID Gabapentin 300 Mg Capsule 1,500 Mg PO DAILY Cyclobenzaprine Hcl 10 Mg Tablet 1 Tab PO TID PRN LAST DOSE GIVEN: DATE: 09/08 TIME: 9 am NEXT DOSE DUE: DATE: 09/09 TIME: 9 am Chlorthalidone 25 Mg Tablet 50 Mg PO DAILY LAST DOSE GIVEN: DATE: 09/08 TIME: 9 am NEXT DOSE DUE: DATE: 09/09 TIME: 9 am Vitals/I & O Vital Sign - Last 24 Hours 08/25/17 08/25/17 08/25/17 08/25/17 13:17 15:00 18:12 19:00 Temp 98.8 98.6 98.8 98.6 Pulse 77 91 Resp 12 20 12 20 B/P (MAP) 131/69 (89) 123/88 (100) Pulse Ox 94 97 96 96 O2 Delivery Room Air Room Air Room Air Room Air 08/25/17 08/25/17 08/25/17 08/25/17 19:50 21:00 23:00 23:43 Temp 98.6 97.9 98.6 97.9 Pulse 91 89 Resp 20 14 20 B/P (MAP) 123/88 (100) 131/81 (98) Pulse Ox 96 100 96 O2 Delivery Room Air Room Air Room Air Room Air 08/25/17 08/26/17 08/26/17 08/26/17 23:44 00:48 03:00 07:00 Temp 97.9 97.9 97.9 97.9 Pulse 89 86 72 Resp 20 18 18 B/P (MAP) 131/81 100/67 (78) 109/77 (88) Pulse Ox 96 97 94 O2 Delivery Room Air Room Air Room Air 08/26/17 08/26/17 08/26/17 09:31 10:57 11:25 Temp 98.9 98.9 Pulse 86 86 Resp 18 B/P (MAP) 112/78 (89) 112/78 Pulse Ox 98 O2 Delivery Room Air Room Air Intake and Output 08/25/17 08/25/17 08/26/17 14:59 22:59 06:59 Intake Total 180 ml 200 ml 220 ml Balance 180 ml 200 ml 220 ml LUIS ESCOBAR III DO Aug 26, 2017 12:21
[2017-08-26] MEDS: POLYETHYLENE GLYCOL 3350 17 GM PACKET. PO SCH (13:31)
[2017-08-26] MEDS: diphenhydrAMINE HCL 25 MG CAPSULE PO PRN (13:31)
--- NOTE | 2017-08-26 13:58 | PDOC ---
PROGRESS NOTES Subjective Subjective continues to have back pain that radiates to her right leg and left groin she reports most of the pain is in the right leg, helped with medication Objective Objective Vital Signs Date Time Temp Pulse Resp B/P (MAP) Pulse Ox O2 Delivery O2 Flow Rate FiO2 08/26/17 13:32 12 97 Room Air 08/26/17 11:25 86 112/78 08/26/17 10:57 98.9 98.9 Intake and Output 08/26/17 07:00 Intake Total 600 ml Balance 600 ml Intake Oral 600 ml # Voids 3 Physical Exam General: Oriented X3, Cooperative MUSCULOSKELETAL: Other (Me) Neuro: Other (Strength 5/5 in BLE) Assessment Assessment Problems Medical Problems: (1) Intractable back pain Status: Acute Plan Plan of Care MRI reviewed discussed options will consider SANCHEZI Comment Review of Relevant I have reviewed the following items pretty (where applicable) has been applied. Labs Laboratory Tests Test 08/24/17 16:38 08/24/17 21:28 08/25/17 07:29 08/25/17 11:55 Glucose (Fingerstick) 125 mg/dL (70-99) 121 mg/dL (70-99) 133 mg/dL (70-99) 132 mg/dL (70-99) Test 08/25/17 16:07 08/25/17 21:01 08/26/17 08:20 08/26/17 11:21 Glucose (Fingerstick) 151 mg/dL (70-99) 134 mg/dL (70-99) 149 mg/dL (70-99) 140 mg/dL (70-99) Laboratory Tests Test 08/25/17 16:07 08/25/17 21:01 08/26/17 08:20 08/26/17 11:21 Glucose (Fingerstick) 151 mg/dL (70-99) 134 mg/dL (70-99) 149 mg/dL (70-99) 140 mg/dL (70-99) Medications Current Medications Hydromorphone HCl (Dilaudid) 1 mg 1X ONCE IV Last administered on 08/23/17 17:24; Start 08/23/17 at 17:00; Stop 08/23/17 at 17:01; Status DC Diazepam (Valium) 5 mg 1X ONCE PO Last administered on 08/23/17 17:26; Start 08/23/17 at 17:00; Stop 08/23/17 at 17:01; Status DC Ondansetron HCl (Zofran) 4 mg 1X ONCE IV Last administered on 08/23/17 17:23 ; Start 08/23/17 at 17:00; Stop 08/23/17 at 17:01; Status DC Hydromorphone HCl (Dilaudid) 1 mg 1X ONCE IV Last administered on 08/23/17 18:17; Start 08/23/17 at 18:15; Stop 08/23/17 at 18:16; Status DC Ondansetron HCl (Zofran) 4 mg PRN Q8HRS PRN IV NAUSEA/VOMITING; Start at 18:30; Stop 08/24/17 at 08:42; Status DC Fentanyl Citrate (Fentanyl 2ml Vial) 50 mcg PRN Q2HR PRN IV PAIN Last administered on 08/24/17 10:30; Start 08/23/17 at 18:30; Stop 08/24/17 at 18 :29; Status DC Acetaminophen (Tylenol) 650 mg PRN Q4HRS PRN PO FEVER; Start 08/23/17 at 18:30 ; Stop 08/24/17 at 18:29; Status DC Diphenhydramine HCl (Benadryl) 25 mg PRN TID PRN IVP ITCHING Last administered on 08/25/17 19:55; Start 08/23/17 at 19:45 Ondansetron HCl (Zofran) 4 mg PRN Q6HRS PRN IV NAUSEA/VOMITING; Start at 08:45 Chlorthalidone (Thalitone) 50 mg DAILY PO Last administered on 08/26/17 11:24 ; Start 08/24/17 at 09:30 Cyclobenzaprine HCl (Flexeril) 10 mg PRN TID PRN PO MUSCLE SPASMS Last administered on 08/25/17 21:26; Start 08/24/17 at 08:45 Hydromorphone HCl (Dilaudid) 2 mg PRN Q6HRS PRN PO PAIN; Start 08/24/17 at 08: 45; Status UNV Metformin HCl (Glucophage) 1,000 mg BIDWMEALS PO Last administered on 11:25; Start 08/24/17 at 09:30 Metoprolol Tartrate (Lopressor) 25 mg BID PO Last administered on 08/26/17 11 :25; Start 08/24/17 at 09:30 Potassium Chloride (Klor-Con) 10 meq DAILY PO Last administered on 08/26/17 11:25; Start 08/24/17 at 09:30 Non-Formulary Medication 5,000 mcg [id number] PO ; Start 08/24/17 at 16:00; Status UNV Gabapentin (Neurontin) 1,200 mg QHS PO Last administered on 08/25/17 23:43; Start 08/24/17 at 21:00 Linagliptin (Tradjenta) 5 mg DAILY PO Last administered on 08/24/17 10:31; Start 08/24/17 at 09:30; Stop 08/24/17 at 18:24; Status DC Hydromorphone HCl (Dilaudid) 2 mg PRN Q3HRS PRN PO PAIN Last administered on 15:38; Start 08/24/17 at 08:45; Stop 08/24/17 at 18:24; Status DC Insulin Aspart (NovoLOG) 0-9 UNITS TIDWMEALS SQ ; Start 08/24/17 at 12:00 Dextrose (Dextrose 50%-Water Syringe) 12.5 gm PRN Q15MIN PRN IV SEE COMMENTS; Start 08/24/17 at 08:45 Diazepam (Valium) 2 mg PRN QID PRN PO ANXIETY Last administered on 08/25/17 11:05; Start 08/24/17 at 08:45 Oxycodone/ Acetaminophen (Percocet 5/325) 1 tab PRN Q4HRS PRN PO PAIN; Start 08/24/17 at 08:45 Oxycodone/ Acetaminophen (Percocet 10/325) 1 tab PRN Q4HRS PRN PO pain; Start 08/24/17 at 08:45 Docusate Sodium (Colace) 100 mg BID PO Last administered on 08/26/17 11:25; Start 08/24/17 at 09:30 Polyethylene Glycol (miraLAX PACKET) 17 gm DAILY PO Last administered on 13:31; Start 08/24/17 at 09:30 Magnesium Hydroxide (Milk Of Magnesia) 2,400 mg PRN DAILY PRN PO CONSTIPATION; Start 08/24/17 at 08:45 Hydromorphone HCl (Dilaudid) 4 mg PRN Q3HRS PRN PO PAIN SEVERE Last administered on 08/26/17 13:32; Start 08/24/17 at 18:30 Linagliptin (Tradjenta) 5 mg DAILY PO Last administered on 08/25/17 08:45; Start 08/25/17 at 09:00; Stop 08/25/17 at 18:22; Status DC Gadobutrol (Gadavist) 7 mmol 1X ONCE IV Last administered on 08/25/17 12:33 ; Start 08/25/17 at 12:15; Stop 08/25/17 at 12:16; Status DC Fentanyl Citrate (Fentanyl 2ml Vial) 50 mcg PRN Q2HR PRN IV PAIN; Start at 15:45 Linagliptin (Tradjenta) 5 mg BIDAC PO Last administered on 08/26/17 11:24; Start 08/25/17 at 18:30 Diphenhydramine HCl (Benadryl) 25 mg PRN QHS PRN PO INSOMNIA Last administered on 08/26/17 13:31; Start 08/25/17 at 21:15 Diphenhydramine HCl (Benadryl) 25 mg PRN Q6HRS PRN IVP ITCHING; Start at 21:15 Active Scripts Active [Hydromorphone Hcl] 2 MG Tablet 2 Mg PO PRN Q3HRS PRN Reported Potassium Chloride 10 Meq Tablet.er 10 Meq PO DAILY Janumet 50-1,000 Mg Tablet (Sitagliptin Phos/Metformin Hcl) 1 Each Tablet 1 Tab PO BID Metoprolol Tartrate 25 Mg Tablet 1 Tab PO BID Biotin 2,500 Mcg Capsule 5,000 Mcg PO [id number] Dilaudid (Hydromorphone Hcl) 2 Mg Tablet 1 Tab PO PRN Q6HRS PRN Metformin Hcl 1,000 Mg Tablet 1 Tab PO BID Gabapentin 300 Mg Capsule 1,500 Mg PO DAILY Cyclobenzaprine Hcl 10 Mg Tablet 1 Tab PO TID PRN LAST DOSE GIVEN: DATE: 09/08 TIME: 9 am NEXT DOSE DUE: DATE: 09/09 TIME: 9 am Chlorthalidone 25 Mg Tablet 50 Mg PO DAILY LAST DOSE GIVEN: DATE: 09/08 TIME: 9 am NEXT DOSE DUE: DATE: 09/09 TIME: 9 am Vitals/I & O Vital Sign - Last 24 Hours 08/25/17 08/25/17 08/25/17 08/25/17 15:00 18:12 19:00 19:50 Temp 98.8 98.6 98.8 98.6 Pulse 77 91 Resp 20 12 20 B/P (MAP) 131/69 (89) 123/88 (100) Pulse Ox 97 96 96 O2 Delivery Room Air Room Air Room Air Room Air 08/25/17 08/25/17 08/25/17 08/25/17 21:00 23:00 23:43 23:44 Temp 98.6 97.9 98.6 97.9 Pulse 91 89 89 Resp 20 14 20 B/P (MAP) 123/88 (100) 131/81 (98) 131/81 Pulse Ox 96 100 96 O2 Delivery Room Air Room Air Room Air 08/26/17 08/26/17 08/26/17 08/26/17 03:00 07:00 09:31 10:31 Temp 97.9 97.9 97.9 97.9 Pulse 86 72 Resp 18 18 12 B/P (MAP) 100/67 (78) 109/77 (88) Pulse Ox 97 94 94 O2 Delivery Room Air Room Air Room Air Room Air 08/26/17 08/26/17 08/26/17 10:57 11:25 13:32 Temp 98.9 98.9 Pulse 86 86 Resp 18 12 B/P (MAP) 112/78 (89) 112/78 Pulse Ox 98 97 O2 Delivery Room Air Room Air Intake and Output 08/25/17 08/25/17 08/26/17 15:00 23:00 07:00 Intake Total 180 ml 200 ml 220 ml Balance 180 ml 200 ml 220 ml MARIVEL PEREZ APRN Aug 26, 2017 13:57
[2017-08-26 15:12] VITALS: BP 117/79
[2017-08-26] MEDS: CYCLOBENZAPRINE 10 MG TABLET. PO PRN (16:43)
[2017-08-26 19:26] VITALS: BP 131/92
[2017-08-26 23:19] VITALS: BP 114/79
[2017-08-26] MEDS: diazePAM 2 MG TABLET PO PRN (23:57)
[2017-08-26] MEDS: GABAPENTIN 400 MG CAPSULE. PO SCH (23:57)
[2017-08-27] MEDS: HYDROmorphone 2 MG TABLET PO PRN ×5 (02:02→16:08)
[2017-08-27] MEDS: diphenhydrAMINE HCL 25 MG CAPSULE PO PRN (02:02)
[2017-08-27 03:00] VITALS: BP 110/71
[2017-08-27 06:29] LABS: BASO % 1 % (0-3); EOS % 3 % (0-3); HEMATOCRIT 35.8 % (36.0-47.0); HEMOGLOBIN 12.3 g/dL (12.0-15.5); LYMPH # 1.6 x10^3/uL (1.0-4.8); LYMPH % 34 % (24-48); MEAN CORPUSCULAR HEMOGLOBIN 30 pg (25-35); MEAN CORPUSCULAR HGB CONC 34 g/dL (31-37); MEAN CORPUSCULAR VOLUME 86 fL (79-100); MONO % 8 % (0-9); NEUT % 54 % (31-73); PLATELET COUNT 236 x10^3/uL (140-400); RED BLOOD COUNT 4.16 x10^6/uL (3.50-5.40); RED CELL DISTRIBUTION WIDTH 14.3 % (11.5-14.5); WHITE BLOOD COUNT 4.8 x10^3/uL (4.0-11.0)
[2017-08-27 06:52] LABS: ALBUMIN 3.8 g/dL (3.4-5.0); CALCIUM 9.8 mg/dL (8.5-10.1); CREATININE 0.7 mg/dL (0.6-1.0); GFR 108.1; POTASSIUM 3.1 mmol/L (3.5-5.1); TOTAL BILIRUBIN 0.8 mg/dL (0.2-1.0); TOTAL PROTEIN 7.6 g/dL (6.4-8.2)
[2017-08-27 07:15] VITALS: BP 116/85
[2017-08-27] MEDS: INSULIN ASPART 300 UNITS/3 ML INSULN.PEN SQ SCH ×3 (08:00→17:00)
[2017-08-27] MEDS: LINAGLIPTIN 5 MG TABLET PO SCH ×2 (08:38→17:11)
[2017-08-27] MEDS: METOPROLOL TART IMMED RELEASE 25 MG TABLET. PO SCH ×2 (08:38→21:38)
[2017-08-27] MEDS: POTASSIUM CHLORIDE 10 MEQ TABLET.ER. PO SCH (08:38)
[2017-08-27] MEDS: POLYETHYLENE GLYCOL 3350 17 GM PACKET. PO SCH (08:39)
[2017-08-27] MEDS: DOCUSATE SODIUM 100 MG CAPSULE. PO SCH ×2 (08:39→21:37)
[2017-08-27] MEDS: CHLORTHALIDONE 25 MG TABLET. PO SCH (08:39)
--- NOTE | 2017-08-27 09:52 | PDOC ---
PROGRESS NOTES Chief Complaint Chief Complaint Worsening lower back pain, mentions L1-L2 pathology Radiation to bilateral lower extremity, intractable pain, requiring iv dilaudid around the clock Diabetes type 2 on OHA rather controlled Degenerative disk disease Lumbar disk herniation with radiculopathy , intractable HTN HLD Cardiac disease Previous laminectomy L3-4 hypokalemia, needs replacement nausea and vomiting this AM History of Present Illness History of Present Illness Continues to have back pain, repeat MRI done 08/25 because of worsening of symptoms and results are as follows below: Impression: 1. Previously seen protrusion in the far left lateral recess at L2-3 is somewhat less prominent comparing with the May 2017 exam, [id number] narrowing of the far left lateral recess at this level. There is again posterolateral fusion hardware and interbody graft at the L3-4 level, right laminectomy at this level as seen previously. Shallow bulge/protrusion in the right lateral recess at L5-S1 is slightly less prominent. Patient states back pain is still radiating to lower legs. Since admission pain has NOT IMPROVED, she tried walking a short distance this AM, was unable to tolerate the pain. 2. debility, states she has not been able to work for 2 years due to severe pain , she works as a Resp therapist . . she has not had an emg for at least 2 years Vitals Vitals Vital Signs Date Time Temp Pulse Resp B/P (MAP) Pulse Ox O2 Delivery O2 Flow Rate FiO2 08/27/17 09:46 Room Air 08/27/17 08:38 90 116/85 08/27/17 07:15 97.6 18 98 97.6 Physical Exam Physical Exam Physical Exam General: Alert, Oriented X3, Cooperative, moderate distress Heart: Regular rate, Normal S1, Normal S2 Lungs: Clear, Other Abdomen: Normal bowel sounds, Soft, No tenderness Extremities: No clubbing, No cyanosis, No edema Skin: No significant lesion General: Alert, Oriented X3, Cooperative, moderate distress Heart: Regular rate, Normal S1, Normal S2 Lungs: Clear, Other Abdomen: Normal bowel sounds, Soft, No tenderness Extremities: No clubbing, No cyanosis, No edema Skin: No significant lesion Labs LABS Laboratory Tests Test 08/26/17 11:21 08/26/17 16:17 08/27/17 05:25 08/27/17 07:23 Glucose (Fingerstick) 140 mg/dL (70-99) 159 mg/dL (70-99) 133 mg/dL (70-99) White Blood Count 4.8 x10^3/uL (4.0-11.0) Red Blood Count 4.16 x10^6/uL (3.50-5.40) Hemoglobin 12.3 g/dL (12.0-15.5) Hematocrit 35.8 % (36.0-47.0) Mean Corpuscular Volume 86 fL (79-100) Mean Corpuscular Hemoglobin 30 pg (25-35) Mean Corpuscular Hemoglobin Concent 34 g/dL (31-37) Red Cell Distribution Width 14.3 % (11.5-14.5) Platelet Count 236 x10^3/uL (140-400) Neutrophils (%) (Auto) 54 % (31-73) Lymphocytes (%) (Auto) 34 % (24-48) Monocytes (%) (Auto) 8 % (0-9) Eosinophils (%) (Auto) 3 % (0-3) Basophils (%) (Auto) 1 % (0-3) Neutrophils # (Auto) 2.6 x10^3uL (1.8-7.7) Lymphocytes # (Auto) 1.6 x10^3/uL (1.0-4.8) Monocytes # (Auto) 0.4 x10^3/uL (0.0-1.1) Eosinophils # (Auto) 0.2 x10^3/uL (0.0-0.7) Basophils # (Auto) 0.0 x10^3/uL (0.0-0.2) Sodium Level 140 mmol/L (136-145) Potassium Level 3.1 mmol/L (3.5-5.1) Chloride Level 97 mmol/L (98-107) Carbon Dioxide Level 34 mmol/L (21-32) Anion Gap 9 (6-14) Blood Urea Nitrogen 12 mg/dL (7-20) Creatinine 0.7 mg/dL (0.6-1.0) Estimated GFR (Cockcroft-Gault) 108.1 BUN/Creatinine Ratio 17 (6-20) Glucose Level 151 mg/dL (70-99) Calcium Level 9.8 mg/dL (8.5-10.1) Total Bilirubin 0.8 mg/dL (0.2-1.0) Aspartate Amino Transf (AST/SGOT) 33 U/L (15-37) Alanine Aminotransferase (ALT/SGPT) 39 U/L (14-59) Alkaline Phosphatase 89 U/L (46-116) Total Protein 7.6 g/dL (6.4-8.2) Albumin 3.8 g/dL (3.4-5.0) Albumin/Globulin Ratio 1.0 (1.0-1.7) Assessment and Plan Assessmemt and Plan Problems Medical Problems: (1) Intractable back pain Status: Acute Worsening lower back pain, mentions L1-L2 pathology Radiation to bilateral lower extremity Diabetes type 2 on OHA rather controlled Degenerative disk disease Lumbar disk herniation with radiculopathy HTN HLD Cardiac disease Previous laminectomy L3-4 hypokalemia, needs replacement will ask for neurology consult to consider EMG Problems: Comment Review of Relevant I have reviewed the following items pretty (where applicable) has been applied. Labs Laboratory Tests Test 08/25/17 11:55 08/25/17 16:07 08/25/17 21:01 08/26/17 08:20 Glucose (Fingerstick) 132 mg/dL (70-99) 151 mg/dL (70-99) 134 mg/dL (70-99) 149 mg/dL (70-99) Test 08/26/17 11:21 08/26/17 16:17 08/27/17 05:25 08/27/17 07:23 Glucose (Fingerstick) 140 mg/dL (70-99) 159 mg/dL (70-99) 133 mg/dL (70-99) White Blood Count 4.8 x10^3/uL (4.0-11.0) Red Blood Count 4.16 x10^6/uL (3.50-5.40) Hemoglobin 12.3 g/dL (12.0-15.5) Hematocrit 35.8 % (36.0-47.0) Mean Corpuscular Volume 86 fL (79-100) Mean Corpuscular Hemoglobin 30 pg (25-35) Mean Corpuscular Hemoglobin Concent 34 g/dL (31-37) Red Cell Distribution Width 14.3 % (11.5-14.5) Platelet Count 236 x10^3/uL (140-400) Neutrophils (%) (Auto) 54 % (31-73) Lymphocytes (%) (Auto) 34 % (24-48) Monocytes (%) (Auto) 8 % (0-9) Eosinophils (%) (Auto) 3 % (0-3) Basophils (%) (Auto) 1 % (0-3) Neutrophils # (Auto) 2.6 x10^3uL (1.8-7.7) Lymphocytes # (Auto) 1.6 x10^3/uL (1.0-4.8) Monocytes # (Auto) 0.4 x10^3/uL (0.0-1.1) Eosinophils # (Auto) 0.2 x10^3/uL (0.0-0.7) Basophils # (Auto) 0.0 x10^3/uL (0.0-0.2) Sodium Level 140 mmol/L (136-145) Potassium Level 3.1 mmol/L (3.5-5.1) Chloride Level 97 mmol/L (98-107) Carbon Dioxide Level 34 mmol/L (21-32) Anion Gap 9 (6-14) Blood Urea Nitrogen 12 mg/dL (7-20) Creatinine 0.7 mg/dL (0.6-1.0) Estimated GFR (Cockcroft-Gault) 108.1 BUN/Creatinine Ratio 17 (6-20) Glucose Level 151 mg/dL (70-99) Calcium Level 9.8 mg/dL (8.5-10.1) Total Bilirubin 0.8 mg/dL (0.2-1.0) Aspartate Amino Transf (AST/SGOT) 33 U/L (15-37) Alanine Aminotransferase (ALT/SGPT) 39 U/L (14-59) Alkaline Phosphatase 89 U/L (46-116) Total Protein 7.6 g/dL (6.4-8.2) Albumin 3.8 g/dL (3.4-5.0) Albumin/Globulin Ratio 1.0 (1.0-1.7) Laboratory Tests Test 08/26/17 11:21 08/26/17 16:17 08/27/17 05:25 08/27/17 07:23 Glucose (Fingerstick) 140 mg/dL (70-99) 159 mg/dL (70-99) 133 mg/dL (70-99) White Blood Count 4.8 x10^3/uL (4.0-11.0) Red Blood Count 4.16 x10^6/uL (3.50-5.40) Hemoglobin 12.3 g/dL (12.0-15.5) Hematocrit 35.8 % (36.0-47.0) Mean Corpuscular Volume 86 fL (79-100) Mean Corpuscular Hemoglobin 30 pg (25-35) Mean Corpuscular Hemoglobin Concent 34 g/dL (31-37) Red Cell Distribution Width 14.3 % (11.5-14.5) Platelet Count 236 x10^3/uL (140-400) Neutrophils (%) (Auto) 54 % (31-73) Lymphocytes (%) (Auto) 34 % (24-48) Monocytes (%) (Auto) 8 % (0-9) Eosinophils (%) (Auto) 3 % (0-3) Basophils (%) (Auto) 1 % (0-3) Neutrophils # (Auto) 2.6 x10^3uL (1.8-7.7) Lymphocytes # (Auto) 1.6 x10^3/uL (1.0-4.8) Monocytes # (Auto) 0.4 x10^3/uL (0.0-1.1) Eosinophils # (Auto) 0.2 x10^3/uL (0.0-0.7) Basophils # (Auto) 0.0 x10^3/uL (0.0-0.2) Sodium Level 140 mmol/L (136-145) Potassium Level 3.1 mmol/L (3.5-5.1) Chloride Level 97 mmol/L (98-107) Carbon Dioxide Level 34 mmol/L (21-32) Anion Gap 9 (6-14) Blood Urea Nitrogen 12 mg/dL (7-20) Creatinine 0.7 mg/dL (0.6-1.0) Estimated GFR (Cockcroft-Gault) 108.1 BUN/Creatinine Ratio 17 (6-20) Glucose Level 151 mg/dL (70-99) Calcium Level 9.8 mg/dL (8.5-10.1) Total Bilirubin 0.8 mg/dL (0.2-1.0) Aspartate Amino Transf (AST/SGOT) 33 U/L (15-37) Alanine Aminotransferase (ALT/SGPT) 39 U/L (14-59) Alkaline Phosphatase 89 U/L (46-116) Total Protein 7.6 g/dL (6.4-8.2) Albumin 3.8 g/dL (3.4-5.0) Albumin/Globulin Ratio 1.0 (1.0-1.7) Medications Current Medications Hydromorphone HCl (Dilaudid) 1 mg 1X ONCE IV Last administered on 08/23/17 17:24; Start 08/23/17 at 17:00; Stop 08/23/17 at 17:01; Status DC Diazepam (Valium) 5 mg 1X ONCE PO Last administered on 08/23/17 17:26; Start 08/23/17 at 17:00; Stop 08/23/17 at 17:01; Status DC Ondansetron HCl (Zofran) 4 mg 1X ONCE IV Last administered on 08/23/17 17:23 ; Start 08/23/17 at 17:00; Stop 08/23/17 at 17:01; Status DC Hydromorphone HCl (Dilaudid) 1 mg 1X ONCE IV Last administered on 08/23/17 18:17; Start 08/23/17 at 18:15; Stop 08/23/17 at 18:16; Status DC Ondansetron HCl (Zofran) 4 mg PRN Q8HRS PRN IV NAUSEA/VOMITING; Start at 18:30; Stop 08/24/17 at 08:42; Status DC Fentanyl Citrate (Fentanyl 2ml Vial) 50 mcg PRN Q2HR PRN IV PAIN Last administered on 08/24/17 10:30; Start 08/23/17 at 18:30; Stop 08/24/17 at 18 :29; Status DC Acetaminophen (Tylenol) 650 mg PRN Q4HRS PRN PO FEVER; Start 08/23/17 at 18:30 ; Stop 08/24/17 at 18:29; Status DC Diphenhydramine HCl (Benadryl) 25 mg PRN TID PRN IVP ITCHING Last administered on 08/25/17 19:55; Start 08/23/17 at 19:45; Stop 08/26/17 at 14:46; Status DC Ondansetron HCl (Zofran) 4 mg PRN Q6HRS PRN IV NAUSEA/VOMITING; Start at 08:45 Chlorthalidone (Thalitone) 50 mg DAILY PO Last administered on 08/27/17 08:39 ; Start 08/24/17 at 09:30 Cyclobenzaprine HCl (Flexeril) 10 mg PRN TID PRN PO MUSCLE SPASMS Last administered on 08/26/17 16:43; Start 08/24/17 at 08:45 Hydromorphone HCl (Dilaudid) 2 mg PRN Q6HRS PRN PO PAIN; Start 08/24/17 at 08: 45; Status UNV Metformin HCl (Glucophage) 1,000 mg BIDWMEALS PO Last administered on 08:38; Start 08/24/17 at 09:30 Metoprolol Tartrate (Lopressor) 25 mg BID PO Last administered on 08/27/17 08 :38; Start 08/24/17 at 09:30 Potassium Chloride (Klor-Con) 10 meq DAILY PO Last administered on 08/27/17 08:38; Start 08/24/17 at 09:30 Non-Formulary Medication 5,000 mcg [id number] PO ; Start 08/24/17 at 16:00; Status UNV Gabapentin (Neurontin) 1,200 mg QHS PO Last administered on 08/26/17 23:57; Start 08/24/17 at 21:00 Linagliptin (Tradjenta) 5 mg DAILY PO Last administered on 08/24/17 10:31; Start 08/24/17 at 09:30; Stop 08/24/17 at 18:24; Status DC Hydromorphone HCl (Dilaudid) 2 mg PRN Q3HRS PRN PO PAIN Last administered on 15:38; Start 08/24/17 at 08:45; Stop 08/24/17 at 18:24; Status DC Insulin Aspart (NovoLOG) 0-9 UNITS TIDWMEALS SQ ; Start 08/24/17 at 12:00 Dextrose (Dextrose 50%-Water Syringe) 12.5 gm PRN Q15MIN PRN IV SEE COMMENTS; Start 08/24/17 at 08:45 Diazepam (Valium) 2 mg PRN QID PRN PO ANXIETY Last administered on 08/26/17 23:57; Start 08/24/17 at 08:45 Oxycodone/ Acetaminophen (Percocet 5/325) 1 tab PRN Q4HRS PRN PO MODERATE PAIN ; Start 08/24/17 at 08:45 Oxycodone/ Acetaminophen (Percocet 10/325) 1 tab PRN Q4HRS PRN PO SEVERE PAIN; Start 08/24/17 at 08:45 Docusate Sodium (Colace) 100 mg BID PO Last administered on 08/27/17 08:39; Start 08/24/17 at 09:30 Polyethylene Glycol (miraLAX PACKET) 17 gm DAILY PO Last administered on 08:39; Start 08/24/17 at 09:30 Magnesium Hydroxide (Milk Of Magnesia) 2,400 mg PRN DAILY PRN PO CONSTIPATION; Start 08/24/17 at 08:45 Hydromorphone HCl (Dilaudid) 4 mg PRN Q3HRS PRN PO SEVERE PAIN Last administered on 08/27/17 08:37; Start 08/24/17 at 18:30 Linagliptin (Tradjenta) 5 mg DAILY PO Last administered on 08/25/17 08:45; Start 08/25/17 at 09:00; Stop 08/25/17 at 18:22; Status DC Gadobutrol (Gadavist) 7 mmol 1X ONCE IV Last administered on 08/25/17 12:33 ; Start 08/25/17 at 12:15; Stop 08/25/17 at 12:16; Status DC Fentanyl Citrate (Fentanyl 2ml Vial) 50 mcg PRN Q2HR PRN IV MODERATE PAIN; Start 08/25/17 at 15:45 Linagliptin (Tradjenta) 5 mg BIDAC PO Last administered on 08/27/17 08:38; Start 08/25/17 at 18:30 Diphenhydramine HCl (Benadryl) 25 mg PRN QHS PRN PO INSOMNIA Last administered on 08/27/17 02:02; Start 08/25/17 at 21:15 Diphenhydramine HCl (Benadryl) 25 mg PRN Q6HRS PRN IVP ITCHING; Start at 21:15 Active Scripts Active [Hydromorphone Hcl] 2 MG Tablet 2 Mg PO PRN Q3HRS PRN Reported Potassium Chloride 10 Meq Tablet.er 10 Meq PO DAILY Janumet 50-1,000 Mg Tablet (Sitagliptin Phos/Metformin Hcl) 1 Each Tablet 1 Tab PO BID Metoprolol Tartrate 25 Mg Tablet 1 Tab PO BID Biotin 2,500 Mcg Capsule 5,000 Mcg PO [id number] Dilaudid (Hydromorphone Hcl) 2 Mg Tablet 1 Tab PO PRN Q6HRS PRN Metformin Hcl 1,000 Mg Tablet 1 Tab PO BID Gabapentin 300 Mg Capsule 1,500 Mg PO DAILY Cyclobenzaprine Hcl 10 Mg Tablet 1 Tab PO TID PRN LAST DOSE GIVEN: DATE: 09/08 TIME: 9 am NEXT DOSE DUE: DATE: 09/09 TIME: 9 am Chlorthalidone 25 Mg Tablet 50 Mg PO DAILY LAST DOSE GIVEN: DATE: 09/08 TIME: 9 am NEXT DOSE DUE: DATE: 09/09 TIME: 9 am Vitals/I & O Vital Sign - Last 24 Hours 08/26/17 08/26/17 08/26/17 08/26/17 10:57 11:25 13:32 15:12 Temp 98.9 98.9 98.9 98.9 Pulse 86 86 88 Resp 18 12 18 B/P (MAP) 112/78 (89) 112/78 117/79 (92) Pulse Ox 98 97 96 O2 Delivery Room Air Room Air Room Air 08/26/17 08/26/17 08/26/17 08/26/17 16:43 19:00 19:26 19:52 Temp 98.8 98.8 Pulse 85 88 Resp 18 B/P (MAP) 131/92 (105) 117/79 Pulse Ox 96 98 O2 Delivery Room Air Room Air Room Air 08/26/17 08/26/17 08/27/17 08/27/17 19:53 23:19 02:02 03:00 Temp 98.9 98.5 98.9 98.5 Pulse 87 87 Resp 20 20 18 B/P (MAP) 114/79 (91) 110/71 (84) Pulse Ox 95 98 98 96 O2 Delivery Room Air Room Air Room Air Room Air 08/27/17 08/27/17 08/27/17 08/27/17 03:02 05:52 07:15 08:37 Temp 97.6 97.6 Pulse 90 Resp 20 20 18 B/P (MAP) 116/85 (95) Pulse Ox 98 98 98 O2 Delivery Room Air Room Air Room Air 08/27/17 08/27/17 08:38 09:46 Pulse 90 B/P (MAP) 116/85 O2 Delivery Room Air Intake and Output 08/26/17 08/26/17 08/27/17 14:59 22:59 06:59 Intake Total 1200 ml 1420 ml 240 ml Balance 1200 ml 1420 ml 240 ml ANTONINO GRAJEDA MD Aug 27, 2017 09:51
[2017-08-27] MEDS: ONDANSETRON PF 4 MG/2 ML VIAL. IV PRN (10:21)
[2017-08-27] MEDS: fentaNYL PF VIAL 100 MCG/2 ML VIAL IV PRN ×2 (10:22→17:20)
[2017-08-27 11:04] VITALS: BP 111/70
[2017-08-27] MEDS: POTASSIUM & SODIUM PHOSPHATES PACKET. PO SCH ×2 (12:40→21:38)
--- NOTE | 2017-08-27 13:13 | PDOC2 ---
NEUROLOGY CONSULT Date of Admission Date of Admission DATE: 08/27/17 TIME: 13:04 Reason for Consult Reason for Consult: IMPRESSION: Severe lower back pain. Hx of previous L-spine fusions. Degenerative L-spine disease. DM HTN Over weight. To rule out [employer] problems is any. RECOMMENDATIONS/PLAN: Pain control. Lab: see orders. Neurosurgery on team. Please consult Dr. Howard. OT/PT. HISTORY OF THE PRESENT ILLNESS: 46-y-old AA female patient with Hx of L-spine L3-4 fusions x 2 in the past. She stated she has back pain again recently and she was reportedly to scheduled surgery again. However, she called neurosurgery clinic stating her back pain became worse, so she came to the ER of [facility] eventually admitted for further evaluation. No urinary of bowel dysfunction. UE and cranial nerves are not affected. PAST MEDICAL HISTORY: Please see above. PAST SURGERY HISTORY: L3-4 fusions. ALLERGY: Reviewed. MEDICATIONS: Refer to [facility] FAMILY HISTORY: Non contributory. SOCIAL HISTORY: Lives at home. Denies substances and illicit drug use. REVIEW OF SYSTEMS: Constitutional: No malnutrition, weight loss, cachexia. Head: No traumatic brain or head injury. Skin: No edema, or rash. Ear: No infection. Eyes: No vision loss or color blindness. Nose: No bleeding or purulent discharges. Hearing: No hearing decrease. Neck: No injury. Breast: No history of cancer, masses,or discharges. Cardiac: HTN. Pulmonary: No COPD. GI: No GI ulcer, GI bleeding. Urinary/genital: UTI. Endocrinologic: Diabetes Mellitus. Skeletomuscular: No muscular atrophy, deformity. Neurological: see HP. Psychiatric: Denies drug use/abuse. Otherwise, not [id number] review of systems. PHYSICAL EXAMINATION: General appearance is in acute distress. HEENT: Normocephalic and nontraumatic. Eyes, nose, ears, and throat are unremarkable. Neck is supple. No lymphadenopathy. No bruits are heard over the carotid artery. No crepitus. Cardiovascular: S1, S2, regular rate and rhythm. Pulmonary: Clear to auscultation bilaterally. Abdomen: Bowel sounds are positive. Abdomen is soft, nontender, and nondistended. Extremities: No rash, lesions, or edema. No restriction of range of motion NEUROLOGICAL EXAMINATION: Alert Oriented to time, place and person. PERRL. EOMI. CN: no focal findings. Muscle tone: within normal. Muscle strength: 5 DTR: 2 Plantar reflex: Flexor response bilaterally Gait: not examined in bed. Sensory exam: no abnormal findings. No cerebellar signs elicited. F-T-N test fine. Current Medications Current Medications Current Medications Hydromorphone HCl (Dilaudid) 1 mg 1X ONCE IV Last administered on 08/23/17 17:24; Start 08/23/17 at 17:00; Stop 08/23/17 at 17:01; Status DC Diazepam (Valium) 5 mg 1X ONCE PO Last administered on 08/23/17 17:26; Start 08/23/17 at 17:00; Stop 08/23/17 at 17:01; Status DC Ondansetron HCl (Zofran) 4 mg 1X ONCE IV Last administered on 08/23/17 17:23 ; Start 08/23/17 at 17:00; Stop 08/23/17 at 17:01; Status DC Hydromorphone HCl (Dilaudid) 1 mg 1X ONCE IV Last administered on 08/23/17 18:17; Start 08/23/17 at 18:15; Stop 08/23/17 at 18:16; Status DC Ondansetron HCl (Zofran) 4 mg PRN Q8HRS PRN IV NAUSEA/VOMITING; Start at 18:30; Stop 08/24/17 at 08:42; Status DC Fentanyl Citrate (Fentanyl 2ml Vial) 50 mcg PRN Q2HR PRN IV PAIN Last administered on 08/24/17 10:30; Start 08/23/17 at 18:30; Stop 08/24/17 at 18 :29; Status DC Acetaminophen (Tylenol) 650 mg PRN Q4HRS PRN PO FEVER; Start 08/23/17 at 18:30 ; Stop 08/24/17 at 18:29; Status DC Diphenhydramine HCl (Benadryl) 25 mg PRN TID PRN IVP ITCHING Last administered on 08/25/17 19:55; Start 08/23/17 at 19:45; Stop 08/26/17 at 14:46; Status DC Ondansetron HCl (Zofran) 4 mg PRN Q6HRS PRN IV NAUSEA/VOMITING Last administered on 08/27/17 10:21; Start 08/24/17 at 08:45 Chlorthalidone (Thalitone) 50 mg DAILY PO Last administered on 08/27/17 08:39 ; Start 08/24/17 at 09:30 Cyclobenzaprine HCl (Flexeril) 10 mg PRN TID PRN PO MUSCLE SPASMS Last administered on 08/26/17 16:43; Start 08/24/17 at 08:45 Hydromorphone HCl (Dilaudid) 2 mg PRN Q6HRS PRN PO PAIN; Start 08/24/17 at 08: 45; Status UNV Metformin HCl (Glucophage) 1,000 mg BIDWMEALS PO Last administered on 08:38; Start 08/24/17 at 09:30 Metoprolol Tartrate (Lopressor) 25 mg BID PO Last administered on 08/27/17 08 :38; Start 08/24/17 at 09:30 Potassium Chloride (Klor-Con) 10 meq DAILY PO Last administered on 08/27/17 08:38; Start 08/24/17 at 09:30 Non-Formulary Medication 5,000 mcg [id number] PO ; Start 08/24/17 at 16:00; Status UNV Gabapentin (Neurontin) 1,200 mg QHS PO Last administered on 08/26/17 23:57; Start 08/24/17 at 21:00 Linagliptin (Tradjenta) 5 mg DAILY PO Last administered on 08/24/17 10:31; Start 08/24/17 at 09:30; Stop 08/24/17 at 18:24; Status DC Hydromorphone HCl (Dilaudid) 2 mg PRN Q3HRS PRN PO PAIN Last administered on 15:38; Start 08/24/17 at 08:45; Stop 08/24/17 at 18:24; Status DC Insulin Aspart (NovoLOG) 0-9 UNITS TIDWMEALS SQ Last administered on 12:45; Start 08/24/17 at 12:00 Dextrose (Dextrose 50%-Water Syringe) 12.5 gm PRN Q15MIN PRN IV SEE COMMENTS; Start 08/24/17 at 08:45 Diazepam (Valium) 2 mg PRN QID PRN PO ANXIETY Last administered on 08/26/17 23:57; Start 08/24/17 at 08:45 Oxycodone/ Acetaminophen (Percocet 5/325) 1 tab PRN Q4HRS PRN PO MODERATE PAIN ; Start 08/24/17 at 08:45 Oxycodone/ Acetaminophen (Percocet 10/325) 1 tab PRN Q4HRS PRN PO SEVERE PAIN; Start 08/24/17 at 08:45 Docusate Sodium (Colace) 100 mg BID PO Last administered on 08/27/17 08:39; Start 08/24/17 at 09:30 Polyethylene Glycol (miraLAX PACKET) 17 gm DAILY PO Last administered on 08:39; Start 08/24/17 at 09:30 Magnesium Hydroxide (Milk Of Magnesia) 2,400 mg PRN DAILY PRN PO CONSTIPATION; Start 08/24/17 at 08:45 Hydromorphone HCl (Dilaudid) 4 mg PRN Q3HRS PRN PO SEVERE PAIN Last administered on 08/27/17 12:46; Start 08/24/17 at 18:30 Linagliptin (Tradjenta) 5 mg DAILY PO Last administered on 08/25/17 08:45; Start 08/25/17 at 09:00; Stop 08/25/17 at 18:22; Status DC Gadobutrol (Gadavist) 7 mmol 1X ONCE IV Last administered on 08/25/17 12:33 ; Start 08/25/17 at 12:15; Stop 08/25/17 at 12:16; Status DC Fentanyl Citrate (Fentanyl 2ml Vial) 50 mcg PRN Q2HR PRN IV MODERATE PAIN Last administered on 08/27/17 10:22; Start 08/25/17 at 15:45 Linagliptin (Tradjenta) 5 mg BIDAC PO Last administered on 08/27/17 08:38; Start 08/25/17 at 18:30 Diphenhydramine HCl (Benadryl) 25 mg PRN QHS PRN PO INSOMNIA Last administered on 08/27/17 02:02; Start 08/25/17 at 21:15 Diphenhydramine HCl (Benadryl) 25 mg PRN Q6HRS PRN IVP ITCHING; Start at 21:15 Potassium Phos/ Sodium Phos (Phos-Nak) 1 pkt BID PO Last administered on t 12:40; Start 08/27/17 at 10:30; Stop 08/27/17 at 21:01 Active Scripts Active [Hydromorphone Hcl] 2 MG Tablet 2 Mg PO PRN Q3HRS PRN Reported Potassium Chloride 10 Meq Tablet.er 10 Meq PO DAILY Janumet 50-1,000 Mg Tablet (Sitagliptin Phos/Metformin Hcl) 1 Each Tablet 1 Tab PO BID Metoprolol Tartrate 25 Mg Tablet 1 Tab PO BID Biotin 2,500 Mcg Capsule 5,000 Mcg PO [id number] Dilaudid (Hydromorphone Hcl) 2 Mg Tablet 1 Tab PO PRN Q6HRS PRN Metformin Hcl 1,000 Mg Tablet 1 Tab PO BID Gabapentin 300 Mg Capsule 1,500 Mg PO DAILY Cyclobenzaprine Hcl 10 Mg Tablet 1 Tab PO TID PRN LAST DOSE GIVEN: DATE: 09/08 TIME: 9 am NEXT DOSE DUE: DATE: 09/09 TIME: 9 am Chlorthalidone 25 Mg Tablet 50 Mg PO DAILY LAST DOSE GIVEN: DATE: 09/08 TIME: 9 am NEXT DOSE DUE: DATE: 09/09 TIME: 9 am Allergies Allergies: Coded Allergies: spironolactone (Verified Allergy, Intermediate, Itching, RASH, 08/06/17) tramadol (Verified Allergy, Intermediate, Rash AND VOMITING, 08/06/17) Tolerates hydrocodone and morphine Vitals VITALS Vital Signs Date Time Temp Pulse Resp B/P (MAP) Pulse Ox O2 Delivery O2 Flow Rate FiO2 08/27/17 12:46 Room Air 08/27/17 11:04 99.6 93 20 111/70 (84) 98 99.6 Labs Labs Laboratory Tests Test 08/25/17 16:07 08/25/17 21:01 08/26/17 08:20 08/26/17 11:21 Glucose (Fingerstick) 151 mg/dL (70-99) 134 mg/dL (70-99) 149 mg/dL (70-99) 140 mg/dL (70-99) Test 08/26/17 16:17 08/27/17 05:25 08/27/17 07:23 08/27/17 11:15 Glucose (Fingerstick) 159 mg/dL (70-99) 133 mg/dL (70-99) 186 mg/dL (70-99) White Blood Count 4.8 x10^3/uL (4.0-11.0) Red Blood Count 4.16 x10^6/uL (3.50-5.40) Hemoglobin 12.3 g/dL (12.0-15.5) Hematocrit 35.8 % (36.0-47.0) Mean Corpuscular Volume 86 fL (79-100) Mean Corpuscular Hemoglobin 30 pg (25-35) Mean Corpuscular Hemoglobin Concent 34 g/dL (31-37) Red Cell Distribution Width 14.3 % (11.5-14.5) Platelet Count 236 x10^3/uL (140-400) Neutrophils (%) (Auto) 54 % (31-73) Lymphocytes (%) (Auto) 34 % (24-48) Monocytes (%) (Auto) 8 % (0-9) Eosinophils (%) (Auto) 3 % (0-3) Basophils (%) (Auto) 1 % (0-3) Neutrophils # (Auto) 2.6 x10^3uL (1.8-7.7) Lymphocytes # (Auto) 1.6 x10^3/uL (1.0-4.8) Monocytes # (Auto) 0.4 x10^3/uL (0.0-1.1) Eosinophils # (Auto) 0.2 x10^3/uL (0.0-0.7) Basophils # (Auto) 0.0 x10^3/uL (0.0-0.2) Sodium Level 140 mmol/L (136-145) Potassium Level 3.1 mmol/L (3.5-5.1) Chloride Level 97 mmol/L (98-107) Carbon Dioxide Level 34 mmol/L (21-32) Anion Gap 9 (6-14) Blood Urea Nitrogen 12 mg/dL (7-20) Creatinine 0.7 mg/dL (0.6-1.0) Estimated GFR (Cockcroft-Gault) 108.1 BUN/Creatinine Ratio 17 (6-20) Glucose Level 151 mg/dL (70-99) Calcium Level 9.8 mg/dL (8.5-10.1) Total Bilirubin 0.8 mg/dL (0.2-1.0) Aspartate Amino Transf (AST/SGOT) 33 U/L (15-37) Alanine Aminotransferase (ALT/SGPT) 39 U/L (14-59) Alkaline Phosphatase 89 U/L (46-116) Total Protein 7.6 g/dL (6.4-8.2) Albumin 3.8 g/dL (3.4-5.0) Albumin/Globulin Ratio 1.0 (1.0-1.7) Laboratory Tests Test 08/26/17 16:17 08/27/17 05:25 08/27/17 07:23 08/27/17 11:15 Glucose (Fingerstick) 159 mg/dL (70-99) 133 mg/dL (70-99) 186 mg/dL (70-99) White Blood Count 4.8 x10^3/uL (4.0-11.0) Red Blood Count 4.16 x10^6/uL (3.50-5.40) Hemoglobin 12.3 g/dL (12.0-15.5) Hematocrit 35.8 % (36.0-47.0) Mean Corpuscular Volume 86 fL (79-100) Mean Corpuscular Hemoglobin 30 pg (25-35) Mean Corpuscular Hemoglobin Concent 34 g/dL (31-37) Red Cell Distribution Width 14.3 % (11.5-14.5) Platelet Count 236 x10^3/uL (140-400) Neutrophils (%) (Auto) 54 % (31-73) Lymphocytes (%) (Auto) 34 % (24-48) Monocytes (%) (Auto) 8 % (0-9) Eosinophils (%) (Auto) 3 % (0-3) Basophils (%) (Auto) 1 % (0-3) Neutrophils # (Auto) 2.6 x10^3uL (1.8-7.7) Lymphocytes # (Auto) 1.6 x10^3/uL (1.0-4.8) Monocytes # (Auto) 0.4 x10^3/uL (0.0-1.1) Eosinophils # (Auto) 0.2 x10^3/uL (0.0-0.7) Basophils # (Auto) 0.0 x10^3/uL (0.0-0.2) Sodium Level 140 mmol/L (136-145) Potassium Level 3.1 mmol/L (3.5-5.1) Chloride Level 97 mmol/L (98-107) Carbon Dioxide Level 34 mmol/L (21-32) Anion Gap 9 (6-14) Blood Urea Nitrogen 12 mg/dL (7-20) Creatinine 0.7 mg/dL (0.6-1.0) Estimated GFR (Cockcroft-Gault) 108.1 BUN/Creatinine Ratio 17 (6-20) Glucose Level 151 mg/dL (70-99) Calcium Level 9.8 mg/dL (8.5-10.1) Total Bilirubin 0.8 mg/dL (0.2-1.0) Aspartate Amino Transf (AST/SGOT) 33 U/L (15-37) Alanine Aminotransferase (ALT/SGPT) 39 U/L (14-59) Alkaline Phosphatase 89 U/L (46-116) Total Protein 7.6 g/dL (6.4-8.2) Albumin 3.8 g/dL (3.4-5.0) Albumin/Globulin Ratio 1.0 (1.0-1.7) KASSANDRA MARS MD Aug 27, 2017 13:13
--- NOTE | 2017-08-27 13:41 | PDOC ---
PROGRESS NOTES Subjective Subjective patient seen at 1300 continues to have pain in her low back and right leg, some pain in left groin but majority of pain is in the right leg and back Objective Objective Vital Signs Date Time Temp Pulse Resp B/P (MAP) Pulse Ox O2 Delivery O2 Flow Rate FiO2 08/27/17 12:46 Room Air 08/27/17 11:04 99.6 93 20 111/70 (84) 98 99.6 Intake and Output 08/27/17 07:00 Intake Total 2860 ml Balance 2860 ml Intake Oral 2860 ml # Voids 5 Physical Exam General: Oriented X3, Cooperative MUSCULOSKELETAL: Other (STEWARD, tenderness with palpation of the lower lumbar spine) Neuro: Other (Strength 5/5 IN BLE) Assessment Assessment Problems Medical Problems: (1) Intractable back pain Status: Acute Plan Plan of Care discussed lumbar MRI we will hold on surgery for L2-3 Left HNP, most of her severe pain is on the right Dr. Ken has been consulted for LESI, she does not feel that she is able to DC and have this as an OP Comment Review of Relevant I have reviewed the following items pretty (where applicable) has been applied. Labs Laboratory Tests Test 08/25/17 16:07 08/25/17 21:01 08/26/17 08:20 08/26/17 11:21 Glucose (Fingerstick) 151 mg/dL (70-99) 134 mg/dL (70-99) 149 mg/dL (70-99) 140 mg/dL (70-99) Test 08/26/17 16:17 08/27/17 05:25 08/27/17 07:23 08/27/17 11:15 Glucose (Fingerstick) 159 mg/dL (70-99) 133 mg/dL (70-99) 186 mg/dL (70-99) White Blood Count 4.8 x10^3/uL (4.0-11.0) Red Blood Count 4.16 x10^6/uL (3.50-5.40) Hemoglobin 12.3 g/dL (12.0-15.5) Hematocrit 35.8 % (36.0-47.0) Mean Corpuscular Volume 86 fL (79-100) Mean Corpuscular Hemoglobin 30 pg (25-35) Mean Corpuscular Hemoglobin Concent 34 g/dL (31-37) Red Cell Distribution Width 14.3 % (11.5-14.5) Platelet Count 236 x10^3/uL (140-400) Neutrophils (%) (Auto) 54 % (31-73) Lymphocytes (%) (Auto) 34 % (24-48) Monocytes (%) (Auto) 8 % (0-9) Eosinophils (%) (Auto) 3 % (0-3) Basophils (%) (Auto) 1 % (0-3) Neutrophils # (Auto) 2.6 x10^3uL (1.8-7.7) Lymphocytes # (Auto) 1.6 x10^3/uL (1.0-4.8) Monocytes # (Auto) 0.4 x10^3/uL (0.0-1.1) Eosinophils # (Auto) 0.2 x10^3/uL (0.0-0.7) Basophils # (Auto) 0.0 x10^3/uL (0.0-0.2) Sodium Level 140 mmol/L (136-145) Potassium Level 3.1 mmol/L (3.5-5.1) Chloride Level 97 mmol/L (98-107) Carbon Dioxide Level 34 mmol/L (21-32) Anion Gap 9 (6-14) Blood Urea Nitrogen 12 mg/dL (7-20) Creatinine 0.7 mg/dL (0.6-1.0) Estimated GFR (Cockcroft-Gault) 108.1 BUN/Creatinine Ratio 17 (6-20) Glucose Level 151 mg/dL (70-99) Calcium Level 9.8 mg/dL (8.5-10.1) Total Bilirubin 0.8 mg/dL (0.2-1.0) Aspartate Amino Transf (AST/SGOT) 33 U/L (15-37) Alanine Aminotransferase (ALT/SGPT) 39 U/L (14-59) Alkaline Phosphatase 89 U/L (46-116) Total Protein 7.6 g/dL (6.4-8.2) Albumin 3.8 g/dL (3.4-5.0) Albumin/Globulin Ratio 1.0 (1.0-1.7) Laboratory Tests Test 08/26/17 16:17 08/27/17 05:25 08/27/17 07:23 08/27/17 11:15 Glucose (Fingerstick) 159 mg/dL (70-99) 133 mg/dL (70-99) 186 mg/dL (70-99) White Blood Count 4.8 x10^3/uL (4.0-11.0) Red Blood Count 4.16 x10^6/uL (3.50-5.40) Hemoglobin 12.3 g/dL (12.0-15.5) Hematocrit 35.8 % (36.0-47.0) Mean Corpuscular Volume 86 fL (79-100) Mean Corpuscular Hemoglobin 30 pg (25-35) Mean Corpuscular Hemoglobin Concent 34 g/dL (31-37) Red Cell Distribution Width 14.3 % (11.5-14.5) Platelet Count 236 x10^3/uL (140-400) Neutrophils (%) (Auto) 54 % (31-73) Lymphocytes (%) (Auto) 34 % (24-48) Monocytes (%) (Auto) 8 % (0-9) Eosinophils (%) (Auto) 3 % (0-3) Basophils (%) (Auto) 1 % (0-3) Neutrophils # (Auto) 2.6 x10^3uL (1.8-7.7) Lymphocytes # (Auto) 1.6 x10^3/uL (1.0-4.8) Monocytes # (Auto) 0.4 x10^3/uL (0.0-1.1) Eosinophils # (Auto) 0.2 x10^3/uL (0.0-0.7) Basophils # (Auto) 0.0 x10^3/uL (0.0-0.2) Sodium Level 140 mmol/L (136-145) Potassium Level 3.1 mmol/L (3.5-5.1) Chloride Level 97 mmol/L (98-107) Carbon Dioxide Level 34 mmol/L (21-32) Anion Gap 9 (6-14) Blood Urea Nitrogen 12 mg/dL (7-20) Creatinine 0.7 mg/dL (0.6-1.0) Estimated GFR (Cockcroft-Gault) 108.1 BUN/Creatinine Ratio 17 (6-20) Glucose Level 151 mg/dL (70-99) Calcium Level 9.8 mg/dL (8.5-10.1) Total Bilirubin 0.8 mg/dL (0.2-1.0) Aspartate Amino Transf (AST/SGOT) 33 U/L (15-37) Alanine Aminotransferase (ALT/SGPT) 39 U/L (14-59) Alkaline Phosphatase 89 U/L (46-116) Total Protein 7.6 g/dL (6.4-8.2) Albumin 3.8 g/dL (3.4-5.0) Albumin/Globulin Ratio 1.0 (1.0-1.7) Medications Current Medications Hydromorphone HCl (Dilaudid) 1 mg 1X ONCE IV Last administered on 08/23/17 17:24; Start 08/23/17 at 17:00; Stop 08/23/17 at 17:01; Status DC Diazepam (Valium) 5 mg 1X ONCE PO Last administered on 08/23/17 17:26; Start 08/23/17 at 17:00; Stop 08/23/17 at 17:01; Status DC Ondansetron HCl (Zofran) 4 mg 1X ONCE IV Last administered on 08/23/17 17:23 ; Start 08/23/17 at 17:00; Stop 08/23/17 at 17:01; Status DC Hydromorphone HCl (Dilaudid) 1 mg 1X ONCE IV Last administered on 08/23/17 18:17; Start 08/23/17 at 18:15; Stop 08/23/17 at 18:16; Status DC Ondansetron HCl (Zofran) 4 mg PRN Q8HRS PRN IV NAUSEA/VOMITING; Start at 18:30; Stop 08/24/17 at 08:42; Status DC Fentanyl Citrate (Fentanyl 2ml Vial) 50 mcg PRN Q2HR PRN IV PAIN Last administered on 08/24/17 10:30; Start 08/23/17 at 18:30; Stop 08/24/17 at 18 :29; Status DC Acetaminophen (Tylenol) 650 mg PRN Q4HRS PRN PO FEVER; Start 08/23/17 at 18:30 ; Stop 08/24/17 at 18:29; Status DC Diphenhydramine HCl (Benadryl) 25 mg PRN TID PRN IVP ITCHING Last administered on 08/25/17 19:55; Start 08/23/17 at 19:45; Stop 08/26/17 at 14:46; Status DC Ondansetron HCl (Zofran) 4 mg PRN Q6HRS PRN IV NAUSEA/VOMITING Last administered on 08/27/17 10:21; Start 08/24/17 at 08:45 Chlorthalidone (Thalitone) 50 mg DAILY PO Last administered on 08/27/17 08:39 ; Start 08/24/17 at 09:30 Cyclobenzaprine HCl (Flexeril) 10 mg PRN TID PRN PO MUSCLE SPASMS Last administered on 08/26/17 16:43; Start 08/24/17 at 08:45 Hydromorphone HCl (Dilaudid) 2 mg PRN Q6HRS PRN PO PAIN; Start 08/24/17 at 08: 45; Status UNV Metformin HCl (Glucophage) 1,000 mg BIDWMEALS PO Last administered on 08:38; Start 08/24/17 at 09:30 Metoprolol Tartrate (Lopressor) 25 mg BID PO Last administered on 08/27/17 08 :38; Start 08/24/17 at 09:30 Potassium Chloride (Klor-Con) 10 meq DAILY PO Last administered on 08/27/17 08:38; Start 08/24/17 at 09:30 Non-Formulary Medication 5,000 mcg [id number] PO ; Start 08/24/17 at 16:00; Status UNV Gabapentin (Neurontin) 1,200 mg QHS PO Last administered on 08/26/17 23:57; Start 08/24/17 at 21:00 Linagliptin (Tradjenta) 5 mg DAILY PO Last administered on 08/24/17 10:31; Start 08/24/17 at 09:30; Stop 08/24/17 at 18:24; Status DC Hydromorphone HCl (Dilaudid) 2 mg PRN Q3HRS PRN PO PAIN Last administered on 15:38; Start 08/24/17 at 08:45; Stop 08/24/17 at 18:24; Status DC Insulin Aspart (NovoLOG) 0-9 UNITS TIDWMEALS SQ Last administered on 12:45; Start 08/24/17 at 12:00 Dextrose (Dextrose 50%-Water Syringe) 12.5 gm PRN Q15MIN PRN IV SEE COMMENTS; Start 08/24/17 at 08:45 Diazepam (Valium) 2 mg PRN QID PRN PO ANXIETY Last administered on 08/26/17 23:57; Start 08/24/17 at 08:45 Oxycodone/ Acetaminophen (Percocet 5/325) 1 tab PRN Q4HRS PRN PO MODERATE PAIN ; Start 08/24/17 at 08:45 Oxycodone/ Acetaminophen (Percocet 10/325) 1 tab PRN Q4HRS PRN PO SEVERE PAIN; Start 08/24/17 at 08:45 Docusate Sodium (Colace) 100 mg BID PO Last administered on 08/27/17 08:39; Start 08/24/17 at 09:30 Polyethylene Glycol (miraLAX PACKET) 17 gm DAILY PO Last administered on 08:39; Start 08/24/17 at 09:30 Magnesium Hydroxide (Milk Of Magnesia) 2,400 mg PRN DAILY PRN PO CONSTIPATION; Start 08/24/17 at 08:45 Hydromorphone HCl (Dilaudid) 4 mg PRN Q3HRS PRN PO SEVERE PAIN Last administered on 08/27/17 12:46; Start 08/24/17 at 18:30 Linagliptin (Tradjenta) 5 mg DAILY PO Last administered on 08/25/17 08:45; Start 08/25/17 at 09:00; Stop 08/25/17 at 18:22; Status DC Gadobutrol (Gadavist) 7 mmol 1X ONCE IV Last administered on 08/25/17 12:33 ; Start 08/25/17 at 12:15; Stop 08/25/17 at 12:16; Status DC Fentanyl Citrate (Fentanyl 2ml Vial) 50 mcg PRN Q2HR PRN IV MODERATE PAIN Last administered on 08/27/17 10:22; Start 08/25/17 at 15:45 Linagliptin (Tradjenta) 5 mg BIDAC PO Last administered on 08/27/17 08:38; Start 08/25/17 at 18:30 Diphenhydramine HCl (Benadryl) 25 mg PRN QHS PRN PO INSOMNIA Last administered on 08/27/17 02:02; Start 08/25/17 at 21:15 Diphenhydramine HCl (Benadryl) 25 mg PRN Q6HRS PRN IVP ITCHING; Start at 21:15 Potassium Phos/ Sodium Phos (Phos-Nak) 1 pkt BID PO Last administered on 12:40; Start 08/27/17 at 10:30; Stop 08/27/17 at 21:01 Active Scripts Active [Hydromorphone Hcl] 2 MG Tablet 2 Mg PO PRN Q3HRS PRN Reported Potassium Chloride 10 Meq Tablet.er 10 Meq PO DAILY Janumet 50-1,000 Mg Tablet (Sitagliptin Phos/Metformin Hcl) 1 Each Tablet 1 Tab PO BID Metoprolol Tartrate 25 Mg Tablet 1 Tab PO BID Biotin 2,500 Mcg Capsule 5,000 Mcg PO [id number] Dilaudid (Hydromorphone Hcl) 2 Mg Tablet 1 Tab PO PRN Q6HRS PRN Metformin Hcl 1,000 Mg Tablet 1 Tab PO BID Gabapentin 300 Mg Capsule 1,500 Mg PO DAILY Cyclobenzaprine Hcl 10 Mg Tablet 1 Tab PO TID PRN LAST DOSE GIVEN: DATE: 09/08 TIME: 9 am NEXT DOSE DUE: DATE: 09/09 TIME: 9 am Chlorthalidone 25 Mg Tablet 50 Mg PO DAILY LAST DOSE GIVEN: DATE: 09/08 TIME: 9 am NEXT DOSE DUE: DATE: 09/09 TIME: 9 am Vitals/I & O Vital Sign - Last 24 Hours 08/26/17 08/26/17 08/26/17 08/26/17 15:12 16:43 19:00 19:26 Temp 98.9 98.8 98.9 98.8 Pulse 88 85 Resp 18 12 18 B/P (MAP) 117/79 (92) 131/92 (105) Pulse Ox 96 96 98 O2 Delivery Room Air Room Air Room Air Room Air 08/26/17 08/26/17 08/26/17 08/27/17 19:52 19:53 23:19 02:02 Temp 98.9 98.9 Pulse 88 87 Resp 20 20 B/P (MAP) 117/79 114/79 (91) Pulse Ox 95 98 98 O2 Delivery Room Air Room Air Room Air 08/27/17 08/27/17 08/27/17 08/27/17 03:00 03:02 05:52 07:15 Temp 98.5 97.6 98.5 97.6 Pulse 87 90 Resp 18 20 20 18 B/P (MAP) 110/71 (84) 116/85 (95) Pulse Ox 96 98 98 98 O2 Delivery Room Air Room Air Room Air 08/27/17 08/27/17 08/27/17 08/27/17 07:35 08:37 08:38 09:46 Pulse 90 B/P (MAP) 116/85 O2 Delivery Room Air Room Air Room Air 08/27/17 08/27/17 08/27/17 08/27/17 10:22 11:04 12:39 12:46 Temp 99.6 99.6 Pulse 93 Resp 20 B/P (MAP) 111/70 (84) Pulse Ox 98 O2 Delivery Room Air Room Air Room Air Room Air Intake and Output 08/26/17 08/26/17 08/27/17 15:00 23:00 07:00 Intake Total 1200 ml 1420 ml 240 ml Balance 1200 ml 1420 ml 240 ml KATERINE PIRES MD Aug 27, 2017 13:41
[2017-08-27 15:00] VITALS: BP 112/74
[2017-08-27 19:00] VITALS: BP 117/80
[2017-08-27 19:47] LABS: BARBITURATES NEG (NEG); BENZODIAZEPINES POS (NEG); CANNABINOIDS NEG (NEG); COCAINE NEG (NEG); METHADONE NEG (NEG); OPIATES POS (NEG); PHENCYCLIDINE NEG (NEG)
[2017-08-27] MEDS: MORPHINE ER 30 MG TABLET.ER PO SCH (21:37)
[2017-08-27 23:00] VITALS: BP 117/72
--- NOTE | 2017-08-27 23:09 | CONS ---
DATE OF CONSULTATION: 08/27/2017 ATTENDING PHYSICIAN: Dr. Freitas. The patient was seen at the request of Dr. Gardner for rehab evaluation. HISTORY OF PRESENT ILLNESS: This is a 46-year-old right-handed female known to me. She is on disability from chronic lower back pain, status post 2 lumbar spine surgeries done in 2013 and again in 2014. The patient was admitted on 08/24/2017 with severe low back pain without any specific injury started when she woke up on 08/21/2017. She had difficulty to even move in her bed. The patient had radiological studies, which revealed degenerative disk disease and degenerative joint disease of lumbar vertebrae. No significant change, maybe slight improvement when compared to last study. The patient admits pain radiating to her right lower extremity with associated numbness and she denies any trouble with urination, but had no bowel movement for the last 4 days. The patient with known diabetes mellitus. ALLERGIES: SHE IS KNOWN ALLERGIC TO SPIRONOLACTONE AND TRAMADOL. MEDICATIONS: Prior to the present hospitalization, she had been taking Dilaudid 2 mg on as-needed basis for pain. The patient has taken before MS Contin, Percocet. The patient admits Percocet causes itching, so she takes Benadryl with it. PHYSICAL EXAMINATION: Today revealed a middle-aged female. She is alert, oriented to time, place, person and circumstance and follows commands appropriately, moves all 4 extremities voluntarily where she had 4+/5 grade muscle strength and deep tendon reflexes are absent at left knee, 1+ at right knee and 2+ at both ankles and she had equal perception of touch and pinprick sensation bilaterally except slightly decreased touch and pinprick sensation over right S1 dermatome area. The patient had minimal tenderness to palpation over lumbar paraspinal muscles. Straight leg raising test is negative bilaterally. She had pain free range of motion on both hip and knee joints. She had painful limited movements of her lumbar spine. She is independent with her mobility. I saw her walking holding on to the handrail in the hallway this morning. Her skin is intact at this time. ASSESSMENT: A middle-aged female with chronic lower back pain with recent exacerbation status post 2 lumbar spine surgeries with right lumbar radiculitis. No clinical evidence of ongoing lumbar radiculopathy. RECOMMENDATIONS: To try her with MS Contin, to have physical therapy, to try physical modalities and hopefully home with outpatient followup when medically stable in the next day or so. She is planned to have a lumbar epidural steroid injection tomorrow. Dr. Gardner, I appreciate asking me to participate in the care of this interesting patient. I will be glad to follow her with you as needed for her rehabilitation. GREGORY MARIE MD DR: APRYL/adri JOB#: [id number] / [id number]
[2017-08-27] MEDS: GABAPENTIN 400 MG CAPSULE. PO SCH (23:37)
[2017-08-28] MEDS: HYDROmorphone 2 MG TABLET PO PRN ×3 (02:08→14:28)
[2017-08-28 03:00] VITALS: BP 109/72
[2017-08-28 05:42] LABS: BASO % 1 % (0-3); EOS % 3 % (0-3); HEMATOCRIT 34.6 % (36.0-47.0); HEMOGLOBIN 11.7 g/dL (12.0-15.5); LYMPH # 1.9 x10^3/uL (1.0-4.8); LYMPH % 38 % (24-48); MEAN CORPUSCULAR HEMOGLOBIN 29 pg (25-35); MEAN CORPUSCULAR HGB CONC 34 g/dL (31-37); MEAN CORPUSCULAR VOLUME 86 fL (79-100); MONO % 10 % (0-9); NEUT % 48 % (31-73); PLATELET COUNT 246 x10^3/uL (140-400); RED BLOOD COUNT 4.02 x10^6/uL (3.50-5.40); RED CELL DISTRIBUTION WIDTH 14.2 % (11.5-14.5)
[2017-08-28 05:43] LABS: ALBUMIN 3.5 g/dL (3.4-5.0); ALBUMIN/GLOBULIN RATIO 0.9 (1.0-1.7); CALCIUM 9.2 mg/dL (8.5-10.1); CREATININE 0.6 mg/dL (0.6-1.0); GFR 129.1; PHOSPHORUS 4.6 mg/dL (2.6-4.7); TOTAL BILIRUBIN 0.7 mg/dL (0.2-1.0); TOTAL PROTEIN 7.3 g/dL (6.4-8.2)
[2017-08-28 05:48] LABS: POTASSIUM 2.7 mmol/L (3.5-5.1)
[2017-08-28 07:00] VITALS: BP 107/78
[2017-08-28] MEDS ORDERED: POTASSIUM CHLORIDE 20 MEQ TABLET.ER. PO ONE (07:00)
[2017-08-28] MEDS ORDERED: methylPREDNISolone ACETATE 40 MG/ML VIAL. ONE (08:00)
[2017-08-28] MEDS: INSULIN ASPART 300 UNITS/3 ML INSULN.PEN SQ SCH ×3 (08:00→17:00)
[2017-08-28] MEDS ORDERED: IOHEXOL 180 MG/ML 10 ML VIAL. ONE (08:01)
[2017-08-28] MEDS ORDERED: methylPREDNISolone ACETATE 80 MG/ML VIAL. ONE (08:01)
[2017-08-28] MEDS: ONDANSETRON PF 4 MG/2 ML VIAL. IV PRN (08:59)
[2017-08-28] MEDS: POLYETHYLENE GLYCOL 3350 17 GM PACKET. PO SCH (09:00)
[2017-08-28] MEDS: CHLORTHALIDONE 25 MG TABLET. PO SCH (09:00)
[2017-08-28] MEDS: LINAGLIPTIN 5 MG TABLET PO SCH ×2 (09:02→16:30)
[2017-08-28] MEDS: MORPHINE ER 30 MG TABLET.ER PO SCH (09:03)
[2017-08-28] MEDS: METOPROLOL TART IMMED RELEASE 25 MG TABLET. PO SCH (09:03)
[2017-08-28] MEDS: POTASSIUM CHLORIDE 10 MEQ TABLET.ER. PO SCH (09:04)
[2017-08-28] MEDS: DOCUSATE SODIUM 100 MG CAPSULE. PO SCH (09:05)
--- NOTE | 2017-08-28 10:15 | PDOC ---
PROGRESS NOTES Subjective Subjective No new complaints. Objective Objective Vital Signs Date Time Temp Pulse Resp B/P (MAP) Pulse Ox O2 Delivery O2 Flow Rate FiO2 08/28/17 09:03 16 Room Air 08/28/17 09:03 93 107/78 08/28/17 07:00 98.4 96 98.4 Intake and Output 08/28/17 07:00 Intake Total 1200 ml Balance 1200 ml Intake Oral 1200 ml # Voids 4 Physical Exam Physical Exam She is supine in bed and does not seem to be in any acute distress.She has received lumbar ZOHRA this AM. Assessment Assessment Problems Medical Problems: (1) Intractable back pain Status: Acute Plan Plan of [facility] with out patient follow up in pain clinic when medically stable. Comment Review of Relevant I have reviewed the following items pretty (where applicable) has been applied. Labs Laboratory Tests Test 08/26/17 11:21 08/26/17 16:17 08/27/17 05:25 08/27/17 07:23 Glucose (Fingerstick) 140 mg/dL (70-99) 159 mg/dL (70-99) 133 mg/dL (70-99) White Blood Count 4.8 x10^3/uL (4.0-11.0) Red Blood Count 4.16 x10^6/uL (3.50-5.40) Hemoglobin 12.3 g/dL (12.0-15.5) Hematocrit 35.8 % (36.0-47.0) Mean Corpuscular Volume 86 fL (79-100) Mean Corpuscular Hemoglobin 30 pg (25-35) Mean Corpuscular Hemoglobin Concent 34 g/dL (31-37) Red Cell Distribution Width 14.3 % (11.5-14.5) Platelet Count 236 x10^3/uL (140-400) Neutrophils (%) (Auto) 54 % (31-73) Lymphocytes (%) (Auto) 34 % (24-48) Monocytes (%) (Auto) 8 % (0-9) Eosinophils (%) (Auto) 3 % (0-3) Basophils (%) (Auto) 1 % (0-3) Neutrophils # (Auto) 2.6 x10^3uL (1.8-7.7) Lymphocytes # (Auto) 1.6 x10^3/uL (1.0-4.8) Monocytes # (Auto) 0.4 x10^3/uL (0.0-1.1) Eosinophils # (Auto) 0.2 x10^3/uL (0.0-0.7) Basophils # (Auto) 0.0 x10^3/uL (0.0-0.2) Sodium Level 140 mmol/L (136-145) Potassium Level 3.1 mmol/L (3.5-5.1) Chloride Level 97 mmol/L (98-107) Carbon Dioxide Level 34 mmol/L (21-32) Anion Gap 9 (6-14) Blood Urea Nitrogen 12 mg/dL (7-20) Creatinine 0.7 mg/dL (0.6-1.0) Estimated GFR (Cockcroft-Gault) 108.1 BUN/Creatinine Ratio 17 (6-20) Glucose Level 151 mg/dL (70-99) Calcium Level 9.8 mg/dL (8.5-10.1) Total Bilirubin 0.8 mg/dL (0.2-1.0) Aspartate Amino Transf (AST/SGOT) 33 U/L (15-37) Alanine Aminotransferase (ALT/SGPT) 39 U/L (14-59) Alkaline Phosphatase 89 U/L (46-116) Total Protein 7.6 g/dL (6.4-8.2) Albumin 3.8 g/dL (3.4-5.0) Albumin/Globulin Ratio 1.0 (1.0-1.7) Test 08/27/17 11:15 08/27/17 13:30 08/27/17 16:46 08/27/17 19:30 Glucose (Fingerstick) 186 mg/dL (70-99) 148 mg/dL (70-99) Erythrocyte Sedimentation Rate 43 (0-25) Creatine Kinase 40 U/L (26-192) Urine Opiates Screen Pos (NEG) Urine Methadone Screen Neg (NEG) Urine Barbiturates Neg (NEG) Urine Phencyclidine Screen Neg (NEG) Urine Amphetamine/Methamphetamine Neg (NEG) Urine Benzodiazepines Screen Pos (NEG) Urine Cocaine Screen Neg (NEG) Urine Cannabinoids Screen Neg (NEG) Urine Ethyl Alcohol Neg (NEG) Test 08/27/17 20:30 08/28/17 04:05 08/28/17 07:20 Glucose (Fingerstick) 138 mg/dL (70-99) 129 mg/dL (70-99) White Blood Count 5.0 x10^3/uL (4.0-11.0) Red Blood Count 4.02 x10^6/uL (3.50-5.40) Hemoglobin 11.7 g/dL (12.0-15.5) Hematocrit 34.6 % (36.0-47.0) Mean Corpuscular Volume 86 fL (79-100) Mean Corpuscular Hemoglobin 29 pg (25-35) Mean Corpuscular Hemoglobin Concent 34 g/dL (31-37) Red Cell Distribution Width 14.2 % (11.5-14.5) Platelet Count 246 x10^3/uL (140-400) Neutrophils (%) (Auto) 48 % (31-73) Lymphocytes (%) (Auto) 38 % (24-48) Monocytes (%) (Auto) 10 % (0-9) Eosinophils (%) (Auto) 3 % (0-3) Basophils (%) (Auto) 1 % (0-3) Neutrophils # (Auto) 2.4 x10^3uL (1.8-7.7) Lymphocytes # (Auto) 1.9 x10^3/uL (1.0-4.8) Monocytes # (Auto) 0.5 x10^3/uL (0.0-1.1) Eosinophils # (Auto) 0.1 x10^3/uL (0.0-0.7) Basophils # (Auto) 0.0 x10^3/uL (0.0-0.2) Sodium Level 139 mmol/L (136-145) Potassium Level 2.7 mmol/L (3.5-5.1) Chloride Level 96 mmol/L (98-107) Carbon Dioxide Level 34 mmol/L (21-32) Anion Gap 9 (6-14) Blood Urea Nitrogen 12 mg/dL (7-20) Creatinine 0.6 mg/dL (0.6-1.0) Estimated GFR (Cockcroft-Gault) 129.1 BUN/Creatinine Ratio 20 (6-20) Glucose Level 144 mg/dL (70-99) Calcium Level 9.2 mg/dL (8.5-10.1) Phosphorus Level 4.6 mg/dL (2.6-4.7) Total Bilirubin 0.7 mg/dL (0.2-1.0) Aspartate Amino Transf (AST/SGOT) 40 U/L (15-37) Alanine Aminotransferase (ALT/SGPT) 43 U/L (14-59) Alkaline Phosphatase 92 U/L (46-116) Total Protein 7.3 g/dL (6.4-8.2) Albumin 3.5 g/dL (3.4-5.0) Albumin/Globulin Ratio 0.9 (1.0-1.7) Laboratory Tests Test 08/27/17 11:15 08/27/17 13:30 08/27/17 16:46 08/27/17 19:30 Glucose (Fingerstick) 186 mg/dL (70-99) 148 mg/dL (70-99) Erythrocyte Sedimentation Rate 43 (0-25) Creatine Kinase 40 U/L (26-192) Urine Opiates Screen Pos (NEG) Urine Methadone Screen Neg (NEG) Urine Barbiturates Neg (NEG) Urine Phencyclidine Screen Neg (NEG) Urine Amphetamine/Methamphetamine Neg (NEG) Urine Benzodiazepines Screen Pos (NEG) Urine Cocaine Screen Neg (NEG) Urine Cannabinoids Screen Neg (NEG) Urine Ethyl Alcohol Neg (NEG) Test 08/27/17 20:30 08/28/17 04:05 08/28/17 07:20 Glucose (Fingerstick) 138 mg/dL (70-99) 129 mg/dL (70-99) White Blood Count 5.0 x10^3/uL (4.0-11.0) Red Blood Count 4.02 x10^6/uL (3.50-5.40) Hemoglobin 11.7 g/dL (12.0-15.5) Hematocrit 34.6 % (36.0-47.0) Mean Corpuscular Volume 86 fL (79-100) Mean Corpuscular Hemoglobin 29 pg (25-35) Mean Corpuscular Hemoglobin Concent 34 g/dL (31-37) Red Cell Distribution Width 14.2 % (11.5-14.5) Platelet Count 246 x10^3/uL (140-400) Neutrophils (%) (Auto) 48 % (31-73) Lymphocytes (%) (Auto) 38 % (24-48) Monocytes (%) (Auto) 10 % (0-9) Eosinophils (%) (Auto) 3 % (0-3) Basophils (%) (Auto) 1 % (0-3) Neutrophils # (Auto) 2.4 x10^3uL (1.8-7.7) Lymphocytes # (Auto) 1.9 x10^3/uL (1.0-4.8) Monocytes # (Auto) 0.5 x10^3/uL (0.0-1.1) Eosinophils # (Auto) 0.1 x10^3/uL (0.0-0.7) Basophils # (Auto) 0.0 x10^3/uL (0.0-0.2) Sodium Level 139 mmol/L (136-145) Potassium Level 2.7 mmol/L (3.5-5.1) Chloride Level 96 mmol/L (98-107) Carbon Dioxide Level 34 mmol/L (21-32) Anion Gap 9 (6-14) Blood Urea Nitrogen 12 mg/dL (7-20) Creatinine 0.6 mg/dL (0.6-1.0) Estimated GFR (Cockcroft-Gault) 129.1 BUN/Creatinine Ratio 20 (6-20) Glucose Level 144 mg/dL (70-99) Calcium Level 9.2 mg/dL (8.5-10.1) Phosphorus Level 4.6 mg/dL (2.6-4.7) Total Bilirubin 0.7 mg/dL (0.2-1.0) Aspartate Amino Transf (AST/SGOT) 40 U/L (15-37) Alanine Aminotransferase (ALT/SGPT) 43 U/L (14-59) Alkaline Phosphatase 92 U/L (46-116) Total Protein 7.3 g/dL (6.4-8.2) Albumin 3.5 g/dL (3.4-5.0) Albumin/Globulin Ratio 0.9 (1.0-1.7) Medications Current Medications Hydromorphone HCl (Dilaudid) 1 mg 1X ONCE IV Last administered on 08/23/17 17:24; Start 08/23/17 at 17:00; Stop 08/23/17 at 17:01; Status DC Diazepam (Valium) 5 mg 1X ONCE PO Last administered on 08/23/17 17:26; Start 08/23/17 at 17:00; Stop 08/23/17 at 17:01; Status DC Ondansetron HCl (Zofran) 4 mg 1X ONCE IV Last administered on 08/23/17 17:23 ; Start 08/23/17 at 17:00; Stop 08/23/17 at 17:01; Status DC Hydromorphone HCl (Dilaudid) 1 mg 1X ONCE IV Last administered on 08/23/17 18:17; Start 08/23/17 at 18:15; Stop 08/23/17 at 18:16; Status DC Ondansetron HCl (Zofran) 4 mg PRN Q8HRS PRN IV NAUSEA/VOMITING; Start at 18:30; Stop 08/24/17 at 08:42; Status DC Fentanyl Citrate (Fentanyl 2ml Vial) 50 mcg PRN Q2HR PRN IV PAIN Last administered on 08/24/17 10:30; Start 08/23/17 at 18:30; Stop 08/24/17 at 18 :29; Status DC Acetaminophen (Tylenol) 650 mg PRN Q4HRS PRN PO FEVER; Start 08/23/17 at 18:30 ; Stop 08/24/17 at 18:29; Status DC Diphenhydramine HCl (Benadryl) 25 mg PRN TID PRN IVP ITCHING Last administered on 08/25/17 19:55; Start 08/23/17 at 19:45; Stop 08/26/17 at 14:46; Status DC Ondansetron HCl (Zofran) 4 mg PRN Q6HRS PRN IV NAUSEA/VOMITING Last administered on 08/28/17 08:59; Start 08/24/17 at 08:45 Chlorthalidone (Thalitone) 50 mg DAILY PO Last administered on 08/27/17 08:39 ; Start 08/24/17 at 09:30 Cyclobenzaprine HCl (Flexeril) 10 mg PRN TID PRN PO MUSCLE SPASMS Last administered on 08/26/17 16:43; Start 08/24/17 at 08:45 Hydromorphone HCl (Dilaudid) 2 mg PRN Q6HRS PRN PO PAIN; Start 08/24/17 at 08: 45; Status UNV Metformin HCl (Glucophage) 1,000 mg BIDWMEALS PO Last administered on 09:05; Start 08/24/17 at 09:30 Metoprolol Tartrate (Lopressor) 25 mg BID PO Last administered on 08/28/17 09 :03; Start 08/24/17 at 09:30 Potassium Chloride (Klor-Con) 10 meq DAILY PO Last administered on 08/28/17 09:04; Start 08/24/17 at 09:30 Non-Formulary Medication 5,000 mcg [id number] PO ; Start 08/24/17 at 16:00; Status UNV Gabapentin (Neurontin) 1,200 mg QHS PO Last administered on 08/27/17 23:37; Start 08/24/17 at 21:00 Linagliptin (Tradjenta) 5 mg DAILY PO Last administered on 08/24/17 10:31; Start 08/24/17 at 09:30; Stop 08/24/17 at 18:24; Status DC Hydromorphone HCl (Dilaudid) 2 mg PRN Q3HRS PRN PO PAIN Last administered on 15:38; Start 08/24/17 at 08:45; Stop 08/24/17 at 18:24; Status DC Insulin Aspart (NovoLOG) 0-9 UNITS TIDWMEALS SQ Last administered on 12:45; Start 08/24/17 at 12:00 Dextrose (Dextrose 50%-Water Syringe) 12.5 gm PRN Q15MIN PRN IV SEE COMMENTS; Start 08/24/17 at 08:45 Diazepam (Valium) 2 mg PRN QID PRN PO ANXIETY Last administered on 08/26/17 23:57; Start 08/24/17 at 08:45 Oxycodone/ Acetaminophen (Percocet 5/325) 1 tab PRN Q4HRS PRN PO MODERATE PAIN ; Start 08/24/17 at 08:45 Oxycodone/ Acetaminophen (Percocet 10/325) 1 tab PRN Q4HRS PRN PO SEVERE PAIN; Start 08/24/17 at 08:45 Docusate Sodium (Colace) 100 mg BID PO Last administered on 08/28/17 09:05; Start 08/24/17 at 09:30 Polyethylene Glycol (miraLAX PACKET) 17 gm DAILY PO Last administered on 08:39; Start 08/24/17 at 09:30 Magnesium Hydroxide (Milk Of Magnesia) 2,400 mg PRN DAILY PRN PO CONSTIPATION; Start 08/24/17 at 08:45 Hydromorphone HCl (Dilaudid) 4 mg PRN Q3HRS PRN PO SEVERE PAIN Last administered on 08/28/17 06:54; Start 08/24/17 at 18:30 Linagliptin (Tradjenta) 5 mg DAILY PO Last administered on 08/25/17 08:45; Start 08/25/17 at 09:00; Stop 08/25/17 at 18:22; Status DC Gadobutrol (Gadavist) 7 mmol 1X ONCE IV Last administered on 08/25/17 12:33 ; Start 08/25/17 at 12:15; Stop 08/25/17 at 12:16; Status DC Fentanyl Citrate (Fentanyl 2ml Vial) 50 mcg PRN Q2HR PRN IV MODERATE PAIN Last administered on 08/27/17 17:20; Start 08/25/17 at 15:45 Linagliptin (Tradjenta) 5 mg BIDAC PO Last administered on 08/28/17 09:02; Start 08/25/17 at 18:30 Diphenhydramine HCl (Benadryl) 25 mg PRN QHS PRN PO INSOMNIA Last administered on 08/27/17 02:02; Start 08/25/17 at 21:15 Diphenhydramine HCl (Benadryl) 25 mg PRN Q6HRS PRN IVP ITCHING; Start at 21:15 Potassium Phos/ Sodium Phos (Phos-Nak) 1 pkt BID PO Last administered on 21:38; Start 08/27/17 at 10:30; Stop 08/27/17 at 21:01; Status DC Morphine Sulfate (Ms Contin) 30 mg BID PO Last administered on 08/28/17 09:03 ; Start 08/27/17 at 21:00 Potassium Chloride (Klor-Con) 80 meq 1X ONCE PO Last administered on 09:04; Start 08/28/17 at 07:00; Stop 08/28/17 at 07:01; Status DC Methylprednisolone Acetate (DEPO-Medrol 40MG VIAL) 40 mg STK-MED ONCE .ROUTE ; Start 08/28/17 at 08:00; Stop 08/28/17 at 08:02; Status DC Iohexol (Omnipaque 180 Mg/ml) 10 ml STK-MED ONCE .ROUTE ; Start 08/28/17 at 08: 01; Stop 08/28/17 at 08:02; Status DC Methylprednisolone Acetate (DEPO-Medrol 80MG VIAL) 80 mg STK-MED ONCE .ROUTE ; Start 08/28/17 at 08:01; Stop 08/28/17 at 08:02; Status DC Active Scripts Active [Hydromorphone Hcl] 2 MG Tablet 2 Mg PO PRN Q3HRS PRN Reported Potassium Chloride 10 Meq Tablet.er 10 Meq PO DAILY Janumet 50-1,000 Mg Tablet (Sitagliptin Phos/Metformin Hcl) 1 Each Tablet 1 Tab PO BID Metoprolol Tartrate 25 Mg Tablet 1 Tab PO BID Biotin 2,500 Mcg Capsule 5,000 Mcg PO [id number] Dilaudid (Hydromorphone Hcl) 2 Mg Tablet 1 Tab PO PRN Q6HRS PRN Metformin Hcl 1,000 Mg Tablet 1 Tab PO BID Gabapentin 300 Mg Capsule 1,500 Mg PO DAILY Cyclobenzaprine Hcl 10 Mg Tablet 1 Tab PO TID PRN LAST DOSE GIVEN: DATE: 09/08 TIME: 9 am NEXT DOSE DUE: DATE: 09/09 TIME: 9 am Chlorthalidone 25 Mg Tablet 50 Mg PO DAILY LAST DOSE GIVEN: DATE: 09/08 TIME: 9 am NEXT DOSE DUE: DATE: 09/09 TIME: 9 am Vitals/I & O Vital Sign - Last 24 Hours 08/27/17 08/27/17 08/27/17 08/27/17 10:22 11:04 12:39 12:46 Temp 99.6 99.6 Pulse 93 Resp 20 B/P (MAP) 111/70 (84) Pulse Ox 98 O2 Delivery Room Air Room Air Room Air Room Air 08/27/17 08/27/17 08/27/17 08/27/17 15:00 16:08 17:20 19:00 Temp 98.1 98.6 98.1 98.6 Pulse 95 94 Resp 18 18 B/P (MAP) 112/74 (87) 117/80 (92) Pulse Ox 94 97 O2 Delivery Room Air Room Air Room Air Room Air 08/27/17 08/27/17 08/27/17 08/27/17 20:00 21:37 21:38 23:00 Temp 99.4 99.4 Pulse 94 102 Resp 20 18 B/P (MAP) 117/80 117/72 (87) Pulse Ox 97 93 O2 Delivery Room Air Room Air Room Air 08/28/17 08/28/17 08/28/17 08/28/17 01:40 02:08 03:00 03:10 Temp 98.8 98.8 Pulse 85 Resp 18 B/P (MAP) 109/72 (84) Pulse Ox 93 93 94 93 O2 Delivery Room Air Room Air Room Air 08/28/17 08/28/17 08/28/17 08/28/17 07:00 07:54 09:03 09:03 Temp 98.4 98.4 Pulse 93 93 Resp 14 16 16 B/P (MAP) 107/78 (88) 107/78 Pulse Ox 96 O2 Delivery Room Air Room Air Room Air Intake and Output 08/27/17 08/27/17 08/28/17 15:00 23:00 07:00 Intake Total 300 ml 900 ml Balance 300 ml 900 ml GREGORY MARIE MD Aug 28, 2017 10:15
[2017-08-28 11:00] VITALS: BP 110/82
--- NOTE | 2017-08-28 12:48 | PDOC ---
PROGRESS NOTES Chief Complaint Chief Complaint Worsening lower back pain, mentions L1-L2 pathology Radiation to bilateral lower extremity, intractable pain, was requiring iv dilaudid around the clock Diabetes type 2 on OHA rather controlled Degenerative disk disease Lumbar disk herniation with radiculopathy , finally better today HTN HLD Cardiac disease Previous laminectomy L3-4 hypokalemia, needs replacement nausea and vomiting yesterday EDB today History of Present Illness History of Present Illness Continues to have back pain, repeat MRI done 08/25 because of worsening of symptoms and results are as follows below: Impression: 1. Previously seen protrusion in the far left lateral recess at L2-3 is somewhat less prominent comparing with the May 2017 exam, [id number] narrowing of the far left lateral recess at this level. There is again posterolateral fusion hardware and interbody graft at the L3-4 level, right laminectomy at this level as seen previously. Shallow bulge/protrusion in the right lateral recess at L5-S1 is slightly less prominent. Patient states back pain is still radiating to lower legs. Since admission pain has NOT IMPROVED, she tried walking a short distance this AM, was unable to tolerate the pain. 2. debility, states she has not been able to work for 2 years due to severe pain , she works as a Resp therapist . . Vitals Vitals Vital Signs Date Time Temp Pulse Resp B/P (MAP) Pulse Ox O2 Delivery O2 Flow Rate FiO2 08/28/17 11:00 98.9 94 16 110/82 (91) 96 Room Air 98.9 Physical Exam Physical Exam Physical Exam General: Alert, Oriented X3, Cooperative, no distress Heart: Regular rate, Normal S1, Normal S2 Lungs: Clear, Other Abdomen: nondistended Extremities: No clubbing, No cyanosis, No edema Skin: No significant lesion General: Alert, Oriented X3, Cooperative Heart: Regular rate, Normal S1, Normal S2 Lungs: Clear, Other Abdomen: Normal bowel sounds, Soft, No tenderness Extremities: No clubbing, No cyanosis, No edema Skin: No significant lesion Labs LABS Laboratory Tests Test 08/27/17 13:30 08/27/17 16:46 08/27/17 19:30 08/27/17 20:30 Erythrocyte Sedimentation Rate 43 (0-25) Creatine Kinase 40 U/L (26-192) Glucose (Fingerstick) 148 mg/dL (70-99) 138 mg/dL (70-99) Urine Opiates Screen Pos (NEG) Urine Methadone Screen Neg (NEG) Urine Barbiturates Neg (NEG) Urine Phencyclidine Screen Neg (NEG) Urine Amphetamine/Methamphetamine Neg (NEG) Urine Benzodiazepines Screen Pos (NEG) Urine Cocaine Screen Neg (NEG) Urine Cannabinoids Screen Neg (NEG) Urine Ethyl Alcohol Neg (NEG) Test 08/28/17 04:05 08/28/17 07:20 08/28/17 11:43 White Blood Count 5.0 x10^3/uL (4.0-11.0) Red Blood Count 4.02 x10^6/uL (3.50-5.40) Hemoglobin 11.7 g/dL (12.0-15.5) Hematocrit 34.6 % (36.0-47.0) Mean Corpuscular Volume 86 fL (79-100) Mean Corpuscular Hemoglobin 29 pg (25-35) Mean Corpuscular Hemoglobin Concent 34 g/dL (31-37) Red Cell Distribution Width 14.2 % (11.5-14.5) Platelet Count 246 x10^3/uL (140-400) Neutrophils (%) (Auto) 48 % (31-73) Lymphocytes (%) (Auto) 38 % (24-48) Monocytes (%) (Auto) 10 % (0-9) Eosinophils (%) (Auto) 3 % (0-3) Basophils (%) (Auto) 1 % (0-3) Neutrophils # (Auto) 2.4 x10^3uL (1.8-7.7) Lymphocytes # (Auto) 1.9 x10^3/uL (1.0-4.8) Monocytes # (Auto) 0.5 x10^3/uL (0.0-1.1) Eosinophils # (Auto) 0.1 x10^3/uL (0.0-0.7) Basophils # (Auto) 0.0 x10^3/uL (0.0-0.2) Sodium Level 139 mmol/L (136-145) Potassium Level 2.7 mmol/L (3.5-5.1) Chloride Level 96 mmol/L (98-107) Carbon Dioxide Level 34 mmol/L (21-32) Anion Gap 9 (6-14) Blood Urea Nitrogen 12 mg/dL (7-20) Creatinine 0.6 mg/dL (0.6-1.0) Estimated GFR (Cockcroft-Gault) 129.1 BUN/Creatinine Ratio 20 (6-20) Glucose Level 144 mg/dL (70-99) Calcium Level 9.2 mg/dL (8.5-10.1) Phosphorus Level 4.6 mg/dL (2.6-4.7) Total Bilirubin 0.7 mg/dL (0.2-1.0) Aspartate Amino Transf (AST/SGOT) 40 U/L (15-37) Alanine Aminotransferase (ALT/SGPT) 43 U/L (14-59) Alkaline Phosphatase 92 U/L (46-116) Total Protein 7.3 g/dL (6.4-8.2) Albumin 3.5 g/dL (3.4-5.0) Albumin/Globulin Ratio 0.9 (1.0-1.7) Glucose (Fingerstick) 129 mg/dL (70-99) 196 mg/dL (70-99) Assessment and Plan Assessmemt and Plan Problems Medical Problems: (1) Intractable back pain Status: Acute Problems: Comment Review of Relevant I have reviewed the following items pretty (where applicable) has been applied. Labs Laboratory Tests Test 08/26/17 16:17 08/27/17 05:25 08/27/17 07:23 08/27/17 11:15 Glucose (Fingerstick) 159 mg/dL (70-99) 133 mg/dL (70-99) 186 mg/dL (70-99) White Blood Count 4.8 x10^3/uL (4.0-11.0) Red Blood Count 4.16 x10^6/uL (3.50-5.40) Hemoglobin 12.3 g/dL (12.0-15.5) Hematocrit 35.8 % (36.0-47.0) Mean Corpuscular Volume 86 fL (79-100) Mean Corpuscular Hemoglobin 30 pg (25-35) Mean Corpuscular Hemoglobin Concent 34 g/dL (31-37) Red Cell Distribution Width 14.3 % (11.5-14.5) Platelet Count 236 x10^3/uL (140-400) Neutrophils (%) (Auto) 54 % (31-73) Lymphocytes (%) (Auto) 34 % (24-48) Monocytes (%) (Auto) 8 % (0-9) Eosinophils (%) (Auto) 3 % (0-3) Basophils (%) (Auto) 1 % (0-3) Neutrophils # (Auto) 2.6 x10^3uL (1.8-7.7) Lymphocytes # (Auto) 1.6 x10^3/uL (1.0-4.8) Monocytes # (Auto) 0.4 x10^3/uL (0.0-1.1) Eosinophils # (Auto) 0.2 x10^3/uL (0.0-0.7) Basophils # (Auto) 0.0 x10^3/uL (0.0-0.2) Sodium Level 140 mmol/L (136-145) Potassium Level 3.1 mmol/L (3.5-5.1) Chloride Level 97 mmol/L (98-107) Carbon Dioxide Level 34 mmol/L (21-32) Anion Gap 9 (6-14) Blood Urea Nitrogen 12 mg/dL (7-20) Creatinine 0.7 mg/dL (0.6-1.0) Estimated GFR (Cockcroft-Gault) 108.1 BUN/Creatinine Ratio 17 (6-20) Glucose Level 151 mg/dL (70-99) Calcium Level 9.8 mg/dL (8.5-10.1) Total Bilirubin 0.8 mg/dL (0.2-1.0) Aspartate Amino Transf (AST/SGOT) 33 U/L (15-37) Alanine Aminotransferase (ALT/SGPT) 39 U/L (14-59) Alkaline Phosphatase 89 U/L (46-116) Total Protein 7.6 g/dL (6.4-8.2) Albumin 3.8 g/dL (3.4-5.0) Albumin/Globulin Ratio 1.0 (1.0-1.7) Test 08/27/17 13:30 08/27/17 16:46 08/27/17 19:30 08/27/17 20:30 Erythrocyte Sedimentation Rate 43 (0-25) Creatine Kinase 40 U/L (26-192) Glucose (Fingerstick) 148 mg/dL (70-99) 138 mg/dL (70-99) Urine Opiates Screen Pos (NEG) Urine Methadone Screen Neg (NEG) Urine Barbiturates Neg (NEG) Urine Phencyclidine Screen Neg (NEG) Urine Amphetamine/Methamphetamine Neg (NEG) Urine Benzodiazepines Screen Pos (NEG) Urine Cocaine Screen Neg (NEG) Urine Cannabinoids Screen Neg (NEG) Urine Ethyl Alcohol Neg (NEG) Test 08/28/17 04:05 08/28/17 07:20 08/28/17 11:43 White Blood Count 5.0 x10^3/uL (4.0-11.0) Red Blood Count 4.02 x10^6/uL (3.50-5.40) Hemoglobin 11.7 g/dL (12.0-15.5) Hematocrit 34.6 % (36.0-47.0) Mean Corpuscular Volume 86 fL (79-100) Mean Corpuscular Hemoglobin 29 pg (25-35) Mean Corpuscular Hemoglobin Concent 34 g/dL (31-37) Red Cell Distribution Width 14.2 % (11.5-14.5) Platelet Count 246 x10^3/uL (140-400) Neutrophils (%) (Auto) 48 % (31-73) Lymphocytes (%) (Auto) 38 % (24-48) Monocytes (%) (Auto) 10 % (0-9) Eosinophils (%) (Auto) 3 % (0-3) Basophils (%) (Auto) 1 % (0-3) Neutrophils # (Auto) 2.4 x10^3uL (1.8-7.7) Lymphocytes # (Auto) 1.9 x10^3/uL (1.0-4.8) Monocytes # (Auto) 0.5 x10^3/uL (0.0-1.1) Eosinophils # (Auto) 0.1 x10^3/uL (0.0-0.7) Basophils # (Auto) 0.0 x10^3/uL (0.0-0.2) Sodium Level 139 mmol/L (136-145) Potassium Level 2.7 mmol/L (3.5-5.1) Chloride Level 96 mmol/L (98-107) Carbon Dioxide Level 34 mmol/L (21-32) Anion Gap 9 (6-14) Blood Urea Nitrogen 12 mg/dL (7-20) Creatinine 0.6 mg/dL (0.6-1.0) Estimated GFR (Cockcroft-Gault) 129.1 BUN/Creatinine Ratio 20 (6-20) Glucose Level 144 mg/dL (70-99) Calcium Level 9.2 mg/dL (8.5-10.1) Phosphorus Level 4.6 mg/dL (2.6-4.7) Total Bilirubin 0.7 mg/dL (0.2-1.0) Aspartate Amino Transf (AST/SGOT) 40 U/L (15-37) Alanine Aminotransferase (ALT/SGPT) 43 U/L (14-59) Alkaline Phosphatase 92 U/L (46-116) Total Protein 7.3 g/dL (6.4-8.2) Albumin 3.5 g/dL (3.4-5.0) Albumin/Globulin Ratio 0.9 (1.0-1.7) Glucose (Fingerstick) 129 mg/dL (70-99) 196 mg/dL (70-99) Laboratory Tests Test 08/27/17 13:30 08/27/17 16:46 08/27/17 19:30 08/27/17 20:30 Erythrocyte Sedimentation Rate 43 (0-25) Creatine Kinase 40 U/L (26-192) Glucose (Fingerstick) 148 mg/dL (70-99) 138 mg/dL (70-99) Urine Opiates Screen Pos (NEG) Urine Methadone Screen Neg (NEG) Urine Barbiturates Neg (NEG) Urine Phencyclidine Screen Neg (NEG) Urine Amphetamine/Methamphetamine Neg (NEG) Urine Benzodiazepines Screen Pos (NEG) Urine Cocaine Screen Neg (NEG) Urine Cannabinoids Screen Neg (NEG) Urine Ethyl Alcohol Neg (NEG) Test 08/28/17 04:05 08/28/17 07:20 08/28/17 11:43 White Blood Count 5.0 x10^3/uL (4.0-11.0) Red Blood Count 4.02 x10^6/uL (3.50-5.40) Hemoglobin 11.7 g/dL (12.0-15.5) Hematocrit 34.6 % (36.0-47.0) Mean Corpuscular Volume 86 fL (79-100) Mean Corpuscular Hemoglobin 29 pg (25-35) Mean Corpuscular Hemoglobin Concent 34 g/dL (31-37) Red Cell Distribution Width 14.2 % (11.5-14.5) Platelet Count 246 x10^3/uL (140-400) Neutrophils (%) (Auto) 48 % (31-73) Lymphocytes (%) (Auto) 38 % (24-48) Monocytes (%) (Auto) 10 % (0-9) Eosinophils (%) (Auto) 3 % (0-3) Basophils (%) (Auto) 1 % (0-3) Neutrophils # (Auto) 2.4 x10^3uL (1.8-7.7) Lymphocytes # (Auto) 1.9 x10^3/uL (1.0-4.8) Monocytes # (Auto) 0.5 x10^3/uL (0.0-1.1) Eosinophils # (Auto) 0.1 x10^3/uL (0.0-0.7) Basophils # (Auto) 0.0 x10^3/uL (0.0-0.2) Sodium Level 139 mmol/L (136-145) Potassium Level 2.7 mmol/L (3.5-5.1) Chloride Level 96 mmol/L (98-107) Carbon Dioxide Level 34 mmol/L (21-32) Anion Gap 9 (6-14) Blood Urea Nitrogen 12 mg/dL (7-20) Creatinine 0.6 mg/dL (0.6-1.0) Estimated GFR (Cockcroft-Gault) 129.1 BUN/Creatinine Ratio 20 (6-20) Glucose Level 144 mg/dL (70-99) Calcium Level 9.2 mg/dL (8.5-10.1) Phosphorus Level 4.6 mg/dL (2.6-4.7) Total Bilirubin 0.7 mg/dL (0.2-1.0) Aspartate Amino Transf (AST/SGOT) 40 U/L (15-37) Alanine Aminotransferase (ALT/SGPT) 43 U/L (14-59) Alkaline Phosphatase 92 U/L (46-116) Total Protein 7.3 g/dL (6.4-8.2) Albumin 3.5 g/dL (3.4-5.0) Albumin/Globulin Ratio 0.9 (1.0-1.7) Glucose (Fingerstick) 129 mg/dL (70-99) 196 mg/dL (70-99) Medications Current Medications Hydromorphone HCl (Dilaudid) 1 mg 1X ONCE IV Last administered on 08/23/17 17:24; Start 08/23/17 at 17:00; Stop 08/23/17 at 17:01; Status DC Diazepam (Valium) 5 mg 1X ONCE PO Last administered on 08/23/17 17:26; Start 08/23/17 at 17:00; Stop 08/23/17 at 17:01; Status DC Ondansetron HCl (Zofran) 4 mg 1X ONCE IV Last administered on 08/23/17 17:23 ; Start 08/23/17 at 17:00; Stop 08/23/17 at 17:01; Status DC Hydromorphone HCl (Dilaudid) 1 mg 1X ONCE IV Last administered on 08/23/17 18:17; Start 08/23/17 at 18:15; Stop 08/23/17 at 18:16; Status DC Ondansetron HCl (Zofran) 4 mg PRN Q8HRS PRN IV NAUSEA/VOMITING; Start at 18:30; Stop 08/24/17 at 08:42; Status DC Fentanyl Citrate (Fentanyl 2ml Vial) 50 mcg PRN Q2HR PRN IV PAIN Last administered on 08/24/17 10:30; Start 08/23/17 at 18:30; Stop 08/24/17 at 18 :29; Status DC Acetaminophen (Tylenol) 650 mg PRN Q4HRS PRN PO FEVER; Start 08/23/17 at 18:30 ; Stop 08/24/17 at 18:29; Status DC Diphenhydramine HCl (Benadryl) 25 mg PRN TID PRN IVP ITCHING Last administered on 08/25/17 19:55; Start 08/23/17 at 19:45; Stop 08/26/17 at 14:46; Status DC Ondansetron HCl (Zofran) 4 mg PRN Q6HRS PRN IV NAUSEA/VOMITING Last administered on 08/28/17 08:59; Start 08/24/17 at 08:45 Chlorthalidone (Thalitone) 50 mg DAILY PO Last administered on 08/27/17 08:39 ; Start 08/24/17 at 09:30 Cyclobenzaprine HCl (Flexeril) 10 mg PRN TID PRN PO MUSCLE SPASMS Last administered on 08/26/17 16:43; Start 08/24/17 at 08:45 Hydromorphone HCl (Dilaudid) 2 mg PRN Q6HRS PRN PO PAIN; Start 08/24/17 at 08: 45; Status UNV Metformin HCl (Glucophage) 1,000 mg BIDWMEALS PO Last administered on 09:05; Start 08/24/17 at 09:30 Metoprolol Tartrate (Lopressor) 25 mg BID PO Last administered on 08/28/17 09 :03; Start 08/24/17 at 09:30 Potassium Chloride (Klor-Con) 10 meq DAILY PO Last administered on 08/28/17 09:04; Start 08/24/17 at 09:30 Non-Formulary Medication 5,000 mcg [id number] PO ; Start 08/24/17 at 16:00; Status UNV Gabapentin (Neurontin) 1,200 mg QHS PO Last administered on 08/27/17 23:37; Start 08/24/17 at 21:00 Linagliptin (Tradjenta) 5 mg DAILY PO Last administered on 08/24/17 10:31; Start 08/24/17 at 09:30; Stop 08/24/17 at 18:24; Status DC Hydromorphone HCl (Dilaudid) 2 mg PRN Q3HRS PRN PO PAIN Last administered on 15:38; Start 08/24/17 at 08:45; Stop 08/24/17 at 18:24; Status DC Insulin Aspart (NovoLOG) 0-9 UNITS TIDWMEALS SQ Last administered on 12:45; Start 08/24/17 at 12:00 Dextrose (Dextrose 50%-Water Syringe) 12.5 gm PRN Q15MIN PRN IV SEE COMMENTS; Start 08/24/17 at 08:45 Diazepam (Valium) 2 mg PRN QID PRN PO ANXIETY Last administered on 08/26/17 23:57; Start 08/24/17 at 08:45 Oxycodone/ Acetaminophen (Percocet 5/325) 1 tab PRN Q4HRS PRN PO MODERATE PAIN ; Start 08/24/17 at 08:45 Oxycodone/ Acetaminophen (Percocet 10/325) 1 tab PRN Q4HRS PRN PO SEVERE PAIN; Start 08/24/17 at 08:45 Docusate Sodium (Colace) 100 mg BID PO Last administered on 08/28/17 09:05; Start 08/24/17 at 09:30 Polyethylene Glycol (miraLAX PACKET) 17 gm DAILY PO Last administered on 08:39; Start 08/24/17 at 09:30 Magnesium Hydroxide (Milk Of Magnesia) 2,400 mg PRN DAILY PRN PO CONSTIPATION; Start 08/24/17 at 08:45 Hydromorphone HCl (Dilaudid) 4 mg PRN Q3HRS PRN PO SEVERE PAIN Last administered on 08/28/17 06:54; Start 08/24/17 at 18:30 Linagliptin (Tradjenta) 5 mg DAILY PO Last administered on 08/25/17 08:45; Start 08/25/17 at 09:00; Stop 08/25/17 at 18:22; Status DC Gadobutrol (Gadavist) 7 mmol 1X ONCE IV Last administered on 08/25/17 12:33 ; Start 08/25/17 at 12:15; Stop 08/25/17 at 12:16; Status DC Fentanyl Citrate (Fentanyl 2ml Vial) 50 mcg PRN Q2HR PRN IV MODERATE PAIN Last administered on 08/27/17 17:20; Start 08/25/17 at 15:45 Linagliptin (Tradjenta) 5 mg BIDAC PO Last administered on 08/28/17 09:02; Start 08/25/17 at 18:30 Diphenhydramine HCl (Benadryl) 25 mg PRN QHS PRN PO INSOMNIA Last administered on 08/27/17 02:02; Start 08/25/17 at 21:15 Diphenhydramine HCl (Benadryl) 25 mg PRN Q6HRS PRN IVP ITCHING; Start at 21:15 Potassium Phos/ Sodium Phos (Phos-Nak) 1 pkt BID PO Last administered on 21:38; Start 08/27/17 at 10:30; Stop 08/27/17 at 21:01; Status DC Morphine Sulfate (Ms Contin) 30 mg BID PO Last administered on 08/28/17 09:03 ; Start 08/27/17 at 21:00 Potassium Chloride (Klor-Con) 80 meq 1X ONCE PO Last administered on 09:04; Start 08/28/17 at 07:00; Stop 08/28/17 at 07:01; Status DC Methylprednisolone Acetate (DEPO-Medrol 40MG VIAL) 40 mg STK-MED ONCE .ROUTE ; Start 08/28/17 at 08:00; Stop 08/28/17 at 08:02; Status DC Iohexol (Omnipaque 180 Mg/ml) 10 ml STK-MED ONCE .ROUTE ; Start 08/28/17 at 08: 01; Stop 08/28/17 at 08:02; Status DC Methylprednisolone Acetate (DEPO-Medrol 80MG VIAL) 80 mg STK-MED ONCE .ROUTE ; Start 08/28/17 at 08:01; Stop 08/28/17 at 08:02; Status DC Active Scripts Active [Hydromorphone Hcl] 2 MG Tablet 2 Mg PO PRN Q3HRS PRN Reported Potassium Chloride 10 Meq Tablet.er 10 Meq PO DAILY Janumet 50-1,000 Mg Tablet (Sitagliptin Phos/Metformin Hcl) 1 Each Tablet 1 Tab PO BID Metoprolol Tartrate 25 Mg Tablet 1 Tab PO BID Biotin 2,500 Mcg Capsule 5,000 Mcg PO [id number] Dilaudid (Hydromorphone Hcl) 2 Mg Tablet 1 Tab PO PRN Q6HRS PRN Metformin Hcl 1,000 Mg Tablet 1 Tab PO BID Gabapentin 300 Mg Capsule 1,500 Mg PO DAILY Cyclobenzaprine Hcl 10 Mg Tablet 1 Tab PO TID PRN LAST DOSE GIVEN: DATE: 09/08 TIME: 9 am NEXT DOSE DUE: DATE: 09/09 TIME: 9 am Chlorthalidone 25 Mg Tablet 50 Mg PO DAILY LAST DOSE GIVEN: DATE: 09/08 TIME: 9 am NEXT DOSE DUE: DATE: 09/09 TIME: 9 am Vitals/I & O Vital Sign - Last 24 Hours 08/27/17 08/27/17 08/27/17 08/27/17 12:46 15:00 16:08 17:20 Temp 98.1 98.1 Pulse 95 Resp 18 B/P (MAP) 112/74 (87) Pulse Ox 94 O2 Delivery Room Air Room Air Room Air Room Air 08/27/17 08/27/17 08/27/17 08/27/17 19:00 20:00 21:37 21:38 Temp 98.6 98.6 Pulse 94 94 Resp 18 20 B/P (MAP) 117/80 (92) 117/80 Pulse Ox 97 97 O2 Delivery Room Air Room Air Room Air 08/27/17 08/28/17 08/28/17 08/28/17 23:00 01:40 02:08 03:00 Temp 99.4 98.8 99.4 98.8 Pulse 102 85 Resp 18 18 B/P (MAP) 117/72 (87) 109/72 (84) Pulse Ox 93 93 93 94 O2 Delivery Room Air Room Air Room Air Room Air 08/28/17 08/28/17 08/28/17 08/28/17 03:10 07:00 07:54 09:03 Temp 98.4 98.4 Pulse 93 93 Resp 14 16 B/P (MAP) 107/78 (88) 107/78 Pulse Ox 93 96 O2 Delivery Room Air Room Air 08/28/17 08/28/17 09:03 11:00 Temp 98.9 98.9 Pulse 94 Resp 16 16 B/P (MAP) 110/82 (91) Pulse Ox 96 O2 Delivery Room Air Room Air Intake and Output 08/27/17 08/27/17 08/28/17 15:00 23:00 07:00 Intake Total 300 ml 900 ml Balance 300 ml 900 ml ANTONINO GRAJEDA MD Aug 28, 2017 12:47
--- NOTE | 2017-08-28 13:17 | RAD ---
CT lumbar spine without contrast History: Low back pain Axial helical images of the lumbar spine were obtained without contrast. Axial, coronal and sagittal reconstruction was performed. Comparison: September 14, 2015 Findings: The vertebral bodies are aligned. There is no loss of vertebral body stature. Evaluation of the central canal is limited without contrast. There is beam artifact from hardware from prior fusion of L3-L4 with bilateral pedicle screws and posterior fusion rods and ray cage. There has been a right hemilaminectomy at this level. There are multiple foci of air in the epidural space. There is a diffuse circumferential disc bulge at L2-L3 with hypertrophy of the facets and ligament flavum resulting in moderate central stenosis. Posteriorly this is eccentric to the left and causes crowding lateral recess and left. It is likely an element of congenital shortened pedicles contributes to this narrowing. Impression: 1. Prior fusion of L3-L4. 2. 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 There is likely compression of the left L3 nerve root before it enters the foramen. This was not present previously. 3. Multiple foci of epidural air is abnormal and correlation with possible recent surgical instrumentation is recommended. PQRS Compliance Statement: One or more of the following individualized dose reduction techniques were utilized for this examination: 1. Automated exposure control 2. Adjustment of the mA and/or kV according to patient size 3. Use of iterative reconstruction technique
[2017-08-28 14:40] VITALS: BP 112/72
--- NOTE | 2017-08-28 14:52 | PDOC ---
PROGRESS NOTES Assessment Assessment Severe lower back pain, muscle spasm likely. Hx of previous L-spine fusions. Degenerative L-spine disease. DM HTN Over weight. No signs of radiculopathy. RECOMMENDATIONS/PLAN: Pain control. Neurosurgery on team. Consulted [facility] and Dr. Howard. OT/PT. HISTORY OF THE PRESENT ILLNESS: 46-y-old AA female patient with Hx of L-spine L3-4 fusions x 2 in the past. She stated she has back pain again recently and she was reportedly to scheduled surgery again. However, she called neurosurgery clinic stating her back pain became worse, so she came to the ER of [facility] eventually admitted for further evaluation. No urinary of bowel dysfunction. UE and cranial nerves are not affected. PAST MEDICAL HISTORY: Please see above. PAST SURGERY HISTORY: L3-4 fusions. ALLERGY: Reviewed. MEDICATIONS: Refer to [facility] FAMILY HISTORY: Non contributory. SOCIAL HISTORY: Lives at home. Denies substances and illicit drug use. REVIEW OF SYSTEMS: Constitutional: No malnutrition, weight loss, cachexia. Head: No traumatic brain or head injury. Skin: No edema, or rash. Ear: No infection. Eyes: No vision loss or color blindness. Nose: No bleeding or purulent discharges. Hearing: No hearing decrease. Neck: No injury. Breast: No history of cancer, masses,or discharges. Cardiac: HTN. Pulmonary: No COPD. GI: No GI ulcer, GI bleeding. Urinary/genital: UTI. Endocrinologic: Diabetes Mellitus. Skeletomuscular: No muscular atrophy, deformity. Neurological: see HP. Psychiatric: Denies drug use/abuse. Otherwise, not [id number] review of systems. PHYSICAL EXAMINATION: General appearance is in acute distress. HEENT: Normocephalic and nontraumatic. Eyes, nose, ears, and throat are unremarkable. Neck is supple. No lymphadenopathy. No bruits are heard over the carotid artery. No crepitus. Cardiovascular: S1, S2, regular rate and rhythm. Pulmonary: Clear to auscultation bilaterally. Abdomen: Bowel sounds are positive. Abdomen is soft, nontender, and nondistended. Extremities: No rash, lesions, or edema. No restriction of range of motion NEUROLOGICAL EXAMINATION: Alert Oriented to time, place and person. PERRL. EOMI. CN: no focal findings. Muscle tone: within normal. Muscle strength: 5 DTR: 2 Plantar reflex: Flexor response bilaterally Gait: not examined in bed. Sensory exam: no abnormal findings. No cerebellar signs elicited. F-T-N test fine. Objective Objective Vital Signs Date Time Temp Pulse Resp B/P (MAP) Pulse Ox O2 Delivery O2 Flow Rate FiO2 08/28/17 14:40 98.1 88 16 112/72 (85) 96 Room Air 98.1 Intake and Output 08/28/17 07:00 Intake Total 1200 ml Balance 1200 ml Intake Oral 1200 ml # Voids 4 Vitals Signs Vitals VS - Last 72 Hours, by Label Date Time Temp Pulse Resp B/P (MAP) Pulse Ox O2 Delivery O2 Flow Rate FiO2 08/28/17 14:40 98.1 88 16 112/72 (85) 96 Room Air 98.1 08/28/17 14:28 96 Room Air 08/28/17 13:30 16 Room Air 08/28/17 11:00 98.9 94 16 110/82 (91) 96 Room Air 98.9 08/28/17 09:03 16 Room Air 08/28/17 09:03 93 107/78 08/28/17 07:54 16 Room Air 08/28/17 07:00 98.4 93 14 107/78 (88) 96 Room Air 98.4 08/28/17 03:10 93 08/28/17 03:00 98.8 85 18 109/72 (84) 94 Room Air 98.8 08/28/17 02:08 93 Room Air 08/28/17 01:40 93 08/27/17 23:00 99.4 102 18 117/72 (87) 93 Room Air 99.4 08/27/17 21:38 94 117/80 08/27/17 21:37 20 97 Room Air 08/27/17 20:00 Room Air 08/27/17 19:00 98.6 94 18 117/80 (92) 97 Room Air 98.6 08/27/17 17:20 Room Air 08/27/17 16:08 Room Air 08/27/17 15:00 98.1 95 18 112/74 (87) 94 Room Air 98.1 08/27/17 12:46 Room Air 08/27/17 12:39 Room Air 08/27/17 11:04 99.6 93 20 111/70 (84) 98 Room Air 99.6 08/27/17 10:22 Room Air 08/27/17 08:38 90 116/85 08/27/17 08:37 Room Air 08/27/17 07:35 Room Air 08/27/17 07:15 97.6 90 18 116/85 (95) 98 Room Air 97.6 Laboratory Laboratory Laboratory Tests Test 08/27/17 16:46 08/27/17 19:30 08/27/17 20:30 08/28/17 04:05 Glucose (Fingerstick) 148 mg/dL (70-99) 138 mg/dL (70-99) Urine Opiates Screen Pos (NEG) Urine Methadone Screen Neg (NEG) Urine Barbiturates Neg (NEG) Urine Phencyclidine Screen Neg (NEG) Urine Amphetamine/Methamphetamine Neg (NEG) Urine Benzodiazepines Screen Pos (NEG) Urine Cocaine Screen Neg (NEG) Urine Cannabinoids Screen Neg (NEG) Urine Ethyl Alcohol Neg (NEG) White Blood Count 5.0 x10^3/uL (4.0-11.0) Red Blood Count 4.02 x10^6/uL (3.50-5.40) Hemoglobin 11.7 g/dL (12.0-15.5) Hematocrit 34.6 % (36.0-47.0) Mean Corpuscular Volume 86 fL (79-100) Mean Corpuscular Hemoglobin 29 pg (25-35) Mean Corpuscular Hemoglobin Concent 34 g/dL (31-37) Red Cell Distribution Width 14.2 % (11.5-14.5) Platelet Count 246 x10^3/uL (140-400) Neutrophils (%) (Auto) 48 % (31-73) Lymphocytes (%) (Auto) 38 % (24-48) Monocytes (%) (Auto) 10 % (0-9) Eosinophils (%) (Auto) 3 % (0-3) Basophils (%) (Auto) 1 % (0-3) Neutrophils # (Auto) 2.4 x10^3uL (1.8-7.7) Lymphocytes # (Auto) 1.9 x10^3/uL (1.0-4.8) Monocytes # (Auto) 0.5 x10^3/uL (0.0-1.1) Eosinophils # (Auto) 0.1 x10^3/uL (0.0-0.7) Basophils # (Auto) 0.0 x10^3/uL (0.0-0.2) Sodium Level 139 mmol/L (136-145) Potassium Level 2.7 mmol/L (3.5-5.1) Chloride Level 96 mmol/L (98-107) Carbon Dioxide Level 34 mmol/L (21-32) Anion Gap 9 (6-14) Blood Urea Nitrogen 12 mg/dL (7-20) Creatinine 0.6 mg/dL (0.6-1.0) Estimated GFR (Cockcroft-Gault) 129.1 BUN/Creatinine Ratio 20 (6-20) Glucose Level 144 mg/dL (70-99) Calcium Level 9.2 mg/dL (8.5-10.1) Phosphorus Level 4.6 mg/dL (2.6-4.7) Total Bilirubin 0.7 mg/dL (0.2-1.0) Aspartate Amino Transf (AST/SGOT) 40 U/L (15-37) Alanine Aminotransferase (ALT/SGPT) 43 U/L (14-59) Alkaline Phosphatase 92 U/L (46-116) Total Protein 7.3 g/dL (6.4-8.2) Albumin 3.5 g/dL (3.4-5.0) Albumin/Globulin Ratio 0.9 (1.0-1.7) Test 08/28/17 07:20 08/28/17 11:43 Glucose (Fingerstick) 129 mg/dL (70-99) 196 mg/dL (70-99) Medication Medications Current Medications Heparin Sodium (Porcine) 5000 unit/Sodium Chloride 505 ml @ 505 mls/hr 1X PERIOP ONCE IRR ; Start 08/29/17 at 06:00; Stop 08/29/17 at 06:59 Iohexol (Omnipaque 180 Mg/ml) 10 ml STK-MED ONCE .ROUTE ; Start 08/28/17 at 08: 01; Stop 08/28/17 at 08:02; Status DC Lidocaine HCl 48 ml/Sodium Bicarbonate 12 meq/Miscellaneous 60 ml @ 60 mls/hr 1X PERIOP ONCE ID ; Start 08/29/17 at 06:00; Stop 08/29/17 at 06:59 Methylprednisolone Acetate (DEPO-Medrol 40MG VIAL) 40 mg STK-MED ONCE .ROUTE ; Start 08/28/17 at 08:00; Stop 08/28/17 at 08:02; Status DC Methylprednisolone Acetate (DEPO-Medrol 80MG VIAL) 80 mg STK-MED ONCE .ROUTE ; Start 08/28/17 at 08:01; Stop 08/28/17 at 08:02; Status DC Morphine Sulfate (Ms Contin) 30 mg BID PO Last administered on 08/28/17 09:03 ; Start 08/27/17 at 21:00 Potassium Chloride (Klor-Con) 80 meq 1X ONCE PO Last administered on 09:04; Start 08/28/17 at 07:00; Stop 08/28/17 at 07:01; Status DC Comment Review of Relevant I have reviewed the following items pretty (where applicable) has been applied. KASSANDRA MARS MD Aug 28, 2017 14:52
--- NOTE | 2017-08-28 15:21 | PDOC ---
SUBJECTIVE Subjective back and right lower leg pain OBJECTIVE Objective 46 yo Female C/O low back and right le pain Vital Signs Vital Signs Date Time Temp Pulse Resp B/P (MAP) Pulse Ox O2 Delivery O2 Flow Rate FiO2 08/28/17 14:40 98.1 88 16 112/72 (85) 96 Room Air 98.1 08/28/17 14:28 96 Room Air 08/28/17 13:30 16 Room Air 08/28/17 11:00 98.9 94 16 110/82 (91) 96 Room Air 98.9 08/28/17 09:03 16 Room Air 08/28/17 09:03 93 107/78 08/28/17 07:54 16 Room Air 08/28/17 07:00 98.4 93 14 107/78 (88) 96 Room Air 98.4 08/28/17 03:10 93 08/28/17 03:00 98.8 85 18 109/72 (84) 94 Room Air 98.8 08/28/17 02:08 93 Room Air 08/28/17 01:40 93 08/27/17 23:00 99.4 102 18 117/72 (87) 93 Room Air 99.4 08/27/17 21:38 94 117/80 08/27/17 21:37 20 97 Room Air 08/27/17 20:00 Room Air 08/27/17 19:00 98.6 94 18 117/80 (92) 97 Room Air 98.6 08/27/17 17:20 Room Air 08/27/17 16:08 Room Air I & O Intake and Output 08/28/17 07:00 Intake Total 1200 ml Balance 1200 ml Intake Oral 1200 ml # Voids 4 PHYSICAL EXAM Physical Exam A&O, back with flattened lordosis, Exts: DTRs 1+ bilat,motor 4/5 and equal ASSESSMENT/PLAN Assessment/Plan Discussed options- plan Lesi today Problems: COMMENT Lab Laboratory Tests Test 08/27/17 16:46 08/27/17 19:30 08/27/17 20:30 08/28/17 04:05 Glucose (Fingerstick) 148 mg/dL (70-99) 138 mg/dL (70-99) Urine Opiates Screen Pos (NEG) Urine Methadone Screen Neg (NEG) Urine Barbiturates Neg (NEG) Urine Phencyclidine Screen Neg (NEG) Urine Amphetamine/Methamphetamine Neg (NEG) Urine Benzodiazepines Screen Pos (NEG) Urine Cocaine Screen Neg (NEG) Urine Cannabinoids Screen Neg (NEG) Urine Ethyl Alcohol Neg (NEG) White Blood Count 5.0 x10^3/uL (4.0-11.0) Red Blood Count 4.02 x10^6/uL (3.50-5.40) Hemoglobin 11.7 g/dL (12.0-15.5) Hematocrit 34.6 % (36.0-47.0) Mean Corpuscular Volume 86 fL (79-100) Mean Corpuscular Hemoglobin 29 pg (25-35) Mean Corpuscular Hemoglobin Concent 34 g/dL (31-37) Red Cell Distribution Width 14.2 % (11.5-14.5) Platelet Count 246 x10^3/uL (140-400) Neutrophils (%) (Auto) 48 % (31-73) Lymphocytes (%) (Auto) 38 % (24-48) Monocytes (%) (Auto) 10 % (0-9) Eosinophils (%) (Auto) 3 % (0-3) Basophils (%) (Auto) 1 % (0-3) Neutrophils # (Auto) 2.4 x10^3uL (1.8-7.7) Lymphocytes # (Auto) 1.9 x10^3/uL (1.0-4.8) Monocytes # (Auto) 0.5 x10^3/uL (0.0-1.1) Eosinophils # (Auto) 0.1 x10^3/uL (0.0-0.7) Basophils # (Auto) 0.0 x10^3/uL (0.0-0.2) Sodium Level 139 mmol/L (136-145) Potassium Level 2.7 mmol/L (3.5-5.1) Chloride Level 96 mmol/L (98-107) Carbon Dioxide Level 34 mmol/L (21-32) Anion Gap 9 (6-14) Blood Urea Nitrogen 12 mg/dL (7-20) Creatinine 0.6 mg/dL (0.6-1.0) Estimated GFR (Cockcroft-Gault) 129.1 BUN/Creatinine Ratio 20 (6-20) Glucose Level 144 mg/dL (70-99) Calcium Level 9.2 mg/dL (8.5-10.1) Phosphorus Level 4.6 mg/dL (2.6-4.7) Total Bilirubin 0.7 mg/dL (0.2-1.0) Aspartate Amino Transf (AST/SGOT) 40 U/L (15-37) Alanine Aminotransferase (ALT/SGPT) 43 U/L (14-59) Alkaline Phosphatase 92 U/L (46-116) Total Protein 7.3 g/dL (6.4-8.2) Albumin 3.5 g/dL (3.4-5.0) Albumin/Globulin Ratio 0.9 (1.0-1.7) Test 08/28/17 07:20 08/28/17 11:43 Glucose (Fingerstick) 129 mg/dL (70-99) 196 mg/dL (70-99) KIM TODD MD Aug 28, 2017 15:20
--- NOTE | 2017-08-28 17:46 | PDOC ---
PROGRESS NOTES Subjective Subjective improved right leg pain after LESI Objective Objective Vital Signs Date Time Temp Pulse Resp B/P (MAP) Pulse Ox O2 Delivery O2 Flow Rate FiO2 08/28/17 15:28 16 08/28/17 14:40 98.1 88 112/72 (85) 96 Room Air 98.1 Intake and Output 08/28/17 07:00 Intake Total 1200 ml Balance 1200 ml Intake Oral 1200 ml # Voids 4 Physical Exam Neuro: Other (Exam unchanged) Assessment Assessment Problems Medical Problems: (1) Intractable back pain Status: Acute Plan Plan of Care discussed treatment options she would like to hold off on surgery for left radicular pain because of her severe right leg pain may dc and she will f/u as an OP Comment Review of Relevant I have reviewed the following items pretty (where applicable) has been applied. Labs Laboratory Tests Test 08/27/17 05:25 08/27/17 07:23 08/27/17 11:15 08/27/17 13:30 White Blood Count 4.8 x10^3/uL (4.0-11.0) Red Blood Count 4.16 x10^6/uL (3.50-5.40) Hemoglobin 12.3 g/dL (12.0-15.5) Hematocrit 35.8 % (36.0-47.0) Mean Corpuscular Volume 86 fL (79-100) Mean Corpuscular Hemoglobin 30 pg (25-35) Mean Corpuscular Hemoglobin Concent 34 g/dL (31-37) Red Cell Distribution Width 14.3 % (11.5-14.5) Platelet Count 236 x10^3/uL (140-400) Neutrophils (%) (Auto) 54 % (31-73) Lymphocytes (%) (Auto) 34 % (24-48) Monocytes (%) (Auto) 8 % (0-9) Eosinophils (%) (Auto) 3 % (0-3) Basophils (%) (Auto) 1 % (0-3) Neutrophils # (Auto) 2.6 x10^3uL (1.8-7.7) Lymphocytes # (Auto) 1.6 x10^3/uL (1.0-4.8) Monocytes # (Auto) 0.4 x10^3/uL (0.0-1.1) Eosinophils # (Auto) 0.2 x10^3/uL (0.0-0.7) Basophils # (Auto) 0.0 x10^3/uL (0.0-0.2) Sodium Level 140 mmol/L (136-145) Potassium Level 3.1 mmol/L (3.5-5.1) Chloride Level 97 mmol/L (98-107) Carbon Dioxide Level 34 mmol/L (21-32) Anion Gap 9 (6-14) Blood Urea Nitrogen 12 mg/dL (7-20) Creatinine 0.7 mg/dL (0.6-1.0) Estimated GFR (Cockcroft-Gault) 108.1 BUN/Creatinine Ratio 17 (6-20) Glucose Level 151 mg/dL (70-99) Calcium Level 9.8 mg/dL (8.5-10.1) Total Bilirubin 0.8 mg/dL (0.2-1.0) Aspartate Amino Transf (AST/SGOT) 33 U/L (15-37) Alanine Aminotransferase (ALT/SGPT) 39 U/L (14-59) Alkaline Phosphatase 89 U/L (46-116) Total Protein 7.6 g/dL (6.4-8.2) Albumin 3.8 g/dL (3.4-5.0) Albumin/Globulin Ratio 1.0 (1.0-1.7) Glucose (Fingerstick) 133 mg/dL (70-99) 186 mg/dL (70-99) Erythrocyte Sedimentation Rate 43 (0-25) Creatine Kinase 40 U/L (26-192) Test 08/27/17 16:46 08/27/17 19:30 08/27/17 20:30 08/28/17 04:05 Glucose (Fingerstick) 148 mg/dL (70-99) 138 mg/dL (70-99) Urine Opiates Screen Pos (NEG) Urine Methadone Screen Neg (NEG) Urine Barbiturates Neg (NEG) Urine Phencyclidine Screen Neg (NEG) Urine Amphetamine/Methamphetamine Neg (NEG) Urine Benzodiazepines Screen Pos (NEG) Urine Cocaine Screen Neg (NEG) Urine Cannabinoids Screen Neg (NEG) Urine Ethyl Alcohol Neg (NEG) White Blood Count 5.0 x10^3/uL (4.0-11.0) Red Blood Count 4.02 x10^6/uL (3.50-5.40) Hemoglobin 11.7 g/dL (12.0-15.5) Hematocrit 34.6 % (36.0-47.0) Mean Corpuscular Volume 86 fL (79-100) Mean Corpuscular Hemoglobin 29 pg (25-35) Mean Corpuscular Hemoglobin Concent 34 g/dL (31-37) Red Cell Distribution Width 14.2 % (11.5-14.5) Platelet Count 246 x10^3/uL (140-400) Neutrophils (%) (Auto) 48 % (31-73) Lymphocytes (%) (Auto) 38 % (24-48) Monocytes (%) (Auto) 10 % (0-9) Eosinophils (%) (Auto) 3 % (0-3) Basophils (%) (Auto) 1 % (0-3) Neutrophils # (Auto) 2.4 x10^3uL (1.8-7.7) Lymphocytes # (Auto) 1.9 x10^3/uL (1.0-4.8) Monocytes # (Auto) 0.5 x10^3/uL (0.0-1.1) Eosinophils # (Auto) 0.1 x10^3/uL (0.0-0.7) Basophils # (Auto) 0.0 x10^3/uL (0.0-0.2) Sodium Level 139 mmol/L (136-145) Potassium Level 2.7 mmol/L (3.5-5.1) Chloride Level 96 mmol/L (98-107) Carbon Dioxide Level 34 mmol/L (21-32) Anion Gap 9 (6-14) Blood Urea Nitrogen 12 mg/dL (7-20) Creatinine 0.6 mg/dL (0.6-1.0) Estimated GFR (Cockcroft-Gault) 129.1 BUN/Creatinine Ratio 20 (6-20) Glucose Level 144 mg/dL (70-99) Calcium Level 9.2 mg/dL (8.5-10.1) Phosphorus Level 4.6 mg/dL (2.6-4.7) Total Bilirubin 0.7 mg/dL (0.2-1.0) Aspartate Amino Transf (AST/SGOT) 40 U/L (15-37) Alanine Aminotransferase (ALT/SGPT) 43 U/L (14-59) Alkaline Phosphatase 92 U/L (46-116) Total Protein 7.3 g/dL (6.4-8.2) Albumin 3.5 g/dL (3.4-5.0) Albumin/Globulin Ratio 0.9 (1.0-1.7) Test 08/28/17 07:20 08/28/17 11:43 08/28/17 17:04 Glucose (Fingerstick) 129 mg/dL (70-99) 196 mg/dL (70-99) 181 mg/dL (70-99) Laboratory Tests Test 08/27/17 19:30 08/27/17 20:30 08/28/17 04:05 08/28/17 07:20 Urine Opiates Screen Pos (NEG) Urine Methadone Screen Neg (NEG) Urine Barbiturates Neg (NEG) Urine Phencyclidine Screen Neg (NEG) Urine Amphetamine/Methamphetamine Neg (NEG) Urine Benzodiazepines Screen Pos (NEG) Urine Cocaine Screen Neg (NEG) Urine Cannabinoids Screen Neg (NEG) Urine Ethyl Alcohol Neg (NEG) Glucose (Fingerstick) 138 mg/dL (70-99) 129 mg/dL (70-99) White Blood Count 5.0 x10^3/uL (4.0-11.0) Red Blood Count 4.02 x10^6/uL (3.50-5.40) Hemoglobin 11.7 g/dL (12.0-15.5) Hematocrit 34.6 % (36.0-47.0) Mean Corpuscular Volume 86 fL (79-100) Mean Corpuscular Hemoglobin 29 pg (25-35) Mean Corpuscular Hemoglobin Concent 34 g/dL (31-37) Red Cell Distribution Width 14.2 % (11.5-14.5) Platelet Count 246 x10^3/uL (140-400) Neutrophils (%) (Auto) 48 % (31-73) Lymphocytes (%) (Auto) 38 % (24-48) Monocytes (%) (Auto) 10 % (0-9) Eosinophils (%) (Auto) 3 % (0-3) Basophils (%) (Auto) 1 % (0-3) Neutrophils # (Auto) 2.4 x10^3uL (1.8-7.7) Lymphocytes # (Auto) 1.9 x10^3/uL (1.0-4.8) Monocytes # (Auto) 0.5 x10^3/uL (0.0-1.1) Eosinophils # (Auto) 0.1 x10^3/uL (0.0-0.7) Basophils # (Auto) 0.0 x10^3/uL (0.0-0.2) Sodium Level 139 mmol/L (136-145) Potassium Level 2.7 mmol/L (3.5-5.1) Chloride Level 96 mmol/L (98-107) Carbon Dioxide Level 34 mmol/L (21-32) Anion Gap 9 (6-14) Blood Urea Nitrogen 12 mg/dL (7-20) Creatinine 0.6 mg/dL (0.6-1.0) Estimated GFR (Cockcroft-Gault) 129.1 BUN/Creatinine Ratio 20 (6-20) Glucose Level 144 mg/dL (70-99) Calcium Level 9.2 mg/dL (8.5-10.1) Phosphorus Level 4.6 mg/dL (2.6-4.7) Total Bilirubin 0.7 mg/dL (0.2-1.0) Aspartate Amino Transf (AST/SGOT) 40 U/L (15-37) Alanine Aminotransferase (ALT/SGPT) 43 U/L (14-59) Alkaline Phosphatase 92 U/L (46-116) Total Protein 7.3 g/dL (6.4-8.2) Albumin 3.5 g/dL (3.4-5.0) Albumin/Globulin Ratio 0.9 (1.0-1.7) Test 08/28/17 11:43 08/28/17 17:04 Glucose (Fingerstick) 196 mg/dL (70-99) 181 mg/dL (70-99) Medications Current Medications Hydromorphone HCl (Dilaudid) 1 mg 1X ONCE IV Last administered on 08/23/17 17:24; Start 08/23/17 at 17:00; Stop 08/23/17 at 17:01; Status DC Diazepam (Valium) 5 mg 1X ONCE PO Last administered on 08/23/17 17:26; Start 08/23/17 at 17:00; Stop 08/23/17 at 17:01; Status DC Ondansetron HCl (Zofran) 4 mg 1X ONCE IV Last administered on 08/23/17 17:23 ; Start 08/23/17 at 17:00; Stop 08/23/17 at 17:01; Status DC Hydromorphone HCl (Dilaudid) 1 mg 1X ONCE IV Last administered on 08/23/17 18:17; Start 08/23/17 at 18:15; Stop 08/23/17 at 18:16; Status DC Ondansetron HCl (Zofran) 4 mg PRN Q8HRS PRN IV NAUSEA/VOMITING; Start at 18:30; Stop 08/24/17 at 08:42; Status DC Fentanyl Citrate (Fentanyl 2ml Vial) 50 mcg PRN Q2HR PRN IV PAIN Last administered on 08/24/17 10:30; Start 08/23/17 at 18:30; Stop 08/24/17 at 18 :29; Status DC Acetaminophen (Tylenol) 650 mg PRN Q4HRS PRN PO FEVER; Start 08/23/17 at 18:30 ; Stop 08/24/17 at 18:29; Status DC Diphenhydramine HCl (Benadryl) 25 mg PRN TID PRN IVP ITCHING Last administered on 08/25/17 19:55; Start 08/23/17 at 19:45; Stop 08/26/17 at 14:46; Status DC Ondansetron HCl (Zofran) 4 mg PRN Q6HRS PRN IV NAUSEA/VOMITING Last administered on 08/28/17 08:59; Start 08/24/17 at 08:45 Chlorthalidone (Thalitone) 50 mg DAILY PO Last administered on 08/27/17 08:39 ; Start 08/24/17 at 09:30 Cyclobenzaprine HCl (Flexeril) 10 mg PRN TID PRN PO MUSCLE SPASMS Last administered on 08/26/17 16:43; Start 08/24/17 at 08:45 Hydromorphone HCl (Dilaudid) 2 mg PRN Q6HRS PRN PO PAIN; Start 08/24/17 at 08: 45; Status UNV Metformin HCl (Glucophage) 1,000 mg BIDWMEALS PO Last administered on 09:05; Start 08/24/17 at 09:30 Metoprolol Tartrate (Lopressor) 25 mg BID PO Last administered on 08/28/17 09 :03; Start 08/24/17 at 09:30 Potassium Chloride (Klor-Con) 10 meq DAILY PO Last administered on 08/28/17 09:04; Start 08/24/17 at 09:30 Non-Formulary Medication 5,000 mcg [id number] PO ; Start 08/24/17 at 16:00; Status UNV Gabapentin (Neurontin) 1,200 mg QHS PO Last administered on 08/27/17 23:37; Start 08/24/17 at 21:00 Linagliptin (Tradjenta) 5 mg DAILY PO Last administered on 08/24/17 10:31; Start 08/24/17 at 09:30; Stop 08/24/17 at 18:24; Status DC Hydromorphone HCl (Dilaudid) 2 mg PRN Q3HRS PRN PO PAIN Last administered on 15:38; Start 08/24/17 at 08:45; Stop 08/24/17 at 18:24; Status DC Insulin Aspart (NovoLOG) 0-9 UNITS TIDWMEALS SQ Last administered on 12:45; Start 08/24/17 at 12:00 Dextrose (Dextrose 50%-Water Syringe) 12.5 gm PRN Q15MIN PRN IV SEE COMMENTS; Start 08/24/17 at 08:45 Diazepam (Valium) 2 mg PRN QID PRN PO ANXIETY Last administered on 08/26/17 23:57; Start 08/24/17 at 08:45 Oxycodone/ Acetaminophen (Percocet 5/325) 1 tab PRN Q4HRS PRN PO MODERATE PAIN ; Start 08/24/17 at 08:45 Oxycodone/ Acetaminophen (Percocet 10/325) 1 tab PRN Q4HRS PRN PO SEVERE PAIN; Start 08/24/17 at 08:45 Docusate Sodium (Colace) 100 mg BID PO Last administered on 08/28/17 09:05; Start 08/24/17 at 09:30 Polyethylene Glycol (miraLAX PACKET) 17 gm DAILY PO Last administered on 08:39; Start 08/24/17 at 09:30 Magnesium Hydroxide (Milk Of Magnesia) 2,400 mg PRN DAILY PRN PO CONSTIPATION; Start 08/24/17 at 08:45 Hydromorphone HCl (Dilaudid) 4 mg PRN Q3HRS PRN PO SEVERE PAIN Last administered on 08/28/17 14:28; Start 08/24/17 at 18:30 Linagliptin (Tradjenta) 5 mg DAILY PO Last administered on 08/25/17 08:45; Start 08/25/17 at 09:00; Stop 08/25/17 at 18:22; Status DC Gadobutrol (Gadavist) 7 mmol 1X ONCE IV Last administered on 08/25/17 12:33 ; Start 08/25/17 at 12:15; Stop 08/25/17 at 12:16; Status DC Fentanyl Citrate (Fentanyl 2ml Vial) 50 mcg PRN Q2HR PRN IV MODERATE PAIN Last administered on 08/27/17 17:20; Start 08/25/17 at 15:45 Linagliptin (Tradjenta) 5 mg BIDAC PO Last administered on 08/28/17 09:02; Start 08/25/17 at 18:30 Diphenhydramine HCl (Benadryl) 25 mg PRN QHS PRN PO INSOMNIA Last administered on 08/27/17 02:02; Start 08/25/17 at 21:15 Diphenhydramine HCl (Benadryl) 25 mg PRN Q6HRS PRN IVP ITCHING; Start at 21:15 Potassium Phos/ Sodium Phos (Phos-Nak) 1 pkt BID PO Last administered on 21:38; Start 08/27/17 at 10:30; Stop 08/27/17 at 21:01; Status DC Morphine Sulfate (Ms Contin) 30 mg BID PO Last administered on 08/28/17 09:03 ; Start 08/27/17 at 21:00 Potassium Chloride (Klor-Con) 80 meq 1X ONCE PO Last administered on 09:04; Start 08/28/17 at 07:00; Stop 08/28/17 at 07:01; Status DC Methylprednisolone Acetate (DEPO-Medrol 40MG VIAL) 40 mg STK-MED ONCE .ROUTE ; Start 08/28/17 at 08:00; Stop 08/28/17 at 08:02; Status DC Iohexol (Omnipaque 180 Mg/ml) 10 ml STK-MED ONCE .ROUTE ; Start 08/28/17 at 08: 01; Stop 08/28/17 at 08:02; Status DC Methylprednisolone Acetate (DEPO-Medrol 80MG VIAL) 80 mg STK-MED ONCE .ROUTE ; Start 08/28/17 at 08:01; Stop 08/28/17 at 08:02; Status DC Lidocaine HCl 48 ml/Sodium Bicarbonate 12 meq/Miscellaneous 60 ml @ 60 mls/hr 1X PERIOP ONCE ID ; Start 08/29/17 at 06:00; Stop 08/29/17 at 06:59; Status Cancel Heparin Sodium (Porcine) 5000 unit/Sodium Chloride 505 ml @ 505 mls/hr 1X PERIOP ONCE IRR ; Start 08/29/17 at 06:00; Stop 08/29/17 at 06:59; Status Cancel Active Scripts Active [Hydromorphone Hcl] 2 MG Tablet 2 Mg PO PRN Q3HRS PRN Reported Potassium Chloride 10 Meq Tablet.er 10 Meq PO DAILY Janumet 50-1,000 Mg Tablet (Sitagliptin Phos/Metformin Hcl) 1 Each Tablet 1 Tab PO BID Metoprolol Tartrate 25 Mg Tablet 1 Tab PO BID Biotin 2,500 Mcg Capsule 5,000 Mcg PO [id number] Dilaudid (Hydromorphone Hcl) 2 Mg Tablet 1 Tab PO PRN Q6HRS PRN Metformin Hcl 1,000 Mg Tablet 1 Tab PO BID Gabapentin 300 Mg Capsule 1,500 Mg PO DAILY Cyclobenzaprine Hcl 10 Mg Tablet 1 Tab PO TID PRN LAST DOSE GIVEN: DATE: 09/08 TIME: 9 am NEXT DOSE DUE: DATE: 09/09 TIME: 9 am Chlorthalidone 25 Mg Tablet 50 Mg PO DAILY LAST DOSE GIVEN: DATE: 09/08 TIME: 9 am NEXT DOSE DUE: DATE: 09/09 TIME: 9 am Vitals/I & O Vital Sign - Last 24 Hours 08/27/17 08/27/17 08/27/17 08/27/17 19:00 20:00 21:37 21:38 Temp 98.6 98.6 Pulse 94 94 Resp 18 20 B/P (MAP) 117/80 (92) 117/80 Pulse Ox 97 97 O2 Delivery Room Air Room Air Room Air 08/27/17 08/28/17 08/28/17 08/28/17 23:00 01:40 02:08 03:00 Temp 99.4 98.8 99.4 98.8 Pulse 102 85 Resp 18 18 B/P (MAP) 117/72 (87) 109/72 (84) Pulse Ox 93 93 93 94 O2 Delivery Room Air Room Air Room Air 08/28/17 08/28/17 08/28/17 08/28/17 03:10 07:00 07:54 09:03 Temp 98.4 98.4 Pulse 93 93 Resp 14 B/P (MAP) 107/78 (88) 107/78 Pulse Ox 93 96 O2 Delivery Room Air Room Air 08/28/17 08/28/17 08/28/17 08/28/17 09:03 11:00 13:30 14:28 Temp 98.9 98.9 Pulse 94 Resp 16 16 16 B/P (MAP) 110/82 (91) Pulse Ox 96 96 O2 Delivery Room Air Room Air Room Air Room Air 08/28/17 08/28/17 14:40 15:28 Temp 98.1 98.1 Pulse 88 Resp 16 16 B/P (MAP) 112/72 (85) Pulse Ox 96 O2 Delivery Room Air Intake and Output 08/27/17 08/27/17 08/28/17 15:00 23:00 07:00 Intake Total 300 ml 900 ml Balance 300 ml 900 ml KATERINE PIRES MD Aug 28, 2017 17:46
[2017-08-29] MEDS ORDERED: HEPARIN SODIUM 5,000 UNIT in IV NORMAL SALINE 500ML BAG 500 ML IRR ONE (06:00)
[2017-08-29] MEDS ORDERED: LIDOCAINE 1% PF 48 ML, SODIUM BICARBONATE VIAL 12 MEQ in TOTAL VOLUME SYRINGE 60 ML ID ONE (06:00)
== END 2017-08-28 19:34 | disposition home or self-care (01) | DRG 552 ==
LOC: ER 16:09 → 4 NORTH 18:08
PROVIDERS: ADMIT Internal Medicine; ATTEND Internal Medicine
PROC: 3E0S33Z Introduction of Anti-inflammatory into Epidural Space, Percutaneous Approach (ICD-10-PCS; principal; 2017-08-28)
PROC: 00HU33Z Insertion of Infusion Device into Spinal Canal, Percutaneous Approach (ICD-10-PCS; 2017-08-28)
DX: M47.26 Other spondylosis with radiculopathy, lumbar region (principal); E11.9 Type 2 diabetes mellitus without complications; M51.16 Intervertebral disc disorders with radiculopathy, lumbar region; E66.3 Overweight; G89.29 Other chronic pain; I10 Essential (primary) hypertension; M54.5 Low back pain; E78.5 Hyperlipidemia, unspecified; E87.6 Hypokalemia; Z90.49 Acquired absence of other specified parts of digestive tract; Z90.710 Acquired absence of both cervix and uterus; Z98.1 Arthrodesis status; Z88.8 Allergy status to other drugs, medicaments and biological substances; Z68.26 Body mass index [BMI] 26.0-26.9, adult
CPT/HCPCS: 36415; 62323; 72131; 72158; 80048; 80053; 80307; 82550; 82962; 84100; 85025; 85027; 85651; 96374; 96375; A9585; J1030; J1040; J1170; J1200; J1815; J2405; J3010; Q0163; 97116; 99285-25; G0479

== ENCOUNTER 2018-07-07 18:04 | Emergency (ER) | payer SELFPAY ==
[~2018-07-07] VITALS: Ht 167.6 cm; Wt 70.3 kg
[~2018-07-07 18:04] MED LIST changes: -METF-620 PO; +METF10007 PO; -SCOP1PAT TP; +SCOP1PAT11 TP
[2018-07-07 18:05] VITALS: BP 140/83
--- NOTE | 2018-07-07 18:59 | PHYS DOC ---
Past Medical History Past Medical History: Diabetes-Type II, Hypertension, Other Additional Past Medical Histor: CHRONIC BACK PAIN Past Surgical History: Appendectomy, Cholecystectomy, , Hysterectomy, Other Additional Past Surgical Histo: L- SPINE FUSION X 2 Alcohol Use: None Drug Use: None Adult General Chief Complaint Chief Complaint: BACK PAIN OR INJURY HPI HPI 47-year-old female presents to ER via POV for complaints of increase in her chronic back pain which started on Saturday and increased last night. Patient denies any recent falls, injury, or recent travel. Patient reports she has had chronic pain for years due to previous back surgeries. Patient reports she finished a steroid pack last week and has been on 2 additional steroid packs in the past 3 mo. Pt reports she took her prescribed hydromorphone 2 mg tablets twice today. Patient also took 1 Aleve tablet and her prescribed Flexeril 10 mg tablet at 2 PM today. Patient denies any saddle anesthesia, incontinence of bowel or bladder, or change in bowel pattern. Patient reports she had small bowel movement today. Patient denies any urinary symptoms. Patient reports she has had some pain in her right lower back extending into right buttock and down right leg with intermittent numbness and tingling. Patient denies any swelling in extremities. During this exam patient is ambulatory at bedside unassisted with steady gait. Review of Systems Review of Systems Constitutional: Denies fever or chills [] Respiratory: Denies cough or shortness of breath [] Cardiovascular: Nice chest pain or palpitations GI: Denies abdominal pain, nausea, vomiting, bloody stools or diarrhea. Denies saddle anesthesia. Reports bowel movement today regular : Denies dysuria or hematuria. Denies incontinence of bowel or bladder Musculoskeletal: Denies joint pain. Reports lower back pain with acute changes to right side lower back into headache and right upper posterior leg. Integument: Denies rash, swelling or skin lesions [] Neurologic: Denies focal weakness or sensory changes. Reports intermittent numbness and tingling radiating down the right lower extremity All other systems were reviewed and found to be within normal limits, except as documented in this note. Allergies Allergies Allergies Coded Allergies Type Severity Reaction Last Updated Verified spironolactone Allergy Intermediate Itching, RASH 08/06/17 Yes tramadol Allergy Intermediate Rash AND VOMITING 08/06/17 Yes Physical Exam Physical Exam Constitutional: Well developed, well nourished, no acute distress, non-toxic appearance. [] HENT: Normocephalic, atraumatic, oropharynx moist, nose normal. [] Eyes: pupils equal, conjunctiva normal, no discharge. [] Neck: Normal range of motion, no tenderness, supple Cardiovascular:Heart rate regular Lungs & Thorax: Resp. equal/nonlabored Abdomen: soft, no tenderness Skin: Warm, dry, no erythema, no rash. [] Back: Tender to palp. mid lumbar which she reports is chronic no acute changes- on palp. rt lower back pt reports is acute pain radiated into rt mid buttock and rt posterior upper thigh. No swelling in bilat. LEs. Steady gait- unassisted. Extremities: No cyanosis, no clubbing, ROM intact, no edema. [] Neurologic: Alert and oriented X 3, normal motor function, normal sensory function, no focal deficits noted. [] Psychologic: Affect normal, judgement normal, mood normal. [] Current Patient Data Vital Signs Vital Signs Date Time Temp Pulse Resp B/P (MAP) Pulse Ox O2 Delivery O2 Flow Rate FiO2 07/07/18 18:05 99.0 75 22 140/83 (102) 100 Room Air 99.0 EKG EKG [] Radiology/Procedures Radiology/Procedures [] Course & Med Decision Making Course & Med Decision Making Following exam on patient discussed options for treatment as patient is on hydromorphone and Flexeril which is prescribed daily from her primary care physician. Patient reports she has also land on seeing Dr. Fonseca and Dr. Michelle for additional pain management. Patient denies any incontinence of bowel or bladder, saddle anesthesia, and is noted to have steady unassisted gait during exam. Offered patient Lidoderm patch and IM toradol/norflex- patient refused this treatment stating she could apply Lidoderm patches at home. Patient did not want Toradol or Norflex. Patient was recently on multiple steroid packs so discussed other options for treatment including the Lidoderm, Toradol, and Norflex. Patient stated she wanted none of those treatments and would wait till tomorrow and see her primary care physician. During discussion patient appeared uninterested in conversation or further discussion on treatment offered. Patient began to go through her purse and did not engage in any further discussion with this provider. During exam had discussed symptoms which were needing emergent treatment including saddle anesthesia, incontinence of bowel or bladder, or change in bowel patterns. Patient stated she would follow-up with her doctors for further care. Dragon Disclaimer Dragon Disclaimer This electronic medical record was generated, in whole or in part, using a voice recognition dictation system. Departure Departure Impression: Primary Impression: Sciatica of right side Disposition: HOME, SELF-CARE Condition: STABLE Referrals: BENJAMIN STEEL DO (PCP) Patient Instructions: Chronic Back Pain, Sciatica Additional Instructions: As discussed continue your prescribed medications. Call your physician in morning to discuss further options for pain control. TRUNG ANDRADE MONUMENT LETTERER Jul 07, 2018 18:59
== END 2018-07-07 18:37 | disposition home or self-care (01) ==
LOC: ER 18:04
DX: M54.41 Lumbago with sciatica, right side (principal); G89.29 Other chronic pain; R51 Headache; Z88.5 Allergy status to narcotic agent; Z88.8 Allergy status to other drugs, medicaments and biological substances; E11.9 Type 2 diabetes mellitus without complications; I10 Essential (primary) hypertension; Z90.89 Acquired absence of other organs; Z90.49 Acquired absence of other specified parts of digestive tract; Z98.890 Other specified postprocedural states; Z90.710 Acquired absence of both cervix and uterus
CPT/HCPCS: 99281

== ENCOUNTER → 2018-07-23 | Outpatient (CLI) | payer OTHER ==
[2018-07-07 18:05] VITALS: BP 140/83
[~2018-07-23] MED LIST changes: +BUPIVACAINE MPF 0.25% 10 ML VIAL. ONE; +LIDOCAINE 2% PF Vial for OR 5 ML VIAL. ONE; +methylPREDNISolone ACETATE 40 MG/ML VIAL. ONE; +methylPREDNISolone ACETATE 80 MG/ML VIAL. ONE
--- NOTE | 2018-07-23 20:58 | PAIN ---
DATE OF SERVICE: 07/23/2018 PROGRESS NOTE FOR PAIN CLINIC DIAGNOSES: Lumbar radiculopathy with lumbar degenerative disk disease and post-lumbar laminectomy syndrome. HISTORY OF PRESENT ILLNESS: The patient is a 47-year-old female who returns for followup status post previous visit on 08/28/2017. The patient had a lumbar epidural steroid injection at that time as inpatient, did very well, reports about 75% improvement for the first 2 months, then gradually returning over time, has been getting back to baseline but not quite. The patient still reports about 50% improvement overall even several months later. The patient reports pain in the low back, right lower extremity, right anterior thigh, anterior medial thigh, medial knee and medial lower leg as well as across the low back, more on the right side than the left, becoming more constant with activity, walking, standing, changing positions. The patient reports the pain is 8 on a scale of 10 at its worst, 6 on its least and 7 on average and is a 7 today. The patient reports it is awakening her from sleep occasionally, but not every night. If she lies on her right side, becoming more severe. The patient reports that she can have tingling, which can reach all the way into the toes, mostly into the hip and leg on the right side. The patient reports it is aching, sharp, throbbing, stabbing, becoming more constant, more severe. The patient reports no loss of motor function. No new bowel or bladder incontinence. The patient has been exercising daily and walking daily as well even though the pain is significant. She is still maintaining her exercises. She has had physical therapy since her hospitalization last August and is doing the exercises from the therapy that she learned and the patient has been taking nonsteroidal anti-inflammatories, Advil and [id number] Aleve as well as Tylenol without significant improvement as well, by about 20%-25% improvement with the medications, they do help some. The patient reports no new motor or sensory deficits and no new bowel or bladder incontinence or other complaints. PHYSICAL EXAMINATION: VITAL SIGNS: Today, the patient's blood pressure is 157/116, pulse 103, respirations 18 and temperature 98.4 degrees Fahrenheit. Height is 5 feet 6 inches and weighs 157 pounds. GENERAL: The patient is awake, alert, oriented, appropriate and very pleasant demeanor. HEENT: Head shows normocephalic and atraumatic. Extraocular movements are intact and symmetrical. Oral cavity: Mucous membranes are moist and pink. Dentition is intact. NECK: Shows anterior throat supple without palpable lymphadenopathy noted. Swallow reflex symmetrical. CHEST: Shows normal on inspection. Breath sounds clear to auscultation bilaterally. HEART: Shows S1 and S2 clear. No murmurs auscultated. ABDOMEN: Soft, nontender and nondistended. No palpable organomegaly is noted. No rebound or guarding demonstrated. BACK: Shows spine grossly in the midline. Normal appearing thoracic kyphosis and some minor flattening of lumbar lordotic curvature. Well-healed surgical scar noted. Lumbar paraspinous muscle shows symmetrical on inspection, on palpation shows some moderate tenderness bilaterally but only diffusely without radiation. The patient has good rotational motion of the lumbar spine, both laterally as well as extension and flexion without significant pain reported. No tenderness at the sacroiliac regions or the sacrum. EXTREMITIES: Lower extremities show deep tendon reflexes at 1+ in the patella and tendo-calcaneus tendons. Motor exam is approximately 4 on a scale of 5 on the right dorsiflexion, extension, quadriceps and hamstring flexion and 5/5 on the left. Peripheral pulses are 1+ posterior tibia. No peripheral edema is noted bilaterally. The patient shows mild positive straight leg raise on the right at about 40 degrees, decreased with knee flexion but not relieved, left side is negative. Gaenslen's and Jacky's maneuvers are negative bilaterally as well. The patient is able to stand, stand on her toes but loses balance quickly, putting off of her weight on her right foot and walks with a slight limping favoring gait but not using any assistive devices. Does appear to favor the right lower extremity with ambulation. Options were discussed with the patient. The patient's old chart was reviewed as well as her current medication regimen updated. Current review of systems updated today as well and we will preauthorize the patient for lumbar epidural steroid injections as she did very well with this in the past with still a persistent L2-L3 dermatomal distribution radicular pain in the right lower extremity, status post physical therapy with still doing exercises on her own and walking daily, nonsteroidal anti-inflammatories as well as Tylenol, Aleve and Advil without significant reduction of pain as well and with good history of significant improvement with the epidural steroid injection last August. We will wait for preauthorization and have the patient return at that time and we will plan on lumbar epidural steroid injection on return. KIM TODD MD DR: LEXUS/adri JOB#: [id number] / [id number]
== END | disposition home or self-care (01) ==
LOC: PNCL 13:39
PROVIDERS: ATTEND Anesthesiology
DX: M51.16 Intervertebral disc disorders with radiculopathy, lumbar region (principal); M96.1 Postlaminectomy syndrome, not elsewhere classified
CPT/HCPCS: 99212; J1030; J1040; J2001; J3490

== ENCOUNTER → 2018-08-06 | Outpatient (CLI) | payer OTHER ==
[2018-07-07 18:05] VITALS: BP 140/83
[~2018-08-06] MED LIST changes: -BUPIVACAINE MPF 0.25% 10 ML VIAL. ONE; -HYDR-2758 PO; +HYDR-2761 PO; +IOHEXOL 180 MG/ML 10 ML VIAL. ONE; -LIDOCAINE 2% PF Vial for OR 5 ML VIAL. ONE; -OXYC-323 PO; -OXYC10TA45 PO; +OXYC10TA46 PO; +OXYC1TAB15 PO
--- NOTE | 2018-08-06 10:45 | PAIN ---
DATE OF SERVICE: 08/06/2018 PROGRESS NOTE FOR PAIN CLINIC DIAGNOSES: Lumbar radiculopathy with lumbar degenerative disk disease and post-lumbar laminectomy syndrome. HISTORY OF PRESENT ILLNESS: The patient is a 47-year-old female who returns for followup status post evaluation and preauthorization for lumbar epidural steroid injection. She did very well with injection she had on 08/28/2017 with about 75% improvement for many months. The patient reports that the pain is returning in the low back, right lower extremity as it was previously anterior thigh, anterior medial thigh, medial lower leg and into the ankle as well on the right side. The patient reports it is aching, sharp, shooting, radiating and reports it is a 9 on a scale of 10 at its worst, 8 on average, 6 at its least and is an 8 today. The patient reports it awakens her from sleep about every 4-5 hours. She can reposition usually get back to sleep. The patient reports initially she was doing better with walking greater distances, doing work activities, household activities as well as traveling with much greater ease and comfort. Pain is becoming more significant at this time. The patient reports no new motor or sensory deficits and no bowel or bladder incontinence. PHYSICAL EXAMINATION: VITAL SIGNS: The patient's blood pressure is 144/106, pulse 105, respirations 18 and temperature 98.5 degrees Fahrenheit. Height is 5 feet 6 inches and weighs 158 pounds. GENERAL: The patient is awake, alert, oriented, appropriate and very pleasant demeanor. HEENT: Head shows normocephalic and atraumatic. Extraocular movements are intact and symmetrical. Oral cavity: Mucous membranes are moist and pink. Dentition is intact. NECK: Shows anterior throat supple without palpable lymphadenopathy noted. Swallow reflex symmetrical. CHEST: Shows normal on inspection. Breath sounds clear to auscultation bilaterally. HEART: Shows S1 and S2 clear. No murmurs auscultated. ABDOMEN: Soft, nontender and nondistended. No palpable organomegaly is noted. No rebound or guarding demonstrated. BACK: Shows spine grossly in the midline. Normal appearing thoracic kyphosis and some minor flattening of lumbar lordotic curvature. Lumbar paraspinous musculature shows symmetrical with well-healed surgical scar and with palpation shows some moderate tenderness but only diffusely in the low lumbar distribution bilaterally without radiation. EXTREMITIES: The patient's lower extremities show deep tendon reflex is 1+ in the patella and tendo-calcaneus tendons. Motor exam is approximately 4 on a scale of 5 on the right with dorsiflexion, extension, quadriceps and hamstring flexion and 5/5 on the left. Peripheral pulses are 1+ posterior tibial. No peripheral edema bilaterally. Options were discussed with the patient. The patient's old chart was reviewed as well as her current medication regimen updated. Current review of systems updated today as well. We will proceed with a lumbar epidural steroid injection today with fluoroscopic guidance. Risks were discussed including but not limited to bleeding, infection, possibility of epidural hematoma and subsequent neurological compromise, dural puncture, headaches, spinal cord and/or nerve damage, side effects of steroid medication and poor results regarding pain control. The patient understands and wished to proceed. The patient will return to the clinic in approximately 2 weeks for followup, was counseled as to return appointment, activity level and side effects to be aware of. DIAGNOSES: Lumbar radiculopathy with lumbar degenerative disk disease and post-laminectomy syndrome. PROCEDURE: Lumbar epidural steroid injection, translaminar approach, L2-L3 level using C-arm fluoroscopic guidance under sterile prep and drape using local anesthetic. MEDICATION INJECTED: A total of 120 mg Depo-Medrol plus 10 mL of preservative-free normal saline and 2 mL of Isovue for contrast. CONDITION AT DISCHARGE: Stable. The patient tolerated the procedure well and had no complications. KIM TODD MD DR: LEXUS/adri JOB#: [id number] / [id number]
== END | disposition home or self-care (01) ==
LOC: PNCL 08:30
PROVIDERS: ATTEND Anesthesiology
DX: M51.16 Intervertebral disc disorders with radiculopathy, lumbar region (principal); M96.1 Postlaminectomy syndrome, not elsewhere classified; Z88.8 Allergy status to other drugs, medicaments and biological substances; Z88.5 Allergy status to narcotic agent
CPT/HCPCS: 62323; J1030; J1040; Q9965

== ENCOUNTER → 2018-08-27 | Outpatient (CLI) | payer OTHER ==
[~2018-08-27] MED LIST changes: -CHLO25TA PO; +CHLO25TA10 PO; -GABA-586 PO; +GABA300C18 PO
--- NOTE | 2018-08-27 18:53 | PAIN ---
DATE OF SERVICE: 08/27/2018 PROGRESS NOTE FOR PAIN CLINIC DIAGNOSIS: Lumbar radiculopathy with lumbar degenerative disk disease and post-lumbar laminectomy syndrome. HISTORY OF PRESENT ILLNESS: The patient is a 47-year-old female who returns for followup status post lumbar epidural steroid injection x 1. The patient returns reporting about 60% improvement for the first week or so, but the pain returning now in the low back and right lower extremity, mostly in the anterior aspect of the thigh, medial thigh and medial lower leg. The patient reports she has some nausea after the last injection. We spoke to her on the phone after this and that resolved after just a couple of days. We did call in some Zofran, which she used twice. The patient reports otherwise did well. No new motor or sensory deficits, no new changes. The patient reports the pain now is radiating, constant, becoming more severe, burning, aching and sharp, also some pain between the shoulder blades as well. The patient reports her pain is an 8 on a scale of 10 at its worst, average and 7 at its least and is a 7 today. The patient reports no new motor or sensory deficits, no new bowel or bladder incontinence or other complaints. PHYSICAL EXAMINATION: VITAL SIGNS: The patient's blood pressure is 135/100, pulse 114, respirations 18, temperature is degrees Fahrenheit. Height is 5 feet 6 inches, weight is 159 pounds. GENERAL: The patient is awake, alert, oriented, appropriate, very pleasant demeanor. HEENT: Head shows normocephalic, atraumatic. Extraocular movements are intact and symmetrical. Oral cavity: Mucous membranes are moist and pink. Dentition is intact. NECK: Shows anterior throat supple without palpable lymphadenopathy noted. Swallow reflex is symmetrical. CHEST: Shows normal on inspection. Breath sounds are clear to auscultation bilaterally. HEART: Shows S1, S2 clear. No murmurs auscultated. ABDOMEN: Soft, nontender, nondistended. No palpable organomegaly is noted. No rebound or guarding demonstrated. BACK: Shows spine grossly in the midline. Normal appearing thoracic kyphosis and lumbar lordotic curvature. Lumbar paraspinous muscle shows symmetrical on inspection, on palpation shows some moderate tenderness diffusely, but only in the low lumbar distribution. No tenderness with palpation of the sacrum or sacroiliac regions, but she has good rotational motion of lumbar spine, both laterally as well as extension and flexion. EXTREMITIES: Lower extremities show deep tendon reflexes at 1+ in the patellar and tendo calcaneus tendons, are equal. Motor exam is approximately 4 on a scale of 5 in the right and 5/5 on the left, but intact. Peripheral pulses are 1+ posterior tibia. No peripheral edema is noted. Options were discussed with the patient. The patient's old chart was reviewed as her current medication regimen updated. Current review of systems updated today as well. We will proceed with a second in the series of lumbar epidural steroid injection today with fluoroscopic guidance. Risks were again discussed including, but not limited to bleeding, infection, possibility of epidural hematoma, subsequent neurologic compromise, dural puncture, headaches, spinal cord and/or nerve damage, side effects of steroid medication and poor results regarding pain control. The patient understands and wished to proceed. The patient will return to the clinic in approximately 2 weeks for followup, was counseled as to return appointment, activity level and side effects to be aware of. DIAGNOSIS: Lumbar radiculopathy with lumbar degenerative disk disease and post-lumbar laminectomy syndrome. PROCEDURE: Lumbar epidural steroid injection, translaminar approach at L2-L3 level using C-arm fluoroscopic guidance under sterile prep and drape using local anesthetic. MEDICATION INJECTED: A total of 120 mg Depo-Medrol plus 10 mL of preservative-free normal saline and 2 mL of Isovue for contrast. CONDITION AT DISCHARGE: Stable. The patient tolerated the procedure well, had no complications. KIM TODD MD DR: LEXUS/adri JOB#: [id number] / [id number]
== END | disposition home or self-care (01) ==
LOC: PNCL 13:51
PROVIDERS: ATTEND Anesthesiology
DX: M51.16 Intervertebral disc disorders with radiculopathy, lumbar region (principal); M96.1 Postlaminectomy syndrome, not elsewhere classified; Z88.6 Allergy status to analgesic agent; Z88.8 Allergy status to other drugs, medicaments and biological substances; Z79.899 Other long term (current) drug therapy
CPT/HCPCS: 62323; J1030; J1040; Q9965

== ENCOUNTER → 2019-08-21 | Day surgery (SDC) | payer OTHER ==
[~2019-08-21] MED LIST changes: +DULA1.5P SQ; -IOHEXOL 180 MG/ML 10 ML VIAL. ONE; +IV RINGERS,LACTATED 1000ML 1,000 ML IV ONE; +IV RINGERS,LACTATED 1000ML 1,000 ML IV SCH; +LIDOCAINE 2% PF 5 ML VIAL. ONE; +MORP-16 PO; -MORP30TA3 PO; +OLME1TAB35 PO; -POTA10TA12 PO; +POTASSIUM CHLO10 ME1 PO; +PROPOFOL 60 ML IV ONE; +PRUC2TAB PO; -methylPREDNISolone ACETATE 40 MG/ML VIAL. ONE; -methylPREDNISolone ACETATE 80 MG/ML VIAL. ONE
[2019-08-21 11:14] VITALS: BP 115/73
--- NOTE | 2019-08-21 16:37 | CONS ---
DATE OF CONSULTATION: 08/21/2019 REFERRING PHYSICIAN: Emerson Her. HISTORY OF PRESENT ILLNESS: A 48-year-old -[place] female with past medical history significant for diabetes, GERD, hypertension, recently diagnosed sarcoidosis, is seen with persistent nausea and epigastric abdominal pain. Prior cholecystectomy, appendectomy and hysterectomy are noted. The patient states discomfort does not get worse with meals. There has been ingestion and acid regurgitation despite Tums and Zofran. With continued issues, she requests additional evaluation. She has been started on prednisone for her hepatic sarcoid involvement as well. PAST MEDICAL HISTORY: Sarcoidosis, hypertension, diabetes. ALLERGIES: SPIRONOLACTONE AND TRAMADOL. MEDICATIONS: Include cyclobenzaprine, Trulicity, gabapentin, Dilaudid, metformin, metoprolol, olmesartan, potassium chloride, prednisone, and Motegrity. FAMILY AND SOCIAL HISTORY: Significant for CVA with her father and Crohn's with a sister, diabetes with brother. Hypertension in multiple family members. PAST SURGICAL HISTORY: Appendectomy, , hysterectomy, and cholecystectomy. REVIEW OF SYSTEMS: As per records. PHYSICAL EXAMINATION: GENERAL: Reveals a well-nourished, well-developed -[place] female. VITAL SIGNS: Temperature is 97.8, pulse 94, respiratory rate 18. HEENT: Normocephalic, atraumatic head. Pupils and extraocular muscles are not tested. Sclerae anicteric. NECK: Supple. LUNGS: Clear. CARDIOVASCULAR: Reveals an S1, S2 without S3, S4 or appreciable murmur. ABDOMEN: Reveals epigastric tenderness to deep palpation without appreciable hepatosplenomegaly. EXTREMITIES: Reveals no cyanosis, clubbing or edema. IMPRESSION: Nausea and status post cholecystectomy with diabetes and sarcoidosis, etiology is to be determined, peptic ulcer disease, gastroparesis, malignancy certainly in the differential. Colorectal screening is warranted as well at this time. KALYN VELIZ MD DR: CARISSA/adri JOB#: [id number] / [id number]
== END ==
LOC: ENDOS 08:38
PROVIDERS: ATTEND Internal Medicine Gastroenterology
DX: R11.0 Nausea (principal); K29.50 Unspecified chronic gastritis without bleeding; K64.0 First degree hemorrhoids; K21.9 Gastro-esophageal reflux disease without esophagitis; K63.89 Other specified diseases of intestine; I10 Essential (primary) hypertension; E11.9 Type 2 diabetes mellitus without complications; Z90.49 Acquired absence of other specified parts of digestive tract; Z90.710 Acquired absence of both cervix and uterus; Z98.890 Other specified postprocedural states; Z88.6 Allergy status to analgesic agent; Z88.8 Allergy status to other drugs, medicaments and biological substances; Z79.84 Long term (current) use of oral hypoglycemic drugs
CPT/HCPCS: 43235; 45378; 82962; J2001; J2704

== ENCOUNTER → 2020-11-25 | Outpatient (CLI) | payer SELFPAY ==
[2019-08-21 11:14] VITALS: BP 115/73
[~2020-11-25] MED LIST changes: -IV RINGERS,LACTATED 1000ML 1,000 ML IV ONE; -IV RINGERS,LACTATED 1000ML 1,000 ML IV SCH; -LIDOCAINE 2% PF 5 ML VIAL. ONE; -PROPOFOL 60 ML IV ONE
--- NOTE | 2020-11-25 16:01 | KCIC ---
EXAMINATION: Magnetic resonance imaging (MRI) of the lumbar spine without contrast 11/25/2020 12:45 PM HISTORY: Low back pain. TECHNIQUE: Multiplanar multi-weighted MRI of the lumbar spine was performed without intravenous contr ast using the standard lumbar spine protocol. Contrast information: None administered. COMPARISON: 08/25/2017. FINDINGS: There is 2 mm retrolisthesis of L2 on L3. Posterior and interbody fusion is identified at L3-L4 with bilateral pedicle screws and dual rods. Conus medullaris terminates at L1. Distal spinal cord signal intensity is normal in all sequences. There is mild disc height loss at L2-3. Mild disc height loss a t L5-S1 with annular fissure and disc desiccation. There is annular fissure at L4-L5. Vertebral body heights are maintained. Marrow signal intensity is normal in all sequences. Normal aorta is normal in course and caliber. No suspicious retroperitoneal abnormality is identified. Visualized portions of the sacrum appear intact. L1-L2: Disc is normal in configuration. No significant facet arthropathy. No neuroforaminal or spinal canal stenosis. L2-L3: There is a circumferential disc bulge. There is partial retraction of the previously seen left subarticular and foraminal disc extrusion. Mild facet arthropathy ligamentum flavum infolding. Mild bilateral neuroforaminal stenosis. Mild spinal canal stenosis. L3-L4: This level is fused. Right hemilaminectomy and facetectomy changes are identified. No residual spinal canal or neuroforaminal stenosis. L4-L5: Mild disc bulge with central disc protrusion. Mild facet arthropathy. Mild bilateral neurofora rex stenosis. Mild spinal canal stenosis, exacerbated by epidural lipomatosis. L5-S1: There is mild disc bulge with right central disc protrusion extending into the right subarticu lar recess. Mild facet arthropathy. No neuroforaminal stenosis. Right lateral recess stenosis. No spi nal canal stenosis. IMPRESSION: 1. Posterior and interbody fusion identified at L3-L4 without evidence for hardware failure. Right he milaminectomy and facetectomy changes are identified. No residual neuroforaminal or spinal canal sten osis. 2. Mild degenerative changes of the lumbar spine, as described in detail above. Partial retraction of the left subarticular and foraminal disc extrusion seen previously on 08/25/2017 at the L2-L3 level. Electronically signed by: Lillian Orellana MD (11/25/2020 3:59 PM) [id number]
== END ==
LOC: KCIC MRI 12:27
PROVIDERS: ATTEND Neurological Surgery
DX: M47.26 Other spondylosis with radiculopathy, lumbar region (principal)
CPT/HCPCS: 72148

== ENCOUNTER → 2021-04-13 | Outpatient (CLI) | payer MEDICARE ==
[2019-08-21 11:14] VITALS: BP 115/73
--- NOTE | 2021-04-13 16:37 | KCIC ---
MRI of the cervical spine without contrast 04/13/2021 CLINICAL HISTORY: Cervical radiculopathy. TECHNIQUE: Unenhanced T1-weighted, T2-weighted and inversion recovery sagittal and gradient echo and T2-weighted axial images of the cervical spine were obtained. FINDINGS: Comparison study is dated 12/16/2016. Minimal lateral curvature of the cervical spine is seen convex to the right. There is slight reversal the normal cervical lordosis. Degenerative signal changes are seen involving all the disks of the ce rvical spine. Degenerative signal changes are seen within the marrow surrounding these discs. A 8mm h emangioma seen involving the C7 vertebral body. No area of abnormal signal intensity is seen involvin g the cervical spinal cord. At the C2-3, C3-4, C4-5 and C5-6 disc spaces there are minimal to mild generalized disc bulges. Degen erative changes are seen involving the uncovertebral and facet joints bilaterally. These findings do not result in significant central spinal canal or neural foraminal stenosis. At the C6-7 disc space there is a moderate generalized disc bulge. Superimposed on this disc bulge is a focal central disc osteophyte complex. This measures 4 mm in AP diameter. Degenerative changes are seen involving the uncovertebral and facet joints, left greater than right. These findings efface th e anterior CSF resulting in mild central spinal canal stenosis without significant cord impingement. Mild left neural foraminal stenosis is seen. The right neural foramen is patent. At the C7-T1 disc space there is a mild generalized disc bulge. Degenerative changes are seen involvi ng the facet joints bilaterally. These findings do not result in significant central spinal canal or neural foraminal stenosis. IMPRESSION: Degenerative changes are seen throughout the cervical spine. These findings result in mil d central spinal canal stenosis with mild left neural foraminal stenosis without evidence of cord imp ingement at C6-7. Electronically signed by: Waqas Lopez MD (04/13/2021 4:34 PM) [id number]
--- NOTE | 2021-04-13 16:56 | KCIC ---
MRI of the lumbar spine without contrast 04/13/2021 CLINICAL HISTORY: Low back pain which radiates down the right leg. TECHNIQUE: Unenhanced T1-weighted and T2-weighted sagittal and axial and inversion recovery sagittal images of the lumbar spine were obtained. FINDINGS: Comparison study is dated 11/25/2020. Minimal S-shaped curvature of the thoracolumbar spine is seen. The patient is partial discectomy and fusion using pedicle screws, stabilizing rods and bone graft material at L3-4. Degenerative signal ch anges are seen involving all the disks of the lumbar spine. Degenerative signal changes are seen with in the marrow surrounding these discs. The conus medullaris is normal morphology, position, and signa l characteristics. The L1-2 disc space there is a mild generalized disc bulge. Degenerative changes are seen involving t he facet joints bilaterally. These findings do not result in significant central spinal canal or neur al foraminal stenosis. At the L2-3 disc space there is a mild to moderate generalized disc bulge. This is eccentric to the r ight. Degenerative changes are seen involving the facet joints bilaterally. There is moderate ligamen lina flavum hypertrophy bilaterally. These findings when combined result in mild central spinal canal stenosis. No neural foraminal stenosis is seen. At the L3-4 disc space there is a mild generalized disc bulge. Degenerative changes are seen involvin g the facet joints bilaterally. There is mild to moderate left ligamentum flavum hypertrophy. The pat ient is post right lateral hemilaminotomy. These findings do not result in significant central spinal canal or neural foraminal stenosis. At the L4-5 disc space there is a mild generalized disc bulge. Superimposed on this disc bulge is a c entral/left paracentral focal disc protrusion. This measures 4 mm in AP diameter. Degenerative change s are seen involving the facet joints bilaterally. There is moderate ligamentum flavum hypertrophy bi laterally. There are small facet joint effusions bilaterally. These findings when combined result in mild to moderate left greater than right central spinal canal stenosis. No neural foraminal stenosis is seen. At the L5-S1 disc space there is a mild generalized disc bulge. Superimposed on this disc bulge is a right paracentral focal disc herniation which extrudes superiorly and laterally. This measures 1.3 x 0.9 x 0.6 cm in craniocaudal, transverse and AP dimensions. Degenerative changes are seen involving t he facet joints bilaterally. There is moderate ligamentum flavum hypertrophy bilaterally. These findi ngs when combined result in mild to moderate right greater than left central spinal canal stenosis. T he disc herniation displaces the right S1 nerve root within the right lateral aspect of the central s tarsha canal. Mild to moderate right neural foraminal stenosis is seen. The extruded disc fragment May abut the right L5 nerve root within the right lateral aspect of the neural foramen. The left neural foramen is patent. The disc herniation at L5-S1 is new since the previous examination. IMPRESSION: 1. . Post right lateral hemilaminotomy and fusion at L3-4. 2. The changes of degenerative disc disease are seen throughout the lumbar spine. These findings resu lt in mild central spinal canal stenosis at L2-3., Mild to moderate left greater than right central s tarsha canal stenosis at L4-5 and mild to moderate right greater than left central spinal canal stenos is at L5-S1. At the L5-S1 disc space a right paracentral focal disc herniation is seen which extrudes superiorly and laterally this is new since the previous examination. It contributes to mild to moder ate right neural foraminal stenosis and may abut the right L5 nerve root within the right neural fora men. Electronically signed by: Waqas Lopez MD (04/13/2021 4:53 PM) [id number]
== END ==
LOC: KCIC MRI 12:41
PROVIDERS: ATTEND Physician Assistant
DX: M51.16 Intervertebral disc disorders with radiculopathy, lumbar region (principal); M48.07 Spinal stenosis, lumbosacral region; M51.27 Other intervertebral disc displacement, lumbosacral region; M43.8X5 Other specified deforming dorsopathies, thoracolumbar region; M47.817 Spondylosis without myelopathy or radiculopathy, lumbosacral region; M46.07 Spinal enthesopathy, lumbosacral region; M47.22 Other spondylosis with radiculopathy, cervical region; M48.02 Spinal stenosis, cervical region; M43.8X2 Other specified deforming dorsopathies, cervical region; D18.09 Hemangioma of other sites; M50.13 Cervical disc disorder with radiculopathy, cervicothoracic region
CPT/HCPCS: 72141; 72148

== ENCOUNTER → 2021-05-10 | Outpatient (CLI) | payer MEDICARE ==
[2019-08-21 11:14] VITALS: BP 115/73
[~2021-05-10] MED LIST changes: +IOHEXOL 180 MG/ML 10 ML VIAL. ONE; +PRED5TAB PO; +PROM12.554 RC; -SCOP1PAT11 TP; +SCOP1PAT12 TP; +SEMA1PEN3 SQ; +methylPREDNISolone ACETATE 80 MG/ML VIAL. ONE
--- NOTE | 2021-05-10 15:35 | PDOC ---
Progress Note - Pain Clinic Date of Service: DOS: DATE: 05/10/21 TIME: 15:31 Diagnosis: Dx: Lumbar radiculopathy with lumbar degenerative disease lumbar postlaminectomy syndrome and lumbosacral herniated disc History or Present Illness: HPI: 50-year-old female returns with complaints of low back and right greater than left lower extremity pain increasing over the past 6 months or so. Patient has been through lumbar fusion in 2014 with instrumentation at the L3-4 level with initially good results but the pain returning in the low back which she responded well with lumbar epidural steroid injections into 2017 but the pain is returning now and is different is in the low back and the right lower extremity posterior gluteus posterior thigh posterior calf posterior ankle into the foot and toes on both feet and the lateral aspect of the lateral 3 toes. Reports the pain in the back is aching and dull shooting in the lower extremity mostly on the right side tingling and burning severe radiating and tight in the low back patient reports her pain is 8 on scale 10 is worst 8 on average 6 its least is an 8 today. Patient has been seeing a chiropractor twice a week which she feels does help to some extent but does not keep the pain away completely patient reports it wakes her from sleep occasionally but not every night reports no loss of motor function significant fatigability the right leg and weakness with walking more than about 15 minutes. Patient reports is better with sitting or lying down but again is waking her from sleep most nights. Patient have new MRI scan showing significant change of L5-S1 disc herniation with a right paracentral focal disc herniation extruding superiorly and laterally. Physical Exam: VS: Blood pressure is a little over 60 pulse 93 respiration 16 temperature 98.1 F height is 5 feet 6 inches weight is 148 pounds PE: PHYSICAL EXAMINATION: GENERAL: The patient is awake, alert, oriented, appropriate, very pleasant in demeanor. HEENT: Shows normocephalic, atraumatic. Extraocular movements are intact and symmetrical. Oral cavity: Mucous membranes moist and pink. Dentition is intact. NECK: Shows anterior throat supple without palpable lymphadenopathy noted. Swallow reflex symmetrical. CHEST: Shows normal on inspection. Breath sounds are clear bilaterally, no rales rhonchi wheezes auscultated. HEART: Shows S1, S2 clear. No murmurs auscultated. ABDOMEN: Soft, nontender, nondistended. No palpable organomegaly is noted. BACK: Shows spine grossly in the midline. Normal-appearing cervical lordotic curvature. There is slightly increased thoracic kyphosis, some minor flattening of the lumbar lordotic curvature. Well-healed surgical scarring is noted in the lumbar distribution once again lumbar paraspinous muscles show symmetrical on inspection, on palpation shows some moderate tenderness diffusely throughout the upper, middle and lower distribution of the paraspinous muscles, but without specific trigger points, without radiation of pain. The patient has good rotational motion of the lumbar spine, both laterally as well as extension and flexion without significant difficulty. No tenderness over the spinous processes, sacrum or sacroiliac regions. EXTREMITIES: Lower extremities show deep tendon reflexes 1+ in the patellar and tendo calcaneus tendons. Motor exam is 4 on a scale of 5 with right dorsiflexion, extension, quadriceps and hamstring flexion and 5/5 on the left. Peripheral pulses are 1 posterior tibial. No peripheral edema is noted bilatera lly. Lower extremities are warm and dry to touch, equal in color and appearance. SKIN: Shows warm and dry, good turgor. No edema. No sores, rashes or bruising throughout. Procedure: Procedure: Options were discussed with the patient. Patient chart reviews her current medication regimen updated current review of systems updated today as well. We will proceed with a lumbar epidural steroid injection today with fluoroscopic guidance. Risks were discussed including but not limited to: Bleeding, infection, possibility of epidural hematoma and subsequent neurological compromise, dural puncture, headaches, spinal cord and/or nerve damage, side effects of steroid medication, and poor results regarding pain control. Patient understands and wished to proceed. Return to clinic in approximate 2 weeks for follow-up, was counseled as to return appointment, activity level, and side effects to be aware of. Medication Injected: Med Injected: Procedure is lumbar epidural steroid injection under local anesthetic using sterile prep and drape at the L5-S1 level using C-arm fluoroscopic guidance in both AP and lateral views medications injected is 120 mg Depo-Medrol +10mL preservative-free normal saline and 2 mL contrast- condition at discharge is stable patient tolerated procedure well had no complications. Condition at Discharge: Condition at Discharge: Condition at discharge stable, patient alert the procedure well and had no complications. KIM TODD MD May 10, 2021 15:35
--- NOTE | 2021-05-10 15:36 | PDOC4 ---
Procedure Note: ICD 10 Code: ICD 10 Code: M54.17 M51.87 M 96.1 M51.26 Procedure Note: Patient was consented for lumbar epidural steroid injection with fluoroscopic guidance. Risks were discussed including but not limited to: Bleeding, infection, possibility of epidural hematoma and subsequent neurological compromise, dural puncture, headaches, spinal cord and/or nerve damage, side effects of steroid medication, and poor results regarding pain control. Patient understands and wished to proceed. Procedure is lumbar epidural steroid injection under local anesthetic using sterile prep and drape at the L5-S1 level using C-arm fluoroscopic guidance in both AP and lateral views medications injected is 120 mg Depo-Medrol +10mL preservative-free normal saline and 2 mL contrast- condition at discharge is stable patient tolerated procedure well had no complications. KIM TODD MD May 10, 2021 15:36
== END | disposition home or self-care (01) ==
LOC: PNCL 14:45
PROVIDERS: ATTEND Anesthesiology
DX: M51.16 Intervertebral disc disorders with radiculopathy, lumbar region (principal); M96.1 Postlaminectomy syndrome, not elsewhere classified; I10 Essential (primary) hypertension; E78.00 Pure hypercholesterolemia, unspecified; G47.30 Sleep apnea, unspecified; K21.9 Gastro-esophageal reflux disease without esophagitis; M19.90 Unspecified osteoarthritis, unspecified site; E11.9 Type 2 diabetes mellitus without complications; Z86.73 Personal history of transient ischemic attack (TIA), and cerebral infarction without residual deficits; Z90.49 Acquired absence of other specified parts of digestive tract; Z90.710 Acquired absence of both cervix and uterus; Z98.890 Other specified postprocedural states; Z79.899 Other long term (current) drug therapy; Z88.8 Allergy status to other drugs, medicaments and biological substances; Z82.49 Family history of ischemic heart disease and other diseases of the circulatory system
CPT/HCPCS: 62323; J1040; Q9965

== ENCOUNTER → 2021-12-26 | Outpatient (CLI) | payer MEDICARE ==
[2019-08-21 11:14] VITALS: BP 115/73
[~2021-12-26] MED LIST changes: +CYCL10TA19 PO; -CYCL10TA2 PO; +DEXAMETHASONE PRES.FREE 10 MG/ML VIAL. ONE; +GOLI50VI IV; -methylPREDNISolone ACETATE 80 MG/ML VIAL. ONE
--- NOTE | 2021-12-26 13:15 | PDOC ---
Progress Note - Pain Clinic Date of Service: DOS: DATE: 12/26/21 TIME: 13:11 Diagnosis: Dx: Lumbar radiculopathy with lumbar degenerative disease and lumbar postlaminectomy syndrome with lumbar herniated disc. History or Present Illness: HPI: 51-year-old female returns last seen May 2021 patient did very well with lumbar epidural steroid injection with pain returning now over the past month or so patient reports prior to that about 80% improvement for 6 months following the last injection the pain now returning also has a pain in her right shoulder which is new and does have an orthopedic consultation scheduled but is not been performed yet patient reports her main complaint however is low back pain rating the right lower extremity posterior gluteus posterior thigh posterior calf lateral calf and posterior lateral anterior aspect of the foot with some increased weakness and fatigability in the right leg with walking and standing patient has recently seen her neurosurgeon who is recommending conservative treatment at this time and not further surgery patient rates her pain as 8 over 10 is worse over the past week 8 on average 6 its least and is a 7 today patient reports it is worse with walking standing changing positions described as aching and dull in the back tight in the leg radiating the right lower extremity can be unbearable on and off in intensity. Patient reports it wakes her from sleep about every 5-6 hours or so she can use repositioning it back to sleep. Patient reports no bowel or bladder incontinence but significant pain in the right lower extremity. Physical Exam: VS: Blood pressure is 138/83 pulse 98 respirations 18 temperature 99.1 F height 5 feet 6 inches weight is 147 pounds. PE: PHYSICAL EXAMINATION: GENERAL: The patient is awake, alert, oriented, appropriate, very pleasant in demeanor HEENT: Shows normocephalic, atraumatic. Extraocular movements are intact and symmetrical. Oral cavity: Mucous membranes moist and pink. Dentition is intact. NECK: Shows anterior throat supple without palpable lymphadenopathy noted. Swallow reflex symmetrical. CHEST: Shows normal on inspection. Breath sounds are clear bilaterally, no rales rhonchi or wheezes auscultated. HEART: Shows S1, S2 clear. No murmurs auscultated. ABDOMEN: Soft, nontender, nondistended. No palpable organomegaly is noted. BACK: Shows spine grossly in the midline. Normal-appearing cervical lordotic curvature. There is slightly increased thoracic kyphosis, some flattening of the lumbar lordotic curvature with well-healed surgical scarring noted. Lumbar paraspinous muscles show symmetrical on inspection, on palpation shows some moderate tenderness diffusely throughout the upper, middle and lower distribution of the paraspinous muscles, without specific trigger points, without radiation of pain. The patient has good rotational motion of the lumbar spine, both laterally as well as extension and flexion without significant difficulty. No tenderness over the spinous processes, sacrum or sacroiliac regions. EXTREMITIES: Lower extremities show deep tendon reflexes 1+ in the patellar and tendo calcaneus tendons. Motor exam is 4 on a scale of 5 with right dorsiflexion, extension, quadriceps and hamstring flexion and 5/5 on the left. Peripheral pulses are 1+ posterior tibial. No peripheral edema is noted bilaterally. Lower extremities are warm and dry to touch, equal in color and appearance. SKIN: Shows warm and dry, good turgor. No edema. No sores, rashes or bruising throughout. Procedure: Procedure: Options discussed with the patient. Patient's old chart was reviewed as her current medication regimen updated, and current review of systems updated today as well. We will proceed with a lumbar epidural steroid injection today with fluoroscopic guidance. Risks were discussed including but not limited to: Bleeding, infection, possibility of epidural hematoma and subsequent neurological compromise, dural puncture, headaches, spinal cord and/or nerve damage, side effects of steroid medication, and poor results regarding pain control. Patient understands and wished to proceed. Patient will return to the clinic in approximately 2 weeks for follow-up, was counseled as to return appointment, activity level, and side effect to be aware of. With regard to patient's shoulder, patient will follow up with customer management specialist and work-up once completed we will follow-up regarding those findings. Medication Injected: Med Injected: Procedure is lumbar epidural steroid injection under local anesthetic using sterile prep and drape at the L5-S1 level using C-arm fluoroscopic guidance in both AP and lateral views medications injected is 120 mg methylprednisolone +10mL preservative-free normal saline and 2 mL contrast- condition at discharge is stable patient tolerated procedure well had no complications. Condition at Discharge: Condition at Discharge: Condition at discharge stable, patient Stefano the procedure well and had no complications. KIM TODD MD Dec 26, 2021 13:14
--- NOTE | 2021-12-26 13:15 | PDOC4 ---
Procedure Note: ICD 10 Code: ICD 10 Code: M54.17 M51.87 M96.1 Procedure Note: Patient was consented for lumbar epidural steroid injection with fluoroscopic guidance. Risks were discussed including but not limited to: Bleeding, infection, possibility of epidural hematoma and subsequent neurological compromise, dural puncture, headaches, spinal cord and/or nerve damage, side effects of steroid medication, and poor results regarding pain control. Patient understands and wished to proceed. Procedure is lumbar epidural steroid injection under local anesthetic using sterile prep and drape at the L5-S1 level using C-arm fluoroscopic guidance in both AP and lateral views medications injected is 120 mg methylprednisolone +10mL preservative-free normal saline and 2 mL contrast- condition at discharge is stable patient tolerated procedure well had no complications. KIM TODD MD Dec 26, 2021 13:15
== END | disposition home or self-care (01) ==
LOC: PNCL 11:52
PROVIDERS: ATTEND Anesthesiology
DX: M51.16 Intervertebral disc disorders with radiculopathy, lumbar region (principal); M96.1 Postlaminectomy syndrome, not elsewhere classified; I10 Essential (primary) hypertension; E78.00 Pure hypercholesterolemia, unspecified; G47.30 Sleep apnea, unspecified; K21.9 Gastro-esophageal reflux disease without esophagitis; M19.90 Unspecified osteoarthritis, unspecified site; E11.9 Type 2 diabetes mellitus without complications; Z90.49 Acquired absence of other specified parts of digestive tract; Z90.710 Acquired absence of both cervix and uterus; Z98.890 Other specified postprocedural states; Z79.899 Other long term (current) drug therapy; Z88.8 Allergy status to other drugs, medicaments and biological substances
CPT/HCPCS: 62323; J1100; Q9965

== ENCOUNTER → 2022-01-09 | Outpatient (CLI) | payer MEDICARE ==
[2019-08-21 11:14] VITALS: BP 115/73
[~2022-01-09] MED LIST changes: -DEXAMETHASONE PRES.FREE 10 MG/ML VIAL. ONE; -IOHEXOL 180 MG/ML 10 ML VIAL. ONE
--- NOTE | 2022-01-09 14:39 | PDOC ---
Progress Note - Pain Clinic Date of Service: DOS: DATE: 01/09/22 TIME: 14:36 Diagnosis: Dx: Lumbar radiculopathy with lumbar degenerative disease and lumbar postlaminectomy syndrome with lumbar herniated disc History or Present Illness: HPI: 51-year-old female returns for follow-up status post lumbar epidural steroid injection x1. Patient reports about 80% improvement for the first 2 weeks and the pain returning now to about a 50% improvement overall still with pain in the low back into the right lower extremity posterior gluteus posterior thigh posterior calf and into the foot patient reports is worse with walking standing changing positions for the first 2 weeks that she was increase her activity with greater distance walking doing household activities work activities travel with greater ease and comfort sleeping better at night now is beginning to awaken her from sleep once again. Patient had done physical therapy and is still doing the physical therapy exercises over the past several months which helps day today but not taking care of the pain completely patient reports is beginning to wake her from sleep once again while it was doing better though she was taking much less oral analgesics Tylenol as well as ibuprofen. Patient reports that now she is beginning to take these once again as the pain is returning in a radicular fashion in the right lower extremity following an L4-5 S1 dermatomal dist ribution. Patient reports no bowel or bladder incontinence no loss of motor function with significant fatigability of the right lower extremity with walking and standing. Patient describes as aching and sharp in the back dull in the back tight in the leg cramping in the leg radiating constant can be unbearable with walking and standing. No bowel or bladder incontinence. Physical Exam: VS: Blood pressure is 137/98 pulse 93 respirations 18 temperature 98.1 F height is 5 inches weight is 148 pounds. PE: PHYSICAL EXAMINATION: GENERAL: The patient is awake, alert, oriented, appropriate, very pleasant in demeanor HEENT: Shows normocephalic, atraumatic. Extraocular movements are intact and symmetrical. Oral cavity: Mucous membranes moist and pink. Dentition is intact. NECK: Shows anterior throat supple without palpable lymphadenopathy noted. Swallow reflex symmetrical. CHEST: Shows normal on inspection. Breath sounds are clear bilaterally. HEART: Shows S1, S2 clear. No murmurs auscultated. ABDOMEN: Soft, nontender, nondistended. No palpable organomegaly is noted. BACK: Shows spine grossly in the midline. Normal-appearing cervical lordotic curvature. There is slightly increased thoracic kyphosis, some minor flattening of the lumbar lordotic curvature with well-healed surgical scar noted. Lumbar paraspinous muscles show symmetrical on inspection, on palpation shows some moderate tenderness diffusely throughout the upper, middle and lower distributio n of the paraspinous muscles without specific trigger points, without radiation of pain. The patient has good rotational motion of the lumbar spine, both laterally as well as extension and flexion without significant difficulty. No tenderness over the spinous processes, sacrum or sacroiliac regions. EXTREMITIES: Lower extremities show deep tendon reflexes 2+ in the patellar and tendo calcaneus tendons. Motor exam is 4 on a scale of 5 with right dorsiflexion, extension, quadriceps and hamstring flexion and 5/5 on the left. Peripheral pulses are 1+ posterior tibial. No peripheral edema is noted bilaterally. Lower extremities are warm and dry to touch, equal in color and appearance. Straight leg raise noted to be positive on the right at approximate 40 degrees, decreased with knee flexion left side is negative. SKIN: Shows warm and dry, good turgor. No edema. No sores, rashes or bruising throughout. Procedure: Procedure: Options were discussed with the patient. Patient's old chart was reviewed as her current medication regimen updated current review of systems updated today as well. We will preauthorize patient for second lumbar epidural steroid injection she did very well after the first injection but pain returning in a radicular fashion following an L5-S1 dermatomal distribution on the right. Patient continue with stretching and strengthening exercises from physical therapy as well as oral analgesics as necessary. Once approved, patient will return to clinic for fluoroscopic guided interlaminar L5-S1 lumbar epidural steroid injection. Medication Injected: Med Injected: None Condition at Discharge: Condition at Discharge: Condition at discharge is stable. KIM TODD MD January 09, 2022 14:39
== END | disposition home or self-care (01) ==
LOC: PNCL 13:52
PROVIDERS: ATTEND Anesthesiology
DX: M51.16 Intervertebral disc disorders with radiculopathy, lumbar region (principal); M96.1 Postlaminectomy syndrome, not elsewhere classified; I10 Essential (primary) hypertension; E78.00 Pure hypercholesterolemia, unspecified; M19.90 Unspecified osteoarthritis, unspecified site; K21.9 Gastro-esophageal reflux disease without esophagitis; E11.9 Type 2 diabetes mellitus without complications; Z90.49 Acquired absence of other specified parts of digestive tract; Z98.890 Other specified postprocedural states; Z79.899 Other long term (current) drug therapy
CPT/HCPCS: 99212; G0463

== ENCOUNTER → 2022-01-26 | Outpatient (CLI) | payer MEDICARE ==
[2019-08-21 11:14] VITALS: BP 115/73
[~2022-01-26] MED LIST changes: +IOHEXOL 180 MG/ML 10 ML VIAL. ONE
--- NOTE | 2022-01-26 11:02 | PDOC ---
Progress Note - Pain Clinic Date of Service: DOS: DATE: 01/26/22 TIME: 11:00 Diagnosis: Dx: Lumbar radiculopathy with lumbar degenerative disc disease and lumbar postlaminectomy syndrome with lumbar herniated disc History or Present Illness: HPI: 51-year-old female returns for follow-up status post lumbar epidural steroid injection x1 with about 70% improvement patient reports the pain is now about 50% improved overall in the low back and right lower extremity some in the left as well but mostly just on the right patient reports an 8 on scale 10 is worse over the past week 7-8 on average 7 its least is a 7 today patient report is aching and sharp radiating bowled burning constant severe some on the left side now as well which mostly which has been on the right side in the past but on and off in intensity no motor or sensory deficits no loss of function but significant fatigue of both lower extremities just more fatigued on the right side than the left. Patient reports it wakes her from sleep frequently does affect her bowel bladder control no overt motor loss but again significant fatigability with activity standing walking and changing positions. Physical Exam: VS: Blood pressure is 133/93 pulse 93 respirations 18 temperature 98.0 F height 5 feet 5 inches weight is 145 pounds. PE: PHYSICAL EXAMINATION: GENERAL: The patient is awake, alert, oriented, appropriate, very pleasant in demeanor HEENT: Shows normocephalic, atraumatic. Extraocular movements are intact and symmetrical. Oral cavity: Mucous membranes moist and pink. Dentition is intact. NECK: Shows anterior throat supple without palpable lymphadenopathy noted. Swallow reflex symmetrical. CHEST: Shows normal on inspection. Breath sounds are clear bilaterally. HEART: Shows S1, S2 clear. No murmurs auscultated. ABDOMEN: Soft, nontender, nondistended. No palpable organomegaly is noted. BACK: Shows spine grossly in the midline. Normal-appearing cervical lordotic curvature. There is slightly increased thoracic kyphosis, flattening of the lumbar lordotic curvature with well-healed surgical scarring noted. Lumbar paraspinous muscles show symmetrical on inspection, on palpation shows some moderate tenderness diffusely throughout the upper, middle and lower distribu tion of the paraspinous muscles without specific trigger points, without radiation of pain. The patient has good rotational motion of the lumbar spine, both laterally as well as extension and flexion without significant difficulty. EXTREMITIES: Lower extremities show deep tendon reflexes 1+ in the patellar and tendo calcaneus tendons. Motor exam is 4 on a scale of 5 with right dorsiflexion, extension, quadriceps and hamstring flexion and 5/5 on the left. Peripheral pulses are 1+ posterior tibial. No peripheral edema is noted bilaterally. Lower extremities are warm and dry. SKIN: Shows warm and dry, good turgor. No edema. No sores, rashes or bruising throughout. Procedure: Procedure: Options were discussed with the patient. Patient's old chart was use her current medication regimen updated current review of systems updated today as well. We will proceed with a lumbar epidural steroid injection today with fluoroscopic guidance. Risks were discussed including but not limited to: Bleeding, infection, possibility of epidural hematoma and subsequent neurological compromise, dural puncture, headaches, spinal cord and/or nerve damage, side effects of steroid medication, and poor results regarding pain control. Patient understands and wished to proceed. Patient will return to clinic in approximately 2 weeks for follow-up, was counseled as return ap pointment, activity level, and side effect to be aware of. Medication Injected: Med Injected: Procedure is lumbar epidural steroid injection under local anesthetic using sterile prep and drape at the L4-5 level using C-arm fluoroscopic guidance in both AP and lateral views medications injected is 20 mg dexamethasone +10mL preservative-free normal saline and 2 mL contrast- condition at discharge is stable patient tolerated procedure well had no complications. Condition at Discharge: Condition at Discharge: Condition at discharge stable, patient tolerated the procedure well and had no complications. KIM TODD MD January 26, 2022 11:02
--- NOTE | 2022-01-26 11:03 | PDOC4 ---
Procedure Note: ICD 10 Code: ICD 10 Code: M54.16 M51.36 M96.1 Procedure Note: Patient was consented for lumbar epidural steroid injection with fluoroscopic guidance. Risks were discussed including but not limited to: Bleeding, infection, possibility of epidural hematoma and subsequent neurological compromise, dural puncture, headaches, spinal cord and/or nerve damage, side effects of steroid medication, and poor results regarding pain control. Patient understands and wished to proceed. Procedure is lumbar epidural steroid injection under local anesthetic using sterile prep and drape at the L4-5 level using C-arm fluoroscopic guidance in both AP and lateral views medications injected is 20 mg dexamethasone +10mL preservative-free normal saline and 2 mL contrast- condition at discharge is stable patient tolerated procedure well had no complications. KIM TODD MD January 26, 2022 11:03
== END | disposition home or self-care (01) ==
LOC: PNCL 10:02
PROVIDERS: ATTEND Anesthesiology
DX: M51.16 Intervertebral disc disorders with radiculopathy, lumbar region (principal); M96.1 Postlaminectomy syndrome, not elsewhere classified; I10 Essential (primary) hypertension; E78.00 Pure hypercholesterolemia, unspecified; K21.9 Gastro-esophageal reflux disease without esophagitis; M19.90 Unspecified osteoarthritis, unspecified site; E11.9 Type 2 diabetes mellitus without complications; G47.30 Sleep apnea, unspecified; Z90.49 Acquired absence of other specified parts of digestive tract; Z90.710 Acquired absence of both cervix and uterus; Z98.890 Other specified postprocedural states; Z79.899 Other long term (current) drug therapy; Z88.8 Allergy status to other drugs, medicaments and biological substances
CPT/HCPCS: 62323; Q9965